=== PATIENT | female | born 1950 | race Caucasian/White ===

== ENCOUNTER → 2023-09-21 | Outpatient (CLI) | payer MEDICARE, OTHER, SELFPAY ==
--- NOTE | 2023-09-21 08:50 | ECHOCS_ITS ---
Reason For Study: A. fib Procedure This was a 2D Doppler, Color Flow transthoracic echocardiogram. The study was technically difficult. Exam performed in department. Left Ventricle Normal LV size. Left ventricular systolic function is normal. The estimated ejection fraction is 65 %. No regional wall motion abnormalities noted. Right Ventricle Normal RV size. Normal systolic function. Atria The left atrium is moderately enlarged. Normal right atrium. Mitral Valve Normal mitral valve. Mild (1+) mitral valve insufficiency. Tricuspid Valve Normal tricuspid valve. Mild (1+) tricuspid valve insufficiency. Pulmonary artery systolic pressure is 43 mmHg. Aortic Valve Trisinus/trileaflet aortic valve. Mild focal aortic valve calcification. Mild (1+) aortic valve insufficiency. Pulmonic Valve The pulmonic valve is not well visualized. Great Vessels Normal aortic root. The pulmonary artery is normal size. Inferior vena cava collapse with respiration. Pericardium/Pleural No pericardial effusion. Medication Diluted definity 2.0ml given slow IV push to enhance endocardial definition. MMode/2D Measurements & Calculations LVIDd: 3.5 cm IVSd: 0.89 cm LVOT diam: 1.9 cm LVIDs: 2.0 cm LVPWd: 1.0 cm RVDd: 3.5 cm FS: 41.8 % LVOT area: 2.8 cm2 Ao root diam: 3.4 cm LAV(MOD-sp2): 61.0 ml LVAd ap4: 29.4 cm2 LVLd ap4: 6.8 cm EDV(MOD-sp4): 99.5 ml EDV(sp4-el): 108.2 ml LA dimension(2D): 4.2 cm LA A4 area: 29.3 cm2 RA A4 area: 13.7 cm2 TAPSE: 2.0 cm Time Measurements MV dec time: 0.19 sec Doppler Measurements & Calculations MV E max sourav: 139.0 cm/sec Lat Peak E' Sourav: 12.2 cm/sec Med Peak E' Sourav: 7.3 cm/sec E/E' lat: 11.4 E/E' med: 19.1 Ao V2 max: 130.2 cm/sec AI max sourav: 401.5 cm/sec LV V1 max: 105.9 cm/sec Ao max P.8 mmHg AI max P.5 mmHg LV V1 max P.5 mmHg Ao V2 mean: 93.3 cm/sec AI dec slope: 354.2 cm/sec2 LV V1 mean P.6 mmHg Ao mean P.9 mmHg AI P1/2t: 332.0 msec LV V1 mean: 78.1 cm/sec Ao V2 VTI: 31.3 cm LV V1 VTI: 24.9 cm AV (velocity ratio): 0.80 DERIAN(I,D): 2.2 cm2 DERIAN(V,D): 2.3 cm2 SV(LVOT): 69.3 ml PA V2 max: 94.1 cm/sec TR max sourav: 314.6 cm/sec PA max PG (full): 1.9 mmHg TR max P.6 mmHg RVSP(TR): 42.6 mmHg ECHO/Echo Complete W/ Contrast Interpretation Summary Normal LV size. Left ventricular systolic function is normal. The estimated ejection fraction is 65 %. Mild focal aortic valve calcification. Mild (1+) aortic valve insufficiency. Ordering Physician: Rudy Graves Referring Physician: Korey Cook Performed By: Samantha Rogel, DERICK
== END | disposition home or self-care (01) ==
LOC: CVS 08:49
PROVIDERS: PCP Preventive Medicine Occupational Medicine; Referring Provider Internal Medicine Cardiovascular Disease; Visit Provider Internal Medicine Cardiovascular Disease
DX: I48.21 Permanent atrial fibrillation (principal)
CPT/HCPCS: 93306; Q9957; A4216; C8929

== ENCOUNTER 2023-09-27 10:28 | Day surgery (SDC) | payer MEDICARE, OTHER, SELFPAY ==
--- NOTE | 2023-09-22 14:26 | PCM.HP.BLA ---
History and Physical Date of Admission: 09/27/23 73-year-old lady with a history of atrial fibrillation which appears to be permanent, dyspnea on exertion, and hypertension. She says that she underwent a cardiac catheterization in December 2021 at [facility] and was Denisse which demonstrated mild nonobstructive coronary artery disease with a diagonal vessel with 45 to 50% stenosis. She also has a history of hyperlipidemia. She recently moved to the area because her . She denies any neck arm or jaw discomfort suggest angina no dizziness or diaphoresis no near syncope or syncope. She does have shortness of breath with exertion. Her physical exam here today demonstrates clear lung shi irregular rate and rhythm and no pedal edema. Her electrocardiogram demonstrates atrial fibrillation with a rate of 77 bpm. She is concerned that she has been left in atrial fibrillation for over 4 years. She has not had any previous attempts at jain of sinus rhythm. She underwent an echocardiogram September 24, 2023 which demonstrated an ejection fraction of 65%. Left atrium moderately enlarged. Normal right atrium. She is scheduled today to undergo a cardioversion. Medical History Atrial fibrillation, permanent Dyspnea Essential (primary) hypertension GERD (gastroesophageal reflux disease) Hyperlipidemia Hypothyroid Insomnia Vitamin D deficiency Surgical History History of carpal tunnel release S/P complete thyroidectomy S/P extracapsular cataract extraction Status post complete repair of rotator cuff Family History Father Hypertension Mother Hypertension Social History Smoking Status: Never smoker alcohol intake: never substance use type: does not use ROS Const Const: Positive for fatigue and difficulty sleeping (problems staying asleep); Negative for weakness, headache(s) or daytime sleepiness Eyes Eyes: Negative for change in vision ENT ENT: Negative for headache(s), dizziness or Nosebleed/epistaxis Cardio Chest Pain: No Palpitations: Yes (fluttering) Edema: None Resp Respiratory: Positive for SOB with activity (with minimal exertion); Negative for SOB at rest, SOB orthopnea\SOB lying down or Cough GI GI: Positive for heartburn; Negative nausea or vomiting Neuro Neuro: Negative for dizziness, lightheadedness, near syncope, headache(s) or weakness Endo Endo: Positive for fatigue Cardiology Exam Const Appearance: cooperative, healthy appearing, no acute distress, well developed and well groomed Nutritional Appearance: average body habitus and well nourished Orientation: alert, awake and oriented x3 Head Head: normal to inspection, normocephalic and atraumatic Ears: hearing grossly normal bilaterally and external ears normal Nose: external nose normal, nares normal, nasal mucous membranes and turbinates normal, septum normal and no nasal discharge Face and Sinus: face symmetric Mouth: oral mucosae normal, tongue normal, oropharynx normal and moist mucous membranes Teeth and gingiva: dentition normal Throat: posterior oropharynx normal, tonsils normal and uvula midline Eyes General: appearance normal, both eyes and all related structures Eyelids: eyelids normal Conjunctivae: conjunctivae normal Pupils: PERRL, normal by confrontation and accommodation normal EOM: EOM intact bilaterally Neck Neck: normal visual inspection, trachea midline and no JVD JVD: +5 Carotids: normal carotid upstroke and bounding pulses Chest Chest inspection: normal inspection of the chest, symmetric chest movement and normal respiratory effort Auscultation: Bilateral: Clear to Auscultation Cardio Palpation: normal PMI Rhythm: irregularly irregular Heart sounds: S1 normal, S2 normal and normal, physiologic split S2; Negative rub, gallop or murmur GI GI: normal to inspection, soft, no hepatosplenomegaly and bowel sounds present Neuro General: patient alert, patient awake, patient oriented x3, gait normal, moves all extremities and no focal sensory deficit Skin Skin: no rashes or lesions noted Extremities Pulses: Normal: Right Femoral Pulse, Left Femoral Pulse, Right Dorsalis Pedis Pulse, Left Dorsalis Pedis Pulse, Right Posterior Tibial Pulse, Left Posterior Tibial Pulse, Right Radial Pulse and Left Radial Pulse Lower Extremity Edema: None: Bilateral Musculoskel Musculoskeletal: No joint tenderness Psych Psychological: normal affect Assessment & Plan Assessment/Plan (1) Atrial fibrillation, permanent: (2) Essential (primary) hypertension: (3) Hyperlipidemia: PLAN: Plan Patient is scheduled to undergo a cardioversion today. Follow-up will be based upon findings.
[2023-09-26 08:55] VITALS: BMI 42.8
[2023-09-26 12:41] LABS: International Normalized Ratio 1.3; Prothrombin Time (Protime)PT. 15.8 SECONDS (11.7-14.9)
[2023-09-26 13:13] LABS: Anion Gap 9 (5-15); BUN 22 mg/dL (7-18); BUN/Creat Ratio 20.8 RATIO (10-20); Calcium,Total 9.5 mg/dL (8.5-10.1); Chloride 99 mmol/L (98-107); Creatinine, Serum 1.06 mg/dL (0.55-1.02); EST Glomerular Filtration Rate 54 mL/min (>60); Est Glom Filt Rate - Afr Amer 65 mL/min (>60); Estimated Creatinine Clearance 47.99 ml/min; Glucose 138 mg/dL (74-106); Potassium 4.5 mmol/L (3.5-5.1); Sodium Level 135 mmol/L (136-145)
--- NOTE | 2023-09-27 12:05 | PRO.PCM_ITS ---
Procedure Report Date of Procedure: 09/27/23 DC cardioversion. 73-year-old lady with a history of atrial fibrillation which is thought to be permanent. Patient has been on therapeutic anticoagulation for minimum of 4 weeks. The patient was brought to cardiac catheterization lab in the postabsorptive nonsedated state. Informed consent was obtained. Anterior- posterior pads were applied. The patient was administered 40 mg of intravenous propofol and 200 J of biphasic DC cardioversion energy were applied with prompt reversal to sinus rhythm. Patient tolerated the procedure well. Conclusion: Successful DC cardioversion from atrial fibrillation to sinus rhythm. Continue as per office protocol.
--- NOTE | 2023-09-27 13:56 | PRO.PCM_ITS ---
Procedure Report Date of Procedure: 09/27/23 CONSCIOUS SEDATION REPORT BRIEF HISTORY OF PRESENT ILLNESS: The patient is a 73-year-old female who presented to [facility] for an elective outpatient cardioversion due to underlying atrial fibrillation. The patient reports no PO intake since midnight, but is currently therapeutic on anticoagulation. The patient does not have a history of NATACHA, but does snore. The patient reports no history of smoking or COPD. The patient denies any recent constitutional symptoms such as fevers, chills, nausea or vomiting. The patient denies previous applicable anesthetic complications. Patient's last known ejection fraction was 65%. PHYSICAL EXAMINATION: VITAL SIGNS: Reviewed and were acceptable. GENERAL: The patient is a female, in no apparent distress, speaking in full sentences. HEENT: Normocephalic, atraumatic. Mucous membranes are moist and pink. Good mouth opening noted. Trachea is midline. Good neck mobility. MP III. Patient was edentulous CHEST: S1, S2 irregularly irregular. No murmurs, rubs or gallops were noted. LUNGS: Clear to auscultation bilaterally without appreciable wheezes, rales or rhonchi. ABDOMEN: Soft, nontender, nondistended. Positive bowel sounds. EXTREMITIES: There is no clubbing, cyanosis or edema. ASA Class: II DESCRIPTION OF PROCEDURE: After confirmation of informed consent, the patient's anesthesia plan was reviewed in detail. Propofol was chosen. Risks and benefits were reviewed and the patient agreed to proceed. At 12 PM, the patient was given 40 mg of propofol. The patient achieved an appropriate level of sedation and received 1 attempt synchronized cardioversion, at [address] Graves at the bedside. This was successful in achieving normal sinus rhythm. The patient was monitored until 12:14 PM, at which time the patient reached their baseline mental status and function. The patient tolerated the procedure well. COMPLICATIONS: None ESTIMATED BLOOD LOSS: None RECOMMENDATIONS: Okay to recover in usual fashion. Procedures Pulmonary 9xxxx: [id number] Con Sedation
== END 2023-09-27 13:08 | disposition home or self-care (01) ==
LOC: CLSP 10:31
PROVIDERS: PCP Preventive Medicine Occupational Medicine; Referring Provider Internal Medicine Cardiovascular Disease; Visit Provider Internal Medicine Cardiovascular Disease
DX: I48.21 Permanent atrial fibrillation (principal); E78.5 Hyperlipidemia, unspecified; I10 Essential (primary) hypertension; K21.9 Gastro-esophageal reflux disease without esophagitis; E03.9 Hypothyroidism, unspecified; Z82.49 Family history of ischemic heart disease and other diseases of the circulatory system
CPT/HCPCS: 36415; 80048; 85610; 92960; 93005; J7040

== ENCOUNTER 2023-10-07 21:18 | Emergency (ER) | payer MEDICARE, OTHER, SELFPAY ==
[2023-10-07] VITALS (8 sets, daily range): BP systolic 154–205; BP diastolic 64–89; PULSE 59–73; RESP 13–24; TEMP 36.2–36.6; O2SAT 95–98; BMI 43.9
--- NOTE | 2023-10-07 21:40 | RAD_ITS ---
INDICATION: dyspnea EXAMINATION/TECHNIQUE: X-RAY - XR Chest 1 View COMPARISON: No relevant prior comparison study available FINDINGS: LINES/DEVICES: None. LUNGS: No consolidation, edema or effusion. No pneumothorax. MEDIASTINUM AND CARDIOVASCULAR STRUCTURES: Cardiac silhouette is moderately enlarged enlarged. Central airways and mediastinal contour are unremarkable. BONES AND SOFT TISSUES: There is small hiatal hernia. RAD/Chest 1 View (Portable) IMPRESSION: Moderate cardiomegaly. Electronically Signed: Elizabeth Keys MD at 22:17 EDT ,
[2023-10-07 21:56] LABS: Absolute Lymphocyte Count 1.52 X10^3/uL (0.83-4.51); Absolute Neutrophil Count 5.2 X10^3/uL (2.0-7.7); Basophil# 0.07 X10^3/uL; Basophil% 0.8 % (0-1); Eosinophil# 0.36 X10^3/uL; Eosinophils% 4.3 % (0-5); Hematocrit 38.7 % (37-47); Hemoglobin 12.7 g/dL (12.0-15.0); Lymphocyte # 1.52 X10^3/ul (0.83-4.51); Lymphocyte % 18.3 % (19-41); Mean Corp Hgb Conc 32.8 g/dL (32-36); Mean Corpuscular Hgb 32.5 pg (27.0-32.0); Mean Platelet Vol. 10.1 fl (6.2-12.0); Monocyte# 1.16 X10^3/uL; NRBC Flagged by Analyzer 0 % (0-5); Neutrophil # 5.15 X10^3/uL (2.7-7.7); Neutrophil % 62.2 % (47-70); Platelet Count 248 K/mm3 (150-450); RBC Distribution Width CV 12.6 % (11.6-14.6); RBC Distribution Width SD 45.3 fl (35.1-43.9); Red Blood Count 3.91 M/mm3 (4.2-5.4); White Blood Count 8.3 K/mm3 (4.4-11.0)
[2023-10-07 22:10] LABS: BNP,B-Type NATRIURETIC PEPTIDE 278.9 pg/mL (0-100)
[2023-10-07 22:12] LABS: Anion Gap 6 (5-15); BUN 31 mg/dL (7-18); BUN/Creat Ratio 25.8 RATIO (10-20); Calcium,Total 9.3 mg/dL (8.5-10.1); Chloride 103 mmol/L (98-107); EST Glomerular Filtration Rate 47 mL/min (>60); Est Glom Filt Rate - Afr Amer 57 mL/min (>60); Estimated Creatinine Clearance 43.17 ml/min; Glucose 134 mg/dL (74-106); Potassium 3.9 mmol/L (3.5-5.1); Sodium Level 136 mmol/L (136-145); Troponin-I HS 14 pg/mL (3.0-54.0)
--- NOTE | 2023-10-07 22:12 | EDS_ITS ---
HPI History of Present Illness Chief Complaint: Shortness of Breath Informant: patient and family Onset/Context/Timing Onset: Days Context: gradual Timing: Intermittent Current Severity: Mild Maximum Severity: Mild Worsened by: Exertion Relieved by: Nothing Associated Symptoms Chest Pain: Positive for None Narrative Narrative: 73-year-old female history of A-fib had been cardioverted and has not been back in it. She is on Eliquis. Also was on blood pressure medication. Says for the last week and a half or so she has been short of breath. Denies chest pain. Denies fever. Denies vomiting or diarrhea. No black or bloody stools. PE Risk Factors: Negative for Cancer, OCP + Smoking + > 35, Prior DVT or PE, Recent immobilization, Recent surgery or Recent travel Prior similar symptoms: No Recent Illness/Hospitalization: No [facility] Medical History Atrial fibrillation, permanent Dyspnea Essential (primary) hypertension GERD (gastroesophageal reflux disease) Hyperlipidemia Hypothyroid Insomnia Vitamin D deficiency Home Medications apixaban 5 mg tablet (Eliquis) 5 mg PO BID 07/25/23 [History Last Taken 09/27/23] aspirin 81 mg tablet,delayed release (Adult Aspirin Regimen) 81 mg PO DAILY 07/25/23 [History Last Taken 09/27/23] atorvastatin 20 mg tablet 20 mg PO DAILY 07/25/23 [History Last Taken Unknown] cholecalciferol (vitamin D3) 100 mcg (4,000 unit) tablet 200 mcg PO DAILY 07/25/23 [History Last Taken Unknown] cyanocobalamin (vitamin B-12) 1,000 mcg capsule 1,000 mcg PO QMONTH 07/25/23 [History Last Taken Unknown] furosemide 20 mg tablet 40 mg PO DAILY 07/25/23 [History Last Taken 10/07/23] levothyroxine 100 mcg capsule 100 mcg PO DAILY 07/25/23 [History Last Taken 09/27/23] lisinopril 40 mg tablet 40 mg PO DAILY 07/25/23 [History Last Taken 09/27/23] nitroglycerin 0.3 mg sublingual tablet 0.3 mg sublingual Q5M PRN chest pain 07/25/23 [History Last Taken Unknown] pantoprazole 40 mg tablet,delayed release 40 mg PO DAILY 07/25/23 [History Last Taken 09/27/23] metoprolol succinate 50 mg tablet,extended release 24 hr 25 mg PO DAILY 10/06/23 [History Last Taken Unknown] albuterol sulfate 90 mcg/actuation aerosol inhaler (Proventil HFA) 2 inh inhalation Q4H PRN shortness of breath or wheezing #6.7 grams 10/08/23 [Rx Last Taken Unknown] Allergy/AdvReac Type Severity Reaction Status Date / Time alendronate sodium AdvReac Severe A FIB Verified 08/24/23 10:25 amlodipine [From Norvasc] AdvReac Severe edema Verified 08/24/23 10:25 celecoxib [From Celebrex] AdvReac Severe Dizziness Verified 08/24/23 10:25 hydrochlorothiazide AdvReac Severe chest pain Verified 08/24/23 10:25 Family History Father Hypertension Mother Hypertension Surgical History History of cardioversion (09/27/23) History of carpal tunnel release S/P complete thyroidectomy S/P extracapsular cataract extraction Status post complete repair of rotator cuff Social History Smoking Status: Never smoker alcohol intake: never substance use type: does not use ROS ROS ED ROS Narrative Shortness of breath. Review of Systems ROS Unobtainable: Denies due to encephalopathy Constitutional Constitutional ED: Denies chills or fever(s) Eyes Eyes: Denies blurry vision ENT ENT ED: Denies ear pain Cardiovascular Cardiovascular: Denies chest pain or palpitations Respiratory/Chest Respiratory/Chest: Reports dyspnea; Denies cough Gastrointestinal Gastrointestinal: Denies abdominal pain, diarrhea, melena, nausea or vomiting Genitourinary Genitourinary ED: Denies dysuria or hematuria Musculoskeletal Musculoskeletal: Denies arthralgias or back pain Integumentary Denies abscess or Abrasions Neurologic Neurologic: Denies headache(s) Psychiatric Psychiatric: Denies anxiety or depression Endocrine Endocrinology: Denies cold intolerance Hematologic/Lymphatic Hematologic/Lymphatic: Denies easy bleeding, easy bruising or lymphadenopathy Allergic/Immunologic Allergic/Immunologic ED: Denies mouth swelling, tongue swelling or urticaria EXAM Physical Exam Narrative Exam Narrative: Well-appearing 73-year-old female. Vital signs stable afebrile. Pulse ox 96% on room air no hypoxia. Initial blood pressure 205/64. H EENT exam unremarkable. Neck nontender no JVD. No lymphadenopathy. Lungs clear to auscultation bilaterally. Heart regular rhythm rate about 60 no murmur. Abdomen soft nontender. Moving all 4 extremities. Calves are nontender without edema or cords. 5 out of 5 utilization review specialist strength. Dorsi plantarflexion intact. Neurologically she is awake and alert no focal motor deficits. Const Vital Signs: 10/07/23 21:19 10/07/23 21:39 10/07/23 21:42 Temperature 97.5 F L 97.2 F L Temperature Source Temporal Oral Pulse Rate 73 61 Respiratory Rate 20 H 18 Respiratory Effort Normal Short of Breath Respiratory Depth Shallow Respiratory Pattern Normal Blood Pressure 205/64 H 197/68 H Blood Pressure Mean 111 111 Pulse Ox 96 97 Oxygen Delivery Method Room Air Room Air Room Air 10/07/23 22:16 10/07/23 22:21 10/07/23 22:29 Temperature 97.4 F L 97.9 F Temperature Source Oral Pulse Rate 59 L 65 60 Respiratory Rate 20 H 13 19 H Respiratory Effort Respiratory Depth Respiratory Pattern Blood Pressure 154/66 H 154/66 H 174/89 H Blood Pressure Mean 95 95 117 Pulse Ox 95 97 98 Oxygen Delivery Method Room Air Room Air 10/07/23 23:00 10/08/23 00:16 Temperature 97.7 F L 98.4 F Temperature Source Temporal Oral Pulse Rate 60 62 Respiratory Rate 24 H 16 Respiratory Effort Respiratory Depth Respiratory Pattern Blood Pressure 174/86 H 159/62 H Blood Pressure Mean 115 94 Pulse Ox 95 95 Oxygen Delivery Method Room Air Room Air Positive well nourished and well developed; Negative for cachectic, contractures or unkempt General Appearance ED: well developed and NAD; Negative for unkempt, cachectic, contractures or pallor Nutritional Appearance: Negative for cachectic HEENT Reports moist mucous membranes; Denies dry mucous membranes atraumatic; Negative for trauma or tenderness Mouth ED: No dry mucous membranes Mouth: No dry mucous membranes Eyes PERRL and EOMs intact bilaterally General Eye ED: Negative for pale conjunctiva or scleral icterus Neck no lymphadenopathy, supple, no meningeal signs and no JVD General: Negative for tenderness Lymph Lymphatic: Negative for other Chest Wall Chest: Negative for other Resp normal respiratory effort and clear to auscultation bilaterally Effort and Inspection: Negative for pain with movement Auscultation: Negative for rales, rhonchi or wheezes Cardio regular rate, regular rhythm, S1 normal heart sound, S2 normal heart sound and no murmurs Rate: Negative for bradycardia or tachycardic Rhythm: Negative for abnormal rhythm GI non-tender, non-distended and no masses Inspection: Negative for other Auscultation: normoactive bowel sounds Palpation: soft; Negative for tender, guarding or rebound tenderness present Back/Spine no CVA tenderness and normal to inspection General Back: Negative for CVA tenderness or tenderness Extremity normal to inspection General Extremety ED: Negative for edema or tenderness General Extremity: Negative for edema Neuro oriented x3 and CN's II-XII intact bilaterally Sensorium / Orientation: alert, oriented to person, oriented to place and oriented to time; Negative for orientation impaired, confused, lethargic or stuporous Speech: speech normal Motor Exam: strength 5/5 throughout Psych mental status grossly normal Appearance: Negative for unkempt Attitude: No agitated and No other Mood & Affect: Negative for depressed Thought Process: normal thought process Skin no wounds General Skin Exam: Negative for jaundice or pallor Lesions: no lesions Rashes: no rashes Trauma: Negative for abrasion or laceration MDM MDM MDM Narrative Medical decision making narrative: 73-year-old female with shortness of breath. Benign exam. No leg swelling. No rales. Cardiac workup with a chest x-ray. I added COVID test also. Repeat exam at 12:20 PM unchanged. Lungs are clear. I went over all test results with patient and family. We really do not have anything new admitted to the hospital for at this time. Will ambulate her and see how her breathing does and her pulse ox does on room air. Nurses ambulated the patient 2 different times. Subjectively she feels short of breath but her pulse ox stays in the mid 90s around 94%. She had a recent echocardiogram last month that showed an EF of 65%. She will be discharged home with outpatient follow-up. Repeat exam patient doing well at 12:45 a.m. [facility] is here to transfer the patient to [facility]. On a nicardipine drip her pressure is 120/78. Patient is awake and alert. History & Record Review Discussion w/independent historian: Patient Additional record(s) reviewed:: Prior inpatient record, Prior outpatient record, Prior ED visit and Prior labs Lab Data Attestation: I reviewed the patient's lab results. Lab results narrative: CBC shows a white count 8.3. H&H 12.7 and 38. Platelets 248. BNP is 278. Troponin normal at 14. Chemistries show gap 6. BUN 31 creatinine 1.2. Glucose 134. Labs: Laboratory Results - last 24 hr 10/07/23 21:39 WBC 8.3 RBC 3.91 L Hgb 12.7 Hct 38.7 MCV 99.0 MCH 32.5 H MCHC 32.8 RDW Std Deviation 45.3 H RDW Coeff of Patricio 12.6 Plt Count 248 MPV 10.1 Immature Gran % (Auto) 0.400 Neut % (Auto) 62.2 Lymph % (Auto) 18.3 L [place] % (Auto) 14.0 H Eos % (Auto) 4.3 Baso % (Auto) 0.8 Absolute Neuts (auto) 5.2 Absolute Lymphs (auto) 1.52 Nucleated RBC % 0 Sodium 136 Potassium 3.9 Chloride 103 Carbon Dioxide 27.0 Anion Gap 6 BUN 31 H Creatinine 1.20 H Estim Creat Clear Calc 43.17 Est GFR (MDRD) Af Amer 57 L Est GFR (MDRD) Non-Af 47 L BUN/Creatinine Ratio 25.8 H Glucose 134 H Calcium 9.3 Troponin I High Sens 14 B-Natriuretic Peptide 278.9 H Radiography Chest X-Ray - ED: 1 View, Read by ED Physician, Lungs, Mediastinum, Bony Structures, No Acute Disease, Chronic Changes and Cardiomegaly Diagnostic Testing: Clinical Impression(s) from Imaging Studies Chest X-Ray 10/07/23 21:40 IMPRESSION: Moderate cardiomegaly. Electronically Signed: Elizabeth Keys MD at 22:17 EDT Reading Location ID and State: [facility] / [place] Tel , Service support , Chest x-ray, portable, single view interpreted by myself shows no acute abnormality. Cardiomegaly. Normal lung shi. Rhythm Strip Rhythm Strip: Sinus Rhythm Rate: 59 Ectopy: None EKG Initial EKG: Attestation: I personally reviewed and interpreted this EKG as follows: Interpretation: Sinus Rhythm and No Acute Injury Pattern Comments: Sinus rhythm rate of 59. No acute signs of NC or ischemia. Discharge Plan Triage Chief Complaint: Shortness of Breath ED Provider: Paul Delong Dx/Rx/DC Orders Clinical Impression: Acute dyspnea, Chronic anticoagulation, History of atrial fibrillation Instructions: ED Dyspnea Prescriptions: New albuterol sulfate [Proventil HFA] 90 mcg/actuation HFA aerosol inhaler 2 inh inhalation Q4H PRN (Reason: shortness of breath or wheezing) Qty: 6.7 0RF No Action Eliquis 5 mg tablet 5 mg PO BID aspirin [Adult Aspirin Regimen] 81 mg tablet,delayed release (DR/EC) 81 mg PO DAILY atorvastatin 20 mg tablet 20 mg PO DAILY cholecalciferol (vitamin D3) 100 mcg (4,000 unit) tablet 200 mcg PO DAILY cyanocobalamin (vitamin B-12) 1,000 mcg capsule 1,000 mcg PO QMONTH furosemide 20 mg tablet 40 mg PO DAILY Patient Comments: Increase to 40mg for 5 days. Go back down to 20mg on 10/08/23 levothyroxine 100 mcg capsule 100 mcg PO DAILY lisinopril 40 mg tablet 40 mg PO DAILY nitroglycerin 0.3 mg tablet, sublingual 0.3 mg sublingual Q5M PRN (Reason: chest pain) Rx Instructions: do not exceed 3 doses per episode pantoprazole 40 mg tablet,delayed release (DR/EC) 40 mg PO DAILY metoprolol succinate 50 mg tablet extended release 24 hr 25 mg PO DAILY Primary Care Provider: Korey Cook Referrals: Korey Cook DO [Primary Care Provider] - Activity Restrictions/Additional Instructions: Follow-up with your primary care physician and your skirt maker. Your labs and chest x-ray tonight and EKG were basically unremarkable. You had an echocardiogram last month that showed a good ejection fraction. Disposition Disposition: Home, Self Care
[2023-10-08 00:16] VITALS: BP 159/62; PULSE 62; RESP 16; TEMP 36.9; O2SAT 95
[2023-10-08 00:29] VITALS: O2SAT 95
== END 2023-10-08 00:59 | disposition home or self-care (01) ==
PROVIDERS: Physician Assistant; Emergency Provider Emergency Medicine; PCP Preventive Medicine Occupational Medicine; Visit Provider Emergency Medicine
DX: R06.00 Dyspnea, unspecified (principal); I48.21 Permanent atrial fibrillation; Z79.01 Long term (current) use of anticoagulants; I10 Essential (primary) hypertension; Z79.899 Other long term (current) drug therapy; E78.5 Hyperlipidemia, unspecified; Z79.82 Long term (current) use of aspirin; E03.9 Hypothyroidism, unspecified; K21.9 Gastro-esophageal reflux disease without esophagitis
CPT/HCPCS: 71045; 80048; 83880; 84484; 85025; 87631; 93005; 99284; A4216

== ENCOUNTER → 2023-10-20 | Outpatient (CLI) | payer MEDICARE, OTHER, SELFPAY | END | disposition home or self-care (01) | LOC: PSN 10:23 | PROVIDERS: PCP Preventive Medicine Occupational Medicine; Referring Provider Nurse Practitioner Family; Visit Provider Nurse Practitioner Family | DX: R00.1 Bradycardia, unspecified (principal); I48.21 Permanent atrial fibrillation | CPT/HCPCS: 93225; 93226 ==

== ENCOUNTER → 2023-10-28 | Outpatient (CLI) | payer MEDICARE, OTHER, SELFPAY ==
[2023-10-28 16:22] LABS: Absolute Lymphocyte Count 1.77 X10^3/uL (0.83-4.51); Absolute Neutrophil Count 4.7 X10^3/uL (2.0-7.7); Basophil# 0.07 X10^3/uL; Basophil% 0.8 % (0-1); Eosinophil# 0.65 X10^3/uL; Eosinophils% 7.9 % (0-5); Hematocrit 36.9 % (37-47); Hemoglobin 12.2 g/dL (12.0-15.0); Lymphocyte # 1.77 X10^3/ul (0.83-4.51); Lymphocyte % 21.4 % (19-41); Mean Corp Hgb Conc 33.1 g/dL (32-36); Mean Corpuscular Hgb 32.5 pg (27.0-32.0); Mean Corpuscular Volume 98.4 fL (81-99); Mean Platelet Vol. 9.8 fl (6.2-12.0); Monocyte# 1.06 X10^3/uL; Monocyte% 12.8 % (0-10); NRBC Flagged by Analyzer 0 % (0-5); Neutrophil % 56.9 % (47-70); Platelet Count 262 K/mm3 (150-450); RBC Distribution Width CV 12.3 % (11.6-14.6); RBC Distribution Width SD 44.4 fl (35.1-43.9); Red Blood Count 3.75 M/mm3 (4.2-5.4); White Blood Count 8.3 K/mm3 (4.4-11.0)
[2023-10-28 16:41] LABS: Anion Gap 7 (5-15); BUN 19 mg/dL (7-18); BUN/Creat Ratio 18.4 RATIO (10-20); Chloride 103 mmol/L (98-107); Creatinine, Serum 1.03 mg/dL (0.55-1.02); EST Glomerular Filtration Rate 56 mL/min (>60); Est Glom Filt Rate - Afr Amer 67 mL/min (>60); Glucose 77 mg/dL (74-106); Potassium 3.3 mmol/L (3.5-5.1); Sodium Level 136 mmol/L (136-145)
[2023-10-28 16:43] LABS: BNP,B-Type NATRIURETIC PEPTIDE 262.8 pg/mL (0-100)
== END | disposition home or self-care (01) ==
LOC: LAB 15:43
PROVIDERS: PCP Preventive Medicine Occupational Medicine; Referring Provider Physician Assistant Medical; Visit Provider Physician Assistant Medical
DX: R06.00 Dyspnea, unspecified (principal); I48.21 Permanent atrial fibrillation; Z79.01 Long term (current) use of anticoagulants
CPT/HCPCS: 36415; 80048; 83880; 85025

== ENCOUNTER → 2023-11-02 | Outpatient (CLI) | payer MEDICARE, OTHER, SELFPAY ==
--- NOTE | 2023-11-02 18:52 | CT_ITS ---
STUDY: CTA CHEST REASON FOR EXAM: Female, 73 years old. Marked exertional dyspnea since DCCV RADIATION DOSAGE (If Supplied By Facility): CTDIvol = ( 11.41 ) mGy, DLP = ( 498.86 ) mGycm TECHNIQUE: The examination was performed with the intravenous administration of IV 100mL Isovue-370. Post-processing of the angiographic images was performed, with multiplanar reformation and 3D reconstruction. Individualized dose optimization techniques were used for this CT. COMPARISON: Comparison is made with prior chest radiograph dated October 07, 2023. FINDINGS: Normal enhancement of the main pulmonary artery and right and left pulmonary arteries. Normal enhancement of the bilateral peripheral pulmonary arteries. There is no demonstrated pulmonary embolism. Normal thoracic aorta and visualized great vessels. There is no demonstrated aortic dissection. There are calcifications of the coronary arteries. Normal mediastinum. Normal hilar regions. Normal visualized trachea and bronchi. The lungs are well expanded. Minimal groundglass appearance in the lower lobes. This may represent mild degree of scarring. Normal pleura. Normal chest wall structures. There are degenerative changes of thoracic spine. Moderate-sized hiatal hernia. CT/CTA Chest W/WO Contrast IMPRESSION: No evidence of pulmonary embolism. Mild degree of groundglass appearance in the lower lobes. This may represent scarring. Electronically Signed: Sanya Day MD at 15:12 EDT ,
== END | disposition home or self-care (01) ==
LOC: CT 18:43
PROVIDERS: PCP Preventive Medicine Occupational Medicine; Visit Provider Physician Assistant Medical
DX: I48.21 Permanent atrial fibrillation (principal); R06.02 Shortness of breath
CPT/HCPCS: 71275; Q9967

== ENCOUNTER → 2023-11-18 | Outpatient (CLI) | payer MEDICARE, OTHER, SELFPAY ==
[2023-11-18 12:09] LABS: Anion Gap 7 (5-15); BUN 77 mg/dL (7-18); BUN/Creat Ratio 33.9 RATIO (10-20); Calcium,Total 9.5 mg/dL (8.5-10.1); Chloride 104 mmol/L (98-107); Creatinine, Serum 2.27 mg/dL (0.55-1.02); EST Glomerular Filtration Rate 22 mL/min (>60); Est Glom Filt Rate - Afr Amer 27 mL/min (>60); Glucose 115 mg/dL (74-106); Potassium 5.1 mmol/L (3.5-5.1); Sodium Level 135 mmol/L (136-145)
== END | disposition home or self-care (01) ==
LOC: LAB 11:24
PROVIDERS: PCP Preventive Medicine Occupational Medicine; Referring Provider Physician Assistant Medical; Visit Provider Physician Assistant Medical
DX: R06.02 Shortness of breath (principal)
CPT/HCPCS: 36415; 80048

== ENCOUNTER → 2023-11-24 | Outpatient (CLI) | payer MEDICARE, OTHER, SELFPAY ==
[2023-11-24 11:53] LABS: Anion Gap 7 (5-15); BUN 32 mg/dL (7-18); BUN/Creat Ratio 25.8 RATIO (10-20); Calcium,Total 9.1 mg/dL (8.5-10.1); Chloride 110 mmol/L (98-107); Creatinine, Serum 1.24 mg/dL (0.55-1.02); EST Glomerular Filtration Rate 45 mL/min (>60); Est Glom Filt Rate - Afr Amer 54 mL/min (>60); Glucose 128 mg/dL (74-106); Potassium 4.3 mmol/L (3.5-5.1); Sodium Level 138 mmol/L (136-145)
== END | disposition home or self-care (01) ==
PROVIDERS: PCP Preventive Medicine Occupational Medicine; Referring Provider Physician Assistant Medical; Visit Provider Physician Assistant Medical
DX: R06.02 Shortness of breath (principal)
CPT/HCPCS: 36415; 80048; 94060; 94726; 94729

== ENCOUNTER → 2023-11-30 | Outpatient (CLI) | payer MEDICARE, OTHER, SELFPAY | END | disposition home or self-care (01) | LOC: SL 20:22 | PROVIDERS: PCP Preventive Medicine Occupational Medicine; Referring Provider Physician Assistant Medical; Visit Provider Physician Assistant Medical | DX: G47.33 Obstructive sleep apnea (adult) (pediatric) (principal) | CPT/HCPCS: 95810 ==

== ENCOUNTER → 2023-12-14 | Outpatient (CLI) | payer MEDICARE, OTHER, SELFPAY ==
[2023-12-14 12:08] LABS: Anion Gap 8 (5-15); BUN 20 mg/dL (7-18); BUN/Creat Ratio 18.2 RATIO (10-20); Calcium,Total 9.8 mg/dL (8.5-10.1); Chloride 98 mmol/L (98-107); EST Glomerular Filtration Rate 52 mL/min (>60); Est Glom Filt Rate - Afr Amer 63 mL/min (>60); Glucose 145 mg/dL (74-106); Potassium 4.4 mmol/L (3.5-5.1); Sodium Level 132 mmol/L (136-145)
== END | disposition home or self-care (01) ==
LOC: LAB 10:13
PROVIDERS: PCP Preventive Medicine Occupational Medicine; Visit Provider Physician Assistant Medical
DX: I48.0 Paroxysmal atrial fibrillation (principal); R06.02 Shortness of breath; Z51.81 Encounter for therapeutic drug level monitoring; Z79.899 Other long term (current) drug therapy
CPT/HCPCS: 36415; 80048

== ENCOUNTER → 2023-12-30 | Outpatient (CLI) | payer MEDICARE, OTHER, SELFPAY | END | disposition home or self-care (01) | LOC: SL 19:53 | PROVIDERS: PCP Preventive Medicine Occupational Medicine; Referring Provider Nurse Practitioner Acute Care; Visit Provider Nurse Practitioner Acute Care | DX: G47.30 Sleep apnea, unspecified (principal) | CPT/HCPCS: 95811 ==

== ENCOUNTER → 2024-01-02 | Outpatient (CLI) | payer MEDICARE, OTHER, SELFPAY ==
[2024-01-02 12:41] VITALS: PULSE 75; PULSE 79; PULSE 84; PULSE 88; PULSE 92; PULSE 93; PULSE 95; O2SAT 100; O2SAT 96; O2SAT 97; O2SAT 98; O2SAT 99
--- NOTE | 2024-01-02 12:42 | CPS ---
Patient took a very brief break of less than 10 seconds during the third minute of walking. Patient had audible wheezing that started about the third minute as well and lasted until she rested, after testing.
[2024-01-02 12:52] LABS: Anion Gap 8 (5-15); BUN 19 mg/dL (7-18); BUN/Creat Ratio 18.4 RATIO (10-20); Calcium,Total 9.2 mg/dL (8.5-10.1); Chloride 101 mmol/L (98-107); Creatinine, Serum 1.03 mg/dL (0.55-1.02); EST Glomerular Filtration Rate 56 mL/min (>60); Est Glom Filt Rate - Afr Amer 67 mL/min (>60); Estimated Creatinine Clearance 48.55 ml/min; Glucose 147 mg/dL (74-106); Potassium 4.1 mmol/L (3.5-5.1); Sodium Level 132 mmol/L (136-145)
--- NOTE | 2024-01-04 09:37 | WT_ITS ---
PSN 6 Minute Walk Test 6 Minute Walk Test 6 Minute Walk Test: 6 Minute Walk Test PSN:6-Minute Walk Test Start: 01/02/24 12:40 Freq: Status: Active Protocol: [id number] Document 01/02/24 12:41 LUCASOTONIEL (Rec: 01/02/24 12:45 KAMRAN [id number]) 6 Minute Walk Test Date Performed 01/02/24 Time Performed 12:30 Height 4 ft 10 in Weight: 198 lb Weight in Pounds 198.[address]: Cristina Brizuela [employer] Assistive device used: None Pre-test Oxygen Delivery Method Room Air Pulse Ox (%) 99 Pulse Rate (60-100 beats/min) 75 Dyspnea Nikki Scale (0-10) 0.5 Exertion Nikki Scale (6-20) 6 1st minute Oxygen Delivery Method Room Air Pulse Ox (%) 98 Pulse Rate (60-100 beats/min) 84 2nd minute Oxygen Delivery Method Room Air Pulse Ox (%) 99 Pulse Rate (60-100 beats/min) 88 3rd minute Oxygen Delivery Method Room Air Pulse Ox (%) 96 Pulse Rate (60-100 beats/min) 93 Number of Rests Taken 1 4th minute Oxygen Delivery Method Room Air Pulse Ox (%) 97 Pulse Rate (60-100 beats/min) 92 5th minute Oxygen Delivery Method Room Air Pulse Ox (%) 98 Pulse Rate (60-100 beats/min) 92 6th minute Oxygen Delivery Method Room Air Pulse Ox (%) 100 Pulse Rate (60-100 beats/min) 95 Dyspnea Nikki Scale (0-10) 4 Exertion Nikki Scale (6-20) 13 Post-test Oxygen Delivery Method Room Air Pulse Ox (%) 99 Pulse Rate (60-100 beats/min) 79 Full Laps Walked 13 Partial Lap, Number of Tiles Walked 12 Total Distance Walked (ft) 779 01/02/24 12:42 Cardiopulmonary Services by Lesley Sánchez Patient took a very brief break of less than 10 seconds during the third minute of walking. Patient had audible wheezing that started about the third minute as well and lasted until she rested, after testing. Initialized on 01/02/24 12:42 - END OF NOTE Interpretation Interpretation: The patient ambulated 779 feet over the course of 6 minutes beginning on room air without assistive devices. Pretesting oxygen saturation was noted to be 99% on room air. With ambulation, the dominga oxygen saturation was 96%. There was no significant exertional oxygen desaturation. Recommendations Recommendations: There is no indication for the use of supplemental oxygen at this time.
== END | disposition home or self-care (01) ==
PROVIDERS: Nurse Practitioner Gerontology; PCP Preventive Medicine Occupational Medicine; Referring Provider Nurse Practitioner Acute Care; Visit Provider Nurse Practitioner Acute Care
DX: E87.1 Hypo-osmolality and hyponatremia (principal); R06.02 Shortness of breath; Z51.81 Encounter for therapeutic drug level monitoring; Z79.899 Other long term (current) drug therapy
CPT/HCPCS: 36415; 80048; 94618

== ENCOUNTER 2024-04-02 10:23 | Day surgery (SDC) | payer MEDICARE, OTHER, SELFPAY ==
[2024-03-21 11:50] LABS: Anion Gap 9 (5-15); BUN 20 mg/dL (7-18); BUN/Creat Ratio 18.2 RATIO (10-20); Calcium,Total 9.3 mg/dL (8.5-10.1); Chloride 99 mmol/L (98-107); EST Glomerular Filtration Rate 52 mL/min (>60); Est Glom Filt Rate - Afr Amer 62 mL/min (>60); Glucose 121 mg/dL (74-106); Potassium 3.9 mmol/L (3.5-5.1); Sodium Level 134 mmol/L (136-145)
[2024-03-30 10:05] VITALS: BMI 42.6
--- NOTE | 2024-04-02 12:32 | PCM.OP.PRO ---
Procedure Report Date of Procedure: 04/02/24 DC cardioversion. 74-year-old lady with a history of atrial fibrillation chronic persistent. Patient had been on anticoagulation uninterrupted for at least 4 weeks patient was brought to cardiac catheterization lab in the postabsorptive nonsedated state. Informed consent was obtained. Patient was seen by Dr. Riley of the critical care division. Anterior-posterior pads were applied. 40 mg of intravenous propofol was administered and 200 J of synchronized biphasic DC cardioversion energy were applied with prompt reversal to sinus rhythm. Patient tolerated the procedure well. Conclusion: Successful DC cardioversion from atrial fibrillation to sinus rhythm. Follow-up as per office protocol.
--- NOTE | 2024-04-02 12:35 | PCM.OP.PRO ---
Procedure Report Date of Procedure: 04/02/24 CONSCIOUS SEDATION REPORT DATE OF SERVICE: April 02, 2024 BRIEF HISTORY OF PRESENT ILLNESS: The patient is a 74-year-old female who presented to [facility] for an elective outpatient cardioversion due to underlying atrial fibrillation. The patient did undergo a prior cardioversion in September 2023, during which time, she required 40 mg of propofol to achieve an appropriate level of sedation. The patient denied a history of smoking or COPD. She is systemically anticoagulated on Eliquis, without any recent missed doses. Her last surface echocardiogram demonstrated an ejection fraction of approximately 65%. The patient denied any prior anesthetic complications. PHYSICAL EXAMINATION: VITAL SIGNS: Reviewed and were acceptable. GENERAL: The patient is an obese female, in no apparent distress, speaking in full sentences. HEENT: Normocephalic, atraumatic. Mucous membranes are moist and pink. Good mouth opening noted. Trachea is midline. CHEST: S1, S2 irregularly irregular. No murmurs, rubs or gallops were noted. LUNGS: Clear to auscultation bilaterally without appreciable wheezes, rales or rhonchi. ABDOMEN: Soft, nontender, nondistended. Positive bowel sounds. EXTREMITIES: There is no clubbing, cyanosis or edema. ASA Class: II DESCRIPTION OF PROCEDURE: After confirmation of informed consent, the patient's anesthesia plan was reviewed in detail. Propofol was chosen. Risks and benefits were reviewed and the patient agreed to proceed. At 1216, the patient was given 40 mg of propofol. The patient achieved an appropriate level of sedation and was given a 200 joule synchronized cardioversion by Dr. Graves at the bedside. This was successful in achieving normal sinus rhythm. The patient was monitored until 1230, at which time she reached her baseline mental status and function. The patient tolerated the procedure well. COMPLICATIONS: None ESTIMATED BLOOD LOSS: None RECOMMENDATIONS: Okay to recover in usual fashion. Procedures Pulmonary Pulmonary Procedures /Diagnostic Testin Con Sedation
== END 2024-04-02 13:20 | disposition home or self-care (01) ==
PROVIDERS: Physician Assistant Medical; PCP Preventive Medicine Occupational Medicine; Referring Provider Internal Medicine Cardiovascular Disease; Visit Provider Internal Medicine Cardiovascular Disease
DX: I48.19 Other persistent atrial fibrillation (principal); I27.20 Pulmonary hypertension, unspecified; I48.0 Paroxysmal atrial fibrillation; Z68.41 Body mass index [BMI] 40.0-44.9, adult; Z79.01 Long term (current) use of anticoagulants; E66.9 Obesity, unspecified; Z82.49 Family history of ischemic heart disease and other diseases of the circulatory system; I10 Essential (primary) hypertension; E78.5 Hyperlipidemia, unspecified; Z99.89 Dependence on other enabling machines and devices
CPT/HCPCS: 36415; 80048; 92960; 93005; J7040

== ENCOUNTER → 2024-09-17 | Outpatient (CLI) | payer MEDICARE, OTHER, SELFPAY ==
[2024-09-17 11:40] LABS: Absolute Lymphocyte Count 1.42 X10^3/uL (0.83-4.51); Absolute Neutrophil Count 4.5 X10^3/uL (2.0-7.7); Basophil# 0.07 X10^3/uL; Eosinophil# 0.15 X10^3/uL; Eosinophils% 2.2 % (0-5); Hematocrit 38.2 % (37-47); Hemoglobin 12.4 g/dL (12.0-15.0); Lymphocyte # 1.42 X10^3/ul (0.83-4.51); Lymphocyte % 20.6 % (19-41); Mean Corp Hgb Conc 32.5 g/dL (32-36); Mean Corpuscular Volume 101.6 fL (81-99); Mean Platelet Vol. 10.5 fl (6.2-12.0); Monocyte# 0.76 X10^3/uL; NRBC Flagged by Analyzer 0 % (0-5); Neutrophil # 4.46 X10^3/uL (2.7-7.7); Neutrophil % 64.9 % (47-70); Platelet Count 194 K/mm3 (150-450); RBC Distribution Width CV 13.4 % (11.6-14.6); RBC Distribution Width SD 50.6 fl (35.1-43.9); Red Blood Count 3.76 M/mm3 (4.2-5.4); White Blood Count 6.9 K/mm3 (4.4-11.0)
[2024-09-17 13:40] LABS: Pro- Brain NATRIURETIC PEPTIDE 1907 pg/mL (<=900)
[2024-09-17 13:41] LABS: Anion Gap 13 (5-15); BUN 41 mg/dL (4-19); Calcium,Total 9.3 mg/dL (7.6-11.0); Carbon Dioxide 24.3 mmol/L (21.0-32.0); Chloride 102 mmol/L (98-108); Creatinine, Serum 1.78 mg/dL (0.70-1.20); EST Glomerular Filtration Rate 30 (>60); Glucose 115 mg/dL (70-99); Sodium Level 140 mmol/L (133-145)
== END | disposition home or self-care (01) ==
LOC: LAB 11:00
PROVIDERS: PCP Preventive Medicine Occupational Medicine; Referring Provider Nurse Practitioner Family; Visit Provider Nurse Practitioner Family
DX: R06.02 Shortness of breath (principal); I27.20 Pulmonary hypertension, unspecified; I48.19 Other persistent atrial fibrillation; E78.5 Hyperlipidemia, unspecified; I10 Essential (primary) hypertension
CPT/HCPCS: 36415; 80048; 83880; 85025

== ENCOUNTER → 2024-09-24 | Outpatient (CLI) | payer MEDICARE, OTHER, SELFPAY ==
[2024-09-24 15:32] LABS: Anion Gap 13 (5-15); BUN 45 mg/dL (4-19); Calcium,Total 9.6 mg/dL (7.6-11.0); Carbon Dioxide 23.3 mmol/L (21.0-32.0); Chloride 101 mmol/L (98-108); Creatinine, Serum 1.55 mg/dL (0.70-1.20); EST Glomerular Filtration Rate 35 (>60); Glucose 92 mg/dL (70-99); Potassium 4.4 mmol/L (3.3-5.1); Sodium Level 137 mmol/L (133-145)
== END | disposition home or self-care (01) ==
LOC: LAB 09:18
PROVIDERS: PCP Preventive Medicine Occupational Medicine; Referring Provider Nurse Practitioner Family; Visit Provider Nurse Practitioner Family
DX: R06.02 Shortness of breath (principal); E78.5 Hyperlipidemia, unspecified; I10 Essential (primary) hypertension
CPT/HCPCS: 36415; 80048

== ENCOUNTER → 2024-10-10 | Outpatient (CLI) | payer MEDICARE, OTHER, SELFPAY ==
--- NOTE | 2024-10-10 06:42 | ECHOCS_ITS ---
Reason For Study Reason For Study: DYSPNEA/SOB Procedure This was a 2D Doppler, Color Flow transthoracic echocardiogram. The study was technically difficult. Due to body habitus. Contrast injection was performed. Exam performed in department. Left Ventricle Normal LV size. The left ventricular ejection fraction is 60 %. No regional wall motion abnormalities noted. Right Ventricle Normal RV size. Normal systolic function. Atria Normal left atrium. Normal right atrium. Mitral Valve Normal mitral valve. Tricuspid Valve Normal tricuspid valve. Mild to moderate (1-2+) tricuspid valve insufficiency. Pulmonary artery systolic pressure is 54 mmHg. Aortic Valve Trisinus/trileaflet aortic valve. Mild focal aortic valve calcification. Pulmonic Valve Normal pulmonic valve. Trivial pulmonic valve insufficiency. Great Vessels Normal aortic root. The pulmonary artery is normal size. Inferior vena cava collapse with respiration. Pericardium/Pleural No pericardial effusion. Medication Diluted definity 2.5ml given slow IV push to enhance endocardial definition. MMode/2D Measurements & Calculations LVIDd: 5.6 cm IVSd: 1.2 cm Ao root diam: 3.6 cm LVIDs: 3.9 cm LVPWd: 1.1 cm RVDd: 3.2 cm FS: 31.0 % LAV(MOD-bp): 95.9 ml LVAd ap4: 25.8 cm2 SV(MOD-sp4): 42.1 ml LAV(MOD-bp) Indexed: 50.7 ml/m2 LVLd ap4: 7.7 cm SI(MOD-sp4): 22.2 ml/m2 LAV(MOD-sp2): 81.2 ml EDV(MOD-sp4): 71.5 ml LAV(MOD-sp4): 106.8 ml EDV(sp4-el): 73.8 ml LVAs ap4: 14.9 cm2 LVLs ap4: 6.1 cm ESV(MOD-sp4): 29.4 ml ESV(sp4-el): 30.6 ml EF(MOD-sp4): 58.9 % EF(sp4-el): 58.6 % SV(sp4-el): 43.3 ml LA A4 area: 29.0 cm2 RA A4 area: 13.5 cm2 TAPSE: 1.9 cm Time Measurements MV dec time: 0.18 sec Doppler Measurements & Calculations MV E max sourav: 125.7 cm/sec Lat Peak E' Sourav: 13.3 cm/sec Med Peak E' Sourav: 10.5 cm/sec MV A max sourav: 63.0 cm/sec E/E' lat: 9.4 E/E' med: 11.9 MV E/A: 2.0 MV V2 max: 199.3 cm/sec MV P1/2t max sourav: 218.3 cm/sec Ao V2 max: 168.2 cm/sec MV max P.9 mmHg MV P1/2t: 38.0 msec Ao max P.3 mmHg MV V2 mean: 74.8 cm/sec Ao V2 mean: 103.4 cm/sec MV mean P.9 mmHg MV dec slope: 1681 cm/sec2 Ao mean P.8 mmHg MV V2 VTI: 48.8 cm MVA(P1/2t): 5.8 cm2 Ao V2 VTI: 42.0 cm AV (velocity ratio): 0.88 AI max sourav: 404.6 cm/sec LV V1 max: 150.2 cm/sec PA V2 max: 130.8 cm/sec AI max P.6 mmHg LV V1 max P.0 mmHg PA V2 mean: 94.2 cm/sec LV V1 mean P.0 mmHg AI dec slope: 243.3 cm/sec2 LV V1 mean: 94.1 cm/sec AI P1/2t: 487.1 msec LV V1 VTI: 36.8 cm TR max sourav: 350.8 cm/sec TR max P.2 mmHg ECHO/Echo Complete W/ Contrast Interpretation Summary Normal LV size. The left ventricular ejection fraction is 60 %. Pulmonary artery systolic pressure is 54 mmHg. Contrast injection was performed. Ordering Physician: Maynor Edward Referring Physician: Korey Cook Performed By: Madyson Renteria RDCS, RVT
--- NOTE | 2024-10-10 16:56 | STRESSREP ---
Stress Test Report Pharmacologic myocardial perfusion stress test. 74-year-old lady with a history of shortness of breath. Resting EKG demonstrates sinus rhythm with a rate of 53 bpm. Resting blood pressure is 162/82 mmHg. 0.4 mg of regadenoson was infused per usual protocol followed by rapid intravenous saline flush injection. Continuous EKG monitoring was performed. The maximum heart rate was 64 bpm which was 43 per of max impacted heart rate the maximum workload was 1 metabolic equivalent. At rest there were no ST or T wave changes noted to suggest ischemia and at peak infusion nonspecific ST changes were noted which did not meet the criteria for ischemia. No clinical angina is noted. The final blood pressure was 150/80 mmHg. Myocardial perfusion protocol. 14.7 mCi of technetium 99m sestamibi was injected at rest. 0.4 mg of regadenoson was infused per usual protocol. At peak infusion 44.6 mCi of technetium 99m sestamibi was injected stress images were obtained stress and rest images were reconstructed and compared in the short axis vertical long and horizontal long axis. Gated images were also obtained. Perfusion SPECT analysis: Review of the stress images demonstrate normal uptake of tracer noted in all areas of the myocardium. The resting images similar demonstrated normal uptake of tracer noted in all areas of the myocardium. No areas of reversibility are noted to suggest ischemia and no previous infarct is noted. Gated SPECT analysis: The gated ejection fraction is 84%. Conclusion: Normal pharmacologic myocardial perfusion stress test. Preserved ejection fraction.
== END | disposition home or self-care (01) ==
LOC: CVS 06:42
PROVIDERS: PCP Preventive Medicine Occupational Medicine; Referring Provider Nurse Practitioner Family; Visit Provider Nurse Practitioner Family
DX: R06.02 Shortness of breath (principal); E78.5 Hyperlipidemia, unspecified; I10 Essential (primary) hypertension
CPT/HCPCS: 78452; 93017; 93306; A9500; Q9957; A4216; C8929; J2785

== ENCOUNTER → 2024-10-30 | Outpatient (CLI) | payer MEDICARE, OTHER, SELFPAY ==
[2024-10-30 14:01] LABS: Anion Gap 13 (5-15); BUN 85 mg/dL (4-19); BUN/Creat Ratio 27.9 RATIO (10-20); Calcium,Total 9.5 mg/dL (7.6-11.0); Carbon Dioxide 22.9 mmol/L (21.0-32.0); Chloride 100 mmol/L (98-108); Creatinine, Serum 3.04 mg/dL (0.70-1.20); EST Glomerular Filtration Rate 16 (>60); Glucose 108 mg/dL (70-99); Potassium 5.6 mmol/L (3.3-5.1); Sodium Level 135 mmol/L (133-145)
== END | disposition home or self-care (01) ==
LOC: LAB 12:54
PROVIDERS: PCP Preventive Medicine Occupational Medicine; Referring Provider Nurse Practitioner Family; Visit Provider Nurse Practitioner Family
DX: Z51.81 Encounter for therapeutic drug level monitoring (principal); I48.0 Paroxysmal atrial fibrillation; Z79.899 Other long term (current) drug therapy
CPT/HCPCS: 36415; 80048

== ENCOUNTER → 2024-11-02 | Outpatient (CLI) | payer MEDICARE, OTHER, SELFPAY ==
[2024-11-02 12:32] LABS: Anion Gap 13 (5-15); BUN 55 mg/dL (4-19); BUN/Creat Ratio 30.4 RATIO (10-20); Calcium,Total 9.7 mg/dL (7.6-11.0); Carbon Dioxide 25.9 mmol/L (21.0-32.0); Chloride 101 mmol/L (98-108); Creatinine, Serum 1.79 mg/dL (0.70-1.20); EST Glomerular Filtration Rate 29 (>60); Glucose 102 mg/dL (70-99); Potassium 4.1 mmol/L (3.3-5.1); Sodium Level 140 mmol/L (133-145)
== END | disposition home or self-care (01) ==
LOC: LAB 11:18
PROVIDERS: PCP Preventive Medicine Occupational Medicine; Referring Provider Student in an Organized Health Care Education/Training Program; Visit Provider Student in an Organized Health Care Education/Training Program
DX: E87.5 Hyperkalemia (principal)
CPT/HCPCS: 36415; 80048

== ENCOUNTER → 2024-11-09 | Outpatient (CLI) | payer MEDICARE, OTHER, SELFPAY ==
--- NOTE | 2024-11-09 08:16 | RDU_ITS ---
Reason For Study Reason For Study: HTN Right Renal Artery Left Renal Artery Right renal artery ostium 236/34 RSV/EDV. Left renal artery ostium 337/30 PSV/EDV. Right renal artery proximal 158/14 Left renal artery proximal PSV/EDV PSV/EDV. 97/18 . Right renal artery mid 117/16 PSV/EDV. Left renal artery mid 104/22 PSV/EDV . Right renal artery distal 117/24 PSV/EDV. Left renal artery distal 81/13 PSV/EDV. Right Renal Parenchyma Left Renal Parenchyma Upper Pole Medula 58/9 PSV/EDV. Left upper pole medulla 36/7 PSV/EDV . Right upper pole medulla EDR 0.16 . Left upper pole medulla EDR 0.19 . Right upper pole medulla R.I. 0.85 . Left upper pole medulla R.I. 0.80 . Upper Angus Cortx 20/6 PSV/EDV. UP Cortex 21/5 PSV/EDV. Right upper pole cortex EDR 0.30 . Left upper pole cortex EDR 0.24 . Right upper pole cortex R.I. 0.68 . Left upper pole cortex R.I. 0.76 . Right lower Pole medulla 36/8 PSV/EDV . Left lower Pole medulla 32/5 PSV/EDV . Right lower pole medulla EDR 0.22 . Left lower pole medulla EDR 0.16 . Right lower pole medulla R.I. 0.77 . Left lower pole medulla R.I. 0.86 . Lower Pole Cortex 20/7 PSV/EDV. Lower Pole Cortx 17/7 PSV/EDV. Right lower pole cortex EDR 0.35 . Left lower pole cortex EDR 0.41 . Right lower pole cortex R.I. 0.64 . Left lower pole cortex R.I. 0.60 . Right Renal Hilar Left Renal Hilar Right Hilar avg 115/14 PSV/EDV. LT Hilar avg 76/18 PSV/EDV . Right hilar acceleration time 40 m/sec. Left hilar acceleration time 30 m/sec. Right Renal Dimensions Left Renal Dimensions Right kidney size 9.58 cm . Left kidney size 9.36 cm . Right cortical dimension 1.47 cm . Left cortical dimension 1.50 cm . Aorta Proximal abdominal aorta 2.05cm x 2.15 cm . Proximal abdominal aorta peak systolic velocity is 106 cm/sec . Distal abdominal aorta 1.70cm x 2.09 cm . Distal abdominal aorta peak systolic velocity is 120 cm/sec . VL/Renal Artery Duplex Ultrasound Interpretation Summary Right renal artery patent with < 60% stenosis. Left renal artery patent with < 60% stenosis. Right renal vein patent. Left renal vein patent. Right kidney normal in size. Left kidney normal in size. Ordering Physician: Torres Guzman Referring Physician: Korey Cook Performed By: Lin Edward, DERICK, RVT
[2024-11-09 10:01] LABS: ALB/GLOB Ratio 1.2 RATIO (0.9-2.4); AST(SGOT) 29 U/L (<=31); Alanine Aminotransfer ALT/SGPT 22 U/L (<=34); Albumin, Serum 4.3 g/dL (3.4-4.8); Alkaline Phosphatase 113 U/L (35-104); Anion Gap 15 (5-15); BUN 40 mg/dL (4-19); BUN/Creat Ratio 22.8 RATIO (10-20); Calcium,Total 9.8 mg/dL (7.6-11.0); Carbon Dioxide 22.7 mmol/L (21.0-32.0); Chloride 99 mmol/L (98-108); Cholesterol 158 mg/dL (<=200); Creatinine, Serum 1.77 mg/dL (0.70-1.20); EST Glomerular Filtration Rate 30 (>60); Globulin 3.7 g/dL (2.2-4.2); Glucose 116 mg/dL (70-99); High Density Lipoprotein 84 mg/dL; Low Density Lipoprotein Calc. 60 mg/dL; Potassium 4.5 mmol/L (3.3-5.1); Sodium Level 136 mmol/L (133-145); Total Bilirubin 0.85 mg/dL (0.00-1.30); Triglycerides 68 mg/dL; Very Low Density Lipoprotein 14 mg/dL (5-40); cholesterol:hdl ratio screen 1.87
== END | disposition home or self-care (01) ==
LOC: CVS 08:07
PROVIDERS: PCP Preventive Medicine Occupational Medicine; Referring Provider Student in an Organized Health Care Education/Training Program; Visit Provider Student in an Organized Health Care Education/Training Program
DX: I10 Essential (primary) hypertension (principal)
CPT/HCPCS: 36415; 80053; 80061; 84443; 93975

== ENCOUNTER → 2024-12-12 | Outpatient (CLI) | payer MEDICARE, OTHER, SELFPAY | END | disposition home or self-care (01) | LOC: CVS 12:10 | PROVIDERS: PCP Preventive Medicine Occupational Medicine; Referring Provider Physician Assistant Medical; Visit Provider Physician Assistant Medical | DX: R03.0 Elevated blood-pressure reading, without diagnosis of hypertension (principal); I10 Essential (primary) hypertension | CPT/HCPCS: 93788 ==

== ENCOUNTER → 2024-12-26 | Outpatient (CLI) | payer MEDICARE, OTHER, SELFPAY ==
--- NOTE | 2024-12-26 11:23 | VDLE_ITS ---
Reason For Study Reason For Study: RLE PAIN RIGHT LEFT GSV is normal. CFV is compressible, spontaneous, phasic, competent, CFV is compressible, spontaneous, phasic, competent and demonstrates normal augmentation. and demonstrates normal augmentation. FV is compressible, spontaneous, phasic, competent and demonstrates normal augmentation. POP V is compressible, spontaneous, phasic, competent and demonstrates normal augmentation. T/P Trunk is compressible. PTV is compressible. RT PerV is compressible. NONVASCULAR anaechoeic structure noted in the RT pop fossa area measuring 2.75cm x 2.55cm. Procedure This is a venous duplex using B-mode, color flow and spectral Doppler. Exam performed in department. A preliminary report was called and/or faxed to [facility] nurse line @ 11:30 am. VL/Venous Duplex US, Unilateral Interpretation Summary Deep veins of the right lower extremity are patent and compressible segmentally . There is no evidence of right lower extremity deep vein thrombosis. The right great saphenous vein appears patent a nd compressible segmentally. Nonvascular anaechoeic structure noted in the right popliteal fossa area measur ing 2.75cm x 2.55cm. Ordering Physician: Torres Guzman Referring Physician: Emmanuelle Rosenberg Performed By: Madyson Renteria RDCS, RVT
--- OUTSIDE RECORDS SUMMARY | 2024-12-26 21:44 | XMS RPT_ITS | CCD ---
Author Organization [facility] Care Team Providers Care Emery Wheel Worker Name Role Phone EDWARD RAMIREZ DO Primary Care Physician [phone] Dr. Edward Ramirez Primary Care Provider Dr. Edward Ramirez Referring Provider [phone] Dr. Rudy Graves Attending Provider [phone] Mango BEARD, ADJUNCT INSTRUCTOR IN ECONOMICS-C Jenna Attending Provider Dr. Rudy Graves Other Provider BRIANDA Rodriguez Attending Provider Dr. Rudy Graves Referring Provider [phone] JOSE GIVENS MD Attending Unavailable EDWARD RAMIREZ DO Primary Care Unavailable ANSLEY GIBSON DO Attending Unavailable EDWARD RAMIREZ DO Primary Care Unavailable EDWARD RAMIREZ DO Primary Care Unavailable EDWARD RAMIREZ DO Attending Unavailable Dr. Myron Jc Attending Provider [phone] Wagner ADJUNCT INSTRUCTOR IN ECONOMICS, ADJUNCT INSTRUCTOR IN ECONOMICS-C Maynor Rivero Attending Provider Dr. Edward Ramirez DO Primary Care Provider [phone] Dr. Edward Ramirez DO Referring Provider Wagner EBARD-Maynor Sherwood Attending Provider Maynor Cerda Referring Provider Cristina Qiu Attending Provider Dr. Rudy Graves MD Attending Provider [phone] Torres Kennedy Attending Provider [phone] Torres Kennedy Referring Provider [phone] Dr. Viraj Cooper MD Attending Provider Thelma Rodriguez Attending Provider Thelma Rodriguez Referring Provider Ashley, Edward Primary Care Unavailable Ashley, Edward Referring Unavailable Thelma Rodriguez Attending Unavail able Ashley, Edward Primary Care Unavailable Ashley, Edward Referring Unavailable Thelma Rodriguez Attending Unavail able Whitneyiter, Torres Referring Unavailable Viraj Cooper Attending Unavailable Ashley, Edward Primary Care Unavailable Malick Riley Attending Unavailable Ashley, Edward Primary Care Unavailable Brizuela ADJUNCT INSTRUCTOR IN ECONOMICS, Cristina Consulting Unavailable Brizuela ADJUNCT INSTRUCTOR IN ECONOMICS, Cristina Referring Unavailable Ashley, Edward Primary Care Unavailable Thelma Rodriguez Referring Unavail able Thelma Rodriguez Attending Unavail able Ashley, Edward Primary Care Unavailable Ely, Oxford Referring Unavailable Ely, Rudy Attending Unavailable Roof ADJUNCT INSTRUCTOR IN ECONOMICS, Maynor H Referring Unavailable Roof ADJUNCT INSTRUCTOR IN ECONOMICS, Maynor H Attending Unavailable Ashley, Edward Primary Care Unavailable Roof ADJUNCT INSTRUCTOR IN ECONOMICS, Maynor H Referring Unavailable Roof ADJUNCT INSTRUCTOR IN ECONOMICS, Maynor H Attending Unavailable Ashley, Edward Primary Care Unavailable Ashley, Edward Primary Care Unavailable Ely, Rudy Attending Unavailable Malick Riley Attending Unavailable Ely, Rudy Consulting Unavailable Ely, Oxford Referring Unavailable Ashley, Edward Primary Care Unavailable Ely, Rudy Referring Unavailable Ely, Oxford Attending Unavailable Ely, Rudy Consulting Unavailable Ashley, Edward Primary Care Unavailable Ashley, Edward Primary Care Unavailable Ashley, Edward Referring Unavailable Thelma Rodriguez Attending Unavail able Ashley, Edward Primary Care Unavailable Ashley, Edward Referring Unavailable Brizuela ADJUNCT INSTRUCTOR IN ECONOM[employer], Cristina Attending Unavailable Ashley, Edward Primary Care Unavailable Ashley, Edward Referring Unavailable Brizuela ADJUNCT INSTRUCTOR IN ECONOMICS, Cristina Attending Unavailable Brizuela ADJUNCT INSTRUCTOR IN ECONOMICS, Cristina Attending Unavailable Ashley, Edward Primary Care Unavailable Ashley, Edward Referring Unavailable Roof ADJUNCT INSTRUCTOR IN ECONOMICS, Maynor H Attending Unavailable Roof ADJUNCT INSTRUCTOR IN ECONOMICS, Maynor H Referring Unavailable Ashley, Edward Primary Care Unavailable Brizuela ADJUNCT INSTRUCTOR IN ECONOMICS, Cristina Attending Unavailable Ashley, Edward Primary Care Unavailable Brizuela ADJUNCT INSTRUCTOR IN ECONOMICS, Cristina Referring Unavailable Brizuela ADJUNCT INSTRUCTOR IN ECONOMICS, Cristina Attending Unavailable Ashley, Edward Primary Care Unavailable Brizuela ADJUNCT INSTRUCTOR IN ECONOMICS, Cristina Referring Unavailable Demiter, Torres Referring Unavailable Demiter, Torres Attending Unavailable Ashley, Edward Primary Care Unavailable Megan Torres Referring Unavailable DemiterJustinTorres Attending Unavailable Ashley, Edward Primary Care Unavailable Roof ADJUNCT INSTRUCTOR IN ECONOMICS, Maynor Rivero Attending Unavailable Roof ADJUNCT INSTRUCTOR IN ECONOMICS, Maynor Rivero Referring Unavailable Ashley, Edward Primary Care Unavailable Torres Guzman Attending Unavailable Ashley, Edward Primary Care Unavailable Ashley, Edward Referring Unavailable Ashley, Edward Referring Unavailable Thelma Rodriguez Attending Unavail able Ashley, Edward Primary Care Unavailable Roof ADJUNCT INSTRUCTOR IN ECONOMICS, Maynor Rivero Attending Unavailable Ashley, Edward Referring Unavailable Ashley, Edward Primary Care Unavailable DemiterTorres Attending Unavailable Ashley, Edward Primary Care Unavailable Ashley, Edward Referring Unavailable ASHLEY DO, EDWARD Attending Unavailable ASHLEY DO, EDWARD Primary Care Unavailable RAE CANDELARIO, DR CRUMP Attending Unavailab le ASHLEY DO, EDWARD Primary Care Unavailable OLEKSANDR HONEYCUTT DO Attending Unavailable ASHLEY DO, EDWARD Primary Care Unavailable ASHLEY DO, EDWARD Primary Care Unavailable KALYAN CANDELARIO, DR LILIAN Daniels Attending Unav ailable ASHLEY DO, EDWARD Primary Care Unavailable MEGAN PAVicentaC, TORRES Attending Unavailable ASHLEY DO, EDWARD Primary Care Unavailable MEGAN PAJeff, TORRES Attending Unavailable Allergies Allergy Classification Reported Allergen(s) Allergy Type Date of Onset Reaction(s) Facility (8 sources) Alendronate; Translations: [alendronate] Drug Allergy Atrial fibrillation (disorder) [facility] (20 sources) amLODIPine; Translations: [amlodipine] Drug Allergy Edema (finding) [facility] (20 sources) celecoxib; Translations: [celecoxib] Drug Allergy Dizziness (finding) [facility] (20 sources) hydroCHLOROthiazide; Translations: [hydrochlorothiazide] Drug Allergy Chest pain (finding) [facility] (13 sources) Alendronate Drug Allergy 024 A FIB [facility] (4 sources) Adrenergic Beta-Antagonists Propensity to adverse reactions Marked Bradycardia [facility] (4 sources) nebivolol Drug Allergy Marked Bradycardia [facility] (4 sources) NIFEdipine Drug Allergy Severe swelling and fluid retention [facility] (2 sources) hydrALAZINE Drug Allergy chest pain, arm numbness [facility] (1 source) Adrenergic Beta-Antagonists Drug allergy (disorder) [facility] (1 source) Alendronate Drug Allergy [facility] (1 source) amLODIPine Drug Allergy [facility] (1 source) celecoxib Drug Allergy [facility] (1 source) hydrALAZINE Drug Allergy [facility] (1 source) hydroCHLOROthiazide Drug Allergy [facility] (1 source) nebivolol Drug Allergy [facility] (1 source) NIFEdipine Drug Allergy [facility] Medications Current Medications Medication Drug Class(es) Dates Sig (Normalized) Sig (Original) acetaminophen 325 mg / HYDROcodone bitartrate 5 mg oral tablet (1 source) Opioid Agonist Start: 08-27-2023 End: 08-30-2023 take 1 tablet by mouth every six hours as needed for pain [place] 325- 5 mg oral tablet Dose = 1 tab(s), Oral, q6h, PRN as needed for pain, X 3 day(s), # 12 tab(s), 0 Refill(s), Leg pain, 89.5 Start Date: 08/27/23 Stop Date: 08/30/23 Status: Ordered [id number] 200 actuat albuterol 0.09 mg/actuat metered dose inhaler (11 sources) beta2-Adrenergic Agonist Start: 10-08-2023 Albuterol Sulfate (Proventil Hfa) 90 mcg/actuation HFA aerosol inhaler Active 2 NMA INHALATION Q4H as needed for shortness of breath or wheezing 6.7 October 08, 2023 12:00am Start: 10-08-2023 Albuterol Sulf ate (Proventil Hfa) 90 mcg/actuation HFA aerosol inhaler Active 2 INH INHALATION Q4H 6.7 October 08, 2023 12:00am amiodarone hydrochloride 200 mg oral tablet (20 sources) Antiarrhythmic Start: 03-09-2024 take 1 tablet by mouth once daily Amiodarone 200 mg tablet Active 200 mg PO DAILY April 09, 2024 10:25am Start: 02-22-2024 End: 04-09-2024 Amiodarone 200 mg tablet Dis continued 200 mg PO .COMPLEX February 22, 2024 12:00am April 09, 2024 10:25am 200 mg orally; take twice a day for 7 days then once a day apixaban 5 mg oral tablet (20 sources) Factor Xa Inhibitor Start: 07-05-2023 End: 05-19-2025 take 1 tablet by mouth twice daily Apixaban (Eliquis) 5 mg tablet Active 5 mg PO TWICE A DAY July 25, 2023 1:00am aspirin 81 mg delayed release oral tablet (20 sources) Platelet Aggregation Inhibitor, Nonsteroidal Anti-inflammatory Drug Start: 07-05-2023 End: 08-08-2024 take 1 tablet by mouth once daily Aspirin (Adult Aspirin Regimen) 81 mg tablet,delayed release (DR/EC) Active 81 mg PO DAILY July 25, 2023 1:00am atorvastatin 20 mg oral tablet (20 sources) HMG-CoA Reductase Inhibitor Start: 07-05-2023 End: 05-19-2025 take 1 tablet by mouth once daily Atorvastatin 20 mg tablet Active 20 mg PO DAILY July 25, 2023 1:00am Blood pressure monitor XL cuff (2 sources) Start: 11-20-2024 Blood pressure monitor XL cuff Active 0 .Route .MEDSUPPLY November 20, 2024 12:00am As directed calcium carbonate 1250 mg oral tablet (1 source) Start: 12-26-2024 take 1 tablet by mouth once daily Calcium Carbonate 500 mg calcium (1,250 mg) tablet Active 1200 mg PO daily December 26, 2024 12:00am calcium citrate 1040 mg oral tablet (7 sources) Start: 09-08-2023 calcium (as calcium citrate) 250 mg oral tablet Dose : 250 mg = 1 tab(s), Oral, BID, # 60 tab(s), 0 Refill(s) Start Date: 09/08/23 Status: Ordered Quantity: 60.0 Unit: tab(s) Repeat number: 1 cetirizine hydrochloride 10 mg oral tablet (6 sources) Histamine-1 Receptor Antagonist Start: 05-17-2024 Zyrtec 10 mg oral tablet Dose : 10 mg = 1 tab(s), Oral, Daily, # 90 tab(s), 0 Refill(s) Start Date: 05/17/24 Status: Ordered Quantity: 90.0 Unit: tab(s) Repeat number: 1 cholecalciferol 0.1 mg oral tablet (13 sources) Vitamin D Start: 07-25-2023 take 1 tablet by mouth once daily Cholecalciferol (Vitamin D3) 100 mcg (4,000 unit) tablet Active 200 ug PO DAILY July 25, 2023 1:00am Citracal Calcium + D Slow Release 1200 oral tablet, extended release (1 source) Start: 09-08-2023 Citracal Calcium + D Slow Release 1200 oral tablet, extended release Dose = 1 tab(s), Oral, qAM, # 80 tab(s), 0 Refill(s) Start Date: 09/08/23 Status: Ordered DME [facility] (2 sources) Start: 08-23-2023 DME MISCellaneous See Instructions, StairLift needed, Inquiry number: [id number], # 1 EA, 0 Refill(s), 89.5 Start Date: 08/23/23 Status: Ordered doxazosin 4 mg oral tablet (9 sources) alpha-Adrenergic Maira Start: 12-26-2024 take 1 tablet by mouth once daily Doxazosin 4 mg tablet Active 4 mg PO daily December 26, 2024 10:56am Start: 11-23-2024 End: 12-26-2024 take 2 mg by mouth once daily Doxazosin 4 mg tablet Di scontinued 2 mg PO daily 0 November 23, 2024 5:07pm December 26, 2024 10:58am Start: 11-15-2024 End: 11-23-2024 take 1 tablet by mouth once daily Doxazosin 4 mg tablet Discontinued 4 mg PO daily November 15, 2024 12:00am November 23, 2024 5:07pm furosemide 40 mg oral tablet (20 sources) Loop Diuretic Start: 11-01-2024 End: 12-26-2024 take 1 tablet by mouth once daily Furosemide 40 mg tablet Active 40 mg PO .COMPLEX 126 90 December 26, 2024 10:49am 40 mg orally once daily. take second dose MWF; bid mwf Start: 09-17-2024 End: 09-17-2024 Furosemide 40 mg tablet Disc ontinued 20 mg PO DAILY September 17, 2024 9:36am September 17, 2024 10:22am Start: 05-24-2024 End: 11-01-2024 take 1 tablet by mouth twice daily Furosemide 40 mg tablet Discontinued 40 mg PO TWICE A DAY 60 October 17, 2024 1:28pm November 01, 2024 4:43pm Start: 02-22-2024 End: 09-17-2024 take 1 tablet by mouth once daily Furosemide 40 mg tablet Discontinued 40 mg PO DAILY September 17, 2024 10:22am September 17, 2024 4:07pm Start: 12-14-2023 End: 02-22-2024 Furosemide 40 mg tablet Disc ontinued 20 mg PO DAILY December 14, 2023 3:48pm February 22, 2024 10:25am Start: 12-01-2023 End: 12-14-2023 take 1 tablet by mouth once daily Furosemide 40 mg tablet Discontinued 40 mg PO DAILY December 01, 2023 5:39pm December 14, 2023 3:48pm Start: 07-25-2023 End: 11-18-2023 take 2 tablets by mouth once daily Furosemide 20 mg tablet Discontinued 40 mg PO DAILY July 25, 2023 1:00am November 18, 2023 2:23pm Start: 07-25-2023 take 40 mg by mouth once daily Furosemide Active 40 MG PO DAILY July 25, 2023 1:00am Start: 07-05-2023 End: 08-08-2024 furosemide 20 mg oral tablet Dose : 20 mg = 1 tab(s), Oral, qDay, # 100 tab(s), 3 Refill(s), Pharmacy: [facility], 149, cm, 07/05/23 10:20:00 EST, Height, kg, 07/05/23 10:20:00 EST, Dosing Weight Start Date: 07/05/23 Stop Date: 08/08/24 Status: Ordered hydrALAZINE hydrochloride 10 mg oral tablet (6 sources) Arteriolar Vasodilator Start: 11-02-2024 hydrALAZINE 10 mg oral tablet Dose : 10 mg = 1 tab(s), Oral, BIDM, # 180 tab(s), 0 Refill(s) Start Date: 11/02/24 Status: Ordered Quantity: 180.0 Unit: tab(s) Repeat number: 1 Start: 11-01-2024 End: 11-05-2024 take 1 tablet by mouth twice daily Hydralazine 100 mg tablet Discontinued 100 mg PO TWICE A DAY 60 November 01, 2024 12:00am November 05, 2024 4:32pm labetalol hydrochloride 100 mg oral tablet (1 source) beta-Adrenergic Maira Start: 12-26-2024 take 1 tablet by mouth twice daily Labetalol 100 mg tablet Active 100 mg PO TWICE A DAY 60 December 26, 2024 12:00am levothyroxine sodium 0.1 mg oral capsule (20 sources) l-Thyroxine Start: 07-25-2023 take 1 capsule by mouth once daily Levothyroxine 100 mcg capsule Active 100 ug PO DAILY July 25, 2023 1:00am Start: 07-05-2023 End: 05-19-2025 levothyroxine 100 mcg (0.1 m g) oral tablet Dose : 100 mcg = 1 tab(s), Oral, qDay, # 90 tab(s), 3 Refill(s), Pharmacy: [facility], 149, cm, 05/24/24 11:12:00 EST, Height, kg, 05/24/24 11:12:00 EST, Dosing Weight Start Date: 05/24/24 Stop Date: 05/19/25 Status: Ordered Quantity: 90.0 Unit: tab(s) Repeat number: 4 lidocaine 0.05 mg/mg medicated patch (1 source) Antiarrhythmic, Amide Local Anesthetic Start: 05-17-2024 End: 06-07-2024 lidocaine 5% topical patch Apply 1 patch(es), Topical, qDay, remove patches after 12 hours, # 30 patch(es), 0 Refill(s), Pharmacy: [facility]/pharmacy #[id number], Strain of triceps muscle, 148, cm, 05/17/24 10:55:00 EST, Height, 94.2, kg, 05/17/24 10:55:00 EST, Dosing Weight Start Date: 05/17/24 Stop Date: 06/07/24 Status: Ordered nitroglycerin 0.3 mg sublingual tablet (20 sources) Nitrate Vasodilator Start: 07-25-2023 Nitroglyce rin 0.3 mg tablet, sublingual Active 0.3 mg SL Q5M as needed for chest pain July 25, 2023 1:00am do not exceed 3 doses per episode Start: 07-25-2023 Nitroglycerin Active 0.3 MG SL Q5M July 25, 2023 1:00am do not exceed 3 doses per episode Start: 07-05-2023 End: 09-03-2023 nitroglycerin 0.3 mg subling ual tablet Dose : 0.3 mg = 1 tab(s), Sublingual, q5min, PRN for chest pain, not to exceed 3 doses/15 min--if pain persists, seek medical attention, # 25 tab(s), 1 Refill(s), Pharmacy: [facility], 149, cm, 07/05/23 10:20:00 EST, Height, kg, 07/05/23 10:20:00 EST, Dosing Weight Start Date: 07/05/23 Stop Date: 09/03/23 Status: Ordered Quantity: 25.0 Unit: tab(s) Repeat number: 2 pantoprazole 40 mg delayed release oral tablet (20 sources) Proton Pump Inhibitor Start: 07-05-2023 End: 05-19-2025 take 1 tablet by mouth once daily Pantoprazole 40 mg tablet,delayed release (DR/EC) Active 40 mg PO DAILY July 25, 2023 1:00am spironolactone 25 mg oral tablet (18 sources) Aldosterone Antagonist Start: 12-26-2024 End: 12-26-2024 take 1 tablet by mouth once daily Spironolactone 25 mg tablet Active 25 mg PO daily December 26, 2024 10:55am Start: 11-24-2023 End: 01-03-2024 take 1 tablet by mouth once daily Spironolactone 25 mg tablet Discontinued 25 mg PO DAILY November 24, 2023 3:08pm January 03, 2024 1:58pm Start: 11-01-2023 End: 11-18-2023 take 1 tablet by mouth once daily Spironolactone 25 mg tablet Discontinued 25 mg PO DAILY November 01, 2023 12:00am November 18, 2023 2:23pm traZODone hydrochloride 50 mg oral tablet (17 sources) Serotonin Reuptake Inhibitor Start: 10-20-2024 take 0.5-1 tablets by mouth once daily at bedtime traZODone 50 mg oral tablet 0.5 to 1 tab(s), Oral, qHS, # 90 tab(s), 1 Refill(s), Pharmacy: [facility]/pharmacy #[id number], Insomnia, 149, cm, 08/14/24 11:18:00 EST, Height, kg, 08/14/24 11:18:00 EST, Dosing Weight Start Date: 10/20/24 Status: Ordered Quantity: 90.0 Unit: tab(s) Repeat number: 2 Indications: Other insomnia; Start: 07-05-2023 End: 10-07-2023 take 1 tablet by mouth at bedtime Trazodone 50 mg tablet Discontinued 50 mg PO AT BEDTIME July 25, 2023 1:00am October 07, 2023 10:29pm vitamin b12 1 mg oral capsule (20 sources) Vitamin B12 Start: 07-25-2023 take 1 capsule by mouth every month Cyanocobalamin (Vitamin B-12) 1,000 mcg capsule Active 1000 ug PO EVERY MONTH July 25, 2023 1:00am Start: 07-05-2023 End: 05-19-2025 inject 1 mL by intramuscular injection every month cyanocobalamin 1000 mcg/mL injectable solution Dose : 1,000 mcg = 1 mL, Intramuscular, qmonth, # 12 mL, 3 Refill(s), Pharmacy: [facility], 149, cm, 05/24/24 11:12:00 EST, Height, kg, 05/24/24 11:12:00 EST, Dosing Weight Start Date: 05/24/24 Stop Date: 05/19/25 Status: Ordered Quantity: 12.0 Unit: mL Repeat number: 4 Completed/Discontinued Medications Medication Drug Class(es) Dates Sig (Normalized) Sig (Original) amLODIPine 2.5 mg oral tablet (4 sources) Dihydropyridine Calcium Channel Maira Start: 10-18-2024 End: 11-01-2024 take 1 tablet by mouth once daily Amlodipine 2.5 mg tablet Discontinued 2.5 mg PO daily October 18, 2024 12:00am November 01, 2024 4:41pm lisinopril 40 mg oral tablet (18 sources) Angiotensin Converting Enzyme Inhibitor Start: 07-15-2023 End: 05-19-2025 take 1 tablet by mouth once daily Lisinopril 40 mg tablet Discontinued 40 mg PO DAILY July 25, 2023 1:00am November 01, 2024 4:41pm 24 hr metoprolol succinate 25 mg extended release oral tablet (20 sources) beta-Adrenergic Maira Start: 11-18-2023 End: 01-03-2024 take 1 tablet by mouth once daily Metoprolol Succinate 25 mg tablet extended release 24 hr Discontinued 25 mg PO DAILY November 18, 2023 11:12am January 03, 2024 1:58pm Start: 10-06-2023 End: 11-18-2023 take 2 tablets by mouth once daily Metoprolol Succinate 50 mg tablet extended release 24 hr Discontinued 25 mg PO DAILY October 06, 2023 5:36pm November 18, 2023 11:13am Start: 10-06-2023 take 25 mg by mouth once daily Metoprolol Succinate Active 25 MG PO DAILY October 06, 2023 5:36pm Start: 07-05-2023 End: 08-08-2024 take 1 tablet by mouth once daily Metoprolol Succinate 50 mg tablet extended release 24 hr Discontinued 50 mg PO DAILY July 25, 2023 1:00am October 06, 2023 5:36pm nebivolol 5 mg oral tablet (4 sources) Start: 11-08-2024 End: 11-14-2024 take 1 tablet by mouth once daily Nebivolol (Bystolic) 5 mg tablet Discontinued 5 mg PO daily November 08, 2024 12:00am November 14, 2024 9:52am 24 hr NIFEdipine 60 mg extended release oral tablet (4 sources) Dihydropyridine Calcium Channel Maira Start: 11-05-2024 End: 11-08-2024 take 1 tablet by mouth once daily Nifedipine 60 mg tablet extended release Discontinued 60 mg PO daily November 05, 2024 12:00am November 08, 2024 3:26pm Vitamin D3 50 mcg (2000 intl units) oral tablet (8 sources) Start: 07-05-2023 End: 08-08-2024 Vitamin D3 50 mcg (2000 intl units) oral tablet Dose : 100 mcg = 2 tab(s), Oral, Daily, # 200 tab(s), 3 Refill(s), Pharmacy: [facility] 149, cm, 07/05/23 10:20:00 EST, Height, kg, 07/05/23 10:20:00 EST, Dosing Weight Start Date: 07/05/23 Stop Date: 08/08/24 Status: Ordered Quantity: 200.0 Unit: tab(s) Repeat number: 4 Start: 07-05-2023 End: 08-08-2024 Vitamin D3 50 mcg (2000 intl units) oral tablet Dose : 100 mcg = 2 tab(s), Oral, Daily, # 200 tab(s), 3 Refill(s), Pharmacy: [facility] 149, cm, 07/05/23 10:20:00 EST, Height, kg, 07/05/23 10:20:00 EST, Dosing Weight Start Date: 07/05/23 Stop Date: 08/08/24 Status: Ordered Problems Active Problems Problem Classification Problem Date Documented Date Episodic/Chronic Cardiac dysrhythmias (20 sources) Permanent atrial fibrillation; Translations: [Permanent atrial fibrillation] Onset: 03-21-2024 07-05-2023 Chronic Cardiac dysrhythmias (18 sources) Bradycardia; Translations: [Bradycardia, unspecified] Onset: 11-13-2024 10-06-2023 Episodic Chronic kidney disease (6 sources) Chronic kidney disease stage 3 10-04-2023 Chronic Chronic obstructive pulmonary disease and bronchiectasis (1 source) Chronic obstructive pulmonary disease, unspecified; Translations: [Chronic obstructive pulmonary disease, unspecified] Onset: 03-28-2024 Chronic Disorders of lipid metabolism (20 sources) Mixed hyperlipidemia; Translations: [Hyperlipidemia] Onset: 11-23-2024 07-05-2023 Chronic Esophageal disorders (20 sources) Gastroesophageal reflux disease; Translations: [Gastro-esophageal reflux disease without esophagitis] 07-05-2023 Chronic Essential hypertension (20 sources) Essential hypertension; Translations: [Essential (primary) hypertension] Onset: 11-23-2024 07-05-2023 Chronic Fluid and electrolyte disorders (18 sources) Hyponatremia; Translations: [Hypo-osmolality and hyponatremia] Onset: 01-12-2024 12-14-2023 Episodic Nonspecific chest pain (2 sources) Chest pain; Translations: [Chest pain, unspecified] Onset: 11-02-2024 Episodic Nutritional deficiencies (20 sources) Vitamin D deficiency; Translations: [Vitamin D deficiency, unspecified] 07-05-2023 Chronic Nutritional deficiencies (6 sources) Cobalamin deficiency 05-24-2024 Episodic Other aftercare (11 sources) Long-term current use of anticoagulant; Translations: [penitentiary (current) use of anticoagulants] 10-08-2023 Episodic Other aftercare (7 sources) Long-term current use of diuretic; Translations: [Encounter for therapeutic drug level monitoring] 12-09-2023 Episodic Other aftercare (2 sources) Encounter for therapeutic drug level monitoring; Translations: [Encounter for therapeutic drug level monitoring] Onset: 01-12-2024 Episodic Other circulatory disease (11 sources) H/O: atrial fibrillation; Translations: [Personal history of other diseases of the circulatory system] 10-08-2023 Episodic Other circulatory disease (1 source) Elevated blood-pressure reading, without diagnosis of hypertension; Translations: [Elevated blood-pressure reading, without diagnosis of hypertension] Onset: 12-14-2024 Episodic Other connective tissue disease (1 source) Pain in lower limb; Translations: [Pain in leg, unspecified] Onset: 08-27-2023 Episodic Other connective tissue disease (1 source) Swelling of right lower limb; Translations: [Other specified soft tissue disorders] 12-26-2024 Episodic Other connective tissue disease (1 source) Pain in right lower limb; Translations: [Pain in right leg] 12-26-2024 Episodic Other lower respiratory disease (20 sources) Dyspnea; Translations: [Dyspnea, unspecified] 07-25-2023 Episodic Other lower respiratory disease (6 sources) Dyspnea on exertion 10-04-2023 Episodic Other lower respiratory disease (2 sources) Shortness of breath; Translations: [Shortness of breath] Onset: 01-12-2024 Episodic Other nutritional; endocrine; and metabolic disorders (10 sources) Obesity; Translations: [Obesity, unspecified] 10-01-2024 Chronic Pulmonary heart disease (20 sources) Pulmonary hypertension; Translations: [Pulmonary hypertension, unspecified] Onset: 11-23-2024 12-22-2023 Chronic Comment on above: PASP 43 mmHg PASP 54 mmHg Residual codes; unclassified (6 sources) Obstructive sleep apnea syndrome 01-11-2024 Chronic Residual codes; unclassified (12 sources) Sleep apnea; Translations: [Sleep apnea, unspecified] 03-28-2024 Chronic Comment on above: AHI 11.5 Residual codes; unclassified (1 source) Obstructive sleep apnea (adult) (pediatric); Translations: [Obstructive sleep apnea (adult) (pediatric)] Onset: 03-28-2024 Chronic Residual codes; unclassified (1 source) Sleep apnea, unspecified; Translations: [Sleep apnea, unspecified] Onset: 01-14-2024 Chronic Residual codes; unclassified (20 sources) Insomnia; Translations: [Insomnia, unspecified] 07-05-2023 Episodic Residual codes; unclassified (3 sources) Edema of foot 11-22-2024 Episodic Residual codes; unclassified (1 source) Personal history of other medical treatment; Translations: [Personal history of other medical treatment] Onset: 11-23-2024 Episodic Thyroid disorders (20 sources) Hypothyroidism; Translations: [Hypothyroidism, unspecified] 07-05-2023 Chronic Unclassified (4 sources) I10 - Essential (primary) hypertension,R79.89 - Other specified abnormal findings of blood chemistry Unclassified (2 sources) Other persistent atrial fibrillation; Translations: [Other persistent atrial fibrillation] Onset: 04-12-2024 Unclassified (1 source) Permanent atrial fibrillation; Translations: [Permanent atrial fibrillation] Onset: 11-02-2024 Past or Other Problems Problem Classification Problem Date Documented Da te Episodic/Chronic Other aftercare (1 source) Other retirement (current) drug therapy; Translations: [Other retirement (current) drug therapy] Onset: 01-12-2024 Episodic Residual codes; unclassified (15 sources) History of cardioversion; Translations: [Personal history of other medical treatment] Onset: 04-02-2024 04-09-2024 Episodic Comment on above: 09/27/23, 04/02/24 Results Test Name Value Interpretation Reference Range Facility [id number] 12-26-2024 Complement C3A see comment Normal 90.0-170.0 [facility] Comment on above: Result Comment: Reag ent unavailable for testing. C3 testing being sent out to our reference lab. Results to follow. Performed By: #### T ROPHS, GFR, PBNP, ADIFF, ANEU, MG, MDW, BMP, CBC #### [address] [address] DNAon 12-25-2024 Anti-dsDNA Antibodies <1 Normal 0-9 [facility] Comment on above: Result Comment: Nega tive <5 Equivocal 5 - 9 Positive >9 Performed At: [address] [id number] Alexys Hilario PhD Ph:[phone] Performed By: #### T JOAQUIN, GFR, PBNP, ADIFF, ANEU, MG, MDW, BMP, CBC #### [place] [address] MPOon 12-25-2024 Anti-MPO Antibodies <0.2 Normal 0.0-0.9 [facility] Comment on above: Result Comment: Perf ormed At: [address] [id number] Александр Nuñez MD Ph:[phone] Performed By: #### T JOAQUIN, GFR, PBNP, ADIFF, ANEU, MG, MDW, BMP, CBC #### [place] [id number] PR3on 12-25-2024 Anti-PR3 Antibodies <0.2 Normal 0.0-0.9 [facility] Comment on above: Result Comment: Perf ormed At: [address] [id number] Александр Nuñez MD Ph:[phone] Performed By: #### T JOAQUIN, GFR, PBNP, ADIFF, ANEU, MG, MDW, BMP, CBC #### [place] [address] SPEon 12-25-2024 SPE Interpretation Normal serum protein electrophoresis pattern. No abnormality detected. Normal [facility] Comment on above: Result Comment: Elec tronically Signed by: RILEY SANTANA 12/25/2024 13:28 EDT Performed By: #### T JOAQUIN, GFR, PBNP, ADIFF, ANEU, MG, MDW, BMP, CBC #### [place] [address] Albumin 3.5 G/dL Normal 3.3-5.0 [facility] Comment on above: Performed By: #### T JOAQUIN, GFR, PBNP, ADIFF, ANEU, MG, MDW, BMP, CBC #### [place] [address] Alpha 1 0.3 G/dL Normal 0.1-0.4 [facility] Comment on above: Performed By: #### T JOAQUIN, GFR, PBNP, ADIFF, ANEU, MG, MDW, BMP, CBC #### [place] [address] Alpha 2 0.8 G/dL Normal 0.6-1.2 [facility] Comment on above: Performed By: #### T JOAQUIN, GFR, PBNP, ADIFF, ANEU, MG, MDW, BMP, CBC #### [place] [address] Beta 1.2 G/dL Normal 0.6-1.3 [facility] Comment on above: Performed By: #### T JOAQUIN, GFR, PBNP, ADIFF, ANEU, MG, MDW, BMP, CBC #### [place] [address] Gamma 1.0 G/dL Normal 0.7-1.6 [facility] Comment on above: Performed By: #### T JOAQUIN, GFR, PBNP, ADIFF, ANEU, MG, MDW, BMP, CBC #### [place] [address] .GFRon 12-24-2024 Estimated Glomerular Filtration Rate 53 ml/min/1.73sqm Normal [facility] Comment on above: Result Comment: Stages of Chronic Kidney Disease (CKD) Stage Description eGFR(ml/min/1.73 sq.m.) CKD 1 Normal kidney function or >=90 normal kindney function with possible kidney damage (ex. Proteinuria) CKD 2 Kidney damage with mild loss 60-89 of kidney function CKD 3a Mild to moderate loss of kidney 45-59 function CKD 3b Moderate to severe loss of 30-44 of kindey function CKD 4 Severe loss of kidney function 15-29 CKD 5 Kidney failure <15 Note: (go live 2024) the eGFR calculation was updated to the 2020 CKD-EPI creatinine equation without a race factor to calculate the eGFR results. Performed By: #### T JOAQUIN, GFR, PBNP, ADIFF, ANEU, MG, MDW, BMP, CBC #### [place] [address] [place], [place] [address] [id number] 12-24-2024 Complement C4A 34.0 mg/dL Normal 16.0-38.0 [facility] Comment on above: Performed By: #### T JOAQUIN, GFR, PBNP, ADIFF, ANEU, MG, MDW, BMP, CBC #### [place] [address] [place], [place] [address] LABORATORYOrdered By: Tawanna Brewer on 12-24-2024 Appearance (U) Clear (12/24/24 9:30 AM) Normal Clear AO Auto Urine SS Bilirubin Ql (U) Negative (12/24/24 9:30 AM) Normal Negative AO Auto Urine SS Color (U) Yellow (12/24/24 9:30 AM) Normal AO Auto Urine SS Glucose Test strip (U) [Mass/Vol] Negative Normal Negative AO Auto Urine SS Hemoglobin Auto test strip (U) [Mass/Vol] Negative (12/24/24 9:30 AM) Normal Negative AO Auto Urine SS Ketones Ql (U) Negative Normal Negative AO Auto Urine SS UA Leuk Est Negative (12/24/24 9:30 AM) Normal Negative AO Auto Urine SS UA Nitrite Negative (12/24/24 9:30 AM) Normal Negative AO Auto Urine SS UA pH 6.5 (12/24/24 9:30 AM) Normal 5.0 - 8.0 AO Auto Urine SS UA Protein Negative Normal Negative AO Auto Urine SS UA Spec Grav 1.010 *ABN* (12/24/24 9:30 AM) Invalid Interpretation Code 1.015-1.025 AO Auto Urine SS UA Specimen Type Clean Catch (12/24/24 9:30 AM) Normal AO Auto Urine SS UA Urobilinogen 1.0 E.U./dL Normal 0.2-1.0 AO Auto Urine SS LABORATORYOrdered By: Gokul Rashid on 12-24-2024 Creatinine (U) [Mass/Vol] 84.5 mg/dL Invalid Interpretation Code AO ADM SS Protein (U) [Mass/Vol] 14 mg/dL Invalid Interpretation Code AO ADM SS U Ratio Prot/Creat 0.2 ratio Invalid Interpretation Code AO Chemistry S LABORATORYOrdered By: SYSTEM SYSTEM on 12-24-2024 Albumin BCP dye [Mass/Vol] 3.5 G/dL Normal 3.4 - 4.8 G/dL AO ADM SS Calcium [Mass/Vol] 9.4 mg/dL Normal 8.4 - 10. 2 mg/dL AO ADM SS Chloride [Moles/Vol] 104 mmol/L Normal 98 - 10 7 mmol/L AO ADM SS CO2 [Moles/Vol] 32 mmol/L High 23 - 31 mmol/L AO ADM SS Complement C4 [Mass/Vol] 34.0 mg/dL Normal 16. 0 - 38.0 mg/dL AH ADM SS Creatinine [Mass/Vol] 1.09 mg/dL High 0.51 - 0.95 mg/dL AO ADM SS Electrolyte Balance 3.0 mEq/L Low 4.0 - 15 .0 mEq/L AO ADM SS Estimated Glomerular Filtration Rate 53 ml/min/1.73sqm Invalid Interpretation Code AO Chemistry S Comment on above: Interpretive Data: Stages of Chronic Kidney Disease (CKD) Stage Description eGFR(ml/min/1.73 sq.m.) CKD 1 Normal kidney function or >=90 normal kindney function with possible kidney damage (ex. Proteinuria) CKD 2 Kidney damage with mild loss 60-89 of kidney function CKD 3a Mild to moderate loss of kidney 45-59 function CKD 3b Moderate to severe loss of 30-44 of kindey function CKD 4 Severe loss of kidney function 15-29 CKD 5 Kidney failure <15 Note: (go live 2024) the eGFR calculation was updated to the 2020 CKD-EPI creatinine equation without a race factor to calculate the eGFR results. Glucose [Mass/Vol] 102 mg/dL Normal 83 - 110 mg/dL AO ADM SS Phosphate [Mass/Vol] 3.7 mg/dL Normal 2.3 - 4 .1 mg/dL AO ADM SS Potassium [Moles/Vol] 4.1 mmol/L Normal 3.5 - 5.1 mmol/L AO ADM SS Sodium [Moles/Vol] 139 mmol/L Normal 136 - 145 mmol/L AO ADM SS Urea nitrogen [Mass/Vol] 17 mg/dL Normal 7 - 18 mg/d L AO ADM SS Urea nitrogen/Creatinine [Mass ratio] 16 ratio Normal 7 - 27 ratio AO ADM SS LABORATORYOrdered By: Wilmer Smith on 12-24-2024 Protein [Mass/Vol] 6.8 G/dL Normal 5.7 - 8.2 G/dL AH ADM SS RFPon 12-24-2024 Albumin Level 3.5 G/dL Normal 3.4-4.8 [facility] Comment on above: Performed By: #### T JOAQUIN, GFR, PBNP, ADIFF, ANEU, MG, MDW, BMP, CBC #### [address] [address] BUN/Creatinine Ratio 16 ratio Normal 7-27 [facility] Comment on above: Performed By: #### T JOAQUIN, GFR, PBNP, ADIFF, ANEU, MG, MDW, BMP, CBC #### [address] [address] Calcium [Mass/Vol] 9.4 mg/dL Normal 8.4-10.2 [facility] Comment on above: Performed By: #### T JOAQUIN, GFR, PBNP, ADIFF, ANEU, MG, MDW, BMP, CBC #### [address] [address] Chloride [Moles/Vol] 104 mmol/L Normal 98-107 [facility] Comment on above: Performed By: #### T JOAQUIN, GFR, PBNP, ADIFF, ANEU, MG, MDW, BMP, CBC #### [address] [address] CO2 [Moles/Vol] 32 mmol/L High 23-31 [facility] Comment on above: Performed By: #### T JOAQUIN, GFR, PBNP, ADIFF, ANEU, MG, MDW, BMP, CBC #### [address] [address] Creatinine [Mass/Vol] 1.09 mg/dL High 0.51-0.95 [facility] Comment on above: Performed By: #### T JOAQUIN, GFR, PBNP, ADIFF, ANEU, MG, MDW, BMP, CBC #### [address] [address] Electrolyte Balance 3.0 mEq/L Low 4.0-15.0 [facility] Comment on above: Performed By: #### T JOAQUIN, GFR, PBNP, ADIFF, ANEU, MG, MDW, BMP, CBC #### [address] [address] Glucose [Mass/Vol] 102 mg/dL Normal 83-110 [facility] Comment on above: Performed By: #### T JOAQUIN, GFR, PBNP, ADIFF, ANEU, MG, MDW, BMP, CBC #### [address] [address] Phosphate [Mass/Vol] 3.7 mg/dL Normal 2.3-4.1 [facility] Comment on above: Performed By: #### T JOAQUIN, GFR, PBNP, ADIFF, ANEU, MG, MDW, BMP, CBC #### [address] [address] Potassium [Moles/Vol] 4.1 mmol/L Normal 3.5-5.1 [facility] Comment on above: Performed By: #### T JOAQUIN, GFR, PBNP, ADIFF, ANEU, MG, MDW, BMP, CBC #### [address] [address] Sodium [Moles/Vol] 139 mmol/L Normal 136-145 [facility] Comment on above: Performed By: #### T JOAQUIN, GFR, PBNP, ADIFF, ANEU, MG, MDW, BMP, CBC #### [address] [address] Urea nitrogen [Mass/Vol] 17 mg/dL Normal 7-18 [facility] Comment on above: Performed By: #### T JOAQUIN, GFR, PBNP, ADIFF, ANEU, MG, MDW, BMP, CBC #### [address] [address] RPCURon 12-24-2024 U Creatinine 84.5 mg/dL Normal [facility] Comment on above: Performed By: #### G FR, BMP #### [address] [address] U Protein 14 mg/dL Normal [facility] Comment on above: Performed By: #### G FR, BMP #### [address] [address] U Ratio Prot/Creat 0.2 ratio Normal [facility] Comment on above: Performed By: #### G FR, BMP #### [address] [address] SPEon 12-24-2024 Total Protein 6.8 G/dL Normal 5.7-8.2 [facility] Comment on above: Performed By: #### T JOAQUIN, GFR, PBNP, ADIFF, ANEU, MG, MDW, BMP, CBC #### [address] [address] UAon 12-24-2024 Color (U) Yellow Normal [facility] Comment on above: Performed By: #### G FR, BMP #### [address] [address] Glucose (U) [Mass/Vol] Negative Normal Negative [facility] Comment on above: Performed By: #### G FR, BMP #### [address] [address] Ketones Ql (U) Negative Normal Negative [facility] Comment on above: Performed By: #### G FR, BMP #### [address] [address] UA Appear Clear Normal Clear [facility] Comment on above: Performed By: #### G FR, BMP #### [address] [address] UA Blood Negative Normal Negative [facility] Comment on above: Performed By: #### G FR, BMP #### [place] [address] UA Leuk Est Negative Normal Negative [facility] Comment on above: Performed By: #### G FR, BMP #### [place] [address] UA Nitrite Negative Normal Negative [facility] Comment on above: Performed By: #### G FR, BMP #### [place] [address] UA pH 6.5 Normal 5.0 - 8.0 [facility] Comment on above: Performed By: #### G FR, BMP #### [place] [address] UA Protein Negative Normal Negative [facility] Comment on above: Performed By: #### G FR, BMP #### [place] [address] UA Spec Grav 1.010 Abnormal 1.015-1.025 [facility] Comment on above: Performed By: #### G FR, BMP #### [place] [address] UA Specimen Type Clean Catch Normal [facility] Comment on above: Performed By: #### G FR, BMP #### [place] [address] UA Urobilinogen 1.0 E.U./dL Normal 0.2-1.0 [facility] Comment on above: Performed By: #### G FR, BMP #### [place] [address] Urobilinogen (U) [Mass/Vol] Negative Normal Negative [facility] Comment on above: Performed By: #### G FR, BMP #### [place] [address] .GFRon 12-10-2024 Estimated Glomerular Filtration Rate 46 ml/min/1.73sqm Normal [facility] Comment on above: Result Comment: Stages of Chronic Kidney Disease (CKD) Stage Description eGFR(ml/min/1.73 sq.m.) CKD 1 Normal kidney function or >=90 normal kindney function with possible kidney damage (ex. Proteinuria) CKD 2 Kidney damage with mild loss 60-89 of kidney function CKD 3a Mild to moderate loss of kidney 45-59 function CKD 3b Moderate to severe loss of 30-44 of kindey function CKD 4 Severe loss of kidney function 15-29 CKD 5 Kidney failure <15 Note: (go live 2024) the eGFR calculation was updated to the 2020 CKD-EPI creatinine equation without a race factor to calculate the eGFR results. Performed By: #### Samantha HARDWICK, BMP #### [address] [address] BMPon 12-10-2024 BUN/Creatinine Ratio 16 ratio Normal 7-27 [facility] Comment on above: Performed By: #### Samantha HARDWICK, BMP #### [address] [address] Calcium [Mass/Vol] 9.0 mg/dL Normal 8.4-10.2 [facility] Comment on above: Performed By: #### Samantha HARDWICK, BMP #### [address] [address] Chloride [Moles/Vol] 104 mmol/L Normal 98-107 [facility] Comment on above: Performed By: #### Samantha HARDWICK, BMP #### [address] [address] CO2 [Moles/Vol] 30 mmol/L Normal 23-31 [facility] Comment on above: Performed By: #### Samantha HARDWICK, BMP #### [address] [address] Creatinine [Mass/Vol] 1.23 mg/dL High 0.51-0.95 [facility] Comment on above: Performed By: #### G , BMP #### [address] [address] Electrolyte Balance 8.0 mEq/L Normal 4.0-15.0 [facility] Comment on above: Performed By: #### G FR, BMP #### [place] [address] [place], [place] [address] Glucose [Mass/Vol] 144 mg/dL High 83-110 [facility] Comment on above: Performed By: #### G FR, BMP #### [place] [address] [place], [place] [address] Potassium [Moles/Vol] 4.1 mmol/L Normal 3.5-5.1 [facility] Comment on above: Performed By: #### G , BMP #### [place] [address] [place], [place] [address] Sodium [Moles/Vol] 142 mmol/L Normal 136-145 [facility] Comment on above: Performed By: #### G , BMP #### [place] [address] [place], [place] [address] Urea nitrogen [Mass/Vol] 20 mg/dL High 7-18 [facility] Comment on above: Performed By: #### G , BMP #### [address] [address] LABORATORYOrdered By: SYSTEM SYSTEM on 12-10-2024 Calcium [Mass/Vol] 9.0 mg/dL Normal 8.4 - 10. 2 mg/dL AO ADM SS Chloride [Moles/Vol] 104 mmol/L Normal 98 - 10 7 mmol/L AO ADM SS CO2 [Moles/Vol] 30 mmol/L Normal 23 - 31 mmol/L AO ADM SS Creatinine [Mass/Vol] 1.23 mg/dL High 0.51 - 0.95 mg/dL AO ADM SS Electrolyte Balance 8.0 mEq/L Normal 4.0 - 15 .0 mEq/L AO ADM SS Estimated Glomerular Filtration Rate 46 ml/min/1.73sqm Invalid Interpretation Code AO Chemistry S Comment on above: Interpretive Data: Stages of Chronic Kidney Disease (CKD) Stage Description eGFR(ml/min/1.73 sq.m.) CKD 1 Normal kidney function or >=90 normal kindney function with possible kidney damage (ex. Proteinuria) CKD 2 Kidney damage with mild loss 60-89 of kidney function CKD 3a Mild to moderate loss of kidney 45-59 function CKD 3b Moderate to severe loss of 30-44 of kindey function CKD 4 Severe loss of kidney function 15-29 CKD 5 Kidney failure <15 Note: ( live 08/07/2024) the eGFR calculation was updated to the 2020 CKD-EPI creatinine equation without a race factor to calculate the eGFR results. Glucose [Mass/Vol] 144 mg/dL High 83 - 110 mg/dL AO ADM SS Potassium [Moles/Vol] 4.1 mmol/L Normal 3.5 - 5.1 mmol/L AO ADM SS Sodium [Moles/Vol] 142 mmol/L Normal 136 - 145 mmol/L AO ADM SS Urea nitrogen [Mass/Vol] 20 mg/dL High 7 - 18 mg/d L AO ADM SS Urea nitrogen/Creatinine [Mass ratio] 16 ratio Normal 7 - 27 ratio AO ADM SS .GFRon 11-27-2024 Estimated Glomerular Filtration Rate 41 ml/min/1.73sqm Normal [facility] Comment on above: Result Comment: Stages of Chronic Kidney Disease (CKD) Stage Description eGFR(ml/min/1.73 sq.m.) CKD 1 Normal kidney function or >=90 normal kindney function with possible kidney damage (ex. Proteinuria) CKD 2 Kidney damage with mild loss 60-89 of kidney function CKD 3a Mild to moderate loss of kidney 45-59 function CKD 3b Moderate to severe loss of 30-44 of kindey function CKD 4 Severe loss of kidney function 15-29 CKD 5 Kidney failure <15 Note: ( live 08/07/2024) the eGFR calculation was updated to the 2020 CKD-EPI creatinine equation without a race factor to calculate the eGFR results. Performed By: #### T JOAQUIN, GFR, PBNP, ADIFF, ANEU, MG, MDW, BMP, CBC #### [place] [address] [place], [place] [address] BMPon 11-27-2024 BUN/Creatinine Ratio 18 ratio Normal 01-27 [facility] Comment on above: Performed By: #### T JOAQUIN, GFR, PBNP, ADIFF, ANEU, MG, MDW, BMP, CBC #### [place] [address] [place], [place] [address] Calcium [Mass/Vol] 9.1 mg/dL Normal 8.4-10.2 [facility] Comment on above: Performed By: #### T JOAQUIN, GFR, PBNP, ADIFF, ANEU, MG, MDW, BMP, CBC #### [address] [address] Chloride [Moles/Vol] 103 mmol/L Normal 98-107 [facility] Comment on above: Performed By: #### T ROPHS, GFR, PBNP, ADIFF, ANEU, MG, MDW, BMP, CBC #### [address] [address] CO2 [Moles/Vol] 28 mmol/L Normal 23-31 [facility] Comment on above: Performed By: #### T JOAQUIN, GFR, PBNP, ADIFF, ANEU, MG, MDW, BMP, CBC #### [place] [address] Creatinine [Mass/Vol] 1.37 mg/dL High 0.51-0.95 [facility] Comment on above: Performed By: #### T JAOQUIN, GFR, PBNP, ADIFF, ANEU, MG, MDW, BMP, CBC #### [address] [address] Electrolyte Balance 9.0 mEq/L Normal 4.0-15.0 [facility] Comment on above: Performed By: #### T JOAQUIN, GFR, PBNP, ADIFF, ANEU, MG, MDW, BMP, CBC #### [place] [address] Glucose [Mass/Vol] 103 mg/dL Normal 83-110 [facility] Comment on above: Performed By: #### T JOAQUIN, GFR, PBNP, ADIFF, ANEU, MG, MDW, BMP, CBC #### [address] [address] Potassium [Moles/Vol] 3.8 mmol/L Normal 3.5-5.1 [facility] Comment on above: Performed By: #### T ROPHS, GFR, PBNP, ADIFF, ANEU, MG, MDW, BMP, CBC #### [facility] [address] [place], [place] [address] Sodium [Moles/Vol] 140 mmol/L Normal 136-145 [facility] Comment on above: Performed By: #### T ROPHS, GFR, PBNP, ADIFF, ANEU, MG, MDW, BMP, CBC #### [facility] [address] [place], [place] [address] Urea nitrogen [Mass/Vol] 24 mg/dL High 7-18 [facility] Comment on above: Performed By: #### T KALANIHS, GFR, PBNP, ADIFF, ANEU, MG, MDW, BMP, CBC #### [place] [address] [place], [place] [address] LABORATORYOrdered By: SYSTEM SYSTEM on 11-27-2024 Calcium [Mass/Vol] 9.1 mg/dL Normal 8.4 - 10. 2 mg/dL AO ADM SS Chloride [Moles/Vol] 103 mmol/L Normal 98 - 10 7 mmol/L AO ADM SS CO2 [Moles/Vol] 28 mmol/L Normal 23 - 31 mmol/L AO ADM SS Creatinine [Mass/Vol] 1.37 mg/dL High 0.51 - 0.95 mg/dL AO ADM SS Electrolyte Balance 9.0 mEq/L Normal 4.0 - 15 .0 mEq/L AO ADM SS Estimated Glomerular Filtration Rate 41 ml/min/1.73sqm Invalid Interpretation Code AO Chemistry S Comment on above: Interpretive Data: Stages of Chronic Kidney Disease (CKD) Stage Description eGFR(ml/min/1.73 sq.m.) CKD 1 Normal kidney function or >=90 normal kindney function with possible kidney damage (ex. Proteinuria) CKD 2 Kidney damage with mild loss 60-89 of kidney function CKD 3a Mild to moderate loss of kidney 45-59 function CKD 3b Moderate to severe loss of 30-44 of kindey function CKD 4 Severe loss of kidney function 15-29 CKD 5 Kidney failure <15 Note: (go live 2024) the eGFR calculation was updated to the 2020 CKD-EPI creatinine equation without a race factor to calculate the eGFR results. Glucose [Mass/Vol] 103 mg/dL Normal 83 - 110 mg/dL AO ADM SS Potassium [Moles/Vol] 3.8 mmol/L Normal 3.5 - 5.1 mmol/L AO ADM SS Sodium [Moles/Vol] 140 mmol/L Normal 136 - 145 mmol/L AO ADM SS Urea nitrogen [Mass/Vol] 24 mg/dL High 7 - 18 mg/d L AO ADM SS Urea nitrogen/Creatinine [Mass ratio] 18 ratio Normal 7 - 27 ratio AO ADM SS 12 Lead EKG performed by [facility] on 11-20-2024 12 Lead EKG performed by [facility] [address] [place] [address] 12 Lead EKG performed by [facility] 11/20/24 0707 MR#: [id number] Acct: [id number] Name: DANIELE CLARK DECEMBER Rep #: [id number] : 1950 74 From: Torres LAMAR Attending Dr: BRIANDA Narvaez Status: DEP AM B Ordering Dr: Torres Guzman Date: 11/20/24 Location: [facility] Sex: F C Admitted: [facility]/12 Lead EKG performed by [facility] ECG Report Interpretation ------Sinus Bradycardia -First degree A-V block Franck = 226Low voltage in precordial leads. -Old anterior infarct. ABNORMAL Electronically signed on 11/21/2024 at 09:42 by Rudy [employer] Version [id number] 11/21/24 0947 Date Torres LAMAR CC: Dr. Edward Ramirez DO Date Dictated: 11/20/24706 Date Transcribed: 11/20/24706 Toll Bridge Operator: ANDRA Signed [facility] Cardiology Visit Reporton Cardiology Visit Report [facility] [address] [place] [address] OFFICE VISIT Date of Service: 11/20/24 MR#: [id number] Acct: [id number] Name: DANIELE CLARK DECEMBER Rep #: [id number] : 1950 Provider: BRIANDA Narvaez Age/Sex: 74/F Location: [facility] Status: Signed HPI HPI History of Present Illness Details: Daniele Clark is a 74-year-old female with a history of atrial fibrillation which appears to be permanent, dyspnea on exertion, and hypertension. She says that she underwent a cardiac catheterization in December 2021 at [facility] and was Denisse which demonstrated mild nonobstructive coronary artery disease with a diagonal vessel with 45 to 50% stenosis. She also has a history of hyperlipidemia. She recently moved to the area because her . She had not had any previous attempts at voodoo of sinus rhythm. She underwent an echocardiogram September 24, 2023 which demonstrated an ejection fraction of 65%. Left atrium moderately enlarged. Normal right atrium. She did undergo a cardioversion. Since then Dtr has felt that she is more SOB. She CTA was negative for a PE. She does feel that the spirolactone and lasix has helped. Her HR have been lower. She was asked to decrease her metoprolol but did not do so. HM did demonstrate 18% Afib. She does have a moderate size hiatal hernia. She proceeded with cardioversion in March 2024. Patient was seen a few times over the last couple of months for acute concerns including shortness of breath, edema, and hypertension. Recent stress test and echocardiogram 10/10/24 was negative for ischemia and demonstrated ejection fraction of 60%; however, pulmonary artery systolic pressure had increased from prior and is now at 54 mmHg. Patient was treated with diuresis; however, kidney function had worsened and therefore, diuresis was adjusted. Patient was experiencing hypertension, treatment limited due to kidney function. We tried amlodipine which caused worsening in shortness of breath and lower extremity edema. We tried hydralazine which caused chest pain. We attempted nifedipine at 60 mg which also cause shortness of breath and lower extremity edema. Patient was initiated on Bystolic. Upon presentation to office, patient and daughter report patient was in the emergency department in [place] approximately 1 week ago with a heart rate in the 20s???30s. Bystolic was discontinued. Our office was contacted and patient was initiated on doxazosin. Home BP readings have improved with this medication with documented readings averaging in the 140s systolic. Heart rate has also improved and average in the 50s. However, patient is up 7 pounds with worsening lower extremity edema and shortness of breath over the past 5 days. Daughter reports serum creatinine 1.7 when in the ED approximately 1 week ago. Patient has ongoing fatigue. Dizziness when taking Bystolic. Further ROS below. Intake Vital Signs 11/02/24 09:13 11/20/24 07:08 11/20/24 11:19 Height 4 ft 10 in 4 ft 10 in Weight: 215 lb 222 lb BMI 44.9 46.3 BP 178/61 H 162/71 H 150/72 H Blood Pressure Location Lt brachial Lt brachial Lt brachial Position Sitting Sitting Sitting Respiration 18 22 H Pulse 58 L 52 L Pulse Source NIBP Monitor Intake Visit Reasons: 2 W FU [employer] Specialist Required: No Is patient in pain?: No Allergies alendronate sodium Adverse Reaction (Severe, Verified 11/20/24 10:16) A FIB amlodipine (From Norvasc) Adverse Reaction (Severe, Verified 11/20/24 10:16) Marked swelling with larger doses Beta-Blockers (Beta-Adrenergic Bloc Adverse Reaction (Severe, Verified 11/20/24 10:16) Marked Bradycardia celecoxib (From Celebrex) Adverse Reaction (Severe, Verified 11/20/24 10:16) Dizziness hydrochlorothiazide Adverse Reaction (Severe, Verified 11/20/24 10:16) pancreatitis nebivolol (From Bystolic) Adverse Reaction (Severe, Verified 11/20/24 10:16) Marked Bradycardia nifedipine Adverse Reaction (Severe, Verified 11/20/24 10:16) Severe swelling and fluid retention Medications ???Medication ???Instructions ???Recorded ???Confirmed ???Type apixaban 5 mg tablet (Eliquis) 5 mg PO BID 07/25/23 11/20/24 Hist ory aspirin 81 mg tablet,delayed 81 mg PO DAILY 07/25/23 11/20/24 H istory release (Adult Aspirin Regimen) atorvastatin 20 mg tablet 20 mg PO DAILY 07/25/23 11/20/24 H istory cholecalciferol (vitamin D3) 100 200 mcg PO DAILY 07/25/23 11/20/24 History mcg (4,000 unit) tablet cyanocobalamin (vitamin B-12) 1,000 mcg PO QMONTH 07/25/2311/20 History 1,000 mcg capsule levothyroxine 100 mcg capsule 100 mcg PO DAILY 07/25/23 11/20/24 History nitroglycerin 0.3 mg sublingual 0.3 mg sublingual Q5M PRN chest 11/20/24 History tablet pain pantoprazole 40 mg tab (more content not included)... Normal [facility] .GFRon 11-14-2024 Estimated Glomerular Filtration Rate 26 ml/min/1.73sqm Normal [facility] Comment on above: Result Comment: Stages of Chronic Kidney Disease (CKD) Stage Description eGFR(ml/min/1.73 sq.m.) CKD 1 Normal kidney function or >=90 normal kindney function with possible kidney damage (ex. Proteinuria) CKD 2 Kidney damage with mild loss 60-89 of kidney function CKD 3a Mild to moderate loss of kidney 45-59 function CKD 3b Moderate to severe loss of 30-44 of kindey function CKD 4 Severe loss of kidney function 15-29 CKD 5 Kidney failure <15 Note: (go live 2024) the eGFR calculation was updated to the 2020 CKD-EPI creatinine equation without a race factor to calculate the eGFR results. Performed By: #### T JOAQUIN, GFR, PBKISHA, JULES, ANEU, MG, MDW, BMP, CBC #### [address] [address] [facility] 11-14-2024 BUN/Creatinine Ratio 28 ratio High 7-27 [facility] Comment on above: Performed By: #### G , BMP #### [address] [address] Calcium [Mass/Vol] 8.9 mg/dL Normal 8.4-10.2 [facility] Comment on above: Performed By: #### G , BMP #### [address] [address] Chloride [Moles/Vol] 103 mmol/L Normal 98-107 [facility] Comment on above: Performed By: #### G , BMP #### [address] [address] CO2 [Moles/Vol] 24 mmol/L Normal 23-31 [facility] Comment on above: Performed By: #### G , BMP #### [address] [address] Creatinine [Mass/Vol] 1.99 mg/dL High 0.51-0.95 [facility] Comment on above: Performed By: #### G , BMP #### [address] [address] Electrolyte Balance 9.0 mEq/L Normal 4.0-15.0 [facility] Comment on above: Performed By: #### G , BMP #### [place] [address] Glucose [Mass/Vol] 110 mg/dL Normal 83-110 [facility] Comment on above: Performed By: #### G , BMP #### [address] [address] Potassium [Moles/Vol] 4.1 mmol/L Normal 3.5-5.1 [facility] Comment on above: Performed By: #### G , BMP #### [place] [address] Sodium [Moles/Vol] 136 mmol/L Normal 136-145 [facility] Comment on above: Performed By: #### G , BMP #### [address] [address] Urea nitrogen [Mass/Vol] 56 mg/dL High 7-18 [facility] Comment on above: Performed By: #### G , BMP #### [address] [address] PBNPon 11-14-2024 Natriuretic peptide B (Bld) [Mass/Vol] 2412 pg/mL High 0-125 [facility] Comment on above: Result Comment: NT-p roBNP results of less than 300 pg/mL effectively rules out acute congestive heart failure with 99% negative predictive value. Performed By: #### T ROPHS, GFR, PBNP, ADIFF, ANEU, MG, MDW, BMP, CBC #### [place] [address] [place], [place] [address] XR CHEST 2 VIEWSon XR CHEST 2 VIEWS ORIGINAL EXAMINATION: TWO XRAY VIEWS OF THE CHEST11/13/2024 11:52 pm COMPARISON: 11/02/2024 HISTORY: ORDERING SYSTEM PROVIDED HISTORY: Reason for Exam: family states they started patient on a new beta maira and heart rate has been in the 30's all day. Chest Pain FINDINGS: Moderate cardiomegaly, stable. There is no consolidation, vascular congestion, pleural effusion, or pneumothorax. There are no acute abnormalities to osseous structures. Degenerative changes in the spine. IMPRESSION: No acute cardiopulmonary findings. Moderate cardiomegaly. I have personally reviewed the images of this examination and agree with the resident's findings and interpretation. Interpreted by: Megan Rodriguez MD Preliminary Report By: Amarjit Chaudhary Electronically signed By Megan Rodriguez MD Dictated Date: 11/13/2024 11:58:54 PM Prelim Date: 11/14/2024 12:00:04 AM Sign Date: 11/14/2024 12:08:27 AM Ordering Provider: ALISIA MCBRIDE Normal [facility] .Auto Diffon 11-13-2024 Basophil, Absolute 0.1 10 3/mcL Normal 0.0-0.3 [facility] Comment on above: Performed By: #### G FR, BMP #### [address] [address] Basophils/100 WBC (Bld) 0.9 % Normal 0.0-2.5 [facility] Comment on above: Performed By: #### G FR, BMP #### [place] [address] [place], [place] [address] Eosinophil, Absolute 0.1 10 3/mcL Normal 0.0-0.7 [facility] Comment on above: Performed By: #### G FR, BMP #### [place] [address] [place], [place] [address] Eosinophils/100 WBC (Bld) 1.6 % Normal 0.0-6.0 [facility] Comment on above: Performed By: #### G FR, BMP #### [address] [address] Lymphocyte, Absolute 1.2 10 3/mcL Normal 0.9-4.3 [facility] Comment on above: Performed By: #### G FR, BMP #### [address] [address] Lymphocytes/100 WBC (Bld) 18.2 % Low 20.0-40.0 [facility] Comment on above: Performed By: #### G FR, BMP #### [address] [address] Monocyte, Absolute 0.7 10 3/mcL Normal 0.1-1.4 [facility] Comment on above: Performed By: #### G FR, BMP #### [address] [address] Monocytes/100 WBC (Bld) 10.9 % Normal 2.0-13.0 [facility] Comment on above: Performed By: #### G FR, BMP #### [address] [address] Neutrophils/100 WBC (Bld) 68.4 % Normal 50.0-75.0 [facility] Comment on above: Performed By: #### G FR, BMP #### [address] [address] .MDWon 11-13-2024 Monocyte Distribution Width 20.16 High 0.00-20.00 [facility] Comment on above: Result Comment: For adults in ED, MDW>20.0 may be associated with a higher risk of sepsis during the first 12hrs of hospital admission Performed By: #### G FR, BMP #### [address] [address] .NEUABSon 11-13-2024 Neutrophil, Absolute 4.6 10 3/mcL Normal 2.3-8.1 [facility] Comment on above: Performed By: #### G FR, BMP #### [address] [address] CBCon 11-13-2024 Erythrocyte distribution width (RBC) [Ratio] 14.0 % Normal 11.5-15.5 [facility] Comment on above: Performed By: #### Samantha HARDWICK, BMP #### [address] [address] Hematocrit (Bld) [Volume fraction] 35.8 % Normal 34.0-46.0 [facility] Comment on above: Performed By: #### Samantha HARDWICK, BMP #### [address] [address] Hgb 12.2 G/dL Normal 12.0-16.0 [facility] Comment on above: Performed By: #### Samantha HARDWICK, BMP #### [address] [address] MCH (RBC) [Entitic mass] 33.7 pg High 27.0-33.0 [facility] Comment on above: Performed By: #### Samantha HARDWICK, BMP #### [address] [address] MCHC 34.2 G/dL Normal 32.0-36.0 [facility] Comment on above: Performed By: #### Samantha HARDWICK, BMP #### [address] [address] MCV (RBC) [Entitic vol] 98.5 fL Normal 80.0-99.0 [facility] Comment on above: Performed By: #### Samantha HARDWICK, BMP #### [address] [address] Platelet 190 10 3/mcL Normal 150-450 [facility] Comment on above: Performed By: #### Samantha HARDWICK, BMP #### [address] [address] Platelet mean volume (Bld) [Entitic vol] 8.6 fL Normal 6.6-10.5 [facility] Comment on above: Performed By: #### Samantha HARDWICK, BMP #### [address] [address] RBC 3.63 10 6/mcL Low 4.10-5.30 [facility] Comment on above: Performed By: #### G , DEMARIO #### [facility] [address] [place], [place] [address] WBC 6.8 10 3/mcL Normal 4.5-10.8 [facility] Comment on above: Performed By: #### G , DEMARIO #### [facility] [address] [place], [place] [address] LABORATORYOrdered By: SYSTEM SYSTEM on 11-13-2024 Basophils (Bld) [#/Vol] 0.1 103/mcL Normal 0.0 - 0.3 10^3/mcL AO Workflow SS Basophils/100 WBC (Bld) 0.9 % Normal 0.0 - 2.5 % AO Workflow SS Calcium [Mass/Vol] 8.9 mg/dL Normal 8.4 - 10. 2 mg/dL AO ADM SS Chloride [Moles/Vol] 103 mmol/L Normal 98 - 10 7 mmol/L AO ADM SS CO2 [Moles/Vol] 24 mmol/L Normal 23 - 31 mmol/L AO ADM SS Creatinine [Mass/Vol] 1.99 mg/dL High 0.51 - 0.95 mg/dL AO ADM SS Electrolyte Balance 9.0 mEq/L Normal 4.0 - 15 .0 mEq/L AO ADM SS Eosinophil, Absolute 0.1 103/mcL Normal 0.0 - 0 .7 10^3/mcL AO Workflow SS Eosinophils/100 WBC (Bld) 1.6 % Normal 0.0 - 6.0 % AO Workflow SS Erythrocyte distribution width (RBC) [Ratio] 14.0 % Normal 11.5 - 15.5 % AO Workflow SS Estimated Glomerular Filtration Rate 26 ml/min/1.73sqm Invalid Interpretation Code AO Chemistry S Comment on above: Interpretive Data: Stages of Chronic Kidney Disease (CKD) Stage Description eGFR(ml/min/1.73 sq.m.) CKD 1 Normal kidney function or >=90 normal kindney function with possible kidney damage (ex. Proteinuria) CKD 2 Kidney damage with mild loss 60-89 of kidney function CKD 3a Mild to moderate loss of kidney 45-59 function CKD 3b Moderate to severe loss of 30-44 of kindey function CKD 4 Severe loss of kidney function 15-29 CKD 5 Kidney failure <15 Note: (go live 2024) the eGFR calculation was updated to the 2020 CKD-EPI creatinine equation without a race factor to calculate the eGFR results. Glucose [Mass/Vol] 110 mg/dL Normal 83 - 110 mg/dL AO ADM SS Hematocrit (Bld) [Volume fraction] 35.8 % Normal 34.0 - 46.0 % AO Workflow SS Hemoglobin (Bld) [Mass/Vol] 12.2 G/dL Normal 12.0 - 16.0 G/dL AO Workflow SS Lymphocytes (Bld) [#/Vol] 1.2 103/mcL Normal 0.9 - 4.3 10^3/mcL AO Workflow SS Lymphocytes/100 WBC (Bld) 18.2 % Low 20.0 - 40.0 % AO Workflow SS MCH (RBC) [Entitic mass] 33.7 pg High 27. 0 - 33.0 pg AO Workflow SS MCHC 34.2 G/dL Normal 32.0 - 36.0 G/dL AO Workflow SS MCV (RBC) [Entitic vol] 98.5 fL Normal 80.0 - 99.0 fL AO Workflow SS Monocyte distribution width Auto (Bld) [Entitic vol] 20.16 1 High 0.00 - 20.00 AO Workflow SS Comment on above: Result Comment: For adults in ED, MDW>20.0 may be associated with a higher risk of sepsis during the first 12hrs of hospital admission Monocytes (Bld) [#/Vol] 0.7 103/mcL Normal 0.1 - 1.4 10^3/mcL AO Workflow SS Monocytes/100 WBC (Bld) 10.9 % Normal 2.0 - 13.0 % AO Workflow SS Natriuretic peptide.B prohormone N-Terminal [Mass/Vol] 2412 pg/mL High 0 - 125 pg/mL AO ADM SS Comment on above: Interpretive Data: N T-proBNP results of less than 300 pg/mL effectively rules out acute congestive heart failure with 99% negative predictive value. Neutrophils (Bld) [#/Vol] 4.6 103/mcL Normal 2.3 - 8.1 10^3/mcL AO Workflow SS Neutrophils/100 WBC (Bld) 68.4 % Normal 50.0 - 75.0 % AO Workflow SS Platelet mean volume (Bld) [Entitic vol] 8.6 fL Normal 6.6 - 10.5 fL AO Workflow SS Platelets (Bld) [#/Vol] 190 103/mcL Normal 150 - 450 10^3/mcL AO Workflow SS Potassium [Moles/Vol] 4.1 mmol/L Normal 3.5 - 5.1 mmol/L AO ADM SS RBC (Bld) [#/Vol] 3.63 106/mcL Low 4.10 - 5.3 0 10^6/mcL AO Workflow SS Sodium [Moles/Vol] 136 mmol/L Normal 136 - 145 mmol/L AO ADM SS Troponin I.cardiac DL <= 0.01 ng/mL [Mass/Vol] 24 ng/L Normal 0 - 51 ng/L AO ADM SS Comment on above: Interpretive Data: H igh Sensitive Troponin I Reference Ranges: Female: 0-51 ng/L Male: 0-76 ng/L Testing performed on Dimension EXL using a homogeneous sandwich chemiluminescent immunoassay based on [employer] technology. Urea nitrogen [Mass/Vol] 56 mg/dL High 7 - 18 mg/d L AO ADM SS Urea nitrogen/Creatinine [Mass ratio] 28 ratio High 7 - 27 ratio AO ADM SS WBC (Bld) [#/Vol] 6.8 103/mcL Normal 4.5 - 10.8 10^3/mcL AO Workflow SS TROPHSon 11-13-2024 High Sensitivity Troponin I 24 ng/L Normal 0-51 [facility] Comment on above: Result Comment: High Sensitive Troponin I Reference Ranges: Female: 0-51 ng/L Male: 0-76 ng/L Testing performed on Dimension EXL using a homogeneous sandwich chemiluminescent immunoassay based on [employer] technology. Performed By: #### G , BMP #### [facility] [address] [place], [place] [address] Duplex ultrasound of renal a rtery reportOrdered By: Viraj Cooper on 11-12-2024 Study report [facility] [address] [place] [address] Renal Artery Duplex Ultrasound 11/09/24 0831 MR#: [id number] Acct: [id number] Name: DANIELE CLARK DECEMBER Rep #:[id number] : 1950 74 From: Viraj Mariano Attending Dr: BRIANDA Narvaez atus: REG CLI Ordering Dr: Torres Guzman Date: 11/09/24 Location: CVS Sex: F C Admitted: Reason For Study Reason For Study: HTN Right Renal Artery Left Renal Artery Right renal artery ostium 236/34 RSV/EDV. Left renal artery ostium 337/30 PSV/EDV. Right renal artery proximal 158/14 Left renal artery proximal PSV/EDV PSV/EDV. 97/18 . Right renal artery mid 117/16 PSV/EDV. Left renal artery mid 104/22 PSV/EDV . Right renal artery distal 117/24 PSV/EDV. Left renal artery distal 81/13 PSV/EDV. Right Renal Parenchyma Left Renal Parenchyma Upper Pole Medula 58/9 PSV/EDV. Left upper pole medulla 36/7 PSV/EDV . Right upper pole medulla EDR 0.16 . Left upper pole medulla EDR 0.19 . Right upper pole medulla R.I. 0.85 . Left upper pole medulla R.I. 0.80 . Upper Angus Cortx 20/6 PSV/EDV. UPCortex 21/5 PSV/EDV. Right upper pole cortex EDR 0.30 . Left upper pole cortex EDR 0.24 . Right upper pole cortex R.I. 0.68 . Left upper pole cortex R.I. 0.76 . Right lower Pole medulla 36/8 PSV/EDV . Left lower Pole medulla 32/5 PSV/EDV . Right lower pole medulla EDR 0.22 . Left lower pole medulla EDR 0.16 . Right lower pole medulla R.I. 0.77 . Left lower pole medulla R.I. 0.86 . Lower Pole Cortex 20/7 PSV/EDV. Lower Pole Cortx 17/7 PSV/EDV. Right lower pole cortex EDR 0.35 . Left lower pole cortex EDR 0.41 . Right lower pole cortex R.I. 0.64 . Left lower pole cortex R.I. 0.60 . Right Renal Hilar Left Renal Hilar Right Hilar avg 115/14 PSV/EDV. LTHilar avg 76/18 PSV/EDV . Right hilar acceleration time 40 m/sec. Left hilar acceleration time 30 m/sec. Right Renal Dimensions Left Renal Dimensions Right kidney size 9.58 cm . Left kidney size 9.36 cm . Right cortical dimension 1.47 cm . Left cortical dimension 1.50 cm . Aorta Proximal abdominal aorta 2.05cm x 2.15 cm . Proximal abdominal aorta peak systolic velocity is 106 cm/sec . Distal abdominal aorta 1.70cm x 2.09 cm . Distal abdominal aorta peak systolic velocityis 120 cm/sec . VL/Renal Artery Duplex Ultrasound Interpretation Summary Right renal artery patent with < 60% stenosis. Left renal artery patent with < 60% stenosis. Right renal vein patent. Left renal vein patent. Right kidney normal in size. Left kidney normal in size. Ordering Physician: Torres Guzman Referring Physician: Edward Ramirez Performed By: Lin Edward, DERICK, RVT 11/12/24723 Date _ Viraj Cooper MD CC: Dr. Edward Ramirez DO; BRIANDA Narvaez ~ Date Dictated: 11/09/248[address] Date Transcribed: 11/12/24723 [employer] Operator: Signed [facility] Work Phone: Anion gap in Serum or Plasma Ordered By: Torres Guzman on 11-09-2024 Anion gap [Moles/Vol] 15 mmol/L 5-15 [facility] [place] BUN/creatinine ratioOrdered By: Torres Guzman on 11-09-2024 Urea nitrogen/Creatinine [Mass ratio] 22.8 mg/mg High 10-20 [facility] Bilirubin, totalOrdered By: Torres Guzman on 11-09-2024 Bilirubin [Mass/Vol] 0.85 mg/dL 0.00-1.30 [facility] Calculated very low density lipoprotein (VLDL) cholesterol measurementOrdered By: Torres Guzman on 11-09-2024 Calculated very low density lipoprotein (VLDL) cholesterol measurement 14 mg/dL 5-40 [facility] Carbon dioxide, total [Moles /volume] in Central venous bloodOrdered By: Torres Guzman on 11-09-2024 CO2 [Moles/Vol] 22.7 mmol/L 21.0-32.0 [facility] Chloride assayOrdered By: Justin Guzman on 11-09-2024 Chloride [Moles/Vol] 99 mmol/L 98-108 [facility] Comprehensive Metabolic Prof ilon 11-09-2024 Albumin [Mass/Vol] 4.3 g/dL Normal 3.4-4.8 [facility] Comment on above: Performed By: #### L [id number], L500.4050, L500.4100 #### [facility] [address] [place], [address] Albumin/Globulin [Mass ratio] 1.2 {ratio} Normal 0.9-2.4 [facility] Comment on above: Performed By: #### L [id number], L500.4050, L500.4100 #### [facility] [address] [place], [address] ALK PHOS 113 U/L High 35-104 [facility] Comment on above: Performed By: #### L [id number], L500.4050, L500.4100 #### [facility] [address] [place], [address] ALT [Catalytic activity/Vol] 22 U/L Normal <=34 [facility] Comment on above: Performed By: #### L [id number], L500.4050, L500.4100 #### [facility] [address] [place], [address] AST [Catalytic activity/Vol] 29 U/L Normal <=31 [facility] Comment on above: Performed By: #### L [id number], [id number], L500.4100 #### [facility] [address] [place], [address] Bilirubin [Mass/Vol] 0.85 mg/dL Normal 0.00-1.30 [facility] Comment on above: Performed By: #### L [id number], L500.4050, L500.4100 #### [facility] [address] [place], [address] BUN/CRE 22.8 RATIO High 10-20 [facility] Comment on above: Performed By: #### L [id number], [id number], L500.4100 #### [facility] [address] [place], [address] Calcium [Mass/Vol] 9.8 mg/dL Normal 7.6-11.0 [facility] Comment on above: Performed By: #### L [id number], L500.4050, L500.4100 #### [facility] [address] [place], [address] Chloride [Moles/Vol] 99 mmol/L Normal 98-108 [facility] Comment on above: Performed By: #### L [id number], [id number], L500.4100 #### [facility] [address] [place], [address] CO2 [Moles/Vol] 22.7 mmol/L Normal 21.0-32.0 [facility] Comment on above: Performed By: #### L [id number], L500.4050, L500.4100 #### [facility] [address] [place], [address] Creatinine [Mass/Vol] 1.77 mg/dL High 0.70-1.20 [facility] Comment on above: Performed By: #### L 501.9520, L500.4050, L500.4100 #### [facility] [address] [place], [address] GAP 15 Normal 5-15 [facility] Comment on above: Performed By: #### L 501.9520, L500.4050, L500.4100 #### [facility] [address] [place], [address] GFR/1.73 sq M.predicted among non-blacks MDRD (S/P/Bld) [Vol rate/Area] 30 mL/min/{1.73_m2} Low >60 [facility] Comment on above: Result Comment: mL/m in/1.73m2 CKD-EPI Creatinine Equation (2020) Performed By: #### L 501.9520, L500.4050, L500.4100 #### [facility] [address] [place], [address] Globulin (S) [Mass/Vol] 3.7 g/dL Normal 2.2-4.[address] [facility] Comment on above: Performed By: #### L 501.9520, L500.4050, L500.4100 #### [facility] [address] [place], [address] Glucose [Mass/Vol] 116 mg/dL High 70-99 [facility] Comment on above: Performed By: #### L [id number], [id number], L500.4100 #### [facility] [address] [place], [address] Potassium [Moles/Vol] 4.5 mmol/L Normal 3.3-5.1 [facility] Comment on above: Performed By: #### L 501.9520, L500.4050, L500.4100 #### [facility] [address] [place], [address] Sodium [Moles/Vol] 136 mmol/L Normal 133-145 [facility] Comment on above: Performed By: #### L 501.9520, L500.4050, L500.4100 #### [facility] [address] [place], [address] T PROT 8.0 g/dL Normal 5.9-8.4 [facility] Comment on above: Performed By: #### L 501.9520, L500.4050, L500.4100 #### [facility] [address] [place], [address] Urea nitrogen [Mass/Vol] 40 mg/dL High 4-19 [facility] Comment on above: Performed By: #### L 501.9520, L500.4050, L500.4100 #### [facility] [address] [place], [address] Glomerular filtration rate ( GFR) estimation/1.73 sq m using serum, plasma, or whole bOrdered By: Torres Guzman on 11-09-2024 GFR/1.73 sq M.predicted among non-blacks MDRD (S/P/Bld) [Vol rate/Area] 30 mL/min/{1.73_m2} Low >60 [facility] Comment on above: mL/min/1.73m2 CKD-EP I Creatinine Equation (2020) LDL calc ser/plasOrdered By: Torres Guzman on 11-09-2024 Cholesterol in LDL [Mass/Vol] 60 mg/dL [facility] Comment on above: Kcpivfrkhf=387-959 m g/dL & Higher Sykc=103 mg/dL or greater Laboratory - Chemistry and C hemistry - challengeOrdered By: Torres Guzman on 11-09-2024 AST [Catalytic activity/Vol] 29 U/L <32 [facility] Lipid Profileon 11-09-2024 CHOL:HDL 1.87 Normal [facility] Comment on above: Performed By: #### L 501.9520, L500.4050, L500.4100 #### [facility] [address] [place], [address] Cholesterol [Mass/Vol] 158 mg/dL Normal <=200 [facility] Comment on above: Result Comment: Chol esterol level, Desirable <200 mg/dL Borderline high cholesterol 200-239 mg/dL High cholesterol >=240 mg/dL Recommendations of the NCEP Adult Treatment Panel for the following risk-cutoff thresholds for the [place] population. Performed By: #### L 501.9520, L500.4050, L500.4100 #### [facility] [address] [place], [address] Cholesterol in HDL [Mass/Vol] 84 mg/dL Normal [facility] Comment on above: Result Comment: Breonna onal Cholesterol Education Program (NCEP) guidelines: <40 mg/dL: Low HDL-cholesterol (major risk factor for CHD) >= 60 mg/dL: High HDL-cholesterol (negative risk factor for CHD) HDL-cholesterol is affected by a number of factors, e.g. smoking, exercise, hormones, sex and age. Performed By: #### L [id number], L500.4050, L500.4100 #### [facility] [address] [place], [address] Cholesterol in LDL [Mass/Vol] 60 mg/dL Normal [facility] Comment on above: Result Comment: Bord mlevrx=800-739 mg/dL Higher Zfiy=368 mg/dL or greater Performed By: #### L [id number], L500.4050, L500.4100 #### [facility] [address] [place], [address] Cholesterol in VLDL [Mass/Vol] 14 mg/dL Normal 5-40 [facility] Comment on above: Performed By: #### L 501.9520, L500.4050, L500.4100 #### [facility] [address] [place], [address] Triglyceride [Mass/Vol] 68 mg/dL Normal [facility] Comment on above: Result Comment: The drugs N-Acetylcysteine and Metamizole may falsely depress this assay. Normal range: <150 mg/dL Borderline High: 150-199 mg/dL High: 200-499 mg/dL Very High: >500 mg/dL Performed By: #### L 501.4675, L500.4050, L500.4100 #### [facility] [address] [place], [address] Potassium measurement (mass/ volume)Ordered By: Torres Guzman on 11-09-2024 Potassium (Unsp spec) [Mass/Vol] 4.5 mmol/L 3.3-5.1 [facility] Renal Artery Duplex Ultrasou ndon 11-09-2024 Renal Artery Duplex Ultrasound [facility] [address] [place] [address] Renal Artery Duplex Ultrasound 11/09/24 0831 MR#: [id number] Acct: [id number] Name: DANIELE CLARK DECEMBER Rep #: [id number] : 1950 74 From: Viraj Cooper MD Attending Dr: BRIANDA Narvaez Status: REG CL I Ordering Dr: Torres Guzman Date: 11/09/24 Location: [facility] Sex: F C Admitted: Reason For Study Reason For Study: HTN Right Renal Artery Left Renal Artery Right renal artery ostium 236/34 RSV/EDV. Left renal artery ostium 337/30 PSV/EDV. Right renal artery proximal 158/14 Left renal artery proximal PSV/EDV PSV/EDV. 97/18 . Right renal artery mid 117/16 PSV/EDV. Left renal artery mid 104/22 PSV/EDV . Right renal artery distal 117/24 PSV/EDV. Left renal artery distal 81/13 PSV/EDV. Right Renal Parenchyma Left Renal Parenchyma Upper Pole Medula 58/9 PSV/EDV. Left upper pole medulla 36/7 PSV/EDV . Right upper pole medulla EDR 0.16 . Left upper pole medulla EDR 0.19 . Right upper pole medulla R.I. 0.85 . Left upper pole medulla R.I. 0.80 . Upper Angus Cortx 20/6 PSV/EDV. UP Cortex 21/5 PSV/EDV. Right upper pole cortex EDR 0.30 . Left upper pole cortex EDR 0.24 . Right upper pole cortex R.I. 0.68 . Left upper pole cortex R.I. 0.76 . Right lower Pole medulla 36/8 PSV/EDV . Left lower Pole medulla 32/5 PSV/EDV . Right lower pole medulla EDR 0.22 . Left lower pole medulla EDR 0.16 . Right lower pole medulla R.I. 0.77 . Left lower pole medulla R.I. 0.86 . Lower Pole Cortex 20/7 PSV/EDV. Lower Pole Cortx 17/7 PSV/EDV. Right lower pole cortex EDR 0.35 . Left lower pole cortex EDR 0.41 . Right lower pole cortex R.I. 0.64 . Left lower pole cortex R.I. 0.60 . Right Renal Hilar Left Renal Hilar Right Hilar avg 115/14 PSV/EDV. LT Hilar avg 76/18 PSV/EDV . Right hilar acceleration time 40 m/sec. Left hilar acceleration time 30 m/sec. Right Renal Dimensions Left Renal Dimensions Right kidney size 9.58 cm . Left kidney size 9.36 cm . Right cortical dimension 1.47 cm . Left cortical dimension 1.50 cm . Aorta Proximal abdominal aorta 2.05cm x 2.15 cm . Proximal abdominal aorta peak systolic velocity is 106 cm/sec . Distal abdominal aorta 1.70cm x 2.09 cm . Distal abdominal aorta peak systolic velocity is 120 cm/sec . VL/Renal Artery Duplex Ultrasound Interpretation Summary Right renal artery patent with < 60% stenosis. Left renal artery patent with < 60% stenosis. Right renal vein patent. Left renal vein patent. Right kidney normal in size. Left kidney normal in size. Ordering Physician: Torres Guzman Referring Physician: Edward Ramirez Performed By: Lin Edward, RDCS, RVT 11/12/24723 Date Viraj Cooper MD CC: Dr. Edward Ramirez DO; BRIANDA Narvaez Date Dictated: 11/09/24830 Date Transcribed: 11/12/24723 Toll Bridge Operator: Signed Normal [facility] Screening total cholesterol/ high density lipoprotein (HDL) cholesterol ratioOrdered By: Torres Guzman on 11-09-2024 Cholesterol.total/Choles terol in HDL [Mass ratio] 1.87 {ratio} [facility] Serum creatinine measurement (mass/volume)Ordered By: Torres Guzman on 11-09-2024 Creatinine [Mass/Vol] 1.77 mg/dL High 0.70-1.20 [facility] Serum globulin measurementOr dered By: Torres Guzman on 11-09-2024 Globulin (S) [Mass/Vol] 3.7 g/dL 2.2-4.2 [facility] Serum glucose measurement (m ass/volume)Ordered By: Torres Guzman on 11-09-2024 Glucose [Mass/Vol] 116 mg/dL High 70-99 [facility] Serum or plasma alanine lang otransferase (ALT) measurementOrdered By: Torres Guzman on 11-09-2024 ALT [Catalytic activity/Vol] 22 U/L <35 [facility] Serum or plasma albumin talia urement (mass/volume)Ordered By: Torres Guzman on 11-09-2024 Albumin [Mass/Vol] 4.3 g/dL 3.4-4.8 [facility] Serum or plasma albumin/glob ulin mass ratioOrdered By: Torres Guzman on 11-09-2024 Albumin/Globulin [Mass ratio] 1.2 {ratio} 0.9-2.4 [facility] Serum or plasma alkaline ryan sphatase measurementOrdered By: Torres Guzman on 11-09-2024 ALP [Catalytic activity/Vol] 113 U/L High 35-104 [facility] Serum or plasma calcium talia urement (mass/volume)Ordered By: Torres Guzman on 11-09-2024 Calcium [Mass/Vol] 9.8 mg/dL 7.6-11.0 [facility] Serum or plasma cholesterol in HDL measurement (mass/volume)Ordered By: Torres Guzman on 11-09-2024 Cholesterol in HDL [Mass/Vol] 84 mg/dL >40 [facility] Comment on above: National Cholesterol Education Program (NCEP) guidelines:<40 mg/dL: Low HDL-cholesterol (major risk factor for CHD)>= 60 mg/dL: High HDL-cholesterol (negative risk factor for CHD)HDL-cholesterol is affected by a number of factors, e.g. smoking, exercise, hormones, sex and age. Serum or plasma cholesterol measurement (mass/volume)Ordered By: Torres Guzman on 11-09-2024 Cholesterol [Mass/Vol] 158 mg/dL <201 [facility] Comment on above: Cholesterol level, D esirable <200 mg/dLBorderline high cholesterol 200-239 mg/dLHigh cholesterol >=240 mg/dLRecommendations of the NCEP Adult Treatment Panel for the following risk-cutoff thresholds for the [place] population. Serum or plasma urea nitroge n measurement (mass/volume)Ordered By: Torres Guzman on 11-09-2024 Urea nitrogen [Mass/Vol] 40 mg/dL High 4-19 [facility] Sodium levelOrdered By: Nelly Guzman on 11-09-2024 Sodium [Moles/Vol] 136 mmol/L 133-145 [facility] TSH DL <= 0.005 mIU/L QnOrde red By: Torres Guzman on 11-09-2024 TSH Qn 3.720 uIU/mL 0.300-4.200 [facility] Thyroid Stim Hormone (TSH)on 11-09-2024 TSH 3.720 uIU/mL Normal 0.300-4.200 [facility] Comment on above: Performed By: #### L 501.1524, L500.4050, L500.4100 ####[facility] [address] [place], [address] Total proteinOrdered By: Herb Guzman on 11-09-2024 Protein [Mass/Vol] 8.0 g/dL 5.9-8.4 [facility] Triglycerides measurementOrd ered By: Torres Guzman on 11-09-2024 Triglyceride [Mass/Vol] 68 mg/dL <199 [facility] Comment on above: The drugs N-Acetylcy steine and Metamizole may falsely depress this assay. Normal range: <150 mg/dLBorderline High: 150-199 mg/dLHigh: 200-499 mg/dLVery High: >500 mg/dL .Auto Diffon 11-02-2024 Basophil, Absolute 0.1 10 3/mcL Normal 0.0-0.3 [facility] Comment on above: Performed By: #### T JOAQUIN, GFR, PBNP, ADIFF, ANEU, MG, MDW, BMP, CBC #### [address] [address] Lymphocyte, Absolute 1.6 10 3/mcL Normal 0.9-4.3 [facility] Comment on above: Performed By: #### T JOAQUIN, GFR, PBNP, ADIFF, ANEU, MG, MDW, BMP, CBC #### [address] [address] Monocyte, Absolute 0.8 10 3/mcL Normal 0.1-1.4 [facility] Comment on above: Performed By: #### T ROPHS, GFR, PBNP, ADIFF, ANEU, MG, MDW, BMP, CBC #### [address] [address] .Auto DiffOrdered By: SYSTEM SYSTEM on 11-02-2024 Basophils/100 WBC (Bld) 0.9 % Normal 0.0-2.5 A O Workflow Comment on above: Performed By: #### T ROPHS, GFR, PBNP, ADIFF, ANEU, MG, MDW, BMP, CBC #### [address] [address] Eosinophil, Absolute 0.1 103/mcL Normal 0.0-0.7 AO Workflow SS Comment on above: Performed By: #### T ROPHS, GFR, PBNP, ADIFF, ANEU, MG, MDW, BMP, CBC #### [address] [address] Eosinophils/100 WBC (Bld) 1.7 % Normal 0.0-6.0 AO Workflow SS Comment on above: Performed By: #### T ROPHS, GFR, PBNP, ADIFF, ANEU, MG, MDW, BMP, CBC #### [address] [address] Lymphocytes/100 WBC (Bld) 20.4 % Normal 20.0-40.0 AO Workflow SS Comment on above: Performed By: #### T ROPHS, GFR, PBNP, ADIFF, ANEU, MG, MDW, BMP, CBC #### [address] [address] Monocytes/100 WBC (Bld) 10.5 % Normal 2.0-13.0 A O Workflow SS Comment on above: Performed By: #### T ROPHS, GFR, PBNP, ADIFF, ANEU, MG, MDW, BMP, CBC #### [address] [address] Neutrophils/100 WBC (Bld) 66.5 % Normal 50.0-75.0 AO Workflow SS Comment on above: Performed By: #### T ROPHS, GFR, PBNP, ADIFF, ANEU, MG, MDW, BMP, CBC #### [address] [address] .GFROrdered By: SYSTEM VLN PartnersE [employer]-Blink on 11-02-2024 Estimated Glomerular Filtration Rate 29 ml/min/1.73sqm Normal AO Chemistry S Comment on above: Interpretive Data: Stages of Chronic Kidney Disease (CKD) Stage Description eGFR(ml/min/1.73 sq.m.) CKD 1 Normal kidney function or >=90 normal kindney function with possible kidney damage (ex. Proteinuria) CKD 2 Kidney damage with mild loss 60-89 of kidney function CKD 3a Mild to moderate loss of kidney 45-59 function CKD 3b Moderate to severe loss of 30-44 of kindey function CKD 4 Severe loss of kidney function 15-29 CKD 5 Kidney failure <15 Note: ( live 08/07/2024) the eGFR calculation was updated to the 2020 CKD-EPI creatinine equation without a race factor to calculate the eGFR results. Result Comment: Stages of Chronic Kidney Disease (CKD) Stage Description eGFR(ml/min/1.73 sq.m.) CKD 1 Normal kidney function or >=90 normal kindney function with possible kidney damage (ex. Proteinuria) CKD 2 Kidney damage with mild loss 60-89 of kidney function CKD 3a Mild to moderate loss of kidney 45-59 function CKD 3b Moderate to severe loss of 30-44 of kindey function CKD 4 Severe loss of kidney function 15-29 CKD 5 Kidney failure <15 Note: ( live 08/07/2024) the eGFR calculation was updated to the 2020 CKD-EPI creatinine equation without a race factor to calculate the eGFR results. Performed By: #### T JOAQUIN, GFR, PBNP, ADIFF, ANEU, MG, MDW, BMP, CBC #### [address] [address] .MDWon 11-02-2024 Monocyte Distribution Width 16.94 Normal 0.00-20.00 [facility] Comment on above: Result Comment: For ED adult patients suspected of sepsis, MDW<=20.0 does not rule out sepsis or risk of sepsis Performed By: #### T JOAQUIN, GFR, PBNP, ADIFF, ANEU, MG, MDW, BMP, CBC #### [address] [address] .NEUABSon 11-02-2024 Neutrophil, Absolute 5.1 10 3/mcL Normal 2.3-8.1 [facility] Comment on above: Performed By: #### T JOAQUIN, GFR, PBNP, ADIFF, ANEU, MG, MDW, BMP, CBC #### [address] [address] 12 Lead EKG performed by [facility] on 11-02-2024 12 Lead EKG performed by [facility] [address] [place] [address] 12 Lead EKG performed by [facility] 11/02/248 MR#: [id number] Acct: [id number] Name: DANIELE CLARK DECEMBER Rep #: [id number] : 1950 74 From: Torres LAMAR Attending Dr: BRIANDA Narvaez Status: DEP AM B Ordering Dr: Torres Guzman Date: 11/02/24 Location: [facility] Sex: F C Admitted: [facility]/12 Lead EKG performed by [facility] ECG Report Interpretation ------Sinus Bradycardia -First degree A-V block Franck = 244Low voltage in precordial leads. ABNORMAL Electronically signed on 11/05/2024 at 17:35 by Rudy Graves Software Version [id number] 11/05/24 1741 Date Torres LAMAR CC: Dr. Edward Ramirez, Date Dictated: 11/02/241057 Date Transcribed: 11/02/241057 Toll Bridge Operator: ANDRA Signed Normal [facility] Anion gap in Serum or Plasma Ordered By: Torres Guzman on 11-02-2024 Anion gap [Moles/Vol] 13 mmol/L 5-15 [facility] BMPon 11-02-2024 BUN/Creatinine Ratio 32 ratio High 7-27 [facility] Comment on above: Performed By: #### T JOAQUIN, GFR, PBNP, ADIFF, ANEU, MG, MDW, BMP, CBC #### [address] [address] BMPOrdered By: SYSTEM SYSTEM on 11-02-2024 Calcium [Mass/Vol] 9.6 mg/dL Normal 8.4-10.2 AO ADM SS Comment on above: Performed By: #### T JOAQUIN, GFR, PBNP, ADIFF, ANEU, MG, MDW, BMP, CBC #### [address] [address] Chloride [Moles/Vol] 103 mmol/L Normal 98-107 AO A DM SS Comment on above: Performed By: #### T JOAQUIN, GFR, PBNP, ADIFF, ANEU, MG, MDW, BMP, CBC #### [address] [address] CO2 [Moles/Vol] 25 mmol/L Normal 23-31 AO ADM SS Comment on above: Performed By: #### T ROPHS, GFR, PBNP, ADIFF, ANEU, MG, MDW, BMP, CBC #### [address] [address] Electrolyte Balance 11.0 mEq/L Normal 4.0-15.0 AO AD M SS Comment on above: Performed By: #### T JOAQUIN, GFR, PBNP, ADIFF, ANEU, MG, MDW, BMP, CBC #### [address] [address] Glucose [Mass/Vol] 130 mg/dL High 83-110 AO ADM SS Comment on above: Performed By: #### T JOAQUIN, GFR, PBNP, ADIFF, ANEU, MG, MDW, BMP, CBC #### [address] [address] Potassium [Moles/Vol] 3.9 mmol/L Normal 3.5-5.1 AO ADM SS Comment on above: Performed By: #### T JOAQUIN, GFR, PBNP, ADIFF, ANEU, MG, MDW, BMP, CBC #### [address] [address] Sodium [Moles/Vol] 139 mmol/L Normal 136-145 AO ADM SS Comment on above: Performed By: #### T JOAQUIN, GFR, PBNP, ADIFF, ANEU, MG, MDW, BMP, CBC #### [address] [address] Urea nitrogen [Mass/Vol] 58 mg/dL High 7-18 AO ADM SS Comment on above: Performed By: #### T KALANIHS, GFR, PBNP, ADIFF, ANEU, MG, MDW, BMP, CBC #### [place] [address] [place], [place] [address] BUN/creatinine ratioOrdered By: Torres Guzman on 11-02-2024 Urea nitrogen/Creatinine [Mass ratio] 30.4 mg/mg High 10-20 [facility] Basic Metabolic Profile (BMP )on 11-02-2024 BUN/CRE 30.4 RATIO High 10-20 [facility] Comment on above: Performed By: #### L 500.2500 #### [facility] [address] [place], [address] Calcium [Mass/Vol] 9.7 mg/dL Normal 7.6-11.0 [facility] Comment on above: Performed By: #### L 500.2500 #### [facility] [address] [place], [address] Chloride [Moles/Vol] 101 mmol/L Normal 98-108 [facility] Comment on above: Performed By: #### L 500.2500 #### [facility] [address] [place], [address] CO2 [Moles/Vol] 25.9 mmol/L Normal 21.0-32.0 [facility] Comment on above: Performed By: #### L 500.2500 #### [facility] [address] [place], [address] GAP 13 Normal 5-15 [facility] Comment on above: Performed By: #### L 500.2500 #### [facility] [address] [place], [address] GFR/1.73 sq M.predicted among non-blacks MDRD (S/P/Bld) [Vol rate/Area] 29 mL/min/{1.73_m2} Low >60 [facility] Comment on above: Result Comment: mL/m in/1.73m2 CKD-EPI Creatinine Equation (2020) Performed By: #### L 500.2500 #### [facility] [address] [place], [address] Glucose [Mass/Vol] 102 mg/dL High 70-99 [facility] Comment on above: Performed By: #### L 500.2500 #### [facility] [address] [place], [address] Potassium [Moles/Vol] 4.1 mmol/L Normal 3.3-5.1 [facility] Comment on above: Result Comment: Hemo lysis present, Results??could be affected. ?? Performed By: #### L 500.2500 #### [facility] [address] [place], [address] Sodium [Moles/Vol] 140 mmol/L Normal 133-145 [facility] Comment on above: Performed By: #### L 500.2500 #### [facility] [address] [place], [address] Urea nitrogen [Mass/Vol] 55 mg/dL High 4-19 [facility] Comment on above: Performed By: #### L 500.2500 #### [facility] [address] [place], [address] CBCOrdered By: SYSTEM SYSTEM on 11-02-2024 Erythrocyte distribution width (RBC) [Ratio] 13.8 % Normal 11.5-15.5 AO Workflow SS Comment on above: Performed By: #### T JOAQUIN, GFR, PBNP, ADIFF, ANEU, MG, MDW, BMP, CBC #### [place] [address] [address] Hematocrit (Bld) [Volume fraction] 38.0 % Normal 34.0-46.0 AO Workflow SS Comment on above: Performed By: #### T JOAQUIN, GFR, PBNP, ADIFF, ANEU, MG, MDW, BMP, CBC #### [facility] [address] [address] MCH (RBC) [Entitic mass] 33.1 pg High 27.0-33.0 AO Workflow SS Comment on above: Performed By: #### T JOAQUIN, GFR, PBNP, ADIFF, ANEU, MG, MDW, BMP, CBC #### [place] [address] MCHC 33.8 G/dL Normal 32.0-36.0 AO Workflow SS Comment on above: Performed By: #### T ROPHS, GFR, PBNP, ADIFF, ANEU, MG, MDW, BMP, CBC #### [place] [address] MCV (RBC) [Entitic vol] 98.1 fL Normal 80.0-99.0 A O Workflow SS Comment on above: Performed By: #### T ROPHS, GFR, PBNP, ADIFF, ANEU, MG, MDW, BMP, CBC #### [place] [address] Platelet mean volume (Bld) [Entitic vol] 8.1 fL Normal 6.6-10.5 AO Workflow SS Comment on above: Performed By: #### T ROPHS, GFR, PBNP, ADIFF, ANEU, MG, MDW, BMP, CBC #### [place] [address] CBCon 11-02-2024 Hgb 12.8 G/dL Normal 12.0-16.0 [facility] Comment on above: Performed By: #### T ROPHS, GFR, PBNP, ADIFF, ANEU, MG, MDW, BMP, CBC #### [place] [address] Platelet 209 10 3/mcL Normal 150-450 [facility] Comment on above: Performed By: #### T ROPHS, GFR, PBNP, ADIFF, ANEU, MG, MDW, BMP, CBC #### [place] [address] RBC 3.87 10 6/mcL Low 4.10-5.30 [facility] Comment on above: Performed By: #### T ROPHS, GFR, PBNP, ADIFF, ANEU, MG, MDW, BMP, CBC #### [place] [address] WBC 7.7 10 3/mcL Normal 4.5-10.8 [facility] Comment on above: Performed By: #### T JOAQUIN, GFR, PBKISHA, JULES, ANEU, MG, MDW, BMP, CBC #### [facility] [address] [place], [place] [address] Carbon dioxide, total [Moles /volume] in Central venous bloodOrdered By: Torres Guzman on 11-02-2024 CO2 [Moles/Vol] 25.9 mmol/L 21.0-32.0 [facility] Cardiology Visit Reporton Cardiology Visit Report [facility] [place], [place] [address] OFFICE VISIT Date of Service: 11/02/24 MR#: [id number] Acct: [id number] Name: DANIELE CLARK DECEMBER Rep #: [id number] : 1950 Provider: BRIANDA Narvaez Age/Sex: 74/F Location: [facility] Status: Signed HPI HPI History of Present Illness Details: Daniele Clark is a 74-year-old female with a history of atrial fibrillation which appears to be permanent, dyspnea on exertion, and hypertension. She says that she underwent a cardiac catheterization in December 2021 at [facility] and was Denisse which demonstrated mild nonobstructive coronary artery disease with a diagonal vessel with 45 to 50% stenosis. She also has a history of hyperlipidemia. She recently moved to the area because her . She had not had any previous attempts at voodoo of sinus rhythm. She underwent an echocardiogram September 24, 2023 which demonstrated an ejection fraction of 65%. Left atrium moderately enlarged. Normal right atrium. She did undergo a cardioversion. Since then Dtr has felt that she is more SOB. She CTA was negative for a PE. She does feel that the spirolactone and lasix has helped. Her HR have been lower. She was asked to decrease her metoprolol but did not do so. HM did demonstrate 18% Afib. She does have a moderate size hiatal hernia. She proceeded with cardioversion in March 2024. Patient was seen 09/17/2024 for shortness of breath. Stress test and echocardiogram were ordered at that time. Patient was instructed to increase her Lasix to 40 mg twice daily for 5 days. Repeat BMP 09/28/2024 demonstrated improved creatinine from prior at 1.55 and potassium 4.4. Stress test was negative for ischemia and echocardiogram demonstrated ejection fraction of 60%; however, pulmonary artery systolic pressure had increased from prior and is now at 54 mmHg. Patient was instructed to increase Lasix again to 40 mg twice daily as patient did return to her baseline dose of just daily. Patient was also having hypertension and was restarted on amlodipine 2.5 mg. Ultimately, patient began feeling worse including shortness of breath and worsening lower extremity edema. Patient held her amlodipine and was ultimately switched to hydralazine. Lab work from 10/30/2024 demonstrated elevated serum creatinine at 3.04 and a potassium of 5.6. Daughter reported improvement in lower extremity edema and shortness of breath with discontinuation of amlodipine. Upon presentation to office, patient and daughter reports ongoing SOB, worsened with activity. Denies orthopnea. B/L LE edema has improved with discontinuation of amlodipine. Patient has not yet obtained hydralazine prescription from the pharmacy and notes elevated BP and vitals in office today support this.BP at home: 160s/60s-70s. She has been compliant with Lasix once per day. Fatigue and weakness have been ongoing as well. Further ROS below. Intake Vital Signs 10/01/24 09:24 11/02/24 09:13 Height 4 ft 10 in 4 ft 10 in Weight: 215 lb BMI 44.9 BP 178/61 H Blood Pressure Location Lt brachial Position Sitting Respiration 18 Pulse 58 L Pulse Source NIBP Intake Visit Reasons: See clinical note. [employer] Specialist Required: No Accompanied by: Daughter Is patient in pain?: Yes (generalized; chronic; unchanged) Pain scale (1-10): 4 Allergies alendronate sodium Adverse Reaction (Severe, Verified 11/02/24 10:08) A FIB amlodipine (From Norvasc) Adverse Reaction (Severe, Verified 11/02/24 10:08) Marked swelling with larger doses celecoxib (From Celebrex) Adverse Reaction (Severe, Verified 11/02/24 10:08) Dizziness hydrochlorothiazide Adverse Reaction (Severe, Verified 11/02/24 10:08) pancreatitis Medications ???Medication ???Instructions ???Recorded ???Confirmed ???Type apixaban 5 mg tablet (Eliquis) 5 mg PO BID 07/25/23 11/02/24 Hist ory aspirin 81 mg tablet,delayed 81 mg PO DAILY 07/25/23 11/02/24 H istory release (Adult Aspirin Regimen) atorvastatin 20 mg tablet 20 mg PO DAILY 07/25/23 11/02/24 H istory cholecalciferol (vitamin D3) 100 200 mcg PO DAILY 07/25/23 11/02/24 History mcg (4,000 unit) tablet cyanocobalamin (vitamin B-12) 1,000 mcg PO QMONTH 07/25/2311/02 History 1,000 mcg capsule levothyroxine 100 mcg capsule 100 mcg PO DAILY 07/25/23 11/02/24 History nitroglycerin 0.3 mg sublingual 0.3 mg sublingual Q5M PRN chest 11/02/24 History tablet pain pantoprazole 40 mg tablet,delayed 40 mg PO DAILY 07/25/23 11/02/24 History release albuterol sulfate 90 mcg/actuation 2 inh inhalation Q4H PRN shortne ss 10/08/23 11/02/24 Rx aerosol inhaler (Proventil HFA) of breath or wheezing #6.7 grams amiodarone 200 mg tablet 200 mg PO DAILY #90 tabs 04/09/24 11/02/24 Rx (more content not included)... Normal [facility] Chloride assayOrdered By: Justin Guzman on 11-02-2024 Chloride [Moles/Vol] 101 mmol/L 98-108 [facility] Glomerular filtration rate ( GFR) estimation/1.73 sq m using serum, plasma, or whole bOrdered By: Torres Guzman on 11-02-2024 GFR/1.73 sq M.predicted among non-blacks MDRD (S/P/Bld) [Vol rate/Area] 29 mL/min/{1.73_m2} Low >60 [facility] Comment on above: mL/min/1.73m2 CKD-EP I Creatinine Equation (2020) LABORATORYOrdered By: SYSTEM SYSTEM on 11-02-2024 Troponin I.cardiac DL <= 0.01 ng/mL [Mass/Vol] 30 ng/L Normal 0 - 51 ng/L AO ADM SS Comment on above: Interpretive Data: H igh Sensitive Troponin I Reference Ranges: Female: 0-51 ng/L Male: 0-76 ng/L Testing performed on Dimension EXL using a homogeneous sandwich chemiluminescent immunoassay based on [employer] technology. Basophils (Bld) [#/Vol] 0.1 103/mcL Normal 0.0 - 0.3 10^3/mcL AO Workflow SS Hemoglobin (Bld) [Mass/Vol] 12.8 G/dL Normal 12.0 - 16.0 G/dL AO Workflow SS Lymphocytes (Bld) [#/Vol] 1.6 103/mcL Normal 0.9 - 4.3 10^3/mcL AO Workflow SS Monocyte distribution width Auto (Bld) [Entitic vol] 16.94 1 Normal 0.00 - 20.00 AO Workflow SS Comment on above: Result Comment: For ED adult patients suspected of sepsis, MDW<=20.0 does not rule out sepsis or risk of sepsis Monocytes (Bld) [#/Vol] 0.8 103/mcL Normal 0.1 - 1.4 10^3/mcL AO Workflow SS Natriuretic peptide.B prohormone N-Terminal [Mass/Vol] 858 pg/mL High 0 - 125 pg/mL AO ADM SS Comment on above: Interpretive Data: N T-proBNP results of less than 300 pg/mL effectively rules out acute congestive heart failure with 99% negative predictive value. Neutrophils (Bld) [#/Vol] 5.1 103/mcL Normal 2.3 - 8.1 10^3/mcL AO Workflow SS Platelets (Bld) [#/Vol] 209 103/mcL Normal 150 - 450 10^3/mcL AO Workflow SS RBC (Bld) [#/Vol] 3.87 106/mcL Low 4.10 - 5.3 0 10^6/mcL AO Workflow SS Troponin I.cardiac DL <= 0.01 ng/mL [Mass/Vol] 26 ng/L Normal 0 - 51 ng/L AO ADM SS Comment on above: Interpretive Data: H igh Sensitive Troponin I Reference Ranges: Female: 0-51 ng/L Male: 0-76 ng/L Testing performed on Dimension EXL using a homogeneous sandwich chemiluminescent immunoassay based on [employer] technology. Urea nitrogen/Creatinine [Mass ratio] 32 ratio High 7 - 27 ratio AO ADM SS WBC (Bld) [#/Vol] 7.7 103/mcL Normal 4.5 - 10.8 10^3/mcL AO Workflow SS MGOrdered By: Valuation App SYSTEM on 11-02-2024 Magnesium [Mass/Vol] 2.5 mg/dL High 1.8-2.4 AO A DM SS Comment on above: Performed By: #### T JOAQUIN, GFR, PBNP, ADIFF, ANEU, MG, MDW, BMP, CBC #### [address] [address] PBNPon 11-02-2024 Natriuretic peptide B (Bld) [Mass/Vol] 858 pg/mL High 0-125 [facility] Comment on above: Result Comment: NT-p roBNP results of less than 300 pg/mL effectively rules out acute congestive heart failure with 99% negative predictive value. Performed By: #### G , DEMARIO #### [address] [address] Potassium measurement (mass/ volume)Ordered By: [email or web address] on 11-02-2024 Potassium (Unsp spec) [Mass/Vol] 4.1 mmol/L 3.3-5.1 [facility] Comment on above: Hemolysis present, R esults could be affected. Serum creatinine measurement (mass/volume)Ordered By: Valuation App SYSTEM on 11-02-2024 Creatinine [Mass/Vol] 1.79 mg/dL High 0.51-0.95 AO ADM SS Comment on above: Performed By: #### L 500.2500 #### [facility] [address] [facility] [place], [place], [id number] Performed By: #### T JOAQUIN, GFR, PBNP, ADIFF, ANEU, MG, MDW, BMP, CBC #### [address] [address] Serum glucose measurement (m ass/volume)Ordered By: [email or web address] on 11-02-2024 Glucose [Mass/Vol] 102 mg/dL High 70-99 [facility] Serum or plasma calcium talia urement (mass/volume)Ordered By: [email or web address] on 11-02-2024 Calcium [Mass/Vol] 9.7 mg/dL 7.6-11.0 [facility] Serum or plasma urea nitroge n measurement (mass/volume)Ordered By: Torres Guzman on 11-02-2024 Urea nitrogen [Mass/Vol] 55 mg/dL High 4-19 [facility] Sodium levelOrdered By: Nelly Guzman on 11-02-2024 Sodium [Moles/Vol] 140 mmol/L 133-145 [facility] TROPHSon 11-02-2024 High Sensitivity Troponin I 30 ng/L Normal 0-51 [facility] Comment on above: Result Comment: High Sensitive Troponin I Reference Ranges: Female: 0-51 ng/L Male: 0-76 ng/L Testing performed on Micromidas using a homogeneous sandwich chemiluminescent immunoassay based on [employer] technology. Performed By: #### T JOAQUIN, GFR, PBNP, ADIFF, ANEU, MG, MDW, BMP, CBC #### [place] [address] High Sensitivity Troponin I 26 ng/L Normal 0-51 [facility] Comment on above: Result Comment: High Sensitive Troponin I Reference Ranges: Female: 0-51 ng/L Male: 0-76 ng/L Testing performed on Micromidas using a homogeneous sandwich chemiluminescent immunoassay based on [employer] technology. Performed By: #### T KALANIHS, GFR, PBNP, ADIFF, ANEU, MG, MDW, BMP, CBC #### [address] [address] XR CHEST 1 VIEWon 11-02-2024 XR CHEST 1 VIEW ORIGINAL EXAMINATION: ONE XRAY VIEW OF THE CHEST 11/02/2024 2:07 pm COMPARISON: 09/28/2023 HISTORY: ORDERING SYSTEM PROVIDED HISTORY: Reason for Exam: chest pain FINDINGS: Low lung volumes with hypoventilatory changes. Enlarged cardiac silhouette. Bronchovascular crowding. No pleural effusion or pneumothorax. No acute osseous abnormality. IMPRESSION: 1. Low lung volumes with hypoventilatory changes. 2. Enlarged cardiac silhouette which may be related to technique. Interpreted by: González Vera Preliminary Report By: González Vera Electronically signed By González Vera Dictated Date: 11/02/2024 2:18:38 PM Prelim Date: 11/02/2024 2:19:13 PM Sign Date: 11/02/2024 2:19:13 PM Ordering Provider: TIM Zamora [facility] Anion gap in Serum or Plasma Ordered By: Maynor Edward on 10-30-2024 Anion gap [Moles/Vol] 13 mmol/L - [facility] BUN/creatinine ratioOrdered By: Maynor Edward on 10-30-2024 Urea nitrogen/Creatinine [Mass ratio] 27.9 mg/mg High 10-20 [facility] Basic Metabolic Profile (BMP )on 10-30-2024 BUN/CRE 27.9 RATIO High 04-22 [facility] Comment on above: Performed By: #### L 500.2500 ####[facility] [address] [place], [address] GAP 13 Normal 11-15 [facility] Comment on above: Performed By: #### L 500.2500 ####[facility] [address] [place], [address] Potassium [Moles/Vol] 5.6 mmol/L High 3.3-5.1 [facility] Comment on above: Performed By: #### L 500.2500 ####[facility] [address] [place], [address] Carbon dioxide, total [Moles /volume] in Central venous bloodOrdered By: Maynor Edward on 10-30-2024 CO2 [Moles/Vol] 22.9 mmol/L 21.0-32.0 [facility] Comment on above: Performed By: #### L 500.2500 ####[facility] [address] [place], [address] Chloride assayOrdered By: Dena Edward on 10-30-2024 Chloride [Moles/Vol] 100 mmol/L 98-108 [facility] Comment on above: Performed By: #### L 500.2500 ####[facility] [address] [place], [place], [id number] Glomerular filtration rate ( GFR) estimation/1.73 sq m using serum, plasma, or whole bOrdered By: Maynor Edward on 10-30-2024 GFR/1.73 sq M.predicted among non-blacks MDRD (S/P/Bld) [Vol rate/Area] 16 mL/min/{1.73_m2} Low >60 [facility] Comment on above: mL/min/1.73m2 CKD-EP I Creatinine Equation (2020) Result Comment: mL/m in/1.73m2 CKD-EPI Creatinine Equation (2020) Performed By: #### L 500.2500 ####[facility] [address] [place], [address] Potassium measurement (mass/ volume)Ordered By: Maynor Edward on 10-30-2024 Potassium (Unsp spec) [Mass/Vol] 5.6 mmol/L High 3.3-5.1 [facility] Serum creatinine measurement (mass/volume)Ordered By: Maynor Edward on 10-30-2024 Creatinine [Mass/Vol] 3.04 mg/dL High 0.70-1.20 [facility] Comment on above: Performed By: #### L 500.2500 ####[facility] [address] [place], [place], [id number] Serum glucose measurement (m ass/volume)Ordered By: Maynor Edward on 10-30-2024 Glucose [Mass/Vol] 108 mg/dL High 70-99 [facility] Comment on above: Performed By: #### L 500.2500 ####[facility] [address] [place], [place], [phone] Serum or plasma calcium talia urement (mass/volume)Ordered By: Maynor Edward on 10-30-2024 Calcium [Mass/Vol] 9.5 mg/dL 7.6-11.0 [facility] Comment on above: Performed By: #### L 500.2500 ####[facility] [address] [place], [address] Serum or plasma urea nitroge n measurement (mass/volume)Ordered By: Maynor Edward on 10-30-2024 Urea nitrogen [Mass/Vol] 85 mg/dL High 4-19 [facility] Comment on above: Performed By: #### L 500.2500 ####[facility] [address] [place], [address] Sodium levelOrdered By: Maynor Edward on 10-30-2024 Sodium [Moles/Vol] 135 mmol/L 133-145 [facility] Comment on above: Performed By: #### L 500.2500 ####[facility] [address] [place], [place], [address] Cardiovascular stress test r eportOrdered By: Rudy Graves on 10-10-2024 Study report [facility] [address] [place] [address] MR#: [id number] Acct: [id number] Name: DANIELE CLARK DECEMBER Rep #: [id number] : 1950 74 From: Rudy Graves MD Primary Care: Dr. Edward Ramirez, DO Stat us: REG CLI Referring Dr: Maynor Edward [employer]JUNCT INSTRUCTOR IN [employer]OM[employer] ADJUNCT IN[employer]CTOR [employer]OM[employer]-C Sex: F C Stress Test Report Pharmacologic myocardial perfusion stress test. 74-year-old lady with a history of shortness of breath. Resting EKG demonstrates sinus rhythm with a rate of 53 bpm. Resting blood pressure is 162/82 mmHg. 0.4 mg of regadenoson was infused per usual protocol followed by rapid intravenous saline flush injection. Continuous EKG monitoringwas performed. The maximum heart rate was 64 bpm which was 43 per of max impacted heart rate the maximum workload was 1 metabolic equivalent. At rest there were no ST or T wave changes noted to suggest ischemia and at peak infusion nonspecific ST changes were noted which did not meet the criteria for ischemia. No clinical angina is noted. The final blood pressure was 150/80 mmHg. Myocardial perfusion protocol. 14.7 mCi of technetium 99m sestamibi was injected at rest. 0.4 mg of regadenoson was infused per usual protocol. At peak infusion 44.6 mCi of technetium 99m sestamibi was injected stress images were obtained stress and rest images were reconstructed and compared in the short axis vertical long and horizontal long axis. Gated images were also obtained. Perfusion SPECT analysis: Review of the stress images demonstrate normal uptake of tracer noted in all areas of the myocardium. The resting images similar demonstrated normal uptake of tracer noted in all areas of the myocardium. No areas of reversibility are noted to suggest ischemia and no previous infarct is noted. Gated SPECT analysis: The gated ejection fraction is 84%. Conclusion: Normal pharmacologic myocardial perfusion stress test. Preserved ejection fraction. 10/10/241657 Date _ Rudy Graves MD CC: ADJUNCT INSTRUCTOR IN [employer]OMICS-C Maynor Edward; DO Daniella Enriquez Date Dictated: 10/10/241655 Date Transcribed: 10/10/241655 Toll Bridge Operator: [place] Signed [facility] Work Phone: Echo Complete W/ Contraston 10-10-2024 Echo Complete W/ Contrast [facility] [address] [place] [address] Echo Complete W/ Contrast 10/10/24 0756 MR#: [id number] Acct: [id number] Name: DANIELE CLARK DECEMBER Rep #: [id number] : 1950 74 From: Rudy Graves MD Attending Dr: VIKTOR Amaya Status: REG CLI Ordering Dr: Maynor Edward NP [employer] IN[employer]CTOR [employer]-C Date: 10/10/24 Location: [facility] Sex: F C Admitted: Reason For Study Reason For Study: DYSPNEA/SOB Procedure This was a 2D Doppler, Color Flow transthoracic echocardiogram. The study was technically difficult. Due to body habitus. Contrast injection was performed. Exam performed in department. Left Ventricle Normal LV size. The left ventricular ejection fraction is 60 %. No regional wall motion abnormalities noted. Right Ventricle Normal RV size. Normal systolic function. Atria Normal left atrium. Normal right atrium. Mitral Valve Normal mitral valve. Tricuspid Valve Normal tricuspid valve. Mild to moderate (1-2+) tricuspid valve insufficiency. Pulmonary artery systolic pressure is 54 mmHg. Aortic Valve Trisinus/trileaflet aortic valve. Mild focal aortic valve calcification. Pulmonic Valve Normal pulmonic valve. Trivial pulmonic valve insufficiency. Great Vessels Normal aortic root. The pulmonary artery is normal size. Inferior vena cava collapse with respiration. Pericardium/Pleural No pericardial effusion. Medication Diluted definity 2.5ml given slow IV push to enhance endocardial definition. MMode/2D Measurements Calculations LVIDd: 5.6 cm IVSd: 1.2 cm Ao root diam: 3.6 cm LVIDs: 3.9 cm LVPWd: 1.1 cm RVDd: 3.2 cm FS: 31.0 % LAV(MOD-bp): 95.9 ml LVAd ap4: 25.8 cm2 SV(MOD-sp4): 42.1 ml LAV(MOD-bp) Indexed: 50.7 ml/m2 LVLd ap4: 7.7 cm SI(MOD-sp4): 22.2 ml/m2 LAV(MOD-sp2): 81.2 ml EDV(MOD-sp4): 71.5 ml LAV(MOD-sp4): 106.8 ml EDV(sp4-el): 73.8 ml LVAs ap4: 14.9 cm2 LVLs ap4: 6.1 cm ESV(MOD-sp4): 29.4 ml ESV(sp4-el): 30.6 ml EF(MOD-sp4): 58.9 % EF(sp4-el): 58.6 % SV(sp4-el): 43.3 ml LA A4 area: 29.0 cm2 RA A4 area: 13.5 cm2 TAPSE: 1.9 cm Time Measurements MV dec time: 0.18 sec Doppler Measurements Calculations MV E max lenin: 125.7 cm/sec Lat Peak E' Lenin: 13.3 cm/sec Med Peak E' Lenin: 10.5 cm/sec MV A max lenin: 63.0 cm/sec E/E' lat: 9.4 E/E' med: 11.9 MV E/A: 2.0 MV V2 max: 199.3 cm/sec MV P1/2t max lenin: 218.3 cm/sec Ao V2 max: 168.2 cm/sec MV max P.9 mmHg MV P1/2t: 38.0 msec Ao max P.3 mmHg MV V2 mean: 74.8 cm/sec Ao V2 mean: 103.4 cm/sec MV mean P.9 mmHg MV dec slope: 1681 cm/sec2 Ao mean P.8 mmHg MV V2 VTI: 48.8 cm MVA(P1/2t): 5.8 cm2 Ao V2 VTI: 42.0 cm AV (velocity ratio): 0.88 AI max lenin: 404.6 cm/sec LV V1 max: 150.2 cm/sec PA V2 max: 130.8 cm/sec AI max P.6 mmHg LV V1 max P.0 mmHg PA V2 mean: 94.2 cm/sec LV V1 mean P.0 mmHg AI dec slope: 243.3 cm/sec2 LV V1 mean: 94.1 cm/sec AI P1/2t: 487.1 msec LV V1 VTI: 36.8 cm TR max lenin: 350.8 cm/sec TR max P.2 mmHg ECHO/Echo Complete W/ Contrast Interpretation Summary Normal LV size. The left ventricular ejection fraction is 60 %. Pulmonary artery systolic pressure is 54 mmHg. Contrast injection was performed. Ordering Physician: Maynor Edward Referring Physician: Edward Ramirez Performed By: Madyson Renteria RDCS, RVT 10/10/24 1305 Date Rudy Graves MD CC: ADJUNCT INSTRUCTOR IN E[employer]OMICS-C Maynor Edward; Dr. Edward Ramirez, Date Dictated: 10/10/24 075 Date Transcribed: 10/10/24 1305 Toll Bridge Operator: Signed [facility] Echocardiogram study reportO rdered By: Rudy Graves on 10-10-2024 Study report [facility] [address] [place] [address] Echo Complete W/ Contrast 10/10/24 0756 MR#: [id number] Acct: [id number] Name: DANIELE CLARK DECEMBER Rep #:[id number] : 1950 74 From: Rudy Mariano Attending Dr: VIKTOR Amaya [facility] tus: REG CLI Ordering Dr: Maynor Edward NP Date: 10/10/24 Location: [facility] Sex: F C Admitted: Reason For Study Reason For Study: DYSPNEA/SOB Procedure This was a 2D Doppler, Color Flow transthoracic echocardiogram. The study was technically difficult. Due to body habitus. Contrast injection was performed. Exam performed in department. Left Ventricle Normal LV size. The left ventricular ejection fraction is 60 %. No regional wallmotion abnormalities noted. Right Ventricle Normal RV size. Normal systolic function. Atria Normal left atrium. Normal right atrium. Mitral Valve Normal mitral valve. Tricuspid Valve Normal tricuspid valve. Mild to moderate (1-2+) tricuspid valve insufficiency. Pulmonary artery systolic pressure is 54 mmHg. Aortic Valve Trisinus/trileaflet aortic valve. Mild focal aortic valve calcification. Pulmonic Valve Normal pulmonic valve. Trivial pulmonic valve insufficiency. Great Vessels Normal aortic root. The pulmonary artery is normal size. Inferior vena cava collapse with respiration. Pericardium/Pleural No pericardial effusion. Medication Diluted definity 2.5ml given slow IV push to enhance endocardial definition. MMode/2D Measurements & Calculations LVIDd: 5.6 cm IVSd: 1.2 cm Ao root diam: 3.6 cm LVIDs: 3.9 cm LVPWd: 1.1 cm RVDd: 3.2 cm FS: 31.0 % LAV(MOD-bp): 95.9 ml LVAd ap4: 25.8 cm2 SV(MOD-sp4): 42.1 ml LAV(MOD-bp) Indexed: 50.7 ml/m2 LVLd ap4: 7.7 cm SI(MOD-sp4): 22.2 ml/m2 LAV(MOD-sp2): 81.2 ml EDV(MOD-sp4): 71.5 ml LAV(MOD-sp4): 106.8 ml EDV(sp4-el): 73.8 ml LVAs ap4: 14.9 cm2 LVLs ap4: 6.1 cm ESV(MOD-sp4): 29.4 ml ESV(sp4-el): 30.6 ml EF(MOD-sp4): 58.9 % EF(sp4-el): 58.6 % SV(sp4-el): 43.3 ml LA A4 area: 29.0 cm2 RA A4 area: 13.5 cm2 TAPSE: 1.9 cm Time Measurements MV dec time: 0.18 sec Doppler Measurements & Calculations MV E max lenin: 125.7 cm/sec Lat Peak E' Lenin: 13.3 cm/sec Med Peak E' Lenin: 10.5 cm/sec MV A max lenin: 63.0 cm/sec E/E' lat: 9.4 E/E' med: 11.9 MV E/A: 2.0 __ MV V2 max: 199.3 cm/sec MV P1/2t max lenin: 218.3 cm/sec Ao V2 max: 168.2 cm/sec MV max P.9 mmHg MV P1/2t: 38.0 msec Ao max P.3 mmHg MV V2 mean: 74.8 cm/sec Ao V2 mean: 103.4 cm/sec MV mean P.9 mmHg MV dec slope: 1681 cm/sec2 Ao mean P.8 mmHg MV V2 VTI: 48.8 cm MVA(P1/2t): 5.8 cm2 Ao V2 VTI: 42.0 cm AV (velocity ratio): 0.88 AI max lenin: 404.6 cm/sec LV V1 max: 150.2 cm/sec PA V2 max: 130.8 cm/sec AI max P.6 mmHg LV V1 max P.0 mmHg PA V2 mean: 94.2 cm/sec LV V1 mean P.0 mmHg AI dec slope: 243.3 cm/sec2 LV V1 mean: 94.1 cm/sec AI P1/2t: 487.1 msec LV V1 VTI: 36.8 cm TR max lenin: 350.8 cm/sec TR max P.2 mmHg ECHO/Echo Complete W/ Contrast Interpretation Summary Normal LV size. The left ventricular ejection fraction is 60 %. Pulmonary artery systolic pressure is 54 mmHg. Contrast injection was performed. Ordering Physician: Maynor Edward Referring Physician: Edward Ramirez Performed By: Madyson Renteria, DERICK, RVT 10/10/24 1305 Date _ Rudy Graves MD CC: VIKTOR Edward; Dr. Edward Ramirez DO ~ Date Dictated: 10/10/24 0756 Date Transcribed: 10/10/24 1305 Toll Bridge Operator: Signed [facility] Work Phone: Stress Reporton 10-10-2024 Stress Report [facility] [address] [place] [address] MR#: [id number] Acct: [id number] Name: DANIELE CLARK DECEMBER Rep #: [id number] : 1950 74 From: Rudy Graves MD Primary Care: Dr. Edward Ramirez, DO Status: REG CLI Referring Dr: Maynor Edward NP ADJUNCT INSTRUCTOR IN ECONOMICS-C Sex: F C Stress Test Report Pharmacologic myocardial perfusion stress test. 74-year-old lady with a history of shortness of breath. Resting EKG demonstrates sinus rhythm with a rate of 53 bpm. Resting blood pressure is 162/82 mmHg. 0.4 mg of regadenoson was infused per usual protocol followed by rapid intravenous saline flush injection. Continuous EKG monitoring was performed. The maximum heart rate was 64 bpm which was 43 per of max impacted heart rate the maximum workload was 1 metabolic equivalent. At rest there were no ST or T wave changes noted to suggest ischemia and at peak infusion nonspecific ST changes were noted which did not meet the criteria for ischemia. No clinical angina is noted. The final blood pressure was 150/80 mmHg. Myocardial perfusion protocol. 14.7 mCi of technetium 99m sestamibi was injected at rest. 0.4 mg of regadenoson was infused per usual protocol. At peak infusion 44.6 mCi of technetium 99m sestamibi was injected stress images were obtained stress and rest images were reconstructed and compared in the short axis vertical long and horizontal long axis. Gated images were also obtained. Perfusion SPECT analysis: Review of the stress images demonstrate normal uptake of tracer noted in all areas of the myocardium. The resting images similar demonstrated normal uptake of tracer noted in all areas of the myocardium. No areas of reversibility are noted to suggest ischemia and no previous infarct is noted. Gated SPECT analysis: The gated ejection fraction is 84%. Conclusion: Normal pharmacologic myocardial perfusion stress test. Preserved ejection fraction. 10/10/241657 Date Rudy Graves MD CC: VIKTOR Edward; Dr. Edward Ramirez, DO Date Dictated: 10/10/241655 Date Transcribed: 10/10/241655 Toll Bridge Operator: [place] Signed [facility] Pulmonary Visit Reporton Pulmonary Visit Report [facility] [place] [address] [place] [address] OFFICE VISIT Date of Service: 10/01/24 MR#: [id number] Acct: [id number] Name: DANIELE CLARK DECEMBER Rep #: [id number] : 1950 Provider: VIKTOR Brizuela Age/Sex: 74/F Location: [facility] Status: Signed Assessment and Plan Assessment and Plan (1) Sleep apnea: Status: Chronic Qualifiers: Sleep apnea type: obstructive Qualified Code(s): G47.33 - Obstructive sleep apnea (adult) (pediatric) Comment: AHI 11.5 Plan: Stable, she is using and benefiting from Pap therapy. No indication for titration study at this time. Contact the office for any new or worsening symptoms in the meantime. Follow-up in 1 year. (2) Pulmonary hypertension: Status: Acute Comment: PASP 43 mmHg Plan: Symptomatically stable. No additional testing at this time. Last pulmonary stress test from November 2023 had very good results, the patient was not near qualifying for supplemental oxygen. If her cardiac workup that is pending is unrevealing, the daughter has been encouraged to contact our office to reevaluate a 6-minute walk test. (3) Obesity: Status: Chronic Qualifiers: Body mass index: BMI 45.0-49.9 Obesity classification: adult class 3 (BMI >= 40) Obesity type: due to excess calories Serious obesity comorbidity presence: with serious comorbidity Qualified Code(s): E66.813 - Obesity, class 3; E66.01 - Morbid (severe) obesity due to excess calories; Z68.42 - Body mass index [BMI] 45.0-49.9, adult Plan: Deteriorated. The patient has put on 15 pounds since her last office visit. This likely has some impact on her shortness of breath on exertion. I explained this to the patient and her daughter. They convey understanding. Encourage healthy weight loss. (4) Bradycardia: Status: Acute Plan: Complicates exam, plan, care and prognosis. This is also likely contributing to the patient's shortness of breath on exertion and overall feelings of fatigue. Defer management to cardiology. (5) Essential (primary) hypertension: Status: Acute Plan: Complicates exam, plan, care and prognosis. Uncontrolled hypertension can also be the cause of shortness of breath. Defer management of antihypertensive medications to cardiology. HPI 6 M FU Chief Complaint: Shortness of breath HPI Comments Details: This patient presents to the office today for follow-up of her obstructive sleep apnea. She is ambulatory, currently on room air and accompanied today by her daughter. She has not recently been seen in the ED or urgent care for any respiratory problems. She has not required any antibiotics or prednisone for any breathing problems. She continues to experience shortness of breath on exertion, her daughter reports that she believes that shortness of breath is getting worse. She has an occasional cough productive of clear-colored sputum, but she denies any hemoptysis. She reports occasional wheezing, but denies any chest tightness, chest pain or palpitations. She denies any fever, chills or body aches. She has been experiencing fatigue. She is not having excessive nocturia. She denies difficulty with dry mouth. She is not having difficulty with morning headaches. Compliance report for the past 30 days shows 100% compliance with average use of 8 hours and 5 minutes per night. Current setting is air curve 10 via auto with pressures typically being utilized at 13-16.9 cmH2O. Residual AHI of 1.7 events per hour. Leaks do not appear to be problematic. Intake Vital Signs 03/28/24 07:42 04/02/24 10:44 10/01/24 09:24 Height 4 ft 10 in 4 ft 10 in 4 ft 10 in Weight: 217 lb BMI 45.3 BP 189/70 H Blood Pressure Location Rt radial Position Sitting Respiration 20 H Pulse 54 L Pulse Source Monitor Temp 97.3 F L Temperature Source Temporal Artery Pulse Oximetry (%) 99 Oxygen Delivery Method room air Intake Visit Reasons: 6 M FU Chief Complaint: Follow up CPAP use; results [employer] Specialist Required: No DME Vendor: Lakisha Accompanied by: Daughter Allergies alendronate sodium Adverse Reaction (Severe, Verified 10/01/24 09:57) A FIB amlodipine (From Norvasc) Adverse Reaction (Severe, Verified 10/01/24 09:57) edema celecoxib (From Celebrex) Adverse Reaction (Severe, Verified 10/01/24 09:57) Dizziness hydrochlorothiazide Adverse Reaction (Severe, Verified 10/01/24 09:57) chest pain Medications ???Medication ???Instructions ???Recorded ???Confirmed ???Type apixaban 5 mg tablet (Eliquis) 5 mg PO BID 07/25/23 10/01/24 Hist ory aspirin 81 mg tablet,delayed 81 mg PO DAILY 07/25/23 10/01/24 H istory release (Adult Aspirin Regimen) atorvastatin 20 mg tablet 20 mg PO DAILY 07/25/23 10/01/24 H istory cholecalciferol (vitamin D3) 100 200 mcg PO DAILY 07/25/23 (more content not included)... [facility] Anion gap in Serum or Plasma Ordered By: Maynor Edward on 09-24-2024 Anion gap [Moles/Vol] 13 mmol/L 5- [facility] BUN/creatinine ratioOrdered By: Maynor Edward on 09-24-2024 Urea nitrogen/Creatinine [Mass ratio] 29.0 mg/mg High - [facility] Basic Metabolic Profile (BMP )on 09-24-2024 BUN/CRE 29.0 RATIO High 04-22 [facility] Comment on above: Performed By: #### L 500.2500 ####[facility] [address] [place], [address] Calcium [Mass/Vol] 9.6 mg/dL Normal 7.6-11.0 [facility] Comment on above: Performed By: #### L 500.2500 ####[facility] [address] [place], [address] Chloride [Moles/Vol] 101 mmol/L Normal 98-108 [facility] Comment on above: Performed By: #### L 500.2500 ####[facility] [address] [place], [address] CO2 [Moles/Vol] 23.3 mmol/L Normal 21.0-32.0 [facility] Comment on above: Performed By: #### L 500.2500 ####[facility] [address] [place], [address] Creatinine [Mass/Vol] 1.55 mg/dL High 0.70-1.20 [facility] Comment on above: Performed By: #### L 500.2500 ####[facility] [address] [place], [address] GAP 13 Normal 5-15 [facility] Comment on above: Performed By: #### L 500.2500 ####[facility] [address] [place], [address] GFR/1.73 sq M.predicted among non-blacks MDRD (S/P/Bld) [Vol rate/Area] 35 mL/min/{1.73_m2} Low >60 [facility] Comment on above: Result Comment: mL/m in/1.73m2 CKD-EPI Creatinine Equation (2020) Performed By: #### L 500.2500 ####[facility] [address] [place], [address] Glucose [Mass/Vol] 92 mg/dL Normal 70-99 [facility] Comment on above: Performed By: #### L 500.2500 ####[facility] [address] [place], [address] Potassium [Moles/Vol] 4.4 mmol/L Normal 3.3-5.1 [facility] Comment on above: Result Comment: Hemo lysis present, Results??could be affected. ?? Performed By: #### L 500.2500 ####[facility] [address] [place], [address] Sodium [Moles/Vol] 137 mmol/L Normal 133-145 [facility] Comment on above: Performed By: #### L 500.2500 ####[facility] [address] [place], [address] Urea nitrogen [Mass/Vol] 45 mg/dL High 4-19 [facility] Comment on above: Performed By: #### L 500.2500 ####[facility] [address] [place], [address] Carbon dioxide, total [Moles /volume] in Central venous bloodOrdered By: Maynor Edward on 09-24-2024 CO2 [Moles/Vol] 23.3 mmol/L 21.0-32.0 [facility] Chloride assayOrdered By: Dena Edward on 09-24-2024 Chloride [Moles/Vol] 101 mmol/L 98-108 [facility] GFR/1.73 sq M.predicted eugenio g non-blacks MDRD (S/P/Bld) [Vol rate/Area]Ordered By: Maynor Edward on 09-24-2024 Estimated GFR (MDRD) Non-Af Amer 35 Low >60 [facility] Comment on above: mL/min/1.73m2 CKD-EP I Creatinine Equation (2020) Glomerular filtration rate ( GFR) estimation/1.73 sq m using serum, plasma, or whole bOrdered By: Maynor Edward on 09-24-2024 GFR/1.73 sq M.predicted among non-blacks MDRD (S/P/Bld) [Vol rate/Area] 35 mL/min/{1.73_m2} Low >60 [facility] Comment on above: mL/min/1.73m2 CKD-EP I Creatinine Equation (2020) Potassium (Unsp spec) [Mass/ Vol]Ordered By: Maynor Edward on 09-24-2024 Potassium [Moles/Vol] 4.4 mmol/L 3.3-5.1 [facility] Comment on above: Hemolysis present, R esults could be affected. Potassium measurement (mass/ volume)Ordered By: Maynor Edward on 09-24-2024 Potassium (Unsp spec) [Mass/Vol] 4.4 mmol/L 3.3-5.1 [facility] Comment on above: Hemolysis present, R esults could be affected. Serum creatinine measurement (mass/volume)Ordered By: Maynor Edward on 09-24-2024 Creatinine [Mass/Vol] 1.55 mg/dL High 0.70-1.20 [facility] Serum glucose measurement (m ass/volume)Ordered By: Maynor Edward on 09-24-2024 Glucose [Mass/Vol] 92 mg/dL 70-99 [facility] Serum or plasma calcium talia urement (mass/volume)Ordered By: Maynor Edward on 09-24-2024 Calcium [Mass/Vol] 9.6 mg/dL 7.6-11.0 [facility] Serum or plasma urea nitroge n measurement (mass/volume)Ordered By: Maynor Edward on 09-24-2024 Urea nitrogen [Mass/Vol] 45 mg/dL High 4-19 [facility] Sodium levelOrdered By: Maynor Edward on 09-24-2024 Sodium [Moles/Vol] 137 mmol/L 133-145 [facility] 12 Lead EKG performed by [facility] on 09-17-2024 12 Lead EKG performed by [facility] [address] [place] [address] 12 Lead EKG performed by [facility] 09/17/24 0733 MR#: [id number] Acct: [id number] Name: DANIELE CLARK DECEMBER Rep #: [id number] : 1950 74 From: Maynor Edward [employer]-C Attending Dr: Maynor Edward, [employer] Status: DEP AMB Ordering Dr: Maynor Edward [employer] Date: 09/17/24 [place] [facility] [place] F C Admitted: [facility]/12 Lead EKG performed by [facility] ECG Report Interpretation ------Sinus Bradycardia -First degree A-V block Franck = 234Low voltage -possible pulmonary disease. ABNORMAL Electronically signed on 09/20/2024 at 07:37 by Rudy Graves Software Version [id number] 09/20/2441 Date Maynor Edward [employer] CC: Dr. Edward Ramirez DO Date Dictated: 09/17/24732 Date Transcribed: 09/17/24732 [employer] Operator: MIGUEL Signed Normal [facility] Absolute lymphocyte countOrd ered By: Maynor Edward on 09-17-2024 Lymphocytes Auto (Unsp spec) [#/Vol] 1.42 10*3/uL 0.83-4.51 [facility] Absolute neutrophil countOrd ered By: Maynor Edward on 09-17-2024 Neutrophils (Bld) [#/Vol] 4.5 10*3/uL 2.0-7.7 [facility] Anion gap in Serum or Plasma Ordered By: Maynor Edward on 09-17-2024 Anion gap [Moles/Vol] 13 mmol/L 5-15 [facility] Automated lymphocyte count a s percentage of total leukocytesOrdered By: Maynor Edward on 09-17-2024 Lymphocytes/100 WBC Auto (Unsp spec) 20.6 % [facility] BUN/creatinine ratioOrdered By: Maynor Edward on 09-17-2024 Urea nitrogen/Creatinine [Mass ratio] 23.0 mg/mg High 04-22 [facility] Basic Metabolic Profile (BMP )on 09-17-2024 BUN/CRE 23.0 RATIO High 04-22 [facility] Comment on above: Performed By: #### L 503.7505, L500.2500, L100.0100 ####[facility] [address] [place], [address] Calcium [Mass/Vol] 9.3 mg/dL Normal 7.6-11.0 [facility] Comment on above: Performed By: #### L 503.7505, L500.2500, L100.0100 ####[facility] [address] [place], [address] Chloride [Moles/Vol] 102 mmol/L Normal 98-108 [facility] Comment on above: Performed By: #### L 503.7505, L500.2500, L100.0100 ####[facility] [address] [place], [address] CO2 [Moles/Vol] 24.3 mmol/L Normal 21.0-32.0 [facility] Comment on above: Performed By: #### L 503.7505, L500.2500, L100.0100 ####[facility] [address] [place], [address] Creatinine [Mass/Vol] 1.78 mg/dL High 0.70-1.20 [facility] Comment on above: Performed By: #### L 503.7505, L500.2500, L100.0100 ####[facility] [address] [place], [address] GAP 13 Normal 5-15 [facility] Comment on above: Performed By: #### L 503.7505, L500.2500, L100.0100 ####[facility] [address] [place], [address] GFR/1.73 sq M.predicted among non-blacks MDRD (S/P/Bld) [Vol rate/Area] 30 mL/min/{1.73_m2} Low >60 [facility] Comment on above: Result Comment: mL/m in/1.73m2 CKD-EPI Creatinine Equation (2020) Performed By: #### L 503.7505, L500.2500, L100.0100 ####[facility] [address] [place], [address] Glucose [Mass/Vol] 115 mg/dL High 70-99 [facility] Comment on above: Performed By: #### L 503.7505, L500.2500, L100.0100 ####[facility] [address] [place], [address] Potassium [Moles/Vol] 4.0 mmol/L Normal 3.3-5.1 [facility] Comment on above: Result Comment: Hemo lysis present, Results??could be affected. ?? Performed By: #### L 503.7505, L500.2500, L100.0100 ####[facility] [address] [place], [address] Sodium [Moles/Vol] 140 mmol/L Normal 133-145 [facility] Comment on above: Performed By: #### L 503.7505, L500.2500, L100.0100 ####[facility] [address] [place], [address] Urea nitrogen [Mass/Vol] 41 mg/dL High 4-19 [facility] Comment on above: Performed By: #### L 503.7505, L500.2500, L100.0100 ####[facility] [address] [place], [address] Basophil percentageOrdered B y: Maynor Edward on 09-17-2024 Basophils/100 WBC (Bld) 1.0 % 0-1 [facility] CBC W/Diff, Automatedon 09-01 Absolute Lymph 1.42 X10 3/uL Normal 0.83-4.51 [facility] Comment on above: Performed By: #### L 503.7505, L500.2500, L100.0100 ####[facility] [address] [place], [address] Absolute Neut 4.5 X10 3/uL Normal 2.0-7.7 [facility] Comment on above: Performed By: #### L 503.7505, L500.2500, L100.0100 ####[facility] [address] [place], [address] Basophils/100 WBC (Bld) 1.0 % Normal 0-1 [facility] Comment on above: Performed By: #### L 503.7505, L500.2500, L100.0100 ####[facility] [address] [place], [address] Eosinophils/100 WBC (Bld) 2.2 % Normal 0-5 [facility] Comment on above: Performed By: #### L 503.7505, L500.2500, L100.0100 ####[facility] [address] [place], [address] Erythrocyte distribution width (RBC) [Ratio] 13.4 % Normal 11.6-14.6 [facility] Comment on above: Performed By: #### L 503.7505, L500.2500, L100.0100 ####[facility] [address] [place], [address] Hematocrit (Bld) [Volume fraction] 38.2 % Normal 37-47 [facility] Comment on above: Performed By: #### L 503.7505, L500.2500, L100.0100 ####[facility] [address] [place], [address] Hemoglobin (Bld) [Mass/Vol] 12.4 g/dL Normal 12.0-15.0 [facility] Comment on above: Performed By: #### L 503.7505, L500.2500, L100.0100 ####[facility] [address] [place], [address] IG% 0.300 Normal 0.0-0.9 [facility] Comment on above: Result Comment: IG% - Immature Granulocytes (promyelocytes, myelocytes and metamyelocytes) > 1% indicates that a LEFT SHIFT is Present. Performed By: #### L 503.7505, L500.2500, L100.0100 ####[facility] [address] [place], [address] Lymphocytes/100 WBC (Bld) 20.6 % Normal 19-41 [facility] Comment on above: Performed By: #### L 503.7505, L500.2500, L100.0100 ####[facility] [address] [place], [address] MCH (RBC) [Entitic mass] 33.0 pg High 27.0-32.0 [facility] Comment on above: Performed By: #### L 503.7505, L500.2500, L100.0100 ####[facility] [address] [place], [address] MCHC (RBC) [Mass/Vol] 32.5 g/dL Normal 32-36 [facility] Comment on above: Performed By: #### L 503.7505, L500.2500, L100.0100 ####[facility] [address] [place], [address] MCV (RBC) [Entitic vol] 101.6 fL High 81-99 [facility] Comment on above: Performed By: #### L 503.7505, L500.2500, L100.0100 ####[facility] [address] [place], [address] Monocytes/100 WBC (Bld) 11.0 % High 0-10 [facility] Comment on above: Performed By: #### L 503.7505, L500.2500, L100.0100 ####[facility] [address] [place], [address] Neutrophils/100 WBC (Bld) 64.9 % Normal 47-70 [facility] Comment on above: Performed By: #### L 503.7505, L500.2500, L100.0100 ####[facility] [address] [place], [address] Nucleated RBC (Bld) [#/Vol] 0 10*3/uL Normal 0-5 [facility] Comment on above: Performed By: #### L 503.7505, L500.2500, L100.0100 ####[facility] [address] [place], [address] Platelet mean volume (Bld) [Entitic vol] 10.5 fL Normal 6.2-12.0 [facility] Comment on above: Performed By: #### L 503.7505, L500.2500, L100.0100 ####[facility] [address] [place], [address] Platelets (Bld) [#/Vol] 194 10*3/uL Normal 150-450 [facility] Comment on above: Performed By: #### L 503.7505, L500.2500, L100.0100 ####[facility] [address] [place], [address] RBC (Bld) [#/Vol] 3.76 10*6/uL Low 4.2-5.4 [facility] Comment on above: Performed By: #### L 503.7505, L500.2500, L100.0100 ####[facility] [address] [place], [address] RDW SD 50.6 fl High 35.1-43.9 [facility] Comment on above: Performed By: #### L 503.7505, L500.2500, L100.0100 ####[facility] [address] [place], [address] WBC (Bld) [#/Vol] 6.9 10*3/uL Normal 4.4-11.0 [facility] Comment on above: Performed By: #### L 503.7505, L500.2500, L100.0100 ####[facility] [address] [place], [address] Carbon dioxide, total [Moles /volume] in Central venous bloodOrdered By: Maynor Edward on 09-17-2024 CO2 [Moles/Vol] 24.3 mmol/L 21.0-32.0 [facility] Cardiology Visit Reporton Cardiology Visit Report [facility] [address] [place] [address] OFFICE VISIT Date of Service: 09/17/24 MR#: [id number] Acct: [id number] Name: DANIELE CLARK DECEMBER Rep #: [id number] : 1950 Provider: VIKTOR roger Age/Sex: 74/F Location: [facility] Status: Signed HPI HPI History of Present Illness Details: 74-year-old lady with a history of atrial fibrillation which appears to be permanent, dyspnea on exertion, and hypertension. She says that she underwent a cardiac catheterization in December 2021 at [facility] and was Denisse which demonstrated mild nonobstructive coronary artery disease with a diagonal vessel with 45 to 50% stenosis. She also has a history of hyperlipidemia. She recently moved to the area because her . Her electrocardiogram demonstrates atrial fibrillation with a rate of 77 bpm. She is concerned that she has been left in atrial fibrillation for over 4 years. She has not had any previous attempts at voodoo of sinus rhythm. She underwent an echocardiogram September 24, 2023 which demonstrated an ejection fraction of 65%. Left atrium moderately enlarged. Normal right atrium. She did undergo a cardioversion. Since then Dtr has felt that she is more SOB. She CTA was negative for a PE. She does feel that the spirolactone and lasix has helped. Her HR have been lower. She was asked to decrease her metoprolol but did not do so. HM did demonstrate 18% Afib. She does have a moderate size hiatal hernia. She proceeded with cardioversion in March 2024. She denies chest, arm, jaw, or neck discomfort. She denies palpitations. She states bilateral lower extremity edema. She denies claudication. She acknowledges shortness of breath with activity and shortness of breath at rest. She feels this to be worsening. She notes this with simple activity such as walking from one room to another. She denies orthopnea, or PND. She denies chronic cough. She denies significant, sudden weight gain. She denies lightheadedness, dizziness, near-syncope, or syncope. She denies blood in urine, blood in stool, or epistaxis. He denies fever with chills. She denies myalgia. She states weakness and fatigue. Her exercise level has remained stable. Intake Vital Signs 04/02/24 10:44 09/17/24 07:34 Height 4 ft 10 in 4 ft 10 in Weight: 204 lb 219 lb BMI 45.8 BP 193/76 H Blood Pressure Location Lt brachial Position Sitting Respiration 18 Pulse 54 L Pulse Source Monitor Pulse Oximetry (%) 99 Intake Visit Reasons: O/D for 4 M FU [employer] Specialist Required: No Is patient in pain?: No Allergies alendronate sodium Adverse Reaction (Severe, Verified 09/17/24 09:35) A FIB amlodipine (From Norvasc) Adverse Reaction (Severe, Verified 09/17/24 09:35) edema celecoxib (From Celebrex) Adverse Reaction (Severe, Verified 09/17/24 09:35) Dizziness hydrochlorothiazide Adverse Reaction (Severe, Verified 09/17/24 09:35) chest pain Medications ???Medication ???Instructions ???Recorded ???Confirmed ???Type apixaban 5 mg tablet (Eliquis) 5 mg PO BID 07/25/23 09/17/24 Hist ory aspirin 81 mg tablet,delayed 81 mg PO DAILY 07/25/23 09/17/24 H istory release (Adult Aspirin Regimen) atorvastatin 20 mg tablet 20 mg PO DAILY 07/25/23 09/17/24 H istory cholecalciferol (vitamin D3) 100 200 mcg PO DAILY 07/25/23 09/17/24 History mcg (4,000 unit) tablet cyanocobalamin (vitamin B-12) 1,000 mcg PO QMONTH 07/25/2309/17 History 1,000 mcg capsule levothyroxine 100 mcg capsule 100 mcg PO DAILY 07/25/23 09/17/24 History lisinopril 40 mg tablet 40 mg PO DAILY 07/25/23 09/17/24 H istory nitroglycerin 0.3 mg sublingual 0.3 mg sublingual Q5M PRN chest 09/17/24 History tablet pain pantoprazole 40 mg tablet,delayed 40 mg PO DAILY 07/25/23 09/17/24 History release albuterol sulfate 90 mcg/actuation 2 inh inhalation Q4H PRN shortne ss 10/08/23 09/17/24 Rx aerosol inhaler (Proventil HFA) of breath or wheezing #6.7 grams amiodarone 200 mg tablet 200 mg PO DAILY #90 tabs 04/09/24 09/17/24 Rx furosemide 40 mg tablet 40 mg PO DAILY 09/17/24 09/17/24 H istory Ejection fraction %: 65 Have you fallen in the past year?: No PFSH Medical History PAF (paroxysmal atrial fibrillation) Dyspnea Vitamin D deficiency Insomnia Hypothyroid Atrial fibrillation, permanent GERD (gastroesophageal reflux disease) Hyperlipidemia Essential (primary) hypertension Surgical History (Updated 04/09/24 @ 10:17 by Lola Jack) History of cardioversion (04/02/24) S/P complete thyroidectomy Status post complete repair of rotator cuff S/P extracapsular cataract extraction History of carpal tunnel release Family History (Review (more content not included)... Normal [facility] Chloride assayOrdered By: Dena Edward on 09-17-2024 Chloride [Moles/Vol] 102 mmol/L 98-108 [facility] Eosinophil percentageOrdered By: Maynor Edward on 09-17-2024 Eosinophils/100 WBC (Bld) 2.2 % 0-5 [facility] Erythrocyte distribution wid th ratioOrdered By: Maynor Edward on 09-17-2024 Erythrocyte distribution width (RBC) [Ratio] 13.4 % 11.6-14.6 [facility] Erythrocyte distribution wid th standard deviationOrdered By: Maynor Edward on 09-17-2024 Erythrocyte distribution width (RBC) [Entitic vol] 50.6 fL High 35.1-43.9 [facility] Erythrocyte distribution width (RBC) [Ratio] 50.6 fl High 35.1-43.9 [facility] GFR/1.73 sq M.predicted eugenio g non-blacks MDRD (S/P/Bld) [Vol rate/Area]Ordered By: Maynor Edward on 09-17-2024 Estimated GFR (MDRD) Non-Af Amer 30 Low >60 [facility] Comment on above: mL/min/1.73m2 CKD-EP I Creatinine Equation (2020) Glomerular filtration rate ( GFR) estimation/1.73 sq m using serum, plasma, or whole bOrdered By: Maynor Ewdard on 09-17-2024 GFR/1.73 sq M.predicted among non-blacks MDRD (S/P/Bld) [Vol rate/Area] 30 mL/min/{1.73_m2} Low >60 [facility] Comment on above: mL/min/1.73m2 CKD-EP I Creatinine Equation (2020) Hematocrit Auto (Bld) [Volum e fraction]Ordered By: Maynor Edward on 09-17-2024 Hematocrit (Bld) [Volume fraction] 38.2 % 37-47 [facility] Hemoglobin measurementOrdere d By: Maynor Edward on 09-17-2024 Hemoglobin (Bld) [Mass/Vol] 12.4 g/dL 12.0-15.0 [facility] Immature granulocytes/100 WB C Auto (Bld)Ordered By: Maynor Edward on 09-17-2024 Immature granulocytes/100 WBC (Bld) 0.300 % 0.0-0.9 [facility] Comment on above: IG% - Immature Granu locytes (promyelocytes, myelocytes and metamyelocytes) > 1% indicates that a LEFT SHIFT is Present. L503.7505on 09-17-2024 Natriuretic peptide B (Bld) [Mass/Vol] 1907 pg/mL High <=900 [facility] Comment on above: Result Comment: Hear t Failure Unlikely: < 300 pg/mL Heart Failure Likely < 50 Years: > 450 pg/mL 50-75 Years: > 900 pg/mL >75 Years: > 1800 pg/mL Performed By: #### L 503.7505, L500.2500, L100.0100 ####[facility] [address] [place], [address] Laboratory - Chemistry and C hemistry - challengeOrdered By: Maynor Edward on 09-17-2024 Natriuretic peptide B (Bld) [Mass/Vol] 1907 pg/mL High <900 [facility] Comment on above: Heart Failure Unlike ly: < 300 pg/mLHeart Failure Likely< 50 Years: > 450 pg/mL50-75 Years: > 900 pg/mL>75 Years: > 1800 pg/mL Lymphocytes Auto (Unsp spec) [#/Vol]Ordered By: Maynor Edward on 09-17-2024 Lymphocytes (Bld) [#/Vol] 1.42 10*3/uL 0.83-4.51 [facility] Lymphocytes/100 WBC Auto (Un sp spec)Ordered By: Maynor Edward on 09-17-2024 Lymphocytes/100 WBC (Bld) 20.6 % 19-41 [facility] MCV (mean corpuscular volume ) determinationOrdered By: Maynor Edward on 09-17-2024 MCV (RBC) [Entitic vol] 101.6 fL High 81-99 [facility] Mean corpuscular hemoglobin (MCH) determinationOrdered By: Maynor Edward on 09-17-2024 MCH (RBC) [Entitic mass] 33.0 pg High 27.0-32.0 [facility] Mean corpuscular hemoglobin concentration (MCHC) determinationOrdered By: Maynor Edward on 09-17-2024 MCHC (RBC) [Mass/Vol] 32.5 g/dL 32-36 [facility] Mean platelet volume determi nationOrdered By: Maynor Edward on 09-17-2024 Platelet mean volume (Bld) [Entitic vol] 10.5 fL 6.2-12.0 [facility] Monocyte percentageOrdered B y: Maynor Edward on 09-17-2024 Monocytes/100 WBC (Bld) 11.0 % High 0-10 [facility] Neutrophil percentageOrdered By: Maynor Edward on 09-17-2024 Neutrophils/100 WBC (Bld) 64.9 % 47-70 [facility] Nucleated red blood cell per centageOrdered By: Maynor Edward on 09-17-2024 Nucleated RBC/100 WBC (Bld) [Ratio] 0 % 0-5 [facility] Platelet countOrdered By: Dena Edward on 09-17-2024 Platelets (Bld) [#/Vol] 194 10*3/uL 150-450 [facility] Potassium (Unsp spec) [Mass/ Vol]Ordered By: Maynor Edward on 09-17-2024 Potassium [Moles/Vol] 4.0 mmol/L 3.3-5.1 [facility] Comment on above: Hemolysis present, R esults could be affected. Potassium measurement (mass/ volume)Ordered By: Maynor Edward on 09-17-2024 Potassium (Unsp spec) [Mass/Vol] 4.0 mmol/L 3.3-5.1 [facility] Comment on above: Hemolysis present, R esults could be affected. RBC Auto (Bld) [#/Vol]Ordere d By: Maynor Edward on 09-17-2024 RBC (Bld) [#/Vol] 3.76 10*6/uL Low 4.2-5.4 [facility] Serum creatinine measurement (mass/volume)Ordered By: Maynor Edward on 09-17-2024 Creatinine [Mass/Vol] 1.78 mg/dL High 0.70-1.20 [facility] Serum glucose measurement (m ass/volume)Ordered By: Maynor Edward on 09-17-2024 Glucose [Mass/Vol] 115 mg/dL High 70-99 [facility] Serum or plasma calcium talia urement (mass/volume)Ordered By: Maynor Edward on 09-17-2024 Calcium [Mass/Vol] 9.3 mg/dL 7.6-11.0 [facility] Serum or plasma urea nitroge n measurement (mass/volume)Ordered By: Maynor Edward on 09-17-2024 Urea nitrogen [Mass/Vol] 41 mg/dL High 4-19 [facility] Sodium levelOrdered By: Maynor Edward on 09-17-2024 Sodium [Moles/Vol] 140 mmol/L 133-145 [facility] White blood cell (WBC) count Ordered By: Maynor Edward on 09-17-2024 WBC (Bld) [#/Vol] 6.9 10*3/uL 4.4-11.0 [facility] B12on 06-01-2024 Cobalamin (Vitamin B12) [Mass/Vol] 502 pg/mL Normal 211-911 [facility] Comment on above: Performed By: #### G , [facility] HAYWARD #### [facility] [address], [place] [address] LABORATORYOrdered By: SYSTEM SYSTEM on 06-01-2024 Cobalamin (Vitamin B12) [Mass/Vol] 502 pg/mL Normal 211 - 911 pg/mL ADM SS 12 Lead EKG performed by [facility] on 04-09-2024 12 Lead EKG performed by [facility] [address] [place] [address] 12 Lead EKG performed by [facility] 04/09/24 1001 MR#: [id number] Acct: [id number] Name: DANIELE CLARK DECEMBER Rep #: [id number] : 1950 74 From: Thelma Nowak Attending Dr: BRIANDA Gee Status: DEP AMB Ordering Dr: Thelma Natarajan Date: 01/24 Location: [facility] Sex: F C Admitted: [facility]/12 Lead EKG performed by [facility] ECG Report Interpretation ------Sinus Rhythm -First degree A-V block Franck = 222Low voltage -possible pulmonary disease. ABNORMAL Electronically signed on 04/10/2024 at 09:47 by Rudy Graveswood Software Version [id number] 04/10/24 0949 Date Thelma LAMAR CC: Dr. Edward Ramirez, DO Date Dictated: 04/09/24 1001 Date Transcribed: 04/09/241000 Toll Bridge Operator: EDWIN Signed [facility] Procedure Reporton Procedure Report [facility] Medical Records Department [address] [place] [address] Procedure Report 04/02/24 1235 MR#: [id number] Acct: [id number] Name: DANIELE CLARK DECEMBER Rep #: [id number] : 1950 74 From: Malick Riley DO PCP: Dr. Edward Ramirez, Status:[facility] Location: [facility] Procedure Report Date of Procedure: 04/02/24 CONSCIOUS SEDATION REPORT DATE OF SERVICE: April 02, 2024 BRIEF HISTORY OF PRESENT ILLNESS: The patient is a 74-year-old female who [facility] outpatient cardioversion due to underlying atrial fibrillation. The patient did undergo a prior c ardioversion in September 2023, during which time, she required 40 mg of propofol to achieve an appropriate level of sedation. The patient denied a history of smoking or COPD. She is systemically anticoagulated on Eliquis, without any recent missed doses. Her last surface echocardiogram demonstrated an ejection fraction of approximately 65%. The patient denied any prior anesthetic complications. PHYSICAL EXAMINATION: VITAL SIGNS: Reviewed and were acceptable. GENERAL: The patient is an obese female, in no apparent distress, speaking in full sentences. HEENT: Normocephalic, atraumatic. Mucous membranes are moist and pink. Good mouth opening noted. Trachea is midline. CHEST: S1, S2 irregularly irregular. No murmurs, rubs or gallops were noted. LUNGS: Clear to auscultation bilaterally without appreciable wheezes, rales or rhonchi. ABDOMEN: Soft, nontender, nondistended. Positive bowel sounds. EXTREMITIES: There is no clubbing, cyanosis or edema. ASA Class: II DESCRIPTION OF PROCEDURE: After confirmation of informed consent, the patient's anesthesia plan was reviewed in detail. Propofol was chosen. Risks and benefits were reviewed and the patient agreed to proceed. At 1216, the patient was given 40 mg of propofol. The patient achieved an appropriate level of sedation and was given a 200 joule synchronized cardioversion by Dr. Graves at the bedside. This was successful in achieving normal sinus rhythm. The patient was monitored until 1230, at which time she reached her baseline mental status and function. The patient tolerated the procedure well. COMPLICATIONS: None ESTIMATED BLOOD LOSS: None RECOMMENDATIONS: Okay to recover in usual fashion. Procedures Pulmonary Pulmonary Procedures /Diagnostic Testin Con Sedation 04/02/24 1237 Cosigner Signature (if applicable): CC: Dr. Rudy Graves MD; Dr. Malick Riley DO; Dr. Edward Ramirez DO Signed [facility] Procedure Report [facility] Medical Records Department [address] [place] [address] Procedure Report 04/02/24 1232 MR#: [id number] Acct: [id number] Name: DANIELE CLARK DECEMBER Rep #: [id number] : 1950 74 From: Rudy Graves MD PCP: Dr. Edward Ramirez DO Status:[facility] Location: [facility] Procedure Report Date of Procedure: 04/02/24 DC cardioversion. 74-year-old lady with a history of atrial fibrillation chronic persistent. Patient had been on anticoagulation uninterrupted for at least 4 weeks patient was brought to cardiac catheterization lab in the postabsorptive nonsedated state. Informed consent was obtained. Patient was seen by Dr. Riley of the critical care division. Anterior-posterior pads were applied. 40 mg of intravenous propofol was administered and 200 J of synchronized biphasic DC cardioversion energy were applied with prompt reversal to sinus rhythm. Patient tolerated the procedure well. Conclusion: Successful DC cardioversion from atrial fibrillation to sinus rhythm. Follow-up as per office protocol. 04/02/24 1233 Cosigner Signature (if applicable): CC: Dr. Rudy Graves MD; Dr. Edward Ramirez DO Signed [facility] Pulmonary Visit Reporton Pulmonary Visit Report [facility] [address] [place] [address] OFFICE VISIT Date of Service: 03/28/24 MR#: [id number] Acct: [id number] Name: DANIELE CLARK DECEMBER Rep #: [id number] : 1950 Provider: VIKTOR Brizuela Age/Sex: 74/F Location: [facility] Status: Signed Assessment and Plan Assessment and Plan (1) Sleep apnea: Status: Chronic Qualifiers: Sleep apnea type: obstructive Qualified Code(s): G47.33 - Obstructive sleep apnea (adult) (pediatric) Comment: AHI 11.5 Plan: Stable, she is using and benefiting from Pap therapy. No indication for titration study at this time. Contact the office for any new or worsening symptoms in the meantime. Follow-up in 6 months. Annual influenza vaccination provided today. (2) Pulmonary hypertension: Status: Acute Comment: PASP 43 mmHg Plan: Symptomatically stable. No additional testing at this time. Orders: Orders Influenza Immunization Today G47.33 - Obstructive sleep apnea (adult) (pediatric), J44.9 - Chronic obstructive pulmonary disease, unspecified Plan Details Follow Up: 6 Months ([facility]) HPI 3 M FU Chief Complaint: Sleep apnea HPI Comments Details: This patient presents to the office today for follow-up of her obstructive sleep apnea. She is ambulatory, currently on room air and accompanied today by her daughter. She has not recently been seen in the ED or urgent care for any respiratory problems. She has not required any antibiotics or prednisone for any breathing problems. She continues to experience shortness of breath on exertion, however she believes that is related to her atrial fibrillation. She has an occasional cough productive of clear-colored sputum, but she denies any hemoptysis. She denies any wheezing, chest tightness, chest pain or palpitations. She denies any fever, chills or body aches. She has acclimated fairly well to PAP therapy. She wakes up feeling more rested. She is not having excessive nocturia. She denies difficulty with dry mouth. She is not having difficulty with morning headaches. Compliance report for the past 30 days shows 100% compliance with average use of 7 hours and 39 minutes per night. Current setting is air curve 10 via auto with pressures typically being utilized at 16.9-13 cmH2O. Residual AHI of 1.7 events per hour. Leaks do not appear to be problematic. Intake Vital Signs 12/22/23 07:50 02/22/24 10:18 03/21/24 09:31 03/28/24 07:42 Height 4 ft 10 in 4 ft 10 in 4 ft 10 in 4 ft 10 in Weight: 202 lb BMI 42.2 BP 147/77 H Blood Pressure Location Lt radial Position Sitting Respiration 18 Pulse 76 Pulse Source Monitor Temp 97.1 F L Temperature Source Temporal Artery Pulse Oximetry (%) 96 Oxygen Delivery Method room air Intake Visit Reasons: 3 M FU Chief Complaint: Follow up CPAP use; results DME Vendor: Lakisha Accompanied by: Daughter Allergies alendronate sodium Adverse Reaction (Severe, Verified 03/28/24 11:37) A FIB amlodipine (From Norvasc) Adverse Reaction (Severe, Verified 03/28/24 11:37) edema celecoxib (From Celebrex) Adverse Reaction (Severe, Verified 03/28/24 11:37) Dizziness hydrochlorothiazide Adverse Reaction (Severe, Verified 03/28/24 11:37) chest pain Medications ???Medication ???Instructions ???Recorded ???Confirmed ???Type apixaban 5 mg tablet (Eliquis) 5 mg PO BID 07/25/23 03/28/24 History aspirin 81 mg tablet,delayed 81 mg PO DAILY 07/25/23 03/28/24 History release (Adult Aspirin Regimen) atorvastatin 20 mg tablet 20 mg PO DAILY 07/25/23 03/28/24 History cholecalciferol (vitamin D3) 100 200 mcg PO DAILY 07/25/23 03/28/24 History mcg (4,000 unit) tablet cyanocobalamin (vitamin B-12) 1,000 mcg PO QMONTH 07/25/23 03/28/24 History 1,000 mcg capsule levothyroxine 100 mcg capsule 100 mcg PO DAILY 07/25/23 03/28/24 History lisinopril 40 mg tablet 40 mg PO DAILY 07/25/23 03/28/24 History nitroglycerin 0.3 mg sublingual 0.3 mg sublingual Q5M PRN chest 07/25/23 03/28/24 History tablet pain pantoprazole 40 mg tablet,delayed 40 mg PO DAILY 07/25/23 03/28/24 History release albuterol sulfate 90 mcg/actuation 2 inh inhalation Q4H PRN shortness 10/08/23 03/28/24 Rx aerosol inhaler (Proventil HFA) of breath or wheezing #6.7 grams amiodarone 200 mg tablet 200 mg PO .COMPLEX #90 tabs 02/22/24 03/28/24 Rx furosemide 40 mg tablet 40 mg PO DAILY 02/22/24 03/28/24 History Have you fallen in the past year?: No PFSH Medical History (Reviewed 03/28/24 @ 12:03 by Cristina Brizuela [employer], [employer]-C) PAF (paroxysmal atrial fibrillation) Dyspnea Vitamin D deficiency Insomnia Hypothyroid Atrial fibrillation, permanent GERD (gastroesophageal reflux disease) Hyperlipidemia Essential (primary) hypertension (more content not included)... [facility] 12 Lead EKG performed by [facility] on 03-21-2024 12 [place] [address] 12 Lead EKG performed by [facility] 03/21/24 0728 MR#: [id number] Acct: [id number] Name: DANIELE CLARK DECEMBER Rep #: [id number] : 1950 74 From: Thelma Nowak Attending Dr: BRIANDA Gee Status: DEP AMB Ordering Dr: Thelma Natarajan Date: 03/04 02/24 Location: [facility] Sex: F C Admitted: [facility]/12 Lead EKG performed by [facility] ECG Report Interpretation ------Atrial fibrillation -Old anterior infarct. Low voltage -possible pulmonary disease. ABNORMAL Electronically signed on 03/27/2024 at 13:29 by Rudy Graves Software Version [id number] 03/27/24 3423 Date Thelma LAMAR CC: Dr. Edward Ramirez, DO Date Dictated: 03/21/24727 Date Transcribed: 03/21/24727 Toll Bridge Operator: MMM Signed [facility] Basic Metabolic Profile (BMP )on 03-21-2024 BUN/CRE 18.2 RATIO Normal 10-20 [facility] Comment on above: Performed By: #### L 500.2500 ####[facility] [address] [place], [address] CA,Total 9.3 mg/dL Normal 8.5-10.1 [facility] Comment on above: Performed By: #### L 500.2500 ####[facility] [address] [place], [address] Chloride [Moles/Vol] 99 mmol/L Normal 98-107 [facility] Comment on above: Performed By: #### L 500.2500 ####[facility] [address] [place], [address] CO2 [Moles/Vol] 26.0 mmol/L Normal 21.0-32.0 [facility] Comment on above: Performed By: #### L 500.2500 ####[facility] [address] [place], [address] Creatinine [Mass/Vol] 1.10 mg/dL High 0.55-1.02 [facility] Comment on above: Result Comment: The validity of the calculated GFR GFRAA in patients over 70 years has not been determined. Clinical correlation is essential. Performed By: #### L 500.2500 ####[facility] [address] [place], [address] EST GFR - AA 62 mL/min Normal >60 [facility] Comment on above: Result Comment: Afri can [place] GFR Calc Performed By: #### L 500.2500 ####[facility] [address] [place], [address] GAP 9 Normal 5-15 [facility] Comment on above: Performed By: #### L 500.2500 ####[facility] [address] [place], [address] GFR/1.73 sq M.predicted among non-blacks MDRD (S/P/Bld) [Vol rate/Area] 52 mL/min/{1.73_m2} Low >60 [facility] Comment on above: Result Comment: Non- GFR Calc Performed By: #### L 500.2500 ####[facility] [address] [place], [address] Glucose [Mass/Vol] 121 mg/dL High 74-106 [facility] Comment on above: Result Comment: Fast ing Glucose result from 100 to 125 mg/dL suggests IMPAIRED HOMEOSTASIS per A.D.A. criteria. Performed By: #### L 500.2500 ####[facility] [address] [place], [address] Potassium [Moles/Vol] 3.9 mmol/L Normal 3.5-5.1 [facility] Comment on above: Performed By: #### L 500.2500 ####[facility] [address] [place], [address] Sodium [Moles/Vol] 134 mmol/L Low 136-145 [facility] Comment on above: Performed By: #### L 500.2500 ####[facility] [address] [place], [address] Urea nitrogen [Mass/Vol] 20 mg/dL High 7-18 [facility] Comment on above: Performed By: #### L 500.2500 ####[facility] [address] [place], [address] Cardiology Visit Reporton Cardiology Visit Report [facility] [address] [place] [address] OFFICE VISIT Date of Service: 03/21/24 MR#: [id number] Acct: [id number] Name: DANIELE CLARK DECEMBER Rep #: [id number] : 1950 Provider: BRIANDA Astudillo Age/Sex: 74/F Location: [facility] Status: Signed HPI [facility] History of Present Illness Details: 73-year-old lady with a history of atrial fibrillation which appears to be permanent, dyspnea on exertion, and hypertension. She says that she underwent a cardiac catheterization in December 2021 at [facility] and was Denisse which demonstrated mild nonobstructive coronary artery disease with a diagonal vessel with 45 to 50% stenosis. She also has a history of hyperlipidemia. She recently moved to the area because her . Her electrocardiogram demonstrates atrial fibrillation with a rate of 77 bpm. She is concerned that she has been left in atrial fibrillation for over 4 years. She has not had any previous attempts at voodoo of sinus rhythm. She underwent an echocardiogram September 24, 2023 which demonstrated an ejection fraction of 65%. Left atrium moderately enlarged. Normal right atrium. She did undergo a cardioversion. Since then Dtr has felt that she is more SOB. She CTA was negative for a PE. She does feel that the spirolactone and lasix has helped. Her HR have been lower. She was asked to decrease her metoprolol but did not do so. HM did demonstrate 18% Afib. She does have a moderate size hiatal hernia. Patient feels that she is less short of breath now that her heart rate is better controlled however she is still in atrial fibrillation and she still does have shortness of breath. She is scheduled to undergo a cardioversion next week. She does not have any chest pain, lightheadedness, dizziness or lower extremity edema. EKG today demonstrates atrial fibrillation with a HR of 91 Intake Vital Signs 02/22/24 10:18 03/21/24 09:26 03/21/24 09:31 Height 4 ft 10 in 4 ft 10 in 4 ft 10 in Weight: 204 lb 202 lb BMI 42.6 42.2 BP 128/81 H 124/67 H Blood Pressure Location Lt brachial Lt brachial Position Sitting Sitting Respiration 20 H 18 Pulse 94 79 Pulse Source Monitor Monitor Pulse Oximetry (%) 98 96 Intake Visit Reasons: 4 WK FU PER MMM [employer] Promotions Specialist Required: No Is patient in pain?: No Allergies alendronate sodium Adverse Reaction (Severe, Verified 02/22/24 10:18) A FIB amlodipine (From Norvasc) Adverse Reaction (Severe, Verified 02/22/24 10:18) edema celecoxib (From Celebrex) Adverse Reaction (Severe, Verified 02/22/24 10:18) Dizziness hydrochlorothiazide Adverse Reaction (Severe, Verified 02/22/24 10:18) chest pain Medications ???Medication ???Instructions ???Recorded ???Confirmed ???Type apixaban 5 mg tablet (Eliquis) 5 mg PO BID 07/25/23 03/21/24 History aspirin 81 mg tablet,delayed 81 mg PO DAILY 07/25/23 03/21/24 History release (Adult Aspirin Regimen) atorvastatin 20 mg tablet 20 mg PO DAILY 07/25/23 03/21/24 History cholecalciferol (vitamin D3) 100 200 mcg PO DAILY 07/25/23 03/21/24 History mcg (4,000 unit) tablet cyanocobalamin (vitamin B-12) 1,000 mcg PO QMONTH 07/25/23 03/21/24 History 1,000 mcg capsule levothyroxine 100 mcg capsule 100 mcg PO DAILY 07/25/23 03/21/24 History lisinopril 40 mg tablet 40 mg PO DAILY 07/25/23 03/21/24 History nitroglycerin 0.3 mg sublingual 0.3 mg sublingual Q5M PRN chest 07/25/23 03/21/24 History tablet pain pantoprazole 40 mg tablet,delayed 40 mg PO DAILY 07/25/23 03/21/24 History release albuterol sulfate 90 mcg/actuation 2 inh inhalation Q4H PRN shortness 10/08/23 03/21/24 Rx aerosol inhaler (Proventil HFA) of breath or wheezing #6.7 grams amiodarone 200 mg tablet 200 mg PO .COMPLEX #90 tabs 02/22/24 03/21/24 Rx furosemide 40 mg tablet 40 mg PO DAILY 02/22/24 03/21/24 History Have you fallen in the past year?: No PFSH Medical History PAF (paroxysmal atrial fibrillation) Dyspnea Vitamin D deficiency Insomnia Hypothyroid Atrial fibrillation, permanent GERD (gastroesophageal reflux disease) Hyperlipidemia Essential (primary) hypertension Surgical History History of cardioversion (09/27/23) S/P complete thyroidectomy Status post complete repair of rotator cuff S/P extracapsular cataract extraction History of carpal tunnel release Family History Father Hypertension Mother Hypertension Social History Smoking Status: Never smoker alcohol intake: never substance use type: does not use ROS Con (more content not included)... [facility] 12 Lead EKG performed by [facility] on 02-29-2024 12 Lead EKG performed by [address] [address] 12 Lead EKG performed by [facility] 02/29/24 0743 MR#: [id number] Acct: [id number] Name: DANIELE CLARK DECEMBER Rep #: [id number] : 1950 74 From: Thelma Nowak Attending Dr: BRIANDA Gee Status: DEP AMB Ordering Dr: Thelma Natarajan Date: 02/02 02/24 [place] [facility] Sex: F C Admitted: [facility]/12 Lead EKG performed by [facility] Atrial fibrillation -Old anterior infarct. Low voltage -possible pulmonary isease. ABNORMAL 03/09/24 1150 A> Date Thelma LAMAR CC: Dr. Edward Ramirez DO Date Dictated: 02/29/24742 Date Transcribed: 02/29/24742 Toll Bridge Operator: EDWIN Signed [facility] 12 Lead EKG performed by [facility] on 02-22-2024 12 Lead EKG performed by [facility] [address] [place] [address] 12 Lead EKG performed by [facility] 02/22/24 1105 MR#: [id number] Acct: [id number] Name: DANIELE CLARK DECEMBER Rep #: [id number] : 1950 73 From: Thelma Nowak Attending Dr: BRIANDA Gee Status: DEP AMB Ordering Dr: Thelma Natarajan Date: 02/02 07/27 Location: [facility] Sex: F C Admitted: [facility]/12 Lead EKG performed by [facility] ECG Report Interpretation ------Atrial fibrillation Low voltage -possible pulmonary disease. ABNORMAL Electronically signed on 03/06/2024 at 15:57 by Rudy Graves Software Version [id number] 03/06/24 1601 Date Thelma LAMAR CC: Dr. Edward Ramirez DO Date Dictated: 02/22/241104 Date Transcribed: 02/22/241104 Toll Bridge Operator: EDWIN Signed [facility] Cardiology Visit Reporton Cardiology Visit Report [facility] [address] [place] [address] OFFICE VISIT Date of Service: 02/22/24 MR#: [id number] Acct: [id number] Name: DANIELE CLARK DECEMBER Rep #: [id number] : 1950 Provider: BRIANDA Astudillo Age/Sex: 73/F Location: [facility] Status: Signed HPI HPI History of Present Illness Details: 73-year-old lady with a history of atrial fibrillation which appears to be permanent, dyspnea on exertion, and hypertension. She says that she underwent a cardiac catheterization in December 2021 at [facility] and was Denisse which demonstrated mild nonobstructive coronary artery disease with a diagonal vessel with 45 to 50% stenosis. She also has a history of hyperlipidemia. She recently moved to the area because her . Her electrocardiogram demonstrates atrial fibrillation with a rate of 77 bpm. She is concerned that she has been left in atrial fibrillation for over 4 years. She has not had any previous attempts at voodoo of sinus rhythm. She underwent an echocardiogram September 24, 2023 which demonstrated an ejection fraction of 65%. Left atrium moderately enlarged. Normal right atrium. She did undergo a cardioversion. Since then Dtr has felt that she is more SOB. She CTA was negative for a PE. She does feel that the spirolactone and lasix has helped. Her HR have been lower. She was asked to decrease her metoprolol but did not do so. HM did demonstrate 18% Afib. She does have a moderate size hiatal hernia. She was started on NATACHA. Dtr does note that mom is still SOB. She did need to stop 2-3 times coming up here. This was similar to the last time. She is trying to walk more. She feels her HR is higher but her BP is better. EKG today demonstrates atrial fibrillation. Intake Vital Signs 08/24/23 10:29 01/02/24 12:41 02/22/24 10:18 Height 4 ft 10 in 4 ft 10 in 4 ft 10 in Weight: 204 lb BMI 42.6 BP 128/81 H Blood Pressure Location Lt brachial Position Sitting Respiration 20 H Pulse 94 Pulse Source Monitor Pulse Oximetry (%) 98 Intake Visit Reasons: 6 M FU [employer] Prom[employer] Specialist Required: No Is patient in pain?: No Allergies alendronate sodium Adverse Reaction (Severe, Verified 02/22/24 10:18) A FIB amlodipine (From Norvasc) Adverse Reaction (Severe, Verified 02/22/24 10:18) edema celecoxib (From Celebrex) Adverse Reaction (Severe, Verified 02/22/24 10:18) Dizziness hydrochlorothiazide Adverse Reaction (Severe, Verified 02/22/24 10:18) chest pain Medications ???Medication ???Instructions ???Recorded ???Confirmed ???Type apixaban 5 mg tablet (Eliquis) 5 mg PO BID 07/25/23 02/22/24 History aspirin 81 mg tablet,delayed 81 mg PO DAILY 07/25/23 02/22/24 History release (Adult Aspirin Regimen) atorvastatin 20 mg tablet 20 mg PO DAILY 07/25/23 02/22/24 History cholecalciferol (vitamin D3) 100 200 mcg PO DAILY 07/25/23 02/22/24 History mcg (4,000 unit) tablet cyanocobalamin (vitamin B-12) 1,000 mcg PO QMONTH 07/25/23 02/22/24 History 1,000 mcg capsule levothyroxine 100 mcg capsule 100 mcg PO DAILY 07/25/23 02/22/24 History lisinopril 40 mg tablet 40 mg PO DAILY 07/25/23 02/22/24 History nitroglycerin 0.3 mg sublingual 0.3 mg sublingual Q5M PRN chest 07/25/23 02/22/24 History tablet pain pantoprazole 40 mg tablet,delayed 40 mg PO DAILY 07/25/23 02/22/24 History release albuterol sulfate 90 mcg/actuation 2 inh inhalation Q4H PRN shortness 10/08/23 02/22/24 Rx aerosol inhaler (Proventil HFA) of breath or wheezing #6.7 grams amiodarone 200 mg tablet 200 mg PO .COMPLEX #90 tabs 02/22/24 02/22/24 Rx furosemide 40 mg tablet 40 mg PO DAILY 02/22/24 02/22/24 History Have you fallen in the past year?: No PFSH Medical History PAF (paroxysmal atrial fibrillation) Dyspnea Vitamin D deficiency Insomnia Hypothyroid Atrial fibrillation, permanent GERD (gastroesophageal reflux disease) Hyperlipidemia Essential (primary) hypertension Surgical History History of cardioversion (09/27/23) S/P complete thyroidectomy Status post complete repair of rotator cuff S/P extracapsular cataract extraction History of carpal tunnel release Family History Father Hypertension Mother Hypertension Social History Smoking Status: Never smoker alcohol intake: never substance use type: does not use ROS Const Const: Positive for daytime sleepiness and difficulty sleeping; Negative for fatigue, weakness, headache(s), frequent falls or excessive sweating Eyes Eyes: Negative for loss of per (more content not included)... 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[employer] ADJ[employer] INSTRUCTOR IN [employer]-C Status: REG CLI Location: PSN Date: Sex: F C PSN 6 Minute Walk Test 6 Minute Walk Test 6 Minute Walk Test: 6 Minute Walk Test PSN:6-Minute Walk Test Start: 01/02/24 12:40 Freq: Status: Active Protocol: [id number] Document 01/02/24 12:41 JOANNAENTON (Rec: 01/02/24 12:45 SFENTON [id number]) 6 Minute Walk Test Date Performed 01/02/24 Time Performed 12:30 Height 4 ft 10 in Weight: 198 lb Weight in Pounds 198.[address]: Cristina Brizuela NP Assistive device used: None Pre-test Oxygen Delivery Method Room Air Pulse Ox (%) 99 Pulse Rate (60-100 beats/min) 75 Dyspnea Nikki Scale (0-10) 0.5 Exertion Nikki Scale (6-20) 6 1st minute Oxygen Delivery Method Room Air Pulse Ox (%) 98 Pulse Rate (60-100 beats/min) 84 2nd minute Oxygen Delivery Method Room Air Pulse Ox (%) 99 Pulse Rate (60-100 beats/min) 88 3rd minute Oxygen Delivery Method Room Air Pulse Ox (%) 96 Pulse Rate (60-100 beats/min) 93 Number of Rests Taken 1 4th minute Oxygen Delivery Method Room Air Pulse Ox (%) 97 Pulse Rate (60-100 beats/min) 92 5th minute Oxygen Delivery Method Room Air Pulse Ox (%) 98 Pulse Rate (60-100 beats/min) 92 6th minute Oxygen Delivery Method Room Air Pulse Ox (%) 100 Pulse Rate (60-100 beats/min) 95 Dyspnea Nikki Scale (0-10) 4 Exertion Nikki Scale (6-20) 13 Post-test Oxygen Delivery Method Room Air Pulse Ox (%) 99 Pulse Rate (60-100 beats/min) 79 Full Laps Walked 13 Partial Lap, Number of Tiles Walked 12 Total Distance Walked (ft) 779 01/02/24 12:42 Cardiopulmonary Services by Lesley Sánchez Patient took a very brief break of less than 10 seconds during the third minute of walking. Patient had audible wheezing that started about the third minute as well and lasted until she rested, after testing. Initialized on 01/02/24 12:42 - END OF NOTE Interpretation Interpretation: The patient ambulated 779 feet over the course of 6 minutes beginning on room air without assistive devices. Pretesting oxygen saturation was noted to be 99% on room air. With ambulation, the dominga oxygen saturation was 96%. There was no significant exertional oxygen desaturation. Recommendations Recommendations: There is no indication for the use of supplemental oxygen at this time. 01/04/24936 Date Malick Riley DO CC: Date Dictated: 01/04/24936 Date Transcribed: 01/04/24936 Toll Bridge Operator: Dr. Malick Riley DO Signed [facility] Basic Metabolic Profile (BMP )on 01-02-2024 BUN/CRE 18.4 RATIO Normal 10-20 [facility] Comment on above: Performed By: #### L 500.2500 #### [facility] [address] [place], [place], [id number] CA,Total 9.2 mg/dL Normal 8.5-10.1 [facility] Comment on above: Performed By: #### L 500.2500 #### [facility] [address] [place], [place], [id number] Chloride [Moles/Vol] 101 mmol/L Normal 98-107 [facility] Comment on above: Performed By: #### L 500.2500 #### [facility] [address] [place], [address] CO2 [Moles/Vol] 23.0 mmol/L Normal 21.0-32.0 [facility] Comment on above: Performed By: #### L 500.2500 #### [facility] [address] [place], [address] Creatinine [Mass/Vol] 1.03 mg/dL High 0.55-1.02 [facility] Comment on above: Result Comment: The validity of the calculated GFR GFRAA in patients over 70 years has not been determined. Clinical correlation is essential. Performed By: #### L 500.2500 #### [facility] [address] [place], [address] ECRCL 48.55 ml/min Normal [facility] Comment on above: Performed By: #### L 500.2500 #### [facility] [address] [place], [address] EST GFR - AA 67 mL/min Normal >60 [facility] Comment on above: Result Comment: Afri can [place] GFR Calc Performed By: #### L 500.2500 #### [facility] [address] [place], [address] GAP 8 Normal 5-15 [facility] Comment on above: Performed By: #### L 500.2500 #### [facility] [address] [place], [address] GFR/1.73 sq M.predicted among non-blacks MDRD (S/P/Bld) [Vol rate/Area] 56 mL/min/{1.73_m2} Low >60 [facility] Comment on above: Result Comment: Non- GFR Calc Performed By: #### L 500.2500 #### [facility] [address] [place], [address] Glucose [Mass/Vol] 147 mg/dL High 74-106 [facility] Comment on above: Result Comment: Fast ing Glucose result greater than or equal to 126 mg/dL suggests DIABETES MELLITUS per A.D.A. criteria. Performed By: #### L 500.2500 #### [facility] [address] [place], [address] Potassium [Moles/Vol] 4.1 mmol/L Normal 3.5-5.1 [facility] Comment on above: Performed By: #### L 500.2500 #### [facility] [address] [place], [address] Sodium [Moles/Vol] 132 mmol/L Low 136-145 [facility] Comment on above: Performed By: #### L 500.2500 #### [facility] [address] [place], [address] Urea nitrogen [Mass/Vol] 19 mg/dL High 7-18 [facility] Comment on above: Performed By: #### L 500.2500 #### [facility] [address] [place], [place], [address] Pulmonary Visit Reporton Pulmonary Visit Report [facility] [place] [address] [place], [place] [address] OFFICE VISIT Date of Service: 12/22/23 MR#: [id number] Acct: [id number] Name: DANIELE CLARK DECEMBER Rep #: [id number] : 1950 Provider: VIKTOR Brizuela Age/Sex: 73/F Location: [facility].PMW Status: Signed Assessment and Plan Assessment and Plan (1) Sleep apnea: Status: Acute Qualifiers: Sleep apnea type: obstructive Qualified Code(s): G47.33 - Obstructive sleep apnea (adult) (pediatric) Comment: AHI 11.5 Plan: New. Lengthy discussion about the pathophysiology of obstructive sleep apnea. We discussed the risks of untreated sleep apnea as well as the benefits. I am sending the patient for a titration study. Once appropriate settings are evaluated and recommended I will order the proper equipment, with initial goal will be to wear PAP at least 4 hours nightly. Ultimately, it should be worn any time spent sleeping. I have encouraged the patient to call the office with any difficulties acclimating to PAP therapy. Follow up in the office in 3 months, at which time I anticipate the patient will be on PAP therapy for 6-8 weeks. (2) Shortness of breath: Status: Acute Plan: Of unclear etiology. The patient is agreeable to having a pulmonary stress test completed to evaluate for exertional hypoxia. It was explained to the patient that if supplemental oxygen is applied during the testing that she should wear supplemental oxygen anytime she is ambulating. She is agreeable with this. We will discuss the results in detail at her follow-up visit. She has been encouraged to contact the office with any new or worsening symptoms in the meantime. (3) Pulmonary hypertension: Status: Acute Comment: PASP 43 mmHg Plan: Recently identified. This could be related to the fact that she has had obstructive sleep apnea without treatment. It is possible that symptoms and clinical findings could improve after she is compliant with PAP therapy for 3 to 6 months. I also suggested that the patient monitor her sodium intake. She seems agreeable. Orders: Orders Polysomnography with NCPAP Today G47.30 - Sleep apnea, unspecified Simple Pulmonary Exercise Test Today R06.02 - Shortness of breath Plan Details Follow Up: 3 Months ([facility]) HPI Sleep concern Chief Complaint: Test results HPI Comments Details: This patient presents to the office today for initial consultation regarding concern for obstructive sleep apnea. She is ambulatory, currently on room air and accompanied today by her daughter. The patient reports that she does snore. She has never awakened herself by coughing or gasping. She does not feel rested in the morning. She does find herself nodding off to sleep when sitting still in a chair. She also falls asleep if she is riding in a car. She has about 2 episodes of nocturia each night. She denies any difficulty with dry mouth or morning headaches. The patient is currently disabled and has been so for the past 20 years. She states that she suffered a back injury. 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 She has never seen a hammer adjuster. She is a lifelong never smoker. The patient reports that recently she was provided with an albuterol rescue inhaler at an ER visit. She admits that she honestly did not feel as though it was very helpful. Past medical family history significant for: Mother was a smoker and had heart problems. Father when the patient was 13 years old of a suspected massive heart attack. Patient has a sister who has had open heart surgery, another sister has an aneurysm, another sister has diabetes. The patient reports that there were 10 children, 7 survived. The patient herself has 2 daughters. One has asthma, diabetes, obesity and fatty liver. The other daughter has heart problems, super morbidly obese and congestive heart failure. The patient does have shortness of breath all of the time. She also has progression of the shortness of breath with any exertion and feels as though she is exerted easily. She has an occasional dry cough. She denies any sputum production. She also reports occasional wheezing. She feels palpitations occasionally, was recently diagnosed with atrial fibrillation and had a cardioversion. She has not had any specific chest pain. She denies any fever, chills or body aches. Test results personally reviewed with the patient: Echocardiogram completed on September 21, 2023. Noted is an EF of 65%. PASP 43 mmHg. Pulmonary function test completed on November 24, 2023. Impression is consistent with grossly normal function studies. Polysomnogram completed on November 30, 2023. Overall AHI is 11.5 events per hour noted to be 26.4 events per hour in the supine position and 41.2 events per hour in the REM stage of sleep. Impression is mild obstructive sleep apnea with (more content not included)... [facility] Absolute lymphocyte countOrd ered By: Thelma Natarajan on 10-28-2023 Lymphocytes Auto (Unsp spec) [#/Vol] 1.77 10*3/uL 0.83-4.51 [facility] Automated lymphocyte count a s percentage of total leukocytesOrdered By: Thelma Natarajan on 10-28-2023 Lymphocytes/100 WBC Auto (Unsp spec) 21.4 % 19-41 [facility] Basophil percentageOrdered B y: Thelma Natarajan on 10-28-2023 Basophils/100 WBC (Bld) 0.8 % 0-1 [facility] Chloride [Moles/Vol] 103 mmol/L 98-107 [facility] Eosinophils/100 WBC (Bld) 7.9 % 0-5 [facility] Glucose [Mass/Vol] 77 mg/dL 74-106 [facility] Hemoglobin (Bld) [Mass/Vol] 12.2 g/dL 12.0-15.0 [facility] Monocytes/100 WBC (Bld) 12.8 % 0-[address] [facility] Neutrophils (Bld) [#/Vol] 4.7 10*3/uL 2.0-7.7 [facility] Neutrophils/100 WBC (Bld) 56.9 % 47-70 [facility] Potassium [Moles/Vol] 3.3 mmol/L 3.5-5.1 [facility] Sodium [Moles/Vol] 136 mmol/L 136-145 [facility] WBC (Bld) [#/Vol] 8.3 10*3/uL 4.4-11.0 [facility] Determination of erythrocyte mean corpuscular volume (MCV)Ordered By: Thelma Natarajan on 10-28-2023 MCV (RBC) [Entitic vol] 98.4 fL 81-99 [facility] Erythrocyte distribution wid th ratioOrdered By: Thelma Natarajan on 10-28-2023 Erythrocyte distribution width (RBC) [Ratio] 12.3 % 11.6-14.6 [facility] Erythrocyte distribution wid th standard deviationOrdered By: Thelma Natarajan on 10-28-2023 Erythrocyte distribution width (RBC) [Entitic vol] 44.4 fL 35.1-43.9 [facility] Hematocrit Auto (Bld) [Volum e fraction]Ordered By: Thelma Natarajan on 10-28-2023 Hematocrit (Bld) [Volume fraction] 36.9 % 37-47 [facility] Immature granulocytes/100 WB C Auto (Bld)Ordered By: Thelma Natarajan on 10-28-2023 Immature granulocytes/100 WBC (Bld) 0.200 % 0.0-0.9 [facility] Comment on above: IG% - Immature Granu locytes (promyelocytes, myelocytes and metamyelocytes) > 1% indicates that a LEFT SHIFT is Present. Laboratory - Chemistry and C hemistry - challengeOrdered By: Thelma Natarajan on 10-28-2023 CO2 [Moles/Vol] 26.0 mmol/L 21.0-32.0 [facility] Natriuretic peptide B (Bld) [Mass/Vol] 262.8 pg/mL 0-100 [facility] Urea nitrogen/Creatinine [Mass ratio] 18.4 mg/mg 10-20 [facility] - Hematology and Cell countsOrdered By: Thelma Natarajan on 10-28-2023 MCH (RBC) [Entitic mass] 32.5 pg 27.0-32.0 [facility] MCHC (RBC) [Mass/Vol] 33.1 g/dL 32-36 [facility] Nucleated RBC/100 WBC (Bld) [Ratio] 0 % 0-5 [facility] Platelet mean volume (Bld) [Entitic vol] 9.8 fL 6.2-12.0 [facility] Platelets (Bld) [#/Vol] 262 10*3/uL 150-450 [facility] No Panel InformationOrdered By: Thelma Natarajan on 10-28-2023 Estimated GFR (MDRD) Amer 67 mL/min >60 [facility] Comment on above: GFR Calc Estimated GFR (MDRD) Non-Af Amer 56 mL/min >60 [facility] Comment on above: Non- GFR Calc RBC Auto (Bld) [#/Vol]Ordere d By: Thelma Natarajan on 10-28-2023 RBC (Bld) [#/Vol] 3.75 10*6/uL 4.2-5.4 [facility] Serum or plasma calcium talia urement (mass/volume)Ordered By: Thelma Nataarjan on 10-28-2023 Calcium [Mass/Vol] 9.0 mg/dL 8.5-10.1 [facility] Serum or plasma creatinine m easurement (mass/volume)Ordered By: Thelma Natarajan on 10-28-2023 Creatinine [Mass/Vol] 1.03 mg/dL 0.55-1.02 [facility] Comment on above: The validity of the calculated GFR & GFRAA in patients over 70 years has not been determined. Clinical correlation is essential. Serum or plasma urea nitroge n measurement (mass/volume)Ordered By: Thelma Natarajan on 10-28-2023 Urea nitrogen [Mass/Vol] 19 mg/dL 7-18 [facility] Thin prep Papanicolaou smear with manual screeningOrdered By: Thelma Natarajan on 10-28-2023 Thin prep Papanicolaou smear with manual screening 7 5-15 [facility] Absolute lymphocyte countOrd ered By: Emmanuelle Durham on 10-07-2023 Lymphocytes Auto (Unsp spec) [#/Vol] 1.52 10*3/uL 0.83-4.51 [facility] Automated lymphocyte count a s percentage of total leukocytesOrdered By: Emmanuelle Durham on 10-07-2023 Lymphocytes/100 WBC Auto (Unsp spec) 18.3 % 19-41 [facility] Basophil percentageOrdered B y: Emmanuelle Durham on 10-07-2023 Basophils/100 WBC (Bld) 0.8 % 0-1 [facility] Chloride [Moles/Vol] 103 mmol/L 98-107 [facility] Eosinophils/100 WBC (Bld) 4.3 % 0-5 [facility] Glucose [Mass/Vol] 134 mg/dL 74-106 [facility] Comment on above: Fasting Glucose resu lt greater than or equal to 126 mg/dL suggests DIABETES MELLITUS per A.D.A. criteria. Hemoglobin (Bld) [Mass/Vol] 12.7 g/dL 12.0-15.0 [facility] Monocytes/100 WBC (Bld) 14.0 % 0-[address] [facility] Neutrophils (Bld) [#/Vol] 5.2 10*3/uL 2.0-7.7 [facility] Neutrophils/100 WBC (Bld) 62.2 % 47-70 [facility] Potassium [Moles/Vol] 3.9 mmol/L 3.5-5.1 [facility] Sodium [Moles/Vol] 136 mmol/L 136-145 [facility] WBC (Bld) [#/Vol] 8.3 10*3/uL 4.4-11.0 [facility] Determination of erythrocyte mean corpuscular volume (MCV)Ordered By: Emmanuelle Durham on 10-07-2023 MCV (RBC) [Entitic vol] 99.0 fL 81-99 [facility] Erythrocyte distribution wid th ratioOrdered By: Emmanuelle Durham on 10-07-2023 Erythrocyte distribution width (RBC) [Ratio] 12.6 % 11.6-14.6 [facility] Erythrocyte distribution wid th standard deviationOrdered By: Emmanuelle Durham on 10-07-2023 Erythrocyte distribution width (RBC) [Entitic vol] 45.3 fL 35.1-43.9 [facility] Hematocrit Auto (Bld) [Volum e fraction]Ordered By: Emmanuelle Durham on 10-07-2023 Hematocrit (Bld) [Volume fraction] 38.7 % 37-47 [facility] Immature granulocytes/100 WB C Auto (Bld)Ordered By: Emmanuelle Durham on 10-07-2023 Immature granulocytes/100 WBC (Bld) 0.400 % 0.0-0.9 [facility] Comment on above: IG% - Immature Granu locytes (promyelocytes, myelocytes and metamyelocytes) > 1% indicates that a LEFT SHIFT is Present. Laboratory - Chemistry and C hemistry - challengeOrdered By: Emmanuelle Durham on 10-07-2023 CO2 [Moles/Vol] 27.0 mmol/L 21.0-32.0 [facility] Natriuretic peptide B (Bld) [Mass/Vol] 278.9 pg/mL 0-100 [facility] Urea nitrogen/Creatinine [Mass ratio] 25.8 mg/mg 10-20 [facility] - Hematology and Cell countsOrdered By: Emmanuelle Durham on 10-07-2023 MCH (RBC) [Entitic mass] 32.5 pg 27.0-32.0 [facility] MCHC (RBC) [Mass/Vol] 32.8 g/dL 32-36 [facility] Nucleated RBC/100 WBC (Bld) [Ratio] 0 % 0-5 [facility] Platelet mean volume (Bld) [Entitic vol] 10.1 fL 6.2-12.0 [facility] Platelets (Bld) [#/Vol] 248 10*3/uL 150-450 [facility] - Microbiology an d Antimicrobial susceptibilityOrdered By: Paul Delong on 10-07-2023 SARS-CoV-2 (COVID-19) RNA ANTOINE+probe Ql (Unsp spec) [facility] No Panel InformationOrdered By: Emmanuelle Durham on 10-07-2023 Estimated Creatinine Clearance Calc 43.17 ml/min [facility] Estimated GFR (MDRD) Amer 57 mL/min >60 [facility] Comment on above: GFR Calc Estimated GFR (MDRD) Non-Af Amer 47 mL/min >60 [facility] Comment on above: Non- GFR Calc Troponin I High Sensitivity 14 pg/mL 3.0-54.0 [facility] Comment on above: Please Note: New Shirley t Units and Gender Specific Reference Ranges. For more information see Policy Stat Procedure [place] High Sensitivity Troponin (TNIH) and attachments. RBC Auto (Bld) [#/Vol]Ordere d By: Emmanuelle Durham on 10-07-2023 RBC (Bld) [#/Vol] 3.91 10*6/uL 4.2-5.4 [facility] Serum or plasma calcium talia urement (mass/volume)Ordered By: Emmanuelle Durham on 10-07-2023 Calcium [Mass/Vol] 9.3 mg/dL 8.5-10.1 [facility] Serum or plasma creatinine m easurement (mass/volume)Ordered By: Emmanuelle Durham on 10-07-2023 Creatinine [Mass/Vol] 1.20 mg/dL 0.55-1.02 [facility] Comment on above: The validity of the calculated GFR & GFRAA in patients over 70 years has not been determined. Clinical correlation is essential. Serum or plasma urea nitroge n measurement (mass/volume)Ordered By: Emmanuelle Durham on 10-07-2023 Urea nitrogen [Mass/Vol] 31 mg/dL 7-18 [facility] Thin prep Papanicolaou smear with manual screeningOrdered By: Emmanuelle Durham on 10-07-2023 Thin prep Papanicolaou smear with manual screening 6 -15 [facility] .Auto Diffon 09-28-2023 Basophil, Absolute 0.1 10 3/mcL Normal 0.0-0.2 [facility] Comment on above: Performed By: #### P BNP, TROPHS, BMP, MDW, DIMER, ANEU, ADIFF, GFR, CBC #### [address] [address] Basophils/100 WBC (Bld) 0.9 % Normal 0.0-2.5 [facility] ([place]) Comment on above: Performed By: #### P BNP, TROPHS, BMP, MDW, DIMER, ANEU, ADIFF, GFR, CBC #### [address] [address] Eosinophil, Absolute 0.3 10 3/mcL Normal 0.0-0.4 [facility] ([place]) Comment on above: Performed By: #### P BNP, TROPHS, BMP, MDW, DIMER, ANEU, ADIFF, GFR, CBC #### [address] [address] Eosinophils/100 WBC (Bld) 2.9 % Normal 0.0-7.0 [facility] ([place] Comment on above: Performed By: #### P BNP, TROPHS, BMP, MDW, DIMER, ANEU, ADIFF, GFR, CBC #### [address] [address] Lymphocyte, Absolute 2.0 10 3/mcL Normal 0.8-3.9 [facility] ([place]) Comment on above: Performed By: #### P BNP, TROPHS, BMP, MDW, DIMER, ANEU, ADIFF, GFR, CBC #### [address] [address] Lymphocytes/100 WBC (Bld) 21.8 % Normal 10.0-50.0 [facility] ([place] Comment on above: Performed By: #### P BNP, TROPHS, BMP, MDW, DIMER, ANEU, ADIFF, GFR, CBC #### [address] [address] Monocyte, Absolute 1.1 10 3/mcL High 0.2-1.0 [facility] Comment on above: Performed By: #### P BNP, TROPHS, BMP, MDW, DIMER, ANEU, ADIFF, GFR, CBC #### [address] [address] Monocytes/100 WBC (Bld) 12.1 % Normal 1.7-13.0 [facility] ([place]) Comment on above: Performed By: #### P BNP, TROPHS, BMP, MDW, DIMER, ANEU, ADIFF, GFR, CBC #### [address] [id number] [place], [place] [address] Neutrophils/100 WBC (Bld) 62.3 % Normal 37.0-80.0 [facility] ([place] Comment on above: Performed By: #### P BNP, TROPHS, BMP, MDW, DIMER, ANEU, ADIFF, GFR, CBC #### [place] [address] [place], [place] [address] .GFRon 09-28-2023 GFR Non- 30 ml/min/1.73sqm Normal [facility] ([place] Comment on above: Result Comment: GFR Population mean for , Non- Americans Ages 20-29 = 116 mL/min/1.73 sq.m. Ages 30-39 = 107 mL/min/1.73 sq.m. Ages 40-49 = 99 mL/min/1.73 sq.m. Ages 50-59 = 93 mL/min/1.73 sq.m. Ages 60-69 = 85 mL/min/1.73 sq.m. Ages 70+ = 75 mL/min/1.73 sq.m. Chronic Kidney Disease: Less than 60 mL/min/1.73 square meters End Stage Renal Disease: Less than 15 mL/min/1.73 square meters Performed By: #### P BNP, TROPHS, BMP, MDW, DIMER, ANEU, ADIFF, GFR, CBC ####[address] [address] GFR 37 ml/min/1.73sqm Normal [facility] Comment on above: Result Comment: GFR Population mean for , Non- Americans Ages 20-29 = 116 mL/min/1.73 sq.m. Ages 30-39 = 107 mL/min/1.73 sq.m. Ages 40-49 = 99 mL/min/1.73 sq.m. Ages 50-59 = 93 mL/min/1.73 sq.m. Ages 60-69 = 85 mL/min/1.73 sq.m. Ages 70+ = 75 mL/min/1.73 sq.m. Chronic Kidney Disease: Less than 60 mL/min/1.73 square meters End Stage Renal Disease: Less than 15 mL/min/1.73 square meters Performed By: #### P BNP, TROPHS, BMP, MDW, DIMER, ANEU, ADIFF, GFR, CBC ####[address] [address] .MDWon 09-28-2023 Monocyte Distribution Width 19.06 Normal 0.00-20.00 [facility] ([place] Comment on above: Result Comment: For ED adult patients suspected of sepsis, MDW<=20.0 does not rule out sepsis or risk of sepsis Performed By: #### P BNP, TROPHS, BMP, MDW, DIMER, ANEU, ADIFF, GFR, CBC #### [address] [address] .NEUABSon 09-28-2023 Neutrophil, Absolute 5.6 10 3/mcL Normal 2.9-6.2 [facility] ([place]) Comment on above: Performed By: #### P BNP, TROPHS, BMP, MDW, DIMER, ANEU, ADIFF, GFR, CBC #### [address] [address] BMPon 09-28-2023 BUN/Creatinine Ratio 21 ratio Normal 7-27 [facility] Comment on above: Performed By: #### P BNP, TROPHS, BMP, MDW, DIMER, ANEU, ADIFF, GFR, CBC #### [address] [address] Calcium [Mass/Vol] 9.2 mg/dL Normal 8.4-10.2 [facility] ([place]) Comment on above: Performed By: #### P BNP, TROPHS, BMP, MDW, DIMER, ANEU, ADIFF, GFR, CBC #### [address] [address] Chloride [Moles/Vol] 96 mmol/L Low 98-107 [facility] Comment on above: Performed By: #### P BNP, TROPHS, BMP, MDW, DIMER, ANEU, ADIFF, GFR, CBC #### [address] [address] CO2 [Moles/Vol] 28 mmol/L Normal 23-31 [facility] ([place] Comment on above: Performed By: #### P BNP, TROPHS, BMP, MDW, DIMER, ANEU, ADIFF, GFR, CBC #### [address] [address] Creatinine [Mass/Vol] 1.65 mg/dL High 0.55-1.02 [facility] ([place]) Comment on above: Performed By: #### P BNP, TROPHS, BMP, MDW, DIMER, ANEU, ADIFF, GFR, CBC #### [address] [address] Electrolyte Balance 13.0 mEq/L Normal 4.0-15.0 [facility] ([place]) Comment on above: Performed By: #### P BNP, TROPHS, BMP, MDW, DIMER, ANEU, ADIFF, GFR, CBC #### [address] [address] Glucose [Mass/Vol] 116 mg/dL High 83-110 [facility] ([place]) Comment on above: Performed By: #### P BNP, TROPHS, BMP, MDW, DIMER, ANEU, ADIFF, GFR, CBC #### [address] [address] Potassium [Moles/Vol] 4.6 mmol/L Normal 3.5-5.1 [facility] ([place]) Comment on above: Performed By: #### P BNP, TROPHS, BMP, MDW, DIMER, ANEU, ADIFF, GFR, CBC #### [address] [address] Sodium [Moles/Vol] 137 mmol/L Normal 136-145 [facility] ([place]) Comment on above: Performed By: #### P BNP, TROPHS, BMP, MDW, DIMER, ANEU, ADIFF, GFR, CBC #### [place] [address] Urea nitrogen [Mass/Vol] 34 mg/dL High 7-18 [facility] ([place]) Comment on above: Performed By: #### P BNP, TROPHS, BMP, MDW, DIMER, ANEU, ADIFF, GFR, CBC #### [place] [id number] CBCon 09-28-2023 Erythrocyte distribution width (RBC) [Ratio] 14.1 % Normal 11.5-14.5 [facility] ([place] Comment on above: Performed By: #### P BNP, TROPHS, BMP, MDW, DIMER, ANEU, ADIFF, GFR, CBC #### [place] [address] Hematocrit (Bld) [Volume fraction] 36.5 % Low 37.0-47.0 [facility] ([place] Comment on above: Performed By: #### P BNP, TROPHS, BMP, MDW, DIMER, ANEU, ADIFF, GFR, CBC #### [place] [address] Hgb 12.8 G/dL Normal 12.0-16.0 [facility] ([place] Comment on above: Performed By: #### P BNP, TROPHS, BMP, MDW, DIMER, ANEU, ADIFF, GFR, CBC #### [place] [address] MCH (RBC) [Entitic mass] 34.2 pg High 27.0-31.2 [facility] ([place] Comment on above: Performed By: #### P BNP, TROPHS, BMP, MDW, DIMER, ANEU, ADIFF, GFR, CBC #### [place] [address] MCHC 35.2 G/dL Normal 33.0-37.0 [facility] ([place] Comment on above: Performed By: #### P BNP, TROPHS, BMP, MDW, DIMER, ANEU, ADIFF, GFR, CBC #### [address] [address] MCV (RBC) [Entitic vol] 97.4 fL High 80.0-94.0 [facility] ([place]) Comment on above: Performed By: #### P BNP, TROPHS, BMP, MDW, DIMER, ANEU, ADIFF, GFR, CBC #### [address] [address] Platelet 252 10 3/mcL Normal 130-400 [facility] ([place] Comment on above: Performed By: #### P BNP, TROPHS, BMP, MDW, DIMER, ANEU, ADIFF, GFR, CBC #### [address] [address] Platelet mean volume (Bld) [Entitic vol] 7.7 fL Normal 7.4-10.4 [facility] ([place] Comment on above: Performed By: #### P BNP, TROPHS, BMP, MDW, DIMER, ANEU, ADIFF, GFR, CBC #### [address] [address] RBC 3.74 10 6/mcL Low 4.20-5.40 [facility] ([place] Comment on above: Performed By: #### P BNP, TROPHS, BMP, MDW, DIMER, ANEU, ADIFF, GFR, CBC #### [address] [address] WBC 9.0 10 3/mcL Normal 4.6-10.8 [facility] ([place] Comment on above: Performed By: #### P BNP, TROPHS, BMP, MDW, DIMER, ANEU, ADIFF, GFR, CBC #### [address] [address] DIMERon 09-28-2023 D-Dimer <200 Normal 0-230 [facility] ([place] Comment on above: Result Comment: DDN: Results reported in D-DU ng/mL. Negative for D-dimer. DVT/PE is highly unlikely. Note: False negative results may be seen in patients on anticoagulant therapy. The result of the D-Dimer test should be evaluated in the context of all the clinical and laboratory data available. In those instances where the laboratory result does not agree with the clinical evaluation, additional tests should be performed accordingly. If the D-Dimer result is used to exclude DVT or PE, the recommended cutoff value is less than 230 ng/mL. The D-Dimer result should not be used alone to rule in DVT/PE, but should be used in conjunction with a clinical pretest probability (PTP)assessment model to exclude venous thromboembolism (VTE) in outpatients suspected of deep venous thrombosis (DVT) and pulmonary embolism (PE). Performed By: #### P BNP, TROPHS, BMP, MDW, DIMER, ANEU, ADIFF, GFR, CBC #### [address] [place] [address] LABORATORYOrdered By: SYSTEM SYSTEM on 09-28-2023 Basophil, Absolute 0.1 103/mcL Normal 0.0 - 0.2 10^3/mcL AO Workflow SS Basophils/100 WBC (Bld) 0.9 % Normal 0.0 - 2.5 % AO Workflow SS Calcium [Mass/Vol] 9.2 mg/dL Normal 8.4 - 10. 2 mg/dL AO ADM SS Chloride [Moles/Vol] 96 mmol/L Low 98 - 10 7 mmol/L AO ADM SS CO2 [Moles/Vol] 28 mmol/L Normal 23 - 31 mmol/L AO ADM SS Creatinine [Mass/Vol] 1.65 mg/dL High 0.55 - 1.02 mg/dL AO ADM SS Electrolyte Balance 13.0 mEq/L Normal 4.0 - 15 .0 mEq/L AO ADM SS Eosinophil, Absolute 0.3 103/mcL Normal 0.0 - 0 .4 10^3/mcL AO Workflow SS Eosinophils/100 WBC (Bld) 2.9 % Normal 0.0 - 7.0 % AO Workflow SS Erythrocyte distribution width (RBC) [Ratio] 14.1 % Normal 11.5 - 14.5 % AO Workflow SS GFR/1.73 sq M.predicted among blacks MDRD (S/P/Bld) [Vol rate/Area] 37 ml/min/1.73sqm Invalid Interpretation Code AO Chemistry S Comment on above: Interpretive Data: GFR Population mean for , Non- Americans Ages 20-29 = 116 mL/min/1.73 sq.m. Ages 30-39 = 107 mL/min/1.73 sq.m. Ages 40-49 = 99 mL/min/1.73 sq.m. Ages 50-59 = 93 mL/min/1.73 sq.m. Ages 60-69 = 85 mL/min/1.73 sq.m. Ages 70+ = 75 mL/min/1.73 sq.m. Chronic Kidney Disease: Less than 60 mL/min/1.73 square meters End Stage Renal Disease: Less than 15 mL/min/1.73 square meters GFR/1.73 sq M.predicted among non-blacks MDRD (S/P/Bld) [Vol rate/Area] 30 ml/min/1.73sqm Invalid Interpretation Code AO Chemistry S Comment on above: Interpretive Data: GFR Population mean for , Non- Americans Ages 20-29 = 116 mL/min/1.73 sq.m. Ages 30-39 = 107 mL/min/1.73 sq.m. Ages 40-49 = 99 mL/min/1.73 sq.m. Ages 50-59 = 93 mL/min/1.73 sq.m. Ages 60-69 = 85 mL/min/1.73 sq.m. Ages 70+ = 75 mL/min/1.73 sq.m. Chronic Kidney Disease: Less than 60 mL/min/1.73 square meters End Stage Renal Disease: Less than 15 mL/min/1.73 square meters Glucose [Mass/Vol] 116 mg/dL High 83 - 110 mg/dL AO ADM SS Hematocrit (Bld) [Volume fraction] 36.5 % Low 37.0 - 47.0 % AO Workflow SS Hemoglobin (Bld) [Mass/Vol] 12.8 G/dL Normal 12.0 - 16.0 G/dL AO Workflow SS Lymphocyte, Absolute 2.0 103/mcL Normal 0.8 - 3 .9 10^3/mcL AO Workflow SS Lymphocytes/100 WBC (Bld) 21.8 % Normal 10.0 - 50.0 % AO Workflow SS MCH (RBC) [Entitic mass] 34.2 pg High 27. 0 - 31.2 pg AO Workflow SS MCHC 35.2 G/dL Normal 33.0 - 37.0 G/dL AO Workflow SS MCV (RBC) [Entitic vol] 97.4 fL High 80.0 - 94.0 fL AO Workflow SS Monocyte distribution width Auto (Bld) [Entitic vol] 19.06 1 Normal 0.00 - 20.00 AO Workflow SS Comment on above: Result Comment: For ED adult patients suspected of sepsis, MDW<=20.0 does not rule out sepsis or risk of sepsis Monocyte, Absolute 1.1 103/mcL High 0.2 - 1.0 10^3/mcL AO Workflow SS Monocytes/100 WBC (Bld) 12.1 % Normal 1.7 - 13.0 % AO Workflow SS Natriuretic peptide.B prohormone N-Terminal [Mass/Vol] 585 pg/mL High 0 - 125 pg/mL AO ADM SS Comment on above: Interpretive Data: N T-proBNP results of less than 300 pg/mL effectively rules out acute congestive heart failure with 99% negative predictive value. Neutrophil, Absolute 5.6 103/mcL Normal 2.9 - 6 .2 10^3/mcL AO Workflow SS Neutrophils/100 WBC (Bld) 62.3 % Normal 37.0 - 80.0 % AO Workflow SS Platelet mean volume (Bld) [Entitic vol] 7.7 fL Normal 7.4 - 10.4 fL AO Workflow SS Platelets (Bld) [#/Vol] 252 103/mcL Normal 130 - 400 10^3/mcL AO Workflow SS Potassium [Moles/Vol] 4.6 mmol/L Normal 3.5 - 5.1 mmol/L AO ADM SS RBC (Bld) [#/Vol] 3.74 106/mcL Low 4.20 - 5.4 0 10^6/mcL AO Workflow SS Sodium [Moles/Vol] 137 mmol/L Normal 136 - 145 mmol/L AO ADM SS Troponin I.cardiac DL <= 0.01 ng/mL [Mass/Vol] 14 ng/L Normal 0 - 51 ng/L AO ADM SS Comment on above: Interpretive Data: H igh Sensitive Troponin I Reference Ranges: Female: 0-51 ng/L Male: 0-76 ng/L Testing performed on [employer]rom[employer] using a homogeneous sandwich chemiluminescent immunoassay based on [employer] technology. Urea nitrogen [Mass/Vol] 34 mg/dL High 7 - 18 mg/d L AO ADM SS Urea nitrogen/Creatinine [Mass ratio] 21 ratio Normal 7 - 27 ratio AO ADM SS WBC (Bld) [#/Vol] 9.0 103/mcL Normal 4.6 - 10.8 10^3/mcL AO Workflow SS LABORATORYOrdered By: Caden Morillo on 09-28-2023 Fibrin D-dimer DDU (PPP) [Mass/Vol] ng/mL D-DU Normal 0 - 230 ng/mL D-DU AO [facility] SS Comment on above: Result Comment: DDN: Results reported in D-DU ng/mL. Negative for D-dimer. DVT/PE is highly unlikely. Note: False negative results may be seen in patients on anticoagulant therapy. Interpretive Data: T he result of the D-Dimer test should be evaluated in the context of all the clinical and laboratory data available. In those instances where the laboratory result does not agree with the clinical evaluation, additional tests should be performed accordingly. If the D-Dimer result is used to exclude DVT or PE, the recommended cutoff value is less than 230 ng/mL. The D-Dimer result should not be used alone to rule in DVT/PE, but should be used in conjunction with a clinical pretest probability (PTP)assessment model to exclude venous thromboembolism (VTE) in outpatients suspected of deep venous thrombosis (DVT) and pulmonary embolism (PE). PBNPon 09-28-2023 Natriuretic peptide B (Bld) [Mass/Vol] 585 pg/mL High 0-125 [facility] ([place]) Comment on above: Result Comment: NT-p roBNP results of less than 300 pg/mL effectively rules out acute congestive heart failure with 99% negative predictive value. Performed By: #### P BNP, TROPHS, BMP, MDW, DIMER, ANEU, ADIFF, GFR, CBC #### [address] [address] formerly [facility] 09-28-2023 High Sensitivity Troponin I 14 ng/L Normal 0-51 [facility] ([place] Comment on above: Result Comment: High Sensitive Troponin I Reference Ranges: Female: 0-51 ng/L Male: 0-76 ng/L Testing performed on [employer] using a homogeneous sandwich chemiluminescent immunoassay based on [employer] technology. Performed By: #### P BNP, TROPHS, BMP, MDW, DIMER, ANEU, ADIFF, GFR, CBC #### [place] [address] [place], [place] [address] XR CHEST 1 VIEWon 09-28-2023 XR CHEST 1 VIEW ORIGINAL EXAMINATION: ONE XRAY VIEW OF THE CHEST09/28/2023 3:02 am COMPARISON: None. HISTORY: ORDERING SYSTEM PROVIDED HISTORY: Reason for Exam: short of breath FINDINGS: Cardiomediastinal contours are borderline enlarged and may be secondary to portable technique. Atherosclerotic aorta. Eventration of the right hemidiaphragm. No focal consolidation or pulmonary edema. No pneumothorax or large pleural effusion. No acute osseous abnormalities. IMPRESSION: No acute radiographic process. I have personally reviewed the images of this examination and agree with the resident's findings and interpretation. Interpreted by: Frederick Kunz MD Preliminary Report By: Radha Roa Electronically signed By Frederick Kunz MD Dictated Date: 09/28/2023 3:11:11 AM Prelim Date: 09/28/2023 3:13:40 AM Sign Date: 09/28/2023 3:20:17 AM Ordering Provider: JOSE GIVENS [facility] ([place]) Basophil percentageOrdered B y: Rudy Graves on 09-26-2023 Chloride [Moles/Vol] 99 mmol/L 98-107 [facility] Glucose [Mass/Vol] 138 mg/dL 74-106 [facility] Comment on above: Fasting Glucose resu lt greater than or equal to 126 mg/dL suggests DIABETES MELLITUS per A.D.A. criteria. Potassium [Moles/Vol] 4.5 mmol/L 3.5-5.1 [facility] [place] Comment on above: Moderate Hemolysis, Result may be falsely increased. Sodium [Moles/Vol] 135 mmol/L 136-145 [facility] Laboratory - Chemistry and C hemistry - challengeOrdered By: Rudy Graves on 09-26-2023 CO2 [Moles/Vol] 27.0 mmol/L 21.0-32.0 [facility] Urea nitrogen/Creatinine [Mass ratio] 20.8 mg/mg 10-20 [facility] Laboratory - CoagulationOrde red By: Rudy Graves on 09-26-2023 INR Coag (Bld) [Relative time] 1.3 {INR} [facility] PT Coag (PPP) [Time] 15.8 s 11.7-14.9 [facility] No Panel InformationOrdered By: Rudy Graves on 09-26-2023 Estimated Creatinine Clearance Calc 47.99 ml/min [facility] Estimated GFR (MDRD) Amer 65 mL/min >60 [facility] Comment on above: GFR Calc Estimated GFR (MDRD) Non-Af Amer 54 mL/min >60 [facility] Comment on above: Non- GFR Calc Serum or plasma calcium talia urement (mass/volume)Ordered By: Rudy Graves on 09-26-2023 Calcium [Mass/Vol] 9.5 mg/dL 8.5-10.1 [facility] Serum or plasma creatinine m easurement (mass/volume)Ordered By: Rudy Graves on 09-26-2023 Creatinine [Mass/Vol] 1.06 mg/dL 0.55-1.02 [facility] [place] Comment on above: The validity of the calculated GFR & GFRAA in patients over 70 years has not been determined. Clinical correlation is essential. Serum or plasma urea nitroge n measurement (mass/volume)Ordered By: Rudy Graves on 09-26-2023 Urea nitrogen [Mass/Vol] 22 mg/dL 7-18 [facility] Thin prep Papanicolaou smear with manual screeningOrdered By: Rudy Graves on 09-26-2023 Thin prep Papanicolaou smear with manual screening 9 5-15 [facility] XR KNEE 1 OR 2 VIEWS LEFTon 08-27-2023 XR KNEE 1 OR 2 VIEWS LEFT ORIGINAL EXAMINATION: TWO XRAY VIEWS OF THE LEFT KNEE08/27/2023 2:56 pm COMPARISON: None available HISTORY: ORDERING SYSTEM PROVIDED HISTORY: Reason for Exam: KNEE PAIN, left posterior knee pain FINDINGS: No acute fracture or dislocation. Bony alignment is maintained. Tricompartmental degenerative changes. Small patellar and quadriceps enthesophytes. Small suprapatellar joint effusion. The soft tissues are unremarkable. IMPRESSION: No acute fracture or dislocation. Small suprapatellar joint effusion. Mild tricompartmental degenerative changes. I have personally reviewed the images of this examination and agree with the resident's findings and interpretation. Interpreted by: Demario Nicole MD Preliminary Report By: Heidi Garcia Electronically signed By Demario Nicole MD Dictated Date: 08/27/2023 3:10:51 PM Prelim Date: 08/27/2023 3:12:46 PM Sign Date: 08/27/2023 3:19:33 PM Ordering Provider: LINA Zamora [facility] ([place]) .Auto Diffon 07-11-2023 Basophil, Absolute 0.0 10 3/mcL Normal 0.0-0.2 [facility] [place] Comment on above: Performed By: #### L IPID, CMP, GFR, CBC, ANEU, ADIFF, TSH ####[place] [address] [place], [place] [address] Basophils/100 WBC (Bld) 0.4 % Normal 0.0-2.5 [facility] ([place]) Comment on above: Performed By: #### L IPID, CMP, GFR, CBC, ANEU, ADIFF, TSH ####[address] [place], [place] [address] Eosinophil, Absolute 0.2 10 3/mcL Normal 0.0-0.4 [facility] ([place]) Comment on above: Performed By: #### L IPID, CMP, GFR, CBC, ANEU, ADIFF, TSH ####[address] [place], [place] [address] Eosinophils/100 WBC (Bld) 1.9 % Normal 0.0-7.0 [facility] ([place] Comment on above: Performed By: #### L IPID, CMP, GFR, CBC, ANEU, ADIFF, TSH ####[address] [place], [place] [address] Lymphocyte, Absolute 3.1 10 3/mcL Normal 0.8-3.9 [facility] ([place]) Comment on above: Performed By: #### L IPID, CMP, GFR, CBC, ANEU, ADIFF, TSH ####[address] [place], [place] [address] Lymphocytes/100 WBC (Bld) 32.2 % Normal 10.0-50.0 [facility] ([place] Comment on above: Performed By: #### L IPID, CMP, GFR, CBC, ANEU, ADIFF, TSH ####[address] [place], [place] [address] Monocyte, Absolute 1.3 10 3/mcL High 0.2-1.0 [facility] [place] Comment on above: Performed By: #### L IPID, CMP, GFR, CBC, ANEU, ADIFF, TSH ####[address] [place], [place] [address] Monocytes/100 WBC (Bld) 13.3 % High 1.7-13.0 [facility] ([place] Comment on above: Performed By: #### L IPID, CMP, GFR, CBC, ANEU, ADIFF, TSH ####[address] [place], [place] [address] Neutrophils/100 WBC (Bld) 52.2 % Normal 37.0-80.0 [facility] ([place] Comment on above: Performed By: #### L IPID, CMP, GFR, CBC, ANEU, ADIFF, TSH ####[address] [place], [place] [address] .GFRon 07-11-2023 GFR Non- 45 ml/min/1.73sqm Normal [facility] ([place] Comment on above: Result Comment: GFR Population mean for , Non- Americans Ages 20-29 = 116 mL/min/1.73 sq.m. Ages 30-39 = 107 mL/min/1.73 sq.m. Ages 40-49 = 99 mL/min/1.73 sq.m. Ages 50-59 = 93 mL/min/1.73 sq.m. Ages 60-69 = 85 mL/min/1.73 sq.m. Ages 70+ = 75 mL/min/1.73 sq.m. Chronic Kidney Disease: Less than 60 mL/min/1.73 square meters End Stage Renal Disease: Less than 15 mL/min/1.73 square meters Performed By: #### L IPID, CMP, GFR, CBC, ANEU, ADIFF, TSH ####[address] [place], [place] [address] GFR 55 ml/min/1.73sqm Normal [facility] ([place] Comment on above: Result Comment: GFR Population mean for , Non- Americans Ages 20-29 = 116 mL/min/1.73 sq.m. Ages 30-39 = 107 mL/min/1.73 sq.m. Ages 40-49 = 99 mL/min/1.73 sq.m. Ages 50-59 = 93 mL/min/1.73 sq.m. Ages 60-69 = 85 mL/min/1.73 sq.m. Ages 70+ = 75 mL/min/1.73 sq.m. Chronic Kidney Disease: Less than 60 mL/min/1.73 square meters End Stage Renal Disease: Less than 15 mL/min/1.73 square meters Performed By: #### L IPID, CMP, GFR, CBC, ANEU, ADIFF, TSH ####[address] [place], [place] [address] .NEUABSon 07-11-2023 Neutrophil, Absolute 5.1 10 3/mcL Normal 2.9-6.2 [facility] ([place]) Comment on above: Performed By: #### L IPID, CMP, GFR, CBC, ANEU, ADIFF, TSH ####[address] [place], [place] [address] CBCon 07-11-2023 Erythrocyte distribution width (RBC) [Ratio] 13.9 % Normal 11.5-14.5 [facility] ([place] Comment on above: Performed By: #### L IPID, CMP, GFR, CBC, ANEU, ADIFF, TSH ####[address] [place], [place] [address] Hematocrit (Bld) [Volume fraction] 42.5 % Normal 37.0-47.0 [facility] ([place] Comment on above: Performed By: #### L IPID, CMP, GFR, CBC, ANEU, ADIFF, TSH ####[address] [place], [place] [address] Hgb 14.6 G/dL Normal 12.0-16.0 [facility] ([place] Comment on above: Performed By: #### L IPID, CMP, GFR, CBC, ANEU, ADIFF, TSH ####[address] [place], [place] [address] MCH (RBC) [Entitic mass] 32.4 pg High 27.0-31.2 [facility] ([place] Comment on above: Performed By: #### L IPID, CMP, GFR, CBC, ANEU, ADIFF, TSH ####[address] [place], [place] [address] MCHC 34.4 G/dL Normal 33.0-37.0 [facility] ([place] Comment on above: Performed By: #### L IPID, CMP, GFR, CBC, ANEU, ADIFF, TSH ####[address] [place], [place] [address] MCV (RBC) [Entitic vol] 94.2 fL High 80.0-94.0 [facility] ([place]) Comment on above: Performed By: #### L IPID, CMP, GFR, CBC, ANEU, ADIFF, TSH ####[address] [place], [place] [address] Platelet 263 10 3/mcL Normal 130-400 [facility] ([place] Comment on above: Performed By: #### L IPID, CMP, GFR, CBC, ANEU, ADIFF, TSH ####[address] [place], [place] [address] Platelet mean volume (Bld) [Entitic vol] 7.5 fL Normal 7.4-10.4 [facility] ([place] Comment on above: Performed By: #### L IPID, CMP, GFR, CBC, ANEU, ADIFF, TSH ####[address] [place], [place] [address] RBC 4.51 10 6/mcL Normal 4.20-5.40 [facility] ([place] Comment on above: Performed By: #### L IPID, CMP, GFR, CBC, ANEU, ADIFF, TSH ####[address] [place], [place] [address] WBC 9.7 10 3/mcL Normal 4.6-10.8 [facility] ([place] Comment on above: Performed By: #### L IPID, CMP, GFR, CBC, ANEU, ADIFF, TSH ####[address] [place], [place] [address] CMPon 07-11-2023 Albumin Level 3.3 G/dL Low 3.4-4.8 [facility] ([place] Comment on above: Performed By: #### L IPID, CMP, GFR, CBC, ANEU, ADIFF, TSH ####[address] [place], [place] [address] Albumin/Globulin [Mass ratio] 0.9 {ratio} Low 1.1-2.5 [facility] ([place] Comment on above: Performed By: #### L IPID, CMP, GFR, CBC, ANEU, ADIFF, TSH ####[address] [place], [place] [address] ALP [Catalytic activity/Vol] 100 U/L Normal 40-135 [facility] ([place] Comment on above: Performed By: #### L IPID, CMP, GFR, CBC, ANEU, ADIFF, TSH ####[address] [place], [place] [address] ALT [Catalytic activity/Vol] 29 U/L Normal 14-59 [facility] ([place] Comment on above: Performed By: #### L IPID, CMP, GFR, CBC, ANEU, ADIFF, TSH ####[address] [place], [place] [address] AST [Catalytic activity/Vol] 19 U/L Normal 10-40 [facility] ([place] Comment on above: Performed By: #### L IPID, CMP, GFR, CBC, ANEU, ADIFF, TSH ####[address] [place], [place] [address] Bili Total 0.6 mg/dL Normal 0.2-1.0 [facility] ([place] Comment on above: Result Comment: Use of this assay is not recommended for patients undergoing treatment with eltrombopag due to the potential for falsely elevated results. Performed By: #### L IPID, CMP, GFR, CBC, ANEU, ADIFF, TSH ####[address] [place], [place] [address] BUN/Creatinine Ratio 26 ratio Normal 7-27 [facility] Comment on above: Performed By: #### L IPID, CMP, GFR, CBC, ANEU, ADIFF, TSH ####[address] [place], [place] [address] Calcium [Mass/Vol] 9.3 mg/dL Normal 8.4-10.2 [facility] ([place]) Comment on above: Performed By: #### L IPID, CMP, GFR, CBC, ANEU, ADIFF, TSH ####[address] [place], [place] [address] Chloride [Moles/Vol] 104 mmol/L Normal 98-107 [facility] [place] Comment on above: Performed By: #### L IPID, CMP, GFR, CBC, ANEU, ADIFF, TSH ####[address] [place], [place] [address] CO2 [Moles/Vol] 29 mmol/L Normal 23-31 [facility] ([place] Comment on above: Performed By: #### L IPID, CMP, GFR, CBC, ANEU, ADIFF, TSH ####[address] [place], [place] [address] Creatinine [Mass/Vol] 1.17 mg/dL High 0.55-1.02 [facility] ([place]) Comment on above: Performed By: #### L IPID, CMP, GFR, CBC, ANEU, ADIFF, TSH ####[address] [place], [place] [address] Electrolyte Balance 9.0 mEq/L Normal 4.0-15.0 [facility] ([place]) Comment on above: Performed By: #### L IPID, CMP, GFR, CBC, ANEU, ADIFF, TSH ####[address] [place], [place] [address] Globulin 3.8 G/dL Normal [facility] ([place] Comment on above: Performed By: #### L IPID, CMP, GFR, CBC, ANEU, ADIFF, TSH ####[address] [place], [place] [address] Glucose [Mass/Vol] 95 mg/dL Normal 83-110 [facility] ([place] Comment on above: Performed By: #### L IPID, CMP, GFR, CBC, ANEU, ADIFF, TSH ####[address] [place], [place] [address] Potassium [Moles/Vol] 4.2 mmol/L Normal 3.5-5.1 [facility] ([place] Comment on above: Performed By: #### L IPID, CMP, GFR, CBC, ANEU, ADIFF, TSH ####[address] [place], [place] [address] Sodium [Moles/Vol] 142 mmol/L Normal 136-145 [facility] ([place] Comment on above: Performed By: #### L IPID, CMP, GFR, CBC, ANEU, ADIFF, TSH ####[address] [place], [place] [address] Total Protein 7.1 G/dL Normal 6.4-8.2 [facility] ([place] Comment on above: Performed By: #### L IPID, CMP, GFR, CBC, ANEU, ADIFF, TSH ####[address] [place], [place] [address] Urea nitrogen [Mass/Vol] 31 mg/dL High 7-18 [facility] ([place] Comment on above: Performed By: #### L IPID, CMP, GFR, CBC, ANEU, ADIFF, TSH ####[address] [place], [place] [address] LIPIDon 07-11-2023 Cholesterol [Mass/Vol] 175 mg/dL Normal 0-200 [facility] ([place] Comment on above: Result Comment: Chol esterol Reference Interval: Less than 200 Desirable 200-239 Borderline high risk 240 and above High risk Performed By: #### L IPID, CMP, GFR, CBC, ANEU, ADIFF, TSH ####[address] [place], [place] [address] Cholesterol in HDL [Mass/Vol] 73 mg/dL High 40-60 [facility] ([place] Comment on above: Performed By: #### L IPID, CMP, GFR, CBC, ANEU, ADIFF, TSH ####[address] [place], [place] [address] Cholesterol in LDL [Mass/Vol] 65 mg/dL Normal 0-130 [facility] ([place] Comment on above: Performed By: #### L IPID, CMP, GFR, CBC, ANEU, ADIFF, TSH ####[address] [place], [place] [address] Triglyceride [Mass/Vol] 183 mg/dL High 0-150 A [facility] ([place]) Comment on above: Result Comment: Trig lyceride Reference Interval: Less than 150 Normal 150-199 Borderline high risk 200-499 High risk 500 or higher Very high risk Performed By: #### L IPID, CMP, GFR, CBC, ANEU, ADIFF, TSH ####[id number] [place], [place] [address] TSHon 07-11-2023 TSH Qn 2.26 m[IU]/L Normal 0.36-3.74 [facility] ([place]) Comment on above: Performed By: #### L IPID, CMP, GFR, CBC, ANEU, ADIFF, TSH ####[id number] [place], [place] [address] Vital Signs Date Time Vital Sign Value Performing Clinician Facility 12-26-2024 07:02-0400 Body height 147.[address] Edward Ramirez DO Work Phone: [facility] 12-26-2024 07:02-0400 Body mass index (BMI) [Ratio] 45.3 kg/m2 Dr. Edward Ramirez DO Work Phone: [facility] 12-26-2024 07:02-0400 Body weight 98.[address] Edward Ramirez DO Work Phone: [facility] 12-26-2024 07:02-0400 Diastolic blood pressure 54 mm[Hg] Dr. Edward Ramirez DO Work Phone: [facility] 12-26-2024 07:02-0400 Heart rate 54 /min Dr. Edward Ramirez DO Work Phone: [facility] 12-26-2024 07:02-0400 Respiratory rate 18 /min Dr. Edward Ramirez DO Work Phone: [facility] 12-26-2024 07:02-0400 SaO2% (BldA) [Mass fraction] 96 % Dr. Edward Ramirez DO Work Phone: [facility] 12-26-2024 07:02-0400 Systolic blood pressure 162 mm[Hg] Dr. Edward Ramirez DO Work Phone: [facility] 11-20-2024 11:19-0400 Diastolic blood pressure 72 mm[Hg] Dr. Edward Ramirez DO Work Phone: [facility] 11-20-2024 11:19-0400 Systolic blood pressure 150 mm[Hg] Dr. Edward Ramirez DO Work Phone: [facility] 11-20-2024 07:08-0400 Body mass index (BMI) [Ratio] 46.3 kg/m2 Dr. Edward Ramirez DO Work Phone: [facility] 11-20-2024 07:08-0400 Body weight 100.[address] Edward Ramirez DO Work Phone: [facility] 11-20-2024 07:08-0400 Diastolic blood pressure 71 mm[Hg] Dr. Edward Ramirez DO Work Phone: [facility] 11-20-2024 07:08-0400 Heart rate 52 /min Dr. Edward Ramirez DO Work Phone: [facility] 11-20-2024 07:08-0400 Respiratory rate 22 /min Dr. Edward Ramirez DO Work Phone: [facility] 11-20-2024 07:08-0400 Systolic blood pressure 162 mm[Hg] Dr. Edward Ramirez DO Work Phone: [facility] 11-14-2024 00:57-0400 Diastolic Blood Pressure Non-Invasive 65 mm[Hg] DR ALISIA MCBRIDE MD [facility] 11-14-2024 00:57-0400 Heart rate 40 /min DR ALISIA MCBRIDE MD [facility] 11-14-2024 00:57-0400 Respiratory rate 18 /min DR ALISIA MCBRIDE MD [facility] 11-14-2024 00:57-0400 Systolic Blood Pressure Non-Invasive 156 mm[Hg] DR ALISIA MCBRIDE MD [facility] 11-13-2024 23:14-0400 Body temperature 98.06 [degF] DR ALISIA MCBRIDE MD [facility] 11-13-2024 23:14-0400 Body weight 95.[address] ALISIA MCBRIDE MD [facility] 11-13-2024 23:14-0400 Diastolic Blood Pressure Non-Invasive 60 mm[Hg] DR ALISIA MCBRIDE MD [facility] 11-13-2024 23:14-0400 Heart rate 35 /min DR ALISIA MCBRIDE MD [facility] 11-13-2024 23:14-0400 Respiratory rate 18 /min DR ALISIA MCBRIDE MD [facility] 11-13-2024 23:14-0400 Systolic Blood Pressure Non-Invasive 160 mm[Hg] DR ALISIA MCBRIDE MD [facility] 11-02-2024 15:52-0400 Diastolic Blood Pressure Non-Invasive 61 mm[Hg] OLEKSANDR HONEYCUTT DO [facility] 11-02-2024 15:52-0400 Heart rate 55 /min OLEKSANDR HONEYCUTT DO [facility] 11-02-2024 15:52-0400 Respiratory rate 18 /min OLEKSANDRRAJI HONEYCUTT DO [facility] 11-02-2024 15:52-0400 Systolic Blood Pressure Non-Invasive 156 mm[Hg] OLEKSANDRRAJI HONEYCUTT DO [facility] 11-02-2024 14:36-0400 Diastolic Blood Pressure Non-Invasive 52 mm[Hg] OLEKSANDRRAJI HONEYCUTT DO [facility] 11-02-2024 14:36-0400 Heart rate 57 /min OLEKSANDRRAJI HONEYCUTT DO [facility] 11-02-2024 14:36-0400 Respiratory rate 12 /min OLEKSANDR HONEYCUTT DO [facility] 11-02-2024 14:36-0400 Systolic Blood Pressure Non-Invasive 107 mm[Hg] OLEKSANDR HONEYCUTT DO [facility] 11-02-2024 13:35-0400 Body height 147.3 cm OLEKSANDR HONEYCUTT DO [facility] 11-02-2024 13:35-0400 Body temperature 97.7 [degF] OLEKSANDR HONEYCUTT DO [facility] 11-02-2024 13:35-0400 Body weight 97.7 kg OLEKSANDR HONEYCUTT DO [facility] 11-02-2024 13:35-0400 Diastolic Blood Pressure Non-Invasive 63 mm[Hg] OLEKSANDR YINKA DO [facility] 11-02-2024 13:35-0400 Heart rate 68 /min OLEKSANDRRAJI HONEYCUTT DO [facility] 11-02-2024 13:35-0400 Respiratory rate 20 /min OLEKSANDR HONEYCUTT DO [facility] 11-02-2024 13:35-0400 Systolic Blood Pressure Non-Invasive 134 mm[Hg] OLEKSANDR HONEYCUTT DO [facility] 11-02-2024 09:13-0400 Body height 147.[address] Edward Ramirez DO Work Phone: [facility] 11-02-2024 09:13-0400 Body mass index (BMI) [Ratio] 44.9 kg/m2 Dr. Edward Ramirez DO Work Phone: [facility] 11-02-2024 09:13-0400 Body weight 97.[address] Edward Ramirez DO Work Phone: [facility] 11-02-2024 09:13-0400 Diastolic blood pressure 61 mm[Hg] Dr. Edward Ramirez DO Work Phone: [facility] 11-02-2024 09:13-0400 Heart rate 58 /min Dr. Edward Ramirez DO Work Phone: [facility] 11-02-2024 09:13-0400 Respiratory rate 18 /min Dr. Edward Ramirez DO Work Phone: [facility] 11-02-2024 09:13-0400 Systolic blood pressure 178 mm[Hg] Dr. Edward Ramirez DO Work Phone: [facility] 10-01-2024 09:24-0400 Body mass index (BMI) [Ratio] 45.3 kg/m2 Dr. Edward Ramirez DO Work Phone: [facility] 10-01-2024 09:24-0400 Body temperature 97.3 [degF] Dr. Edward Ramirez DO Work Phone: [facility] 10-01-2024 09:24-0400 Body weight 98.[address] Edward Ramirez DO Work Phone: [facility] 10-01-2024 09:24-0400 Diastolic blood pressure 70 mm[Hg] Dr. Edward Ramirez DO Work Phone: [facility] 10-01-2024 09:24-0400 Heart rate 54 /min Dr. Edward Ramirez DO Work Phone: [facility] 10-01-2024 09:24-0400 Respiratory rate 20 /min Dr. Edward Ramirez DO Work Phone: [facility] 10-01-2024 09:24-0400 SaO2% (BldA) [Mass fraction] 99 % Dr. Edward Ramirez DO Work Phone: [facility] 10-01-2024 09:24-0400 Systolic blood pressure 189 mm[Hg] Dr. Edward Ramirez DO Work Phone: [facility] 09-17-2024 07:34-0400 Body height 147.[address] Edward Ramirez DO Work Phone: [facility] 09-17-2024 07:34-0400 Body mass index (BMI) [Ratio] 45.8 kg/m2 Dr. Edward Ramirez DO Work Phone: [facility] 09-17-2024 07:34-0400 Body weight 99.[address] Edward Ramirez DO Work Phone: [facility] 09-17-2024 07:34-0400 Diastolic blood pressure 76 mm[Hg] Dr. Edward Ramirez DO Work Phone: [facility] 09-17-2024 07:34-0400 Heart rate 54 /min Dr. Edward Ramirez DO Work Phone: [facility] 09-17-2024 07:34-0400 Respiratory rate 18 /min Dr. Edward Ramirez DO Work Phone: [facility] 09-17-2024 07:34-0400 SaO2% (BldA) [Mass fraction] 99 % Dr. Edward Ramirez DO Work Phone: [facility] 09-17-2024 07:34-0400 Systolic blood pressure 193 mm[Hg] Dr. Edward Ramirez DO Work Phone: [facility] 10-08-2023 00:16-0400 Body temperature 98.4 [degF] Dr. Edward Ramirez Work Phone: [facility] 10-08-2023 00:16-0400 Diastolic blood pressure 62 mm[Hg] Dr. Edward Ramirez Work Phone: [facility] 10-08-2023 00:16-0400 Heart rate 62 /min Dr. Edward Ramirez Work Phone: [facility] 10-08-2023 00:16-0400 Respiratory rate 16 /min Dr. Edward Ramirez Work Phone: [facility] 10-08-2023 00:16-0400 SaO2% (BldA) [Mass fraction] 95 % Dr. Edward Ramirez Work Phone: [facility] 10-08-2023 00:16-0400 Systolic blood pressure 159 mm[Hg] Dr. Edwadr Ramirez Work Phone: [facility] 10-07-2023 21:39-0400 Body mass index (BMI) [Ratio] 43.9 kg/m2 Dr. Edward Ramirez Work Phone: [facility] 10-07-2023 21:39-0400 Body weight 95.[address] Edward Ramirez Work Phone: [facility] 10-07-2023 21:19-0400 Body height 147.[address] Edward Ramirez Work Phone: [facility] 09-28-2023 03:25-0400 Blood Pressure Cuff Size JOSE GIVENS MD [facility] 09-28-2023 03:25-0400 Blood Pressure Location JOSE GIVENS MD [facility] 09-28-2023 03:25-0400 Blood Pressure Method JOSE GIVENS MD [facility] 09-28-2023 03:25-0400 Diastolic Blood Pressure Non-Invasive 54 mm[Hg] JOSE GIVENS MD [facility] 09-28-2023 03:25-0400 Heart rate 50 /min JOSE GIVENS MD [facility] 09-28-2023 03:25-0400 Respiratory rate 20 /min JOSE GIVENS MD [facility] 09-28-2023 03:25-0400 Systolic Blood Pressure Non-Invasive 124 mm[Hg] JOSE GIVENS MD [facility] 09-28-2023 02:42-0400 Body height 147 cm JOSE GIVENS MD [facility] 09-28-2023 02:42-0400 Body temperature 96.98 [degF] JOSE GIVENS MD [facility] 09-28-2023 02:42-0400 Body weight 91.7 kg JOSE GIVENS MD [facility] 09-28-2023 02:42-0400 Diastolic Blood Pressure Non-Invasive 60 mm[Hg] JOSE GIVENS MD [facility] 09-28-2023 02:42-0400 Heart rate 59 /min JOSE GIVENS MD [facility] 09-28-2023 02:42-0400 Respiratory rate 22 /min JOSE GIVENS MD [facility] 09-28-2023 02:42-0400 Systolic Blood Pressure Non-Invasive 140 mm[Hg] JOSE GIVENS MD [facility] 09-27-2023 10:46-0400 Body height 146.[address] Edward Ramirez Work Phone: [facility] 09-27-2023 10:46-0400 Body weight 92.[address] Edwadr Ramirez Work Phone: [facility] 09-26-2023 08:55-0400 Body mass index (BMI) [Ratio] 42.8 kg/m2 Dr. Edward Ramirez Work Phone: [facility] 08-27-2023 15:39-0500 Diastolic Blood Pressure Non-Invasive 91 mm[Hg] ANSLEY BERTRANDT DO [facility] 08-27-2023 15:39-0500 Heart rate 78 /min ANSLEY FROMAYLAT DO [facility] 08-27-2023 15:39-0500 Systolic Blood Pressure Non-Invasive 152 mm[Hg] ANSLEY FROMMELT DO [facility] 08-27-2023 14:04-0500 Body temperature 96.98 [degF] ANSLEY FROMMELT DO [facility] 08-27-2023 14:04-0500 Diastolic Blood Pressure Non-Invasive 94 mm[Hg] ANSLEY FROMMELT DO [facility] 08-27-2023 14:04-0500 Heart rate 84 /min ANSLEY FROMMELT DO [facility] 08-27-2023 14:04-0500 Respiratory rate 18 /min ANSLEY FROMMELT DO [facility] 08-27-2023 14:04-0500 Systolic Blood Pressure Non-Invasive 165 mm[Hg] ANSLEY FROMMELT DO [facility] 08-24-2023 10:29-0500 Body mass index (BMI) [Ratio] 42.6 kg/m2 Dr. Edward Ramirez Work Phone: [facility] 08-24-2023 10:29-0500 Body weight 92.[address] Edward Ramirez Work Phone: [facility] 08-24-2023 10:29-0500 Diastolic blood pressure 58 mm[Hg] Dr. Edward Ramirez Work Phone: [facility] 08-24-2023 10:29-0500 Heart rate 78 /min Dr. Edward Ramirez Work Phone: [facility] 08-24-2023 10:29-0500 Respiratory rate 16 /min Dr. Edward Ramirez Work Phone: [facility] 08-24-2023 10:29-0500 Systolic blood pressure 131 mm[Hg] Dr. Edward Ramirez Work Phone: [facility] Encounters Encounter Date Encounter Type Care Provider Facility Start: 12-26-2024 End: 12-26-[address] Edward Ramirez DO Work Phone: [facility] Work Phone: Start: 12-26-2024 End: 12-26-2024 Patient encounter procedure Torres LAMAR -[facility] Work Phone: Start: 12-24-2024 End: 12-24-2024 ambulatory EDWARD RAMIREZ DO Facility:[facility] Start: 12-24-2024 End: 12-24-[address] LILIAN BIGGS MD [facility] Start: 12-12-2024 End: 12-12-[address] Edward Ramirez DO Work Phone: [facility] Work Phone: Start: 12-12-2024 End: 12-12-2024 Patient encounter procedure Thelma LAMAR -Cardiovascular Services Work Phone: Start: 12-12-2024 End: 12-12-2024 ambulatory Edward Ramirez Facility[facility] Start: 12-10-2024 End: 12-10-2024 ambulatory EDWARD RAMIREZ DO [facility] Start: 12-10-2024 End: 12-10-2024 Patient encounter procedure TORRESJeremiah GUZMAN PA-C [facility] Start: 11-27-2024 End: 11-27-2024 ambulatory EDWARD RAMIREZ DO Facility:[facility] Start: 11-27-2024 End: 11-27-2024 Patient encounter procedure TORRES WHITNEYITER PA-C [facility] Start: 11-20-2024 End: 11-20-2024 Patient encounter procedure Torres Guzman PA -[facility] Work Phone: Start: 11-20-2024 End: 11-20-[address] Edward Ramirez DO Work Phone: [facility] Work Phone: Start: 11-13-2024 End: 11-14-2024 Emergency department patient visit DR ALISIA MCBRIDE MD [facility] Start: 11-09-2024 Non-patient / Non-visit Dr. Viraj Cooper MD -[facility] Start: 11-09-2024 End: 11-09-[address] Edward Ramirez DO Work Phone: [facility] Work Phone: Start: 11-09-2024 End: 11-09-2024 Patient encounter procedure Torres LAMAR -Cardiovascular Services Work Phone: Start: 11-09-2024 End: 11-09-2024 ambulatory Torres Guzman Facility[facility] Start: 11-02-2024 End: 11-02-2024 Emergency department patient visit OLEKSANDR OHNEYCUTT DO [facility] Start: 11-02-2024 End: 11-02-2024 Patient encounter procedure Torres Guzman PA -Laboratory Work Phone: Start: 11-02-2024 End: 11-02-2024 Patient encounter procedure Torres Guzman PA -[facility] Work Phone: Start: 11-02-2024 End: 11-02-2024 ambulatory Torresjeremiah Guzman Facility:[facility] Start: 11-02-2024 End: 11-02-2024 ambulatory Torres Guzman Facility:[facility] Start: 10-30-2024 End: 10-30-2024 Patient encounter procedure Maynor Edward NP-C -Laboratory Work Phone: Start: 10-30-2024 End: 10-30-2024 ambulatory Maynor Edward NP Facility:[facility] Start: 10-10-2024 ambulatory Edward Ramirez Facility :[facility] Start: 10-10-2024 Non-patient / Non-visit Dr. Rudy Graves MD -[facility] Start: 10-10-2024 End: 10-10-[address] Edward Ramirez DO Work Phone: [facility] Work Phone: Start: 10-10-2024 End: 10-10-2024 Patient encounter procedure Maynor Edward [employer]-C -Cardiovascular Services Work Phone: Start: 10-10-2024 End: 10-10-2024 ambulatory Maynor Edward NP Facility[facility] Start: 10-01-2024 End: 10-01-2024 Patient encounter procedure Cristina Brizuela [employer]-C -[facility] Work Phone: Start: 10-01-2024 End: 10-01-2024 ambulatory Edward Ramirez Facility:[facility] Start: 09-24-2024 End: 09-24-[address] Edward Ramirez DO Work Phone: [facility] Work Phone: Start: 09-24-2024 End: 09-24-2024 Patient encounter procedure Maynor Edward [employer]-C -Laboratory Work Phone: Start: 09-24-2024 End: 09-24-2024 ambulatory Maynor Edward [employer] Facility:[facility] Start: 09-17-2024 End: 09-17-[address] Edward Ramirez DO Work Phone: [facility] Work Phone: Start: 09-17-2024 End: 09-17-2024 Patient encounter procedure Maynor Mat Wagner [employer]-C -Laboratory Work Phone: Start: 09-17-2024 End: 09-17-2024 Patient encounter procedure Maynor Edward [employer] IN[employer]-C -[facility] Work Phone: Start: 09-17-2024 End: 09-17-2024 ambulatory Maynor Edward [employer] Facility:[facility] Start: 09-17-2024 End: 09-17-2024 ambulatory Maynor Edward [employer] Facility[facility] Start: 06-01-2024 End: 06-01-2024 ambulatory EDWARD RAMIREZ DO Facility[facility] Start: 06-01-2024 End: 06-01-2024 Patient encounter procedure EDWARD RAMIREZ DO [facility] Start: 04-09-2024 End: 04-09-2024 ambulatory Edward Ramirez Facility:[facility] Start: 04-02-2024 ambulatory Malick Riley Facility:[facility] Start: 04-02-2024 End: 04-02-2024 ambulatory Edward Ramirez [facility] Start: 03-28-2024 End: 03-28-2024 ambulatory Edward Ramirez Facility:[facility] Start: 03-21-2024 End: 03-21-2024 ambulatory Edward Ramirez Facility:[facility] Start: 02-29-2024 End: 02-29-2024 ambulatory Edward Ramirez Facility:[facility] Start: 02-22-2024 End: 02-22-2024 ambulatory Edward Ramirez Facility:[facility] Start: 01-04-2024 ambulatory Malick Riley [facility] Start: 01-02-2024 End: 01-02-2024 ambulatory Cristina Brizuela [employer] Facility:[facility] Start: 12-30-2023 End: 12-30-2023 ambulatory Cristina Brizuela [employer] Facility:[facility] Start: 12-22-2023 End: 12-22-2023 ambulatory Cristina Brizuela [employer] Facility:[facility] Start: 11-02-2023 End: 11-02-[address] Edward Ramirez Work Phone: [facility] Work Phone: Start: 11-02-2023 End: 11-02-[address] Edward Ramirez Work Phone: [facility]-Cat Scan, [facility] Work Phone: Start: 11-02-2023 Non-patient / Non-visit Dr. Edward Ramirez Work Phone: [facility] Work Phone: Start: 10-31-2023 Non-patient / Non-visit Dr. Edward Ramirez Work Phone: [facility] Work Phone: Start: 10-28-2023 End: 10-28-[address] Edward Ramirez Work Phone: [facility] Work Phone: Start: 10-28-2023 End: 10-28-[address] Edward Ramirez Work Phone: [facility]-Laboratory Work Phone: Start: 10-20-2023 End: 10-20-[address] Edward Ramirez Work Phone: [facility] Work Phone: Start: 10-20-2023 End: 10-20-[address] Edward Ramirez Work Phone: [facility]-Pulmonary Services/Neurology Work Phone: Start: 10-07-2023 End: 10-08-2023 Emergency department patient visit Dr. Edward Ramirez Work Phone: [facility]Emergency Department Work Phone: Start: 10-04-2023 End: 10-04-[address] Edward Ramirez Work Phone: [facility] Work Phone: Start: 09-28-2023 End: 09-28-2023 Emergency department patient visit JOSE GIVENS MD Facility:[facility] Start: 09-28-2023 End: 09-28-2023 Emergency department patient visit JOSE GIVENS MD [facility] Start: 09-27-2023 Non-patient / Non-visit Dr. dEward Ramirez Work Phone: [facility] Start: 09-27-2023 Non-patient / Non-visit Dr. Edward Ramirez Work Phone: [facility] Start: 09-27-2023 End: 09-27-2023 Admission to same day surgery center Dr. Edward Ramirez Work Phone: [facility]-Performance Instructor/Special Procedures Work Phone: Start: 09-27-2023 End: 09-27-[address] Edward Ramirez Work Phone: [facility] Work Phone: Start: 09-22-2023 Non-patient / Non-visit Dr. Edward Ramirez Work Phone: [facility] Start: 09-21-2023 Non-patient / Non-visit Dr. Edward Ramirez Work Phone: [facility] Work Phone: Start: 09-21-2023 Non-patient / Non-visit Dr. Edward Ramirez Work Phone: [facility] Start: 09-21-2023 End: 09-21-[address] Edward Ramirez Work Phone: [facility] Work Phone: Start: 09-21-2023 End: 09-21-[address] Edward Ramirez Work Phone: [facility]Cardiovascula r Services Work Phone: Start: 08-27-2023 End: 08-27-2023 Emergency department patient visit ANSLEY LUIS ANTONIOJARETH MORALES Facility:[facility] Start: 08-27-2023 End: 08-27-2023 Emergency department [facility] Start: 08-24-2023 End: 08-24-[address] Edward Ramirez Work Phone: [facility] Work Phone: Start: 07-11-2023 End: 07-12-2023 ambulatory EDWARD RAMIREZ DO Facility:[facility] Procedures Date Procedure Procedure Detail Performing Clinician Start: 11-20-2024 Evaluation of diagno stic study results Dr. Edward Ramirez DO Work Phone: Start: 11-02-2024 Evaluation of diagno stic study results Dr. Edward Ramirez DO Work Phone: Start: 10-10-2024 Cardiovascular stres s test using pharmacologic stress agent Dr. Edward Ramirez DO Work Phone: Start: 09-17-2024 Evaluation of diagno stic study results Dr. Edward Ramirez DO Work Phone: Start: 11-02-2023 CT angiography of ch est with contrast Dr. Edward Ramirez Work Phone: Start: 10-07-2023 Plain chest X-ray Dr. Jeremiah Ramirez Work Phone: Start: 10-07-2023 SARS-CoV-2, Influenz a & RSV (PCR) Dr. Edward Ramirez Work Phone: Start: 07-04-2020 Decompression of med adolfo nerve [facility] Comment on above: bilateral Start: 07-04-2007 Xcapsl ctrc rmvl ins j io lens prosth w/ecp [facility] Comment on above: bilateral-2007 and 2 012 Start: 07-04-2001 Complete repair of r otator cuff ANSLEY [facility] Comment on above: left Start: 07-04-1977 Total thyroidectomy RISHI RLES [facility] section [facility] [employer] Comment on above: x2 Plan of Treatment Date Care Activity Detail Author Start: 12-26-2024 Evaluation of diagno stic study results [facility] Start: 11-20-2024 Evaluation of diagno stic study results 12 Lead EKG performed by [facility] Start: 11-05-2024 Patient referral [facility] Work Phone: Start: 10-08-2023 [facility] Start: 09-27-2023 Patient discharge [facility] Basic metabolic 2008 panel with ionized calcium - Serum or Plasma [facility] Cardioversion [facility] [place] Heart Views W str ess and W radionuclide IV [facility] Patient Education ED Dyspnea [facility] Work Phone: Patient referral [facility] Work Phone: [facility] Immunizations Immunization Date Immunization Notes Care Provider Dolores ding 03-28-2024 Seasonal trivalent influenza vaccine, adjuvanted, preservative free Dr. Edward Ramirez DO Work Phone: [facility] 12-16-2022 diphtheria and tetan us toxoids, adsorbed for pediatric use [facility] MORAL[facility] Payers Date Payer Category Payer Private Health Insurance [id number] 2024 Unknown [id number] 2023 Self-pay [id number] 2023 Medicare [id number] 2023 Unknown [id number] 2023 Medicare [id number] 1950 Unknown [id number] 2.16.8 [id number] 1950 Unknown [id number] 2.16.8 [id number] 1950 Unknown [id number] 2.16.8 40.1.009115.3.579.2.627 1950 Unknown [id number] 2.16. [id number] 1950 Unknown [id number] 2.16. 840.1.601000.3.579.2.627 1950 Unknown [id number] 2.16.8 40.1.292642.3.579.2.627 1950 Unknown [id number] 2.16.8 40.1.937291.3.579.2.627 1950 Unknown [id number] 2.16.8 40.1.835916.3.579.2.627 1950 Unknown [id number] 2.16.8 40.1.370378.3.579.2.627 Unknown [id number] 2.16.8 40.1.069131.3.579.2.462 Unknown [id number] 2.16.8 40.1.582565.3.579.2.462 Unknown [id number] 2.16.8 40.1.961973.3.579.2.462 Unknown [id number] 2.16.8 40.1.785703.3.579.2.462 Unknown [id number] 2.16.8 40.1.588262.3.579.2.462 Unknown [id number] 2.16.8 40.1.226292.3.579.2.462 Unknown [id number] 2.16.8 40.1.955240.3.579.2.462 Unknown [id number] 2.16.8 40.1.232830.3.579.2.462 Unknown [id number] 2.16.8 [id number] Unknown [id number] 2.16.8 [id number] Unknown [id number] 2.16.8 40.1.037916.3.579.2.462 Unknown [id number] 2.16.8 40.1.102937.3.579.2.462 Unknown [id number] 2.16.8 40.1.949228.3.579.2.462 Unknown [id number] 2.16.8 40.1.542927.3.579.2.462 Unknown [id number] 2.16.8 40.1.920155.3.579.2.462 Unknown [id number] 2.16.8 40.1.005718.3.579.2.462 Unknown [id number] 2.16.8 40.1.479852.3.579.2.462 Unknown [id number] 2.16.8 40.1.973656.3.579.2.462 Unknown [id number] 2.16.8 40.1.993178.3.579.2.462 Unknown [id number] 2.16.8 40.1.096033.3.579.2.462 Unknown [id number] 2.16.8 40.1.734968.3.579.2.462 Unknown [id number] 2.16.8 40.1.799409.3.579.2.462 Unknown [id number] 2.16.8 40.1.157210.3.579.2.462 Unknown [id number] 2.16.8 40.1.806193.3.579.2.462 Unknown [id number] 2.16.8 40.1.326362.3.579.2.462 Social History Date Type Detail Facility Start: 08-27-2023 End: 04-02-2024 Tobacco smoking status Never smoked tobacco (finding) [facility] Start: 1950 Sex Assigned At Female A [facility] Start: 09-26-2023 End: 10-07-2023 Tobacco smoking status [facility] Unknown if ever smoked [facility] Start: 09-26-2024 End: 10-12-2024 Sex Female (finding) [facility] Sexual Orientation [facility] Medical Equipment Procedure Code Equipment Code Equipment Origin al Text Equipment Identifier Dates See Instructions , Dispense 3 mL 25-gauge by 1-1/2 inch syringes, #25, use 1 syringe as directed every month to inject vitamin B12, # 1 EA, 0 Refill(s), Pharmacy: [facility] ([place] [facility], Vitamin B12 deficiency, 149, cm, 05/24/24 11:12:00 EST, Height, 94.3, kg, 05/24/24 11:12:00 EST, Dosing Weight Start: 05-24-2024 See Instructions , Dispense 3 mL 25-gauge by 1-1/2 inch syringes, #12, use 1 syringe as directed every month to inject vitamin B12, # 12 EA, 0 Refill(s), Pharmacy: [facility]/pharmacy #[id number], Vitamin B12 deficiency, 149, cm, 08/14/24 11:18:00 EST, Height, 94.3, kg, 08/14/24 11:18:00 EST, Dosing Weight Start: 08-15-2024 See Instructions , Dispense 3 mL 25-gauge by 1-1/2 inch syringes, #12, use 1 syringe as directed every month to inject vitamin B12, # 12 EA, 0 Refill(s), [id number], Vitamin B12 deficiency, 149, cm, 08/14/24 11:18:00 EST, Height, 94.3, kg, 08/14/24 11:18:00 EST, Dosing Weight Start: 08-15-2024 See Instructions , Dispense 3 mL 25-gauge by 1-1/2 inch syringes, #12, use 1 syringe as directed every month to inject vitamin B12, # 12 EA, 0 Refill(s), Pharmacy: [facility]/pharmacy #[id number], Vitamin B12 deficiency, 149, cm, 08/14/24 11:18:00 EST, Height, 94.3, kg, 08/14/24 11:18:00 EST, Dosing Weight Start: 08-15-2024 See Instructions , Dispense 3 mL 25-gauge by 1-1/2 inch syringes, #12, use 1 syringe as directed every month to inject vitamin B12, # 12 EA, 0 Refill(s), Pharmacy: [facility]/pharmacy #[id number], Vitamin B12 deficiency, 149, cm, 08/14/24 11:18:00 EST, Height, 94.3, kg, 08/14/24 11:18:00 EST, Dosing Weight Start: 08-15-2024 See Instructions , Dispense 3 mL 25-gauge by 1-1/2 inch syringes, #12, use 1 syringe as directed every month to inject vitamin B12, # 12 EA, 0 Refill(s), Pharmacy: [facility]/pharmacy #[id number], Vitamin B12 deficiency, 149, cm, 08/14/24 11:18:00 EST, Height, 94.3, kg, 08/14/24 11:18:00 EST, Dosing Weight Start: 08-15-2024 Functional Status Date Assessment Result Facility 11-14-2024 Functional Status Assistive Device None [facility] 11-02-2024 Functional Status Independent [facility] 11-02-2024 Functional Status Supervision [facility] 09-28-2023 Functional Status Awake, Resting [facility] 08-27-2023 Functional Status Independent [facility] 08-27-2023 Functional Status Ambulation in [place], Up with assistance [facility] Mental Status Date Assessment Result Facility 11-02-2024 Mental Status Orientation Oriented x 4 [facility] 11-02-2024 Mental Status [facility] 09-28-2023 Mental Status Oriented x 4 [facility] 08-27-2023 Mental Status Orientation Oriented x 4 [facility] Clinical Notes 08-27-2023 to 11-14-2024 Note Date & Type Note Facility 11-14-2024 Hospital Discharg e instructions Patient Education 11/14/2024 00:38:49 Bradycardia Bradycardia When your heart rate is slow, less than 60 beats per minute, it is called bradycardia. Bradycardia can be normal, caused by medicines, or a sign of a disease. The slow heart rate may not be constant; it can come and go. It is a concern when it is very low, or you have symptoms. Signs and symptoms The following are signs and symptoms of bradycardia: Heart rate less than 60 per minute Dizziness or feeling lightheaded Weakness Trouble breathing Fainting Sleepiness More trouble exercising than usual because of fatigue Confusion or trouble concentrating Causes There are many causes of bradycardia. Some can be related to your heart, but some may be related to other factors. Geq-eyvjj-nbnpfhx causes: Advanced age Side effect of certain medicines (such as beta-blockers, calcium channel blockers, digitalis, antiarrhythmic medicines like amiodarone, clonidine, lithium) Medical conditions such as hypoglycemia (low blood sugar), hypothyroidism (low thyroid), electrolyte disorder, hypothermia, sleep apnea Athletes, especially long-distance runners, may have a slow heart rate. This can be normal. Sleep apnea Brain injury such as stroke or bleeding inside the brain Heart-related causes: Coronary artery disease (angina or prior heart attack, also known as acute myocardial infarction, or AMI) Heart valve disease Heart muscle disease (cardiomyopathy) Congestive heart failure Sick sinus syndrome, which is when your heart's natural pacemaker is no longer working properly Diseases that infiltrate the heart such as sarcoid Heart infections Sometimes the cause for the arrhythmia cannot be found. Bradycardia that causes symptoms is sometimes reversible, and can be treated with medicines. When more severe bradycardia persists, a pacemaker is generally recommended. When the bradycardia does not cause symptoms, your doctor may decide to evaluate it in his or her office. Home care The following will help you care for yourself at home: Resume your usual activities when you are feeling back to normal. If you develop any of the symptoms below during exertion, then you should not exert yourself until evaluated further by your doctor. Work with your doctor on any needed lifestyle changes, such as changing your diet, stopping smoking if you are a smoker, and a planned exercise program. Follow-up care Follow up with your doctor, or as advised. Call 911 Call 911 if any of the following occur: Chest pain Trouble breathing Slow heart rate with dizziness or lightheadedness Fainting or loss of consciousness Chest, shoulder, arm, neck, or back pain Slow heart rate (under 50 beats per minute) if associated with symptoms When to seek medical advice Call your healthcare provider right away if any of the following occur: Occasional weakness, dizziness, or lightheadedness [id number] [employer] [place] [address]. All rights reserved. This information is not intended as a substitute for professional medical care. Always follow your healthcare professional's instructions. Follow Up Care 11/13/2024 22:55:48 With:Your ancillary services manager at [facility] Address: When:1-2 days [facility] 11-14-2024 Note Discharge Instructions Thank you for allowing [facility] to assist you with your healthcare needs. The following is important discharge information regarding your hospital visit. Diagnosis from Today's Visit Bradycardia What to Do Next Instructions from Your Care Team You are to stop taking your new rktt-cyflsdz-Luucrqgm immediately. Return if any other symptoms worsen. We also be given the phone number for [employer] order and stock clerk in [place] No qualifying data available. Post Acute Orders No qualifying data available. You Need to Schedule the Following Appointments Follow Up with Your ancillary services manager at [facility] When:Within 1-2 days Allergies alendronate (Moderate) Atrial fibrillation CeleBREX Dizziness Norvasc Edema hydroCHLOROthiazide Chest pain Medications Please ask your primary doctor or pharmacist before taking any other medication not listed, including over the counter drugs, herbal medications, vitamins and or supplements as they may interact with your home medications. What How Much When Why Instructions Last Dose Unchanged amiodarone (amiodarone 200 mg oral tablet) 1 tab(s) by mouth Once a day Unchanged apixaban (Eliquis 5 mg oral tablet) 1 tab(s) by mouth Two (2) times a day Duration: 90 Days Unchanged aspirin (aspirin 81 mg oral delayed release tablet) 1 tab(s) by mouth Once a day Duration: 100 Days Unchanged atorvastatin (atorvastatin 20 mg oral tablet) 1 tab(s) by mouth Once a day Duration: 90 Days Unchanged calcium citrate (calcium (as calcium citrate) 250 mg oral tablet) 1 tab(s) by mouth Two (2) times a day Unchanged cetirizine (Zyrtec 10 mg oral tablet) 1 tab(s) by mouth Every day Unchanged cholecalciferol (Vitamin D3 50 mcg (2000 intl units) oral tablet) 2 tab(s) by mouth Every day Duration: 100 Days Unchanged cyanocobalamin (cyanocobalamin 1000 mcg/ mL injectable solution) 1 Milliliter Intramuscular Once a month Duration: 90 Days Unchanged DME (Syringes) See instructions Vitamin B12 deficiency Dispense 3 mL 25-gauge by 1-1/ 2 inch syringes, #12, use 1 syringe as directed every month to inject vitamin B12 Unchanged furosemide (furosemide 40 mg oral tablet) 1 tab(s) by mouth Once a day Unchanged hydrALAZINE (hydrALAZINE 10 mg oral tablet) 1 tab(s) by mouth Twice daily with meals Unchanged levothyroxine (levothyroxine 100 mcg (0.1 mg) oral tablet) 1 tab(s) by mouth Once a day Duration: 90 Days Unchanged lisinopril (lisinopril 40 mg oral tablet) 1 tab(s) by mouth Once a day Duration: 90 Days Unchanged nitroGLYcerin (nitroglycerin 0.3 mg sublingual tablet) 1 tab(s) under the tongue Every 5 minutes as needed for for chest pain Duration: 30 Days not to exceed 3 doses/ 15 min--if pain persists, seek medical attention Unchanged pantoprazole (pantoprazole 40 mg oral enteric coated tablet) 1 tab(s) by mouth Once a day Duration: 90 Days Unchanged traZODone (traZODone 50 mg oral tablet) 0.5 to 1 tab(s) by mouth Daily at bedtime Insomnia Please take this list to your next doctor s visit. Bring all medications you take, including over the counter medications, herbals and other supplements with you to your doctor s visit. Patients and families are reminded to discard old lists and to update any records with all medication providers or retail pharmacies. Education Materials Bradycardia When your heart rate is slow, less than 60 beats per minute, it is called bradycardia. Bradycardia can be normal, caused by medicines, or a sign of a disease. The slow heart rate may not be constant; it can come and go. It is a concern when it is very low, or you have symptoms. Signs and symptoms The following are signs and symptoms of bradycardia: Heart rate less than 60 per minute Dizziness or feeling lightheaded Weakness Trouble breathing Fainting Sleepiness More trouble exercising than usual because of fatigue Confusion or trouble concentrating Causes There are many causes of bradycardia. Some can be related to your heart, but some may be related to other factors. Ezb-qqoxs-equfexb causes: Advanced age Side effect of certain medicines (such as beta-blockers, calcium channel blockers, digitalis, antiarrhythmic medicines like amiodarone, clonidine, lithium) Medical conditions such as hypoglycemia (low blood sugar), hypothyroidism (low thyroid), electrolyte disorder, hypothermia, sleep apnea Athletes, especially long-distance runners, may have a slow heart rate. This can be normal. Sleep apnea Brain injury such as stroke or bleeding inside the brain Heart-related causes: Coronary artery disease (angina or prior heart attack, also known as acute myocardial infarction, or AMI) Heart valve disease Heart muscle disease (cardiomyopathy) Congestive heart failure Sick sinus syndrome, which is when your heart's natural pacemaker is no longer working properly Diseases that infiltrate the heart such as sarcoid Heart infections Sometimes the cause for the arrhythmia cannot be found. Bradycardia that causes symptoms is sometimes reversible, and can be treated with medicines. When more severe bradycardia persists, a pacemaker is generally recommended. When the bradycardia does not cause symptoms, your doctor may decide to evaluate it in his or her office. Home care The following will help you care for yourself at home: Resume your usual activities when you are feeling back to normal. If you develop any of the symptoms below during exertion, then you should not exert yourself until evaluated further by your doctor. Work with your doctor on any needed lifestyle changes, such as changing your diet, stopping smoking if you are a smoker, and a planned exercise program. Follow-up care Follow up with your doctor, or as advised. Call 911 Call 911 if any of the following occur: Chest pain Trouble breathing Slow heart rate with dizziness or lightheadedness Fainting or loss of consciousness Chest, shoulder, arm, neck, or back pain Slow heart rate (under 50 beats per minute) if associated with symptoms When to seek medical advice Call your healthcare provider right away if any of the following occur: Occasional weakness, dizziness, or lightheadedness [phone] [employer] [place] [address]. All rights reserved. This information is not intended as a substitute for professional medical care. Always follow your healthcare professional's instructions. Additional Information VACCINATE! IT SAVES LIVES! Members of the community who have not yet received the COVID-19 vaccine and would like to receive it can visit one of [facility] vaccine clinics. There are many vaccine clinic locations within the [facility]. For locations and available times, please visit [email or web address] It is important to note that some COVID mobile vaccine clinics are held outdoors and may be canceled in rainy or stormy conditions. To learn more about pediatric vaccinations (ages 5-11), we invite you to visit the [facility] webpage. [email or web address].[email or web address].org/p ages/6683-Bfoqg-Jyvqykqrjlw-Freq fxieub-Aigsa-Ivcffrsdf.html To learn more about the COVID-19 vaccine, we invite you to visit the CDC website for a list of frequently asked questions. https://www.cdc.gov/coronavirus/ 2019-ncov/vaccines/faq.html [facility] Patient Portal Access Instructions: Stay connected with your healthcare team and access your personal medical information anytime with the [facility] Patient Portal. If you would like a full copy of your medical records please contact the [facility] Medical Records Department Tuesday through Tuesday between 8a.m. and 4:30p.m. Please follow the directions below to access the portal: 1.Access the email account you provided upon registration to the [facility].2.Look for an invitation email from [facility].3.Open the email and access the invitation link: Accept Invitation to [facility].Fill in the required shi to create your account. Sign into [email or web address] with your username and password that you created in the above steps to stay up to date. You can then view a summary of results, a summary of your visits, and the ability to download your summaries to your computer or send the information securely to a physician. Remember that your healthcare information is confidential, so carefully consider who you will allow to register on the [facility] Patient Portal for access to your information. You can also access the [facility] Patient Portal on the [employer]. Simply click on Health Records under Health Data and then click on the [facility] logo. HOW TO SAFELY DISPOSE OF PRESCRIPTION MEDICATIONS Please use one of the following methods to safely dispose of your unused medications. 1.Use a drug disposal kit: the drug disposal pouch allows you to safely discard your old and unused drugs. Ask your nurse to give you one when you are discharged.2.Visit a local take-back location: Many local pharmacies and police departments have programs that collect old and unwanted prescription drugs. Call your local pharmacy or go to http://Wordy.eXenSa/3T8Pe9d to find one close to you.3.Make use of household items: Use cat litter or old coffee grounds to dispose medications if other options are not available. Mix your drugs with these household products, seal them in an airtight container and throw it into the garbage. Call [facility]: [phone] to be sure your drugs can be disposed of in this way. Some medicines may require a different approach.4.Never flush your medications down the toilet. IF YOU HAVE BEEN PRESCRIBED AN OPIOIDS FOR PAIN If you have been prescribed an opioid (such as hydrocodone, oxycodone or morphine), it is critical to understand the possible side effects and risks of opioid pain medications. Even when taken as directed, opioids can have several side effects including: Tolerance, meaning you might need to take more of a medication for the same pain relief. Nausea, vomiting and/or constipation. Sleepiness, dizziness, dry mouth, confusion, depression or itching. Physical dependence, meaning you have withdrawal symptoms when a medication is stopped ? this can develop within a few days. KNOW YOUR RESPONSIBILITIES It is important to know exactly how much and how often to take the opioid pain medications you are prescribed. Never take opioids in higher amounts or more often than prescribed. Do not combine opioids with alcohol or other drugs that cause drowsiness, such as benzodiazepines, also known as benzos, including diazepam and alprazolam, muscle relaxants or sleep aids. Never sell or share prescription opioids. This is illegal. Store opioids in a secure place and out of reach of others (including children, family, friends and visitors). The last page(s) of this document has been signed and retained as a CHART COPY Signatures Patient Education Materials Bradycardia Medication Leaflets My discharge plan and instructions have been reviewed and explained to me and IETHEL DREAMA J understand my current condition and have read and understand these discharge instructions. I have received a written copy of the plan/instructions. If I have questions, I am aware that I should contact my doctor. 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 Chest Pain FINDINGS: Moderate cardiomegaly, stable. There is no consolidation, vascular congestion, pleural effusion, or pneumothorax. There are no acute abnormalities to osseous structures. Degenerative changes in the spine. IMPRESSION: No acute cardiopulmonary findings. Moderate cardiomegaly. I have personally reviewed the images of this examination and agree with the resident's findings and interpretation. Interpreted by: Megan Rodriguez MD Preliminary Report By: Amarjit Chaudhary Electronically signed By Megan Rodriguez MD Dictated Date: 11/13/2024 11:58:54 PM Prelim Date: 11/14/2024 12:00:04 AM Sign Date: 11/14/2024 12:08:27 AM Ordering Provider: ALISIA MCBRIDE [facility]05-13-2025 Note* Exam Date Time Procedure Performing Provider Status 11/13/24 11:11 PM EKG [ED AOH] - CV MD RAE, LEVI Sebastian MD; Auth (Verified) ECG Final Report Sinus bradycardia Prolonged MA interval Inferior infarct, old Electronic Signature: MD RAE, ALISIA CANDELARIO 11/14/2024 00:19:26 [facility]05-02-2025 Hospital Discharge instructions Patient Education 11/02/2024 15:41:27 Hydralazine tablets Hydralazine tablets What is this medicine? HYDRALAZINE (sade givens) is a type of vasodilator. It relaxes blood vessels, increasing the blood and oxygen supply to your heart. This medicine is used to treat high blood pressure. How should I use this medicine? Take this medicine by mouth with a glass of water. Follow the directions on the prescription label.Take your doses at regular intervals. Do not take your medicine more often than directed. Do not stop taking except on the advice of your doctor or health director of primary care. Talk to your direct chill casting operator regarding the use of this medicine in children. Special care may be needed. While this drug may be prescribed for children for selected conditions, precautions do apply. What side effects may I notice from receiving this medicine? Side effects that you should report to your doctor or health director of primary care as soon as possible: chest pain, or fast or irregular heartbeat fever, chills, or sore throat numbness or tingling in the hands or feet shortness of breath skin rash, redness, blisters or itching stiff or swollen joints sudden weight gain swelling of the feet or legs swollen lymph glands unusual weakness Side effects that usually do not require medical attention (report to your doctor or health director of primary care if they continue or are bothersome): diarrhea, or constipation headache loss of appetite nausea, vomiting What may interact with this medicine? medicines for high blood pressure medicines for mental depression What if I miss a dose? If you miss a dose, take it as soon as you can. If it is almost time for your next dose, take only that dose. Do not take double or extra doses. Where should I keep my medicine? Keep out of the reach of children. Store at room temperature between 15 and 30 degrees C (59 and 86 degrees F). Throw away any unused medicine after the expiration date. What should I tell my health care provider before I take this medicine? They need to know if you have any of these conditions: blood vessel disease heart disease including angina or history of heart attack kidney or liver disease systemic lupus erythematosus (SLE) an unusual or allergic reaction to hydralazine, tartrazine dye, other medicines, foods, dyes, or preservatives or trying to get breast-feeding What should I watch for while using this medicine? Visit your doctor or health director of primary care for regular checks on your progress. Check your bloodpressure and pulse rate regularly. Ask your doctor or health director of primary care what your blood pressure and pulse rate should be and when you should contact him or her. You may get drowsy or dizzy. Do not drive, use machinery, or do anything that needs mental alertness until you know how this medicine affects you. Do not stand or sit up quickly, especially if you are an older patient. This reduces the risk of dizzy or fainting spells. Alcohol may interfere with the effect of this medicine. Avoid alcoholic drinks. Do not treat yourself for coughs, colds, or pain while you are taking this medicine without asking your doctor or health director of primary care for advice. Some ingredients may increase your blood pressure. NOTE:This sheet is a summary. It may not cover all possible information. If you have questions about this medicine, talk to your doctor, pharmacist, or health care provider. Copyright 2019 [employer] 11/02/2024 15:41:20 Nitroglycerin sublingual tablets Nitroglycerin sublingual tablets What is this medicine? NITROGLYCERIN (kayleigh troe GLI ser in) is a type of vasodilator. It relaxes blood vessels, increasing the blood and oxygen supply to your heart. This medicine is used to relieve chest pain caused by angina. It is also used to prevent chest pain before activities like climbing stairs, going outdoors incold weather, or sexual activity. How should I use this medicine? Take this medicine by mouth as needed. At the first sign of an angina attack (chest pain or tightness) place one tablet under your tongue. You can also take this medicine 5 to 10 minutes before an event likely to produce chest pain. Follow the directions on the prescription label. Let the tablet dissolve under the tongue. Do not swallow whole. Replace the dose if you accidentally swallow it. It will help if your mouth is not dry. Saliva around the tablet will help it to dissolve more quickly. Do not eat or drink, smoke or chew tobacco while a tablet is dissolving. If you are not better within5 minutes after taking ONE dose of nitroglycerin, call 9-1-1 immediately to seek emergency medical care. Do not take more than 3 nitroglycerin tablets over 15 minutes. If you take this medicine often to relieve symptoms of angina, your doctor or health director of primary care may provide you with different instructions to manage your symptoms. If symptoms do not go away after following these instructions, it is important to call 9-1-1 immediately. Do not take more than3 nitroglycerin tablets over 15 minutes. Talk to your direct chill casting operator regarding the use of this medicine in children. Special care may be needed. What side effects may I notice from receiving this medicine? Side effects that you should report to your doctor or health director of primary care as soon as possible: blurred vision dry mouth skin rash sweating the feeling of extreme pressure in the head unusually weak or tired Side effects that usually do not require medical attention (report to your doctor or health director of primary care if they continue or are bothersome): flushing of the face or neck headache irregular heartbeat, palpitations nausea, vomiting What may interact with this medicine? Do not take this medicine with any of the following medications: certain migraine medicines like ergotamine and dihydroergotamine (DHE) medicines used to treat erectile dysfunction like sildenafil, tadalafil, and vardenafil riociguat This medicine may also interact with the following medications: alteplase aspirin heparin medicines for high blood pressure medicines for mental depression other medicines used to treat angina phenothiazines like chlorpromazine, mesoridazine, prochlorperazine, thioridazine What if I miss a dose? This does not apply. This medicine is only used as needed. Where should I keep my medicine? Keep out of the reach of children. Store at room temperature between 20 and 25 degrees C (68 and 77 degrees F). Store in original container. Protect from light and moisture. Keep tightly closed. Throw away any unused medicine after the expiration date. What should I tell my health care provider before I take this medicine? They need to know if you have any of these conditions: anemia head injury, recent stroke, or bleeding in the brain liver disease previous heart attack an unusual or allergic reaction to nitroglycerin, other medicines, foods, dyes, or preservatives or trying to get breast-feeding What should I watch for while using this medicine? Tell your doctor or health director of primary care if you feel your medicine is no longer working. Keep this medicine with you at all times. Sit or lie down when you take your medicine to prevent falling if you feel dizzy or faint after using it. Try to remain calm. This will help you to feel better faster. If you feel dizzy, take several deep breaths and lie down with your feet propped up, or bend forward with your head resting between your knees. You may get drowsy or dizzy. Do not drive, use machinery, or do anything that needs mental alertness until you know how this drug affects you. Do not stand or sit up quickly, especially if you are anolder patient. This reduces the risk of dizzy or fainting spells. Alcohol can make you more drowsy and dizzy. Avoid alcoholic drinks. Do not treat yourself for coughs, colds, or pain while you are taking this medicine without asking your doctor or health director of primary care for advice. Some ingredients may increase your blood pressure. NOTE:This sheet is a summary. It may not cover all possible information. If you have questions about this medicine, talk to your doctor, pharmacist, or health care provider. Copyright 2019 Else[employer] 11/02/2024 15:41:04 Chest Pain, Uncertain Cause Uncertain Causes of Chest Pain Chest pain can happen for a number of reasons. Sometimes the cause can't be determined. If your condition does not seem serious, and your pain does not appear to be coming from your heart, your healthcare provider may recommend watching it closely. Sometimes the signs of a serious problem take moretime to appear. Many problems not related to your heart can cause chest pain. These include: Musculoskeletal. Costochondritis is an inflammation of the tissues around the ribs that can occur from trauma or overuse injuries, or a strain of the muscles of the chest wall Respiratory. Pneumonia, collapsed lung (pneumothorax), or inflammation of the lining of the chest and lungs (pleurisy) Gastrointestinal. Esophageal reflux, heartburn, ulcers, or gallbladder disease Anxiety and panic disorders Nerve compression and inflammation Rare miscellaneous problems such as aortic aneurysm (a swelling of the large artery coming out of the heart) or pulmonary embolism (a blood clot in the lungs) Home care After your visit, follow these recommendations: Rest today and avoid strenuous activity. Take any prescribed medicine as directed. Be aware of any recurrent chest pain and notice any changes Follow-up care Follow up with your healthcare provider if you do not start to feel better within 24 hours, or as advised. Call 911 Call 911 if any of these occur: A change in the type of pain: if it feels different, becomes more severe, lasts longer, or begins to spread into your shoulder, arm, neck, jaw or back Shortness of breath or increased pain with breathing Weakness, dizziness, or fainting Rapid heart beat Crushing sensation in your chest When to seek medical advice Call your healthcare provider right away if any of the following occur: Cough with dark colored sputum (phlegm) or blood Fever of 100.4 F (38 C) or higher, or as directed by your healthcare provider Swelling, pain or redness in one leg [id number] [employer]. [address] [place] [id number]. All rights reserved. This information is not intended as a substitute for professional medical care. Always follow yourhealthcare professional's instructions. Follow Up Care 11/02/2024 13:24:37 With:Your ancillary services manager Address: When:2-4 days [facility] 05-02-2025 Note Discharge Instructions Thank you for allowing [facility] to assist you with your healthcare needs. The following is importantdischarge information regarding your hospital visit. Diagnosis from Today's Visit Chest pain What to Do Next Instructions from Your Care Team No qualifying data available. Post Acute Orders No qualifying data available. You Need to Schedule the Following Appointments Follow Up with Your ancillary services manager When:Within 2-4 days Allergies alendronate (Moderate) Atrial fibrillation CeleBREX Dizziness Norvasc Edema hydroCHLOROthiazide Chest pain Medications Please ask your primary doctor or pharmacist before taking any other medication not listed, including over the counter drugs, herbal medications, vitamins and or supplements as they may interact withyour home medications. What How Much When Why Instructions Last Dose Unchanged amiodarone (amiodarone 200 mg oral tablet) 1 tab(s) by mouth Once a day Unchanged apixaban (Eliquis 5 mg oral tablet) 1 tab(s) by mouth Two (2) times a day Duration: 90 Days Unchanged aspirin (aspirin 81 mg oral delayed release tablet) 1 tab(s) by mouth Once a day Duration: 100 Days Unchanged atorvastatin (atorvastatin 20 mg oral tablet) 1 tab(s) by mouth Once a day Duration: 90 Days Unchanged calcium citrate (calcium (as calcium citrate) 250 mg oral tablet) 1 tab(s) by mouth Two (2) times a day Unchanged cetirizine (Zyrtec 10 mg oral tablet) 1 tab(s) by mouth Every day Unchanged cholecalciferol (Vitamin D3 50 mcg (2000 intl units) oral tablet) 2 tab(s) by mouth Every day Duration: 100 Days Unchanged cyanocobalamin (cyanocobalamin 1000 mcg/ mL injectable solution) 1 Milliliter Intramuscular Once a month Duration: 90 Days Unchanged DME (Syringes) See instructions Vitamin B12 deficiency Dispense 3 mL 25-gauge by 1-1/ 2 inch syringes, #12, use 1 syringe as directed every month to inject vitamin B12 Unchanged furosemide (furosemide 40 mg oral tablet) 1 tab(s) by mouth Once a day Unchanged hydrALAZINE (hydrALAZINE 10 mg oral tablet) 1 tab(s) by mouth Twice daily with meals Unchanged levothyroxine (levothyroxine 100 mcg (0.1 mg) oral tablet) 1 tab(s) by mouth Once a day Duration: 90 Days Unchanged lisinopril (lisinopril 40 mg oral tablet) 1 tab(s) by mouth Once a day Duration: 90 Days Unchanged nitroGLYcerin (nitroglycerin 0.3 mg sublingual tablet) 1 tab(s) under the tongue Every 5 minutes as needed for for chest pain Duration: 30 Days not to exceed 3 doses/ 15 min--if pain persists, seek medical attention Unchanged pantoprazole (pantoprazole 40 mg oral enteric coated tablet) 1 tab(s) by mouth Once a day Duration: 90 Days Unchanged traZODone (traZODone 50 mg oral tablet) 0.5 to 1 tab(s) by mouth Daily at bedtime Insomnia Please take this list to your next doctor s visit. Bring all medications you take, including over the counter medications, herbals and other supplements with you to your doctor s visit. Patients and families are reminded to discard old lists and to update any records with all medication providers or retail pharmacies. [employer] Hydralazine tablets What is this medicine? HYDRALAZINE (sade DEE DEE a zeen) is a type of vasodilator. It relaxes blood vessels, increasing the blood and oxygen supply to your heart. This medicine is used to treat high blood pressure. How should I use this medicine? Take this medicine by mouth with a glass of water. Follow the directions on the prescription label.Take your doses at regular intervals. Do not take your medicine more often than directed. Do not stop taking except on the advice of your doctor or health director of primary care. Talk to your direct chill casting operator regarding the use of this medicine in children. Special care may be needed. While this drug may be prescribed for children for selected conditions, precautions do apply. What side effects may I notice from receiving this medicine? Side effects that you should report to your doctor or health director of primary care as soon as possible: chest pain, or fast or irregular heartbeat fever, chills, or sore throat numbness or tingling in the hands or feet shortness of breath skin rash, redness, blisters or itching stiff or swollen joints sudden weight gain swelling of the feet or legs swollen lymph glands unusual weakness Side effects that usually do not require medical attention (report to your doctor or health director of primary care if they continue or are bothersome): diarrhea, or constipation headache loss of appetite nausea, vomiting What may interact with this medicine? medicines for high blood pressure medicines for mental depression What if I miss a dose? If you miss a dose, take it as soon as you can. If it is almost time for your next dose, take only that dose. Do not take double or extra doses. Where should I keep my medicine? Keep out of the reach of children. Store at room temperature between 15 and 30 degrees C (59 and 86 degrees F). Throw away any unused medicine after the expiration date. What should I tell my health care provider before I take this medicine? They need to know if you have any of these conditions: blood vessel disease heart disease including angina or history of heart attack kidney or liver disease systemic lupus erythematosus (SLE) an unusual or allergic reaction to hydralazine, tartrazine dye, other medicines, foods, dyes, or preservatives or trying to get breast-feeding What should I watch for while using this medicine? Visit your doctor or health director of primary care for regular checks on your progress. Check your bloodpressure and pulse rate regularly. Ask your doctor or health director of primary care what your blood pressure and pulse rate should be and when you should contact him or her. You may get drowsy or dizzy. Do not drive, use machinery, or do anything that needs mental alertness until you know how this medicine affects you. Do not stand or sit up quickly, especially if you are an older patient. This reduces the risk of dizzy or fainting spells. Alcohol may interfere with the effect of this medicine. Avoid alcoholic drinks. Do not treat yourself for coughs, colds, or pain while you are taking this medicine without asking your doctor or health director of primary care for advice. Some ingredients may increase your blood pressure. NOTE:This sheet is a summary. It may not cover all possible information. If you have questions about this medicine, talk to your doctor, pharmacist, or health care provider. Copyright 2019 Elsevier Nitroglycerin sublingual tablets What is this medicine? NITROGLYCERIN (kayleigh troe GLI ser in) is a type of vasodilator. It relaxes blood vessels, increasing the blood and oxygen supply to your heart. This medicine is used to relieve chest pain caused by angina. It is also used to prevent chest pain before activities like climbing stairs, going outdoors incold weather, or sexual activity. How should I use this medicine? Take this medicine by mouth as needed. At the first sign of an angina attack (chest pain or tightness) place one tablet under your tongue. You can also take this medicine 5 to 10 minutes before an event likely to produce chest pain. Follow the directions on the prescription label. Let the tablet dissolve under the tongue. Do not swallow whole. Replace the dose if you accidentally swallow it. It will help if your mouth is not dry. Saliva around the tablet will help it to dissolve more quickly. Do not eat or drink, smoke or chew tobacco while a tablet is dissolving. If you are not better within5 minutes after taking ONE dose of nitroglycerin, call 9-1-1 immediately to seek emergency medical care. Do not take more than 3 nitroglycerin tablets over 15 minutes. If you take this medicine often to relieve symptoms of angina, your doctor or health director of primary care may provide you with different instructions to manage your symptoms. If symptoms do not go away after following these instructions, it is important to call 9-1-1 immediately. Do not take more than3 nitroglycerin tablets over 15 minutes. Talk to your direct chill casting operator regarding the use of this medicine in children. Special care may be needed. What side effects may I notice from receiving this medicine? Side effects that you should report to your doctor or health director of primary care as soon as possible: blurred vision dry mouth skin rash sweating the feeling of extreme pressure in the head unusually weak or tired Side effects that usually do not require medical attention (report to your doctor or health director of primary care if they continue or are bothersome): flushing of the face or neck headache irregular heartbeat, palpitations nausea, vomiting What may interact with this medicine? Do not take this medicine with any of the following medications: certain migraine medicines like ergotamine and dihydroergotamine (DHE) medicines used to treat erectile dysfunction like sildenafil, tadalafil, and vardenafil riociguat This medicine may also interact with the following medications: alteplase aspirin heparin medicines for high blood pressure medicines for mental depression other medicines used to treat angina phenothiazines like chlorpromazine, mesoridazine, prochlorperazine, thioridazine What if I miss a dose? This does not apply. This medicine is only used as needed. Where should I keep my medicine? Keep out of the reach of children. Store at room temperature between 20 and 25 degrees C (68 and 77 degrees F). Store in original container. Protect from light and moisture. Keep tightly closed. Throw away any unused medicine after the expiration date. What should I tell my health care provider before I take this medicine? They need to know if you have any of these conditions: anemia head injury, recent stroke, or bleeding in the brain liver disease previous heart attack an unusual or allergic reaction to nitroglycerin, other medicines, foods, dyes, or preservatives or trying to get breast-feeding What should I watch for while using this medicine? Tell your doctor or health director of primary care if you feel your medicine is no longer working. Keep this medicine with you at all times. Sit or lie down when you take your medicine to prevent falling if you feel dizzy or faint after using it. Try to remain calm. This will help you to feel better faster. If you feel dizzy, take several deep breaths and lie down with your feet propped up, or bend forward with your head resting between your knees. You may get drowsy or dizzy. Do not drive, use machinery, or do anything that needs mental alertness until you know how this drug affects you. Do not stand or sit up quickly, especially if you are anolder patient. This reduces the risk of dizzy or fainting spells. Alcohol can make you more drowsy and dizzy. Avoid alcoholic drinks. Do not treat yourself for coughs, colds, or pain while you are taking this medicine without asking your doctor or health director of primary care for advice. Some ingredients may increase your blood pressure. NOTE:This sheet is a summary. It may not cover all possible information. If you have questions about this medicine, talk to your doctor, pharmacist, or health care provider. Copyright 2019 [employer] Uncertain Causes of Chest Pain Chest pain can happen for a number of reasons. Sometimes the cause can't be determined. If your condition does not seem serious, and your pain does not appear to be coming from your heart, your healthcare provider may recommend watching it closely. Sometimes the signs of a serious problem take moretime to appear. Many problems not related to your heart can cause chest pain. These include: Musculoskeletal. Costochondritis is an inflammation of the tissues around the ribs that can occur from trauma or overuse injuries, or a strain of the muscles of the chest wall Respiratory. Pneumonia, collapsed lung (pneumothorax), or inflammation of the lining of the chest and lungs (pleurisy) Gastrointestinal. Esophageal reflux, heartburn, ulcers, or gallbladder disease Anxiety and panic disorders Nerve compression and inflammation Rare miscellaneous problems such as aortic aneurysm (a swelling of the large artery coming out of the heart) or pulmonary embolism (a blood clot in the lungs) Home care After your visit, follow these recommendations: Rest today and avoid strenuous activity. Take any prescribed medicine as directed. Be aware of any recurrent chest pain and notice any changes Follow-up care Follow up with your healthcare provider if you do not start to feel better within 24 hours, or as advised. Call 911 Call 911 if any of these occur: A change in the type of pain: if it feels different, becomes more severe, lasts longer, or begins to spread into your shoulder, arm, neck, jaw or back Shortness of breath or increased pain with breathing Weakness, dizziness, or fainting Rapid heart beat Crushing sensation in your chest When to seek medical advice Call your healthcare provider right away if any of the following occur: Cough with dark colored sputum (phlegm) or blood Fever of 100.4 F (38 C) or higher, or as directed by your healthcare provider Swelling, pain or redness in one leg [id number] [employer]. [address] [place] [address]. All rights reserved. This information is not intended as a substitute for professional medical care. Always follow yourhealthcare professional's instructions. Additional Information VACCINATE! IT SAVES LIVES! Members of the community who have not yet received the COVID-19 vaccine and would like to receive it can visit one of [facility] vaccine clinics. There are many vaccine clinic locations within the [facility]. For locations and available times, please visit [email or web address]/. It is important to note that some COVID mobile vaccine clinics are held outdoors and may be canceled in rainy or stormy conditions. To learn more about pediatric vaccinations (ages 5-11), we invite you to visit the [facility] webpage. [email or web address] learn more about the COVID-19 vaccine, we invite you to visit the CDC website for a list of frequently asked questions. https://www.cdc.gov/coronavirus/2019-ncov/vaccines/faq.html [facility] Patient Portal Access Instructions: Stay connected with your healthcare team and access your personal medical information anytime with the [facility] Patient Portal. If you would like a full copy of your medical records please contact the [facility] Medical Records Department Tuesday through Tuesday between 8a.m. and 4:30p.m. Please follow the directions below to access the portal: 1.Access the email account you provided upon registration to the [facility].2.Look for an invitation email from [facility].3.Open the email and access the invitation link: Accept Invitation to [facility]4.Fill in the required shi to create your account. Sign into [email or web address].[email or web address] with your username and password that you created in the above steps to stay up to date. You can then view a summary of results, a summary of your visits, and the ability to download your summaries to your computer or send the information securely to a physician. Remember that your healthcare information is confidential, so carefully consider who you will allow to register on the [facility] Patient Portal for access to your information. You can also access the [facility] Patient Portal on the [employer]. Simply click on Health Records under [employer] and then click on the [employer] logo. HOW TO SAFELY DISPOSE OF PRESCRIPTION MEDICATIONS Please use one of the following methods to safely dispose of your unused medications. 1.Use a drug disposal kit: the drug disposal pouch allows you to safely discard your old and unuseddrugs. Ask your nurse to give you one when you are discharged.2.Visit a local take-back location: Many local pharmacies and police departments have programs that collect old and unwanted prescriptiondrugs. Call your local pharmacy or go to http://Wordy.eXenSa/1R9Mm3q to find one close to you.3.Make use of household items: Use cat litter or old coffee grounds to dispose medications if other options arenot available. Mix your drugs with these household products, seal them in an airtight container andthrow it into the garbage. Call [facility]: [phone] to be sure your drugs can be disposed of in this way. Some medicines may require a different approach.4.Never flush your medications down the toilet. IF YOU HAVE BEEN PRESCRIBED AN OPIOIDS FOR PAIN If you have been prescribed an opioid (such as hydrocodone, oxycodone or morphine), it is critical to understand the possible side effects and risks of opioid pain medications. Even when taken as directed, opioids can have several side effects including: Tolerance, meaning you might need to take more of a medication for the same pain relief. Nausea, vomiting and/or constipation. Sleepiness, dizziness, dry mouth, confusion, depression or itching. Physical dependence, meaning you have withdrawal symptoms when a medication is stopped ? this can develop within a few days. KNOW YOUR RESPONSIBILITIES It is important to know exactly how much and how often to take the opioid pain medications you are prescribed. Never take opioids in higher amounts or more often than prescribed. Do not combine opioids with alcohol or other drugs that cause drowsiness, such as benzodiazepines, also known as benzos,including diazepam and alprazolam, muscle relaxants or sleep aids. Never sell or share prescriptionopioids. This is illegal. Store opioids in a secure place and out of reach of others (including children, family, friends and visitors). The last page(s) of this document has been signed and retained as a CHART COPY Signatures Patient Education Materials Hydralazine tablets Nitroglycerin sublingual tablets Chest Pain, Uncertain Cause Medication Leaflets My discharge plan and instructions have been reviewed and explained to me and I,DANIELE CLARK understand my current condition and have read and understand these discharge instructions. I have received a written copy of the plan/instructions. If I have questions, I am aware that I should contact my doctor. 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 Enlarged cardiac silhouette. Bronchovascular crowding. No pleural effusion or pneumothorax. No acute osseous abnormality. IMPRESSION: 1. Low lung volumes with hypoventilatory changes. 2. Enlarged cardiac silhouette which may be related to technique. Interpreted by: González Vera Preliminary Report By: González Vera Electronically signed By González Vera Dictated Date: 11/02/2024 2:18:38 PM Prelim Date: 11/02/2024 2:19:13 PM Sign Date: 11/02/2024 2:19:13 PM Ordering Provider: [facility]05-02-2025 Note* Exam Date Time Procedure Performing Provider Status 11/02/24 1:46 PM EKG [ED AOH] - CV OLEKSANDR HONEYCUTT DO; Aut h (Verified) ECG Final Report Sinus rhythm Prolonged MA interval Borderline left axis deviation Low voltage, precordial leads Electronic Signature: OLEKSANDR HONEYCUTT DO 11/02/2024 13:50:09 [facility]03-17-2025 Evaluation note* Diagnosis Onset Date Resolution Status Admit Date Essential (primary) hypertension acu te September 17, 2024 9:30am Hyperlipidemia acute September 9:30am Persistent atrial fibrillation acute September 17, 2024 9:30am Pulmonary hypertension acute [facility] 2024 9:30am Shortness of breath acute September 17, 2024 9:30am [facility] Work Phone: 1(235) 358-447303-17-2025 Evaluation note* Diagnosis Onset Date Resolution Status Admit Date Essential (primary) hypertension acu te September 17, 2024 9:30am Hyperlipidemia acute September 9:30am Persistent atrial fibrillation acute September 17, 2024 9:30am Pulmonary hypertension acute [facility] 2024 9:30am Shortness of breath acute September 17, 2024 9:30am Bradycardia acute October 01, 9:47am Essential (primary) hypertension acu te October 01, 2024 9:47am Pulmonary hypertension acute [facility] 2024 9:47am Obesity chronic October 01 9:47am Sleep apnea chronic October 01 025 9:47am [facility] Work Phone: 1(226) 398-962303-17-2025 Evaluation note* Diagnosis Onset Date Resolution Status Admit Date Essential (primary) hypertension acute September 17, 2024 9:30am Hyperlipidemia acute September 9:30am Pulmonary hypertension acute [facility] 2024 9:30am Shortness of breath acute September 17, 2024 9:30am Persistent atrial fibrillation chronic September 17, 2024 9:30am Bradycardia acute October 01 025 9:47am Essential (primary) hypertension acute October 01, 2024 9:47am Pulmonary hypertension acute [facility] 2024 9:47am Obesity chronic October 01 9:47am Sleep apnea chronic October 01 025 9:47am Essential (primary) hypertension acute November 02, 2024 9:40am History of cardioversion April 02, 2024 a cute November 02, 2024 9:40am Hyperkalemia acute November 02 9:40am Hyperlipidemia acute November 02 9:40am Pulmonary hypertension acute [facility] 2024 9:40am Shortness of breath acute November 022024 9:40am Persistent atrial fibrillation chronic November 02, 2024 9:40am [facility] Work Phone: 1([phone]) 616-251403-17-2025 Evaluation note* Diagnosis Onset Date Resolution Status Admit Date Essential (primary) hypertension acute September 17, 2024 9:30am Hyperlipidemia acute September 9:30am Pulmonary hypertension acute [facility] 2024 9:30am Shortness of breath acute September 17, 2024 9:30am Persistent atrial fibrillation chronic September 17, 2024 9:30am Bradycardia acute October 01 025 9:47am Essential (primary) hypertension acute October 01, 2024 9:47am Pulmonary hypertension acute [facility] 2024 9:47am Obesity chronic October 01 9:47am Sleep apnea chronic October 01 2 025 9:47am Essential (primary) hypertension acute November 02, 2024 9:40am History of cardioversion April 02, 2024 a cute November 02, 2024 9:40am Hyperkalemia acute November 02 9:40am Hyperlipidemia acute November 02 025 9:40am Pulmonary hypertension acute [facility] 2024 9:40am Shortness of breath acute November 022024 9:40am Persistent atrial fibrillation chronic November 02, 2024 9:40am Essential (primary) hypertension acute November 20, 2024 10:08am History of cardioversion April 02, 2024 a cute November 20, 2024 10:08am Hyperlipidemia acute November 20, 2024 10:08am Pulmonary hypertension acute [facility] 2024 10:08am Shortness of breath acute November 022024 10:08am Persistent atrial fibrillation chronic November 20, 2024 10:08am [facility] Work Phone: 1(764) 274-782803-17-2025 Evaluation note* Diagnosis Onset Date Resolution Status Admit Date Essential (primary) hypertension acute September 17, 2024 9:30am Hyperlipidemia acute September 9:30am Pulmonary hypertension acute [facility] 2024 9:30am Shortness of breath acute September 17, 2024 9:30am Persistent atrial fibrillation chronic September 17, 2024 9:30am Bradycardia acute October 01, 025 9:47am Essential (primary) hypertension acute October 01, 2024 9:47am Pulmonary hypertension acute [facility] 2024 9:47am Obesity chronic October 01 9:47am Sleep apnea chronic October 01 025 9:47am Essential (primary) hypertension acute November 02, 2024 9:40am History of cardioversion April 02, 2024 a cute November 02, 2024 9:40am Hyperkalemia acute November 02 9:40am Hyperlipidemia acute November 02 025 9:40am Pulmonary hypertension acute [facility] 2024 9:40am Shortness of breath acute November 022024 9:40am Persistent atrial fibrillation chronic November 02, 2024 9:40am Essential (primary) hypertension acute November 20, 2024 10:08am History of cardioversion April 02, 2024 a cute November 20, 2024 10:08am Hyperlipidemia acute November 20, 2024 10:08am Pulmonary hypertension acute [facility] y 2024 10:08am Shortness of breath acute November 022024 10:08am Persistent atrial fibrillation chronic November 20, 2024 10:08am Essential (primary) hypertension acute December 26, 2024 10:07am History of cardioversion April 02, 2024 a cute December 26, 2024 10:07am Hyperlipidemia acute December 26, 2024 10:07am Pulmonary hypertension acute [facility] 2024 10:07am Shortness of breath acute December 26, 2024 10:07am Persistent atrial fibrillation chronic December 26, 2024 10:07am [facility] Work Phone: 1(156) 180-118004-06-2024 Discharge summary Author [facility] October 08, 2023 12:52am Note Date/Time October 07, 2023 10:1 2pm [facility] Medical Records Department [address] [place] [address] Emergency Department Summary 10/07/23 MR#: [id number] Acct: [id number] Name: DANIELE CLARK DECEMBER Rep #:[id number] : 1950 73 From: Paul Delong MD PCP: Dr. Edward Ramirez, Status:REG ER Location: ED HPI History of Present Illness Chief Complaint: Shortness of Breath Informant: patient and family Onset/Context/Timing Onset: Days Context: gradual Timing: Intermittent Current Severity: Mild Maximum Severity: Mild Worsened by: Exertion Relieved by: Nothing Associated Symptoms Chest Pain: Positive for None Narrative Narrative: 73-year-old female history of A-fib had been cardioverted and has not been back in it. She is on Eliquis. Also was on blood pressure medication. Says for thelast week and a half or so she has been short of breath. Denies chest pain. Denies fever. Denies vomiting or diarrhea. No black or bloody stools. PE Risk Factors: Negative for Cancer, OCP + Smoking + > 35, Prior DVT or PE, Recent immobilization, Recent surgery or Recent travel Prior similar symptoms: No Recent Illness/Hospitalization: No PFSH PFSH Medical History Atrial fibrillation, permanent Dyspnea Essential (primary) hypertension GERD (gastroesophageal reflux disease) Hyperlipidemia Hypothyroid Insomnia Vitamin D deficiency Home Medications apixaban 5 mg tablet (Eliquis) 5 mg PO BID 07/25/23 [History Last Taken 09/27/23] aspirin 81 mg tablet,delayed release (Adult Aspirin Regimen) 81 mg PO DAILY 07/25/23 [History Last Taken 09/27/23] atorvastatin 20 mg tablet 20 mg PO DAILY 07/25/23 [History Last Taken Unknown] cholecalciferol (vitamin D3) 100 mcg (4,000 unit) tablet 200 mcg PO DAILY 07/25/23 [History Last Taken Unknown] cyanocobalamin (vitamin B-12) 1,000 mcg capsule 1,000 mcg PO QMONTH 07/25/23 [History Last Taken Unknown] furosemide 20 mg tablet 40 mg PO DAILY 07/25/23 [History Last Taken 10/07/23] levothyroxine 100 mcg capsule 100 mcg PO DAILY 07/25/23 [History Last Taken 09/27/23] lisinopril 40 mg tablet 40 mg PO DAILY 07/25/23 [History Last Taken 09/27/23] nitroglycerin 0.3 mg sublingual tablet 0.3 mg sublingual Q5M PRN chest pain 07/25/23 [History Last Taken Unknown] pantoprazole 40 mg tablet,delayed release 40 mg PO DAILY 07/25/23 [History Last Taken 09/27/23] metoprolol succinate 50 mg tablet,extended release 24 hr 25 mg PO DAILY 10/06/23[History Last Taken Unknown] albuterol sulfate 90 mcg/actuation aerosol inhaler (Proventil HFA) 2 inh inhalation Q4H PRN shortness of breath or wheezing #6.7 grams 10/08/23 [Rx Last Taken Unknown] Allergy/AdvReac Type Severity Reaction Status Date / Time alendronate sodium AdvReac Severe A FIB Verified 08/24/23 10:25 amlodipine [From Norvasc] AdvReac Severe edema Verified 08/24/23 10:25 celecoxib [From Celebrex] AdvReac Severe Dizziness Verified 08/24/23 10:25 hydrochlorothiazide AdvReac Severe chest pain Verified 08/24/23 10:25 Family History Father Hypertension Mother Hypertension Surgical History History of cardioversion (09/27/23) History of carpal tunnel release S/P complete thyroidectomy S/P extracapsular cataract extraction Status post complete repair of rotator cuff Social History Smoking Status: Never smoker alcohol intake: never substance use type: does not use ROS ROS ED ROS Narrative Shortness of breath. Review of Systems ROS Unobtainable: Denies due to encephalopathy Constitutional Constitutional ED: Denies chills or fever(s) Eyes Eyes: Denies blurry vision ENT ENT ED: Denies ear pain Cardiovascular Cardiovascular: Denies chest pain or palpitations Respiratory/Chest Respiratory/Chest: Reports dyspnea; Denies cough Gastrointestinal Gastrointestinal: Denies abdominal pain, diarrhea, melena, nausea or vomiting Genitourinary Genitourinary ED: Denies dysuria or hematuria Musculoskeletal Musculoskeletal: Denies arthralgias or back pain Integumentary Denies abscess or Abrasions Neurologic Neurologic: Denies headache(s) Psychiatric Psychiatric: Denies anxiety or depression Endocrine Endocrinology: Denies cold intolerance Hematologic/Lymphatic Hematologic/Lymphatic: Denies easy bleeding, easy bruising or lymphadenopathy Allergic/Immunologic Allergic/Immunologic ED: Denies mouth swelling, tongue swelling or urticaria EXAM Physical Exam Narrative Exam Narrative: Well-appearing 73-year-old female. Vital signs stable afebrile. Pulse ox 96% on room air no hypoxia. Initial blood pressure 205/64. H EENT exam unremarkable. Neck nontender no JVD. No lymphadenopathy. Lungs clear to auscultation bilaterally. Heart regular rhythm rate about 60 no murmur. Abdomen soft nontender. Moving all 4 extremities. Calves are nontender withoutedema or cords. 5 out of 5 communications writer strength. Dorsi plantarflexion intact. Neurologically she is awake and alert no focal motor deficits. Const Vital Signs: 10/07/23 21:19 10/07/23 21:39 10/07/23 21:42 Temperature 97.5 F L 97.2 F L Temperature Source Temporal Oral Pulse Rate 73 61 Respiratory Rate 20 H 18 Respiratory Effort Normal Short of Breath Respiratory Depth Shallow Respiratory Pattern Normal Blood Pressure 205/64 H 197/68 H Blood Pressure Mean 111 111 Pulse Ox 96 97 Oxygen Delivery Method Room Air Room Air Room Air 10/07/23 22:16 10/07/23 22:21 10/07/23 22:29 Temperature 97.4 F L 97.9 F Temperature Source Oral Pulse Rate 59 L 65 60 Respiratory Rate 20 H 13 19 H Respiratory Effort Respiratory Depth Respiratory Pattern Blood Pressure 154/66 H 154/66 H 174/89 H Blood Pressure Mean 95 95 117 Pulse Ox 95 97 98 Oxygen Delivery Method Room Air Room Air 10/07/23 23:00 10/08/23 00:16 Temperature 97.7 F L 98.4 F Temperature Source Temporal Oral Pulse Rate 60 62 Respiratory Rate 24 H 16 Respiratory Effort Respiratory Depth Respiratory Pattern Blood Pressure 174/86 H 159/62 H Blood Pressure Mean 115 94 Pulse Ox 95 95 Oxygen Delivery Method Room Air Room Air Positive well nourished and well developed; Negative for cachectic, contracturesor unkempt General Appearance ED: well developed and NAD; Negative for unkempt, cachectic, contractures or pallor Nutritional Appearance: Negative for cachectic HEENT Reports moist mucous membranes; Denies dry mucous membranes atraumatic; Negative for trauma or tenderness Mouth ED: No dry mucous membranes Mouth: No dry mucous membranes Eyes PERRL and EOMs intact bilaterally General Eye ED: Negative for pale conjunctiva or scleral icterus Neck no lymphadenopathy, supple, no meningeal signs and no JVD General: Negative for tenderness Lymph Lymphatic: Negative for other Chest Wall Chest: Negative for other Resp normal respiratory effort and clear to auscultation bilaterally Effort and Inspection: Negative for pain with movement Auscultation: Negative for rales, rhonchi or wheezes Cardio regular rate, regular rhythm, S1 normal heart sound, S2 normal heart sound and no murmurs Rate: Negative for bradycardia or tachycardic Rhythm: Negative for abnormal rhythm GI non-tender, non-distended and no masses Inspection: Negative for other Auscultation: normoactive bowel sounds Palpation: soft; Negative for tender, guarding or rebound tenderness present Back/Spine no CVA tenderness and normal to inspection General Back: Negative for CVA tenderness or tenderness Extremity normal to inspection General Extremety ED: Negative for edema or tenderness General Extremity: Negative for edema Neuro oriented x3 and CN's II-XII intact bilaterally Sensorium / Orientation: alert, oriented to person, oriented to place and oriented to time; Negative for orientation impaired, confused, lethargic or stuporous Speech: speech normal Motor Exam: strength 5/5 throughout Psych mental status grossly normal Appearance: Negative for unkempt Attitude: No agitated and No other Mood & Affect: Negative for depressed Thought Process: normal thought process Skin no wounds General Skin Exam: Negative for jaundice or pallor Lesions: no lesions Rashes: no rashes Trauma: Negative for abrasion or laceration MDM MDM MDM Narrative Medical decision making narrative: 73-year-old female with shortness of breath. Benign exam. No leg swelling. Gordon. Cardiac workup with a chest x-ray. I added COVID test also. Repeat exam at 12:20 PM unchanged. Lungs are clear. I went over all test results with patient and family. We really do not have anything new admitted [facility] for at this time. Will ambulate her and see how her breathing doesand her pulse ox does on room air. Nurses ambulated the patient 2 different times. Subjectively she feels short ofbreath but her pulse ox stays in the mid 90s around 94%. She had a recent echocardiogram last month that showed an EF of 65%. She will be discharged homewith outpatient follow-up. Repeat exam patient doing well at 12:45 a.m. [facility]. On a nicardipine drip her pressure is 120/78. Patient is awake and alert. History & Record Review Discussion w/independent historian: Patient Additional record(s) reviewed:: Prior inpatient record, Prior outpatient record,Prior ED visit and Prior labs Lab Data Attestation: I reviewed the patient's lab results. Lab results narrative: CBC shows a white count 8.3. H&H 12.7 and 38. Platelets 248. BNP is 278. Troponin normal at 14. Chemistries show gap 6. BUN 31 creatinine 1.2. Glucose 134. Labs: Laboratory Results - last 24 hr 10/07/23 21:39 WBC 8.3 RBC 3.91 L Hgb 12.7 Hct 38.7 MCV 99.0 MCH 32.5 H MCHC 32.8 RDW Std Deviation 45.3 H RDW Coeff of Patricio 12.6 Plt Count 248 MPV 10.1 Immature Gran % (Auto) 0.400 Neut % (Auto) 62.2 Lymph % (Auto) 18.3 L [place] % (Auto) 14.0 H Eos % (Auto) 4.3 Baso % (Auto) 0.8 Absolute Neuts (auto) 5.2 Absolute Lymphs (auto) 1.52 Nucleated RBC % 0 Sodium 136 Potassium 3.9 Chloride 103 Carbon Dioxide 27.0 Anion Gap 6 BUN 31 H Creatinine 1.20 H Estim Creat Clear Calc 43.17 Est GFR (MDRD) Af Amer 57 L Est GFR (MDRD) Non-Af 47 L BUN/Creatinine Ratio 25.8 H Glucose 134 H Calcium 9.3 Troponin I High Sens 14 B-Natriuretic Peptide 278.9 H Radiography Chest X-Ray - ED: 1 View, Read by ED Physician, Lungs, Mediastinum, Bony Structures, No Acute Disease, Chronic Changes and Cardiomegaly Diagnostic Testing: Clinical Impression(s) from Imaging Studies Chest X-Ray 10/07/23 21:40 IMPRESSION: Moderate cardiomegaly. Electronically Signed: Elizabeth Keys MD at 22:17 EDT Reading Location ID and State: [facility] / [place] Tel , Service support , Chest x-ray, portable, single view interpreted by myself shows no acute abnormality. Cardiomegaly. Normal lung shi. Rhythm Strip Rhythm Strip: Sinus Rhythm Rate: 59 Ectopy: None EKG Initial EKG: Attestation: I personally reviewed and interpreted this EKG as follows: Interpretation: Sinus Rhythm and No Acute Injury Pattern Comments: Sinus rhythm rate of 59. No acute signs of AK or ischemia. Discharge Plan Triage Chief Complaint: Shortness of Breath ED Provider: Paul Delong Dx/Rx/DC Orders Clinical Impression: Acute dyspnea, Chronic anticoagulation, History of atrial fibrillation Instructions: ED Dyspnea Prescriptions: New albuterol sulfate [Proventil HFA] 90 mcg/actuation HFA aerosol inhaler 2 inh inhalation Q4H PRN (Reason: shortness of breath or wheezing) Qty: 6.7 0RF No Action Eliquis 5 mg tablet 5 mg PO BID aspirin [Adult Aspirin Regimen] 81 mg tablet,delayed release (DR/EC) 81 mg PO DAILY atorvastatin 20 mg tablet 20 mg PO DAILY cholecalciferol (vitamin D3) 100 mcg (4,000 unit) tablet 200 mcg PO DAILY cyanocobalamin (vitamin B-12) 1,000 mcg capsule 1,000 mcg PO QMONTH furosemide 20 mg tablet 40 mg PO DAILY Patient Comments: Increase to 40mg for 5 days. Go back down to 20mg on 10/08/23 levothyroxine 100 mcg capsule 100 mcg PO DAILY lisinopril 40 mg tablet 40 mg PO DAILY nitroglycerin 0.3 mg tablet, sublingual 0.3 mg sublingual Q5M PRN (Reason: chest pain) Rx Instructions: do not exceed 3 doses per episode pantoprazole 40 mg tablet,delayed release (DR/EC) 40 mg PO DAILY metoprolol succinate 50 mg tablet extended release 24 hr 25 mg PO DAILY Primary Care Provider: Edward Ramirez Referrals: Edward Ramirez DO [Primary Care Provider] - Activity Restrictions/Additional Instructions: Follow-up with your primary care physician and your ancillary services manager. Your labs and chest x-ray tonight and EKG were basically unremarkable. You had an echocardiogram last month that showed a good ejection fraction. Disposition Disposition: Home, Self Care What to do if you have Problems For any increased pain, shortness of breath, bleeding, nausea or vomiting, chestpain, or any unexpected problems, contact your Primary Care Provider. Call [facility] ([phone]) or report to the closest Emergency Room. Call 911 if necessary. 10/08/23 0052 <Electronically signed by Paul Delong MD> Cosigner Signature (if applicable): CC: Dr. Edward Ramirez DO ~ Signed [facility] Work Phone: 1(813) 246-952104-06-2024 Hospital Discharge instructions Additional Instructions Follow-up with your primary care physician and your ancillary services manager. Your labs and chest x-ray tonight and EKG were basically unremarkable. You had an echocardiogram last month that showed a good ejection fraction.[facility] Work Phone: 1(300) 860-673703-27-2024 Hospital Discharge instructions Patient Education 09/28/2023 03:20:49 Shortness of Breath (Dyspnea) Shortness of Breath (Dyspnea) Shortness of breath is the feeling that you can't catch your breath or get enough air. It is also known as dyspnea. Dyspnea can be caused by many different conditions. They include: Acute asthma attack Worsening of chronic lung diseases such as chronic bronchitis and emphysema Heart failure. This is when weak heart muscle allows extra fluid to collect in the lungs. Panic attacks or anxiety. Fear can cause rapid breathing (hyperventilation). Pneumonia, or an infection in the lung tissue Exposure to toxic substances, fumes, smoke, or certain medicines Blood clot in the lung (pulmonary embolism). This is often from a piece of blood clot in a deep vein of the leg (deep vein thrombosis) that breaks off and travels to the lungs. Heart attack or heart-related chest pain (angina) Anemia Collapsed lung (pneumothorax) Dehydration Based on your visit today, the exact cause of your shortness of breath is not certain. Your tests don t show any of the serious causes of dyspnea. You may need other tests to find out if you have a serious problem. It s important to watch for any new symptoms or symptoms that get worse. Follow up with your healthcare provider as directed. Home care Follow these tips to take care of yourself at home: When your symptoms are better, go back to your usual activities. If you smoke, you should stop. Join a quit-smoking program or ask your healthcare provider for help. Eat a healthy diet and get plenty of sleep. Get regular exercise. Talk with your healthcare provider before starting to exercise, especially ifyou have other medical problems. Cut down on the amount of caffeine and stimulants you consume. Follow-up care Follow up with your healthcare provider, or as advised. If tests were done, you will be told if your treatment needs to be changed. You can call as directed for the results. If an X-ray was taken, a specialist will review it. You will be notified of any new findings that may affect your care. Call 911 Shortness of breath may be a sign of a serious medical problem. For example, it may be a problem with your heart or lungs. Call 911 if you have worsening shortness of breath or trouble breathing, especially with any of the symptoms below: Confusion or difficulty waking Fainting or loss of consciousness. Fast or irregular heartbeat Coughing up blood Pain in your chest, arm, shoulder, neck, or upper back Sweating When to seek medical advice Call your healthcare provider right away if any of these occur: Slight shortness of breath or wheezing Redness, pain or swelling in your leg, arm, or other body area Swelling in both legs or ankles Fast weight gain Dizziness or weakness Fever of 100.4 F (38 C) or higher, or as directed by your healthcare provider [employer] [address] [place] [address]. All rights reserved. This information is not intended as a substitute for professional medical care. Always follow yourhealthcare professional's instructions. 09/28/2023 03:20:43 Possible Causes of Low Back or Leg Pain Possible Causes of Low Back or Leg Pain BIG: The symptoms in your back or leg may be due to pressure on a nerve. This pressure may be caused by a damaged disk or by abnormal bone growth. Either way, you may feel pain, burning, tingling, ornumbness. If you have pressure on a nerve that connects to the sciatic nerve, pain may shoot down your leg. Pressure from the disk Constant wear and tear can weaken a disk over time and cause back pain. The disk can then be damaged by a sudden movement or injury. If its soft center starts to bulge, the disk may press on a nerve.Or the outside of the disk may tear, and the soft center may squeeze through and pinch a nerve. Pressure from bone As a disk wears out, the vertebrae right above and below the disk start to touch. This can put pressure on a nerve. Often, abnormal bone (called bone spurs) grows where the vertebrae rub against eachother. This can cause the foramen or the spinal canal to narrow (called stenosis) and press againsta nerve. [employer]. [address] [place] [id number]. All rights reserved. This information is not intended as a substitute for professional medical care. Always follow yourhealthcare professional's instructions. Follow Up Care 09/28/2023 02:36:05 With:EDWARD RAMIREZ Address: [address] [place] [address] [place] [address] [phone] Business (1) When:2-4 days Comments:Schedule appointment for close follow-up.Continue routine medications.Use Tylenol for pain as needed.Return to the ED if symptoms worsen. [facility] 03-27-2024 Note Discharge Instructions Thank you for allowing [facility] to assist you with your healthcare needs. The following is importantdischarge information regarding your hospital visit. Diagnosis from Today's Visit Leg pain SOB - Shortness of breath What to Do Next Instructions from Your Care Team No qualifying data available. Post Acute Orders No qualifying data available. You Need to Schedule the Following Appointments Follow Up with EDWARD RAMIREZ When Within 2-4 days Why: Schedule appointment for close follow-up. Continue routine medications. Use Tylenol for pain as needed. Return to the ED if symptoms worsen. Where: [address] [place] [address] [place] [address] [phone] Business (1) Allergies alendronate (Atrial fibrillation) CeleBREX (Dizziness) Norvasc (Edema) hydroCHLOROthiazide (Chest pain) Medications Please ask your primary doctor or pharmacist before taking any other medication not listed, including over the counter drugs, herbal medications, vitamins and or supplements as they may interact withyour home medications. What How Much When Why Instructions Last Dose Unchanged apixaban (Eliquis 5 mg oral tablet) 1 tab(s) by mouth Two (2) times a day Duration: 100 Days Unchanged aspirin (aspirin 81 mg oral delayed release tablet) 1 tab(s) by mouth Once a day Duration: 100 Days Unchanged atorvastatin (atorvastatin 20 mg oral tablet) 1 tab(s) by mouth Once a day Duration: 100 Days Unchanged calcium citrate (calcium (as calcium citrate) 250 mg oral tablet) 1 tab(s) by mouth Two (2) times a day Unchanged calcium-vitamin D (Citracal Calcium + D Slow Release 1200 oral tablet, extended release) 1 tab(s) by mouth Once a day (in the morning) Unchanged cholecalciferol (Vitamin D3 50 mcg (2000 intl units) oral tablet) 2 tab(s) by mouth Every day Duration: 100 Days Unchanged cyanocobalamin (cyanocobalamin 1000 mcg/ mL injectable solution) 1 Milliliter Intramuscular Once a month Duration: 90 Days Unchanged DME (DME MISCellaneous) See instructions StairLigloria needed, Inquiry number: [id number] Unchanged furosemide (furosemide 20 mg oral tablet) 1 tab(s) by mouth Once a day Duration: 100 Days Unchanged levothyroxine (levothyroxine 100 mcg (0.1 mg) oral tablet) 1 tab(s) by mouth Once a day Duration: 100 Days Unchanged lisinopril (lisinopril 40 mg oral tablet) 1 tab(s) by mouth Once a day Duration: 100 Days Unchanged metoprolol (metoprolol succinate 50 mg oral TABLET extended release) 1 tab(s) by mouth Once a day Duration: 100 Days Unchanged nitroGLYcerin (nitroglycerin 0.3 mg sublingual tablet) 1 tab(s) under the tongue Every 5 minutes as needed for for chest pain Duration: 30 Days not to exceed 3 doses/ 15 min--if pain persists, seek medical attention Unchanged pantoprazole (pantoprazole 40 mg oral enteric coated tablet) 1 tab(s) by mouth Once a day Duration: 100 Days Unchanged traZODone (traZODone 50 mg oral tablet) 0.5 to 2 tab(s) by mouth Daily at bedtime as needed for Insomnia Insomnia Please take this list to your next doctor s visit. Bring all medications you take, including over the counter medications, herbals and other supplements with you to your doctor s visit. Patients and families are reminded to discard old lists and to update any records with all medication providers or retail pharmacies. Education Materials Shortness of Breath (Dyspnea) Shortness of breath is the feeling that you can't catch your breath or get enough air. It is also known as dyspnea. Dyspnea can be caused by many different conditions. They include: Acute asthma attack Worsening of chronic lung diseases such as chronic bronchitis and emphysema Heart failure. This is when weak heart muscle allows extra fluid to collect in the lungs. Panic attacks or anxiety. Fear can cause rapid breathing (hyperventilation). Pneumonia, or an infection in the lung tissue Exposure to toxic substances, fumes, smoke, or certain medicines Blood clot in the lung (pulmonary embolism). This is often from a piece of blood clot in a deep vein of the leg (deep vein thrombosis) that breaks off and travels to the lungs. Heart attack or heart-related chest pain (angina) Anemia Collapsed lung (pneumothorax) Dehydration Based on your visit today, the exact cause of your shortness of breath is not certain. Your tests don t show any of the serious causes of dyspnea. You may need other tests to find out if you have a serious problem. It s important to watch for any new symptoms or symptoms that get worse. Follow up with your healthcare provider as directed. Home care Follow these tips to take care of yourself at home: When your symptoms are better, go back to your usual activities. If you smoke, you should stop. Join a quit-smoking program or ask your healthcare provider for help. Eat a healthy diet and get plenty of sleep. Get regular exercise. Talk with your healthcare provider before starting to exercise, especially ifyou have other medical problems. Cut down on the amount of caffeine and stimulants you consume. Follow-up care Follow up with your healthcare provider, or as advised. If tests were done, you will be told if your treatment needs to be changed. You can call as directed for the results. If an X-ray was taken, a specialist will review it. You will be notified of any new findings that may affect your care. Call 911 Shortness of breath may be a sign of a serious medical problem. For example, it may be a problem with your heart or lungs. Call 911 if you have worsening shortness of breath or trouble breathing, especially with any of the symptoms below: Confusion or difficulty waking Fainting or loss of consciousness. Fast or irregular heartbeat Coughing up blood Pain in your chest, arm, shoulder, neck, or upper back Sweating When to seek medical advice Call your healthcare provider right away if any of these occur: Slight shortness of breath or wheezing Redness, pain or swelling in your leg, arm, or other body area Swelling in both legs or ankles Fast weight gain Dizziness or weakness Fever of 100.4 F (38 C) or higher, or as directed by your healthcare provider [phone] [employer]. [address] [place], [place] [id number]. All rights reserved. This information is not intended as a substitute for professional medical care. Always follow yourhealthcare professional's instructions. Possible Causes of Low Back or Leg Pain BIG: The symptoms in your back or leg may be due to pressure on a nerve. This pressure may be caused by a damaged disk or by abnormal bone growth. Either way, you may feel pain, burning, tingling, ornumbness. If you have pressure on a nerve that connects to the sciatic nerve, pain may shoot down your leg. Pressure from the disk Constant wear and tear can weaken a disk over time and cause back pain. The disk can then be damaged by a sudden movement or injury. If its soft center starts to bulge, the disk may press on a nerve.Or the outside of the disk may tear, and the soft center may squeeze through and pinch a nerve. Pressure from bone As a disk wears out, the vertebrae right above and below the disk start to touch. This can put pressure on a nerve. Often, abnormal bone (called bone spurs) grows where the vertebrae rub against eachother. This can cause the foramen or the spinal canal to narrow (called stenosis) and press againsta nerve. 2022-07[address] [employer] [place] [address]. All rights reserved. This information is not intended as a substitute for professional medical care. Always follow yourhealthcare professional's instructions. Additional Information VACCINATE! IT SAVES LIVES! Members of the community who have not yet received the COVID-19 vaccine and would like to receive it can visit one of [facility] vaccine clinics. There are many vaccine clinic locations within the [facility]. For locations and available times, please visit www.gettheshot.coronavirus.[place].gov/. It is important to note that some COVID mobile vaccine clinics are held outdoors and may be canceled in rainy or stormy conditions. To learn more about pediatric vaccinations (ages 5-11), we invite you to visit the [facility] webpage. https://www.[facility].org/pages/5553-Urgfw-Iijedbsulyi-Yrwazbhasj-Yadql-Hgw stions.htmlTo learn more about the COVID-19 vaccine, we invite you to visit the CDC website for a list of frequently asked questions. https://www.cdc.gov/coronavirus/2019-ncov/vaccines/faq.html [facility] Patient Portal Access Instructions: Stay connected with your healthcare team and access your personal medical information anytime with the [facility] Patient Portal. If you would like a full copy of your medical records please contact the [facility] Medical Records Department Tuesday through Tuesday between 8a.m. and 4:30p.m. Please follow the directions below to access the portal: 1.Access the email account you provided upon registration to the [facility].2.Look for an invitation email from [facility].3.Open the email and access the invitation link: Accept Invitation to [facility]4.Fill in the required shi to create your account. Sign into www.Omgili with your username and password that you created in the above steps to stay up to date. You can then view a summary of results, a summary of your visits, and the ability to download your summaries to your computer or send the information securely to a physician. Remember that your healthcare information is confidential, so carefully consider who you will allow to register on the [employer] Patient Portal for access to your information. You can also access the [employer] Patient Portal on the [employer] raman. Simply click on Health Records under [employer] and then click on the [facility] logo. HOW TO SAFELY DISPOSE OF PRESCRIPTION MEDICATIONS Please use one of the following methods to safely dispose of your unused medications. 1.Use a drug disposal kit: the drug disposal pouch allows you to safely discard your old and unuseddrugs. Ask your nurse to give you one when you are discharged.2.Visit a local take-back location: Many local pharmacies and police departments have programs that collect old and unwanted prescriptiondrugs. Call your local pharmacy or go to http://Wordy.eXenSa/9M9Bw5j to find one close to you.3.Make use of household items: Use cat litter or old coffee grounds to dispose medications if other options arenot available. Mix your drugs with these household products, seal them in an airtight container andthrow it into the garbage. Call [facility]: [phone] to be sure your drugs can be disposed of in this way. Some medicines may require a different approach.4.Never flush your medications down the toilet. IF YOU HAVE BEEN PRESCRIBED AN OPIOIDS FOR PAIN If you have been prescribed an opioid (such as hydrocodone, oxycodone or morphine), it is critical to understand the possible side effects and risks of opioid pain medications. Even when taken as directed, opioids can have several side effects including: Tolerance, meaning you might need to take more of a medication for the same pain relief. Nausea, vomiting and/or constipation. Sleepiness, dizziness, dry mouth, confusion, depression or itching. Physical dependence, meaning you have withdrawal symptoms when a medication is stopped ? this can develop within a few days. KNOW YOUR RESPONSIBILITIES It is important to know exactly how much and how often to take the opioid pain medications you are prescribed. Never take opioids in higher amounts or more often than prescribed. Do not combine opioids with alcohol or other drugs that cause drowsiness, such as benzodiazepines, also known as benzos,including diazepam and alprazolam, muscle relaxants or sleep aids. Never sell or share prescriptionopioids. This is illegal. Store opioids in a secure place and out of reach of others (including children, family, friends and visitors). The last page(s) of this document has been signed and retained as a CHART COPY Signatures Patient Education Materials Shortness of Breath (Dyspnea) Possible Causes of Low Back or Leg Pain Medication Leaflets My discharge plan and instructions have been reviewed and explained to me and I,DANIELE CLARK understand my current condition and have read and understand these discharge instructions. I have received a written copy of the plan/instructions. If I have questions, I am aware that I should contact my doctor. 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 HISTORY: ORDERING SYSTEM PROVIDED HISTORY: Reason for Exam: short of breath FINDINGS: Cardiomediastinal contours are borderline enlarged and may be secondary to portable technique. Atherosclerotic aorta. Eventration of the right hemidiaphragm. No focal consolidation or pulmonary edema. No pneumothorax or large pleural effusion. No acute osseous abnormalities. IMPRESSION: No acute radiographic process. I have personally reviewed the images of this examination and agree with the resident's findings and interpretation. Interpreted by: Frederick Kunz MD Preliminary Report By: Radha Roa Electronically signed By Frederick Kunz MD Dictated Date: 09/28/2023 3:11:11 AM Prelim Date: 09/28/2023 3:13:40 AM Sign Date: 09/28/2023 3:20:17 AM [facility]ing [facility] Note Sinus rhythm Low voltage, precordial leads Electronic Signature: JOSE GIVENS MD 09/28/2023 02:52:46[facility] 03-26-2024 Procedure [facility] 09-22-2023 History and physical note Author [facility] September 22, 2023 2:30pm Note Date/Time September 22, 2023 2:3 0pm [facility] Medical Records Department [address] [place] [address] History & Physical Exam 09/22/23 1426 MR#: [id number] Acct: [id number] Name: DANIELE CLARK DECEMBER Rep #:[id number] : 1950 73 From: Thelma LAMAR PCP: Dr. Edward Ramirez, DO Status:PRE [facility] Location: [facility] History and Physical Date of Admission: 09/27/23 73-year-old lady with a history of atrial fibrillation which appears to be permanent, dyspnea on exertion, and hypertension. She says that she underwent acardiac catheterization in December 2021 at [facility] and was [place]isse which demonstrated mild nonobstructive coronary artery disease with a diagonal vessel with 45 to 50% stenosis. She also has a history of hyperlipidemia. She recently moved to the area because her . She denies any neck arm or jaw discomfort suggest angina no dizziness or diaphoresis no near syncope or syncope. She does have shortness of breath with exertion. Her physical exam here today demonstrates clear lung shi irregularrate and rhythm and no pedal edema. Her electrocardiogram demonstrates atrial fibrillation with a rate of 77 bpm. She is concerned that she has been left in atrial fibrillation for over 4 years. She has not had any previous attempts at voodoo of sinus rhythm. She underwent an echocardiogram September 24, 2023 which demonstrated an ejection fraction of 65%. Left atrium moderately enlarged. Normal right atrium. She is scheduled today to undergo a cardioversion. Medical History Atrial fibrillation, permanent Dyspnea Essential (primary) hypertension GERD (gastroesophageal reflux disease) Hyperlipidemia Hypothyroid Insomnia Vitamin D deficiency Surgical History History of carpal tunnel release S/P complete thyroidectomy S/P extracapsular cataract extraction Status post complete repair of rotator cuff Family History Father Hypertension Mother Hypertension Social History Smoking Status: Never smoker alcohol intake: never substance use type: does not use ROS Const Const: Positive for fatigue and difficulty sleeping (problems staying asleep); Negative for weakness, headache(s) or daytime sleepiness Eyes Eyes: Negative for change in vision ENT ENT: Negative for headache(s), dizziness or Nosebleed/epistaxis Cardio Chest Pain: No Palpitations: Yes (fluttering) Edema: None Resp Respiratory: Positive for SOB with activity (with minimal exertion); Negative for SOB at rest, SOB orthopnea\SOB lying down or Cough GI GI: Positive for heartburn; Negative nausea or vomiting Neuro Neuro: Negative for dizziness, lightheadedness, near syncope, headache(s) or weakness Endo Endo: Positive for fatigue Cardiology Exam Const Appearance: cooperative, healthy appearing, no acute distress, well developed and well groomed Nutritional Appearance: average body habitus and well nourished Orientation: alert, awake and oriented x3 Head Head: normal to inspection, normocephalic and atraumatic Ears: hearing grossly normal bilaterally and external ears normal Nose: external nose normal, nares normal, nasal mucous membranes and turbinates normal, septum normal and no nasal discharge Face and Sinus: face symmetric Mouth: oral mucosae normal, tongue normal, oropharynx normal and moist mucous membranes Teeth and gingiva: dentition normal Throat: posterior oropharynx normal, tonsils normal and uvula midline Eyes General: appearance normal, both eyes and all related structures Eyelids: eyelids normal Conjunctivae: conjunctivae normal Pupils: PERRL, normal by confrontation and accommodation normal EOM: EOM intact bilaterally Neck Neck: normal visual inspection, trachea midline and no JVD JVD: +5 Carotids: normal carotid upstroke and bounding pulses Chest Chest inspection: normal inspection of the chest, symmetric chest movement and normal respiratory effort Auscultation: Bilateral: Clear to Auscultation Cardio Palpation: normal PMI Rhythm: irregularly irregular Heart sounds: S1 normal, S2 normal and normal, physiologic split S2; Negative rub, gallop or murmur GI GI: normal to inspection, soft, no hepatosplenomegaly and bowel sounds present Neuro General: patient alert, patient awake, patient oriented x3, gait normal, moves all extremities and no focal sensory deficit Skin Skin: no rashes or lesions noted Extremities Pulses: Normal: Right Femoral Pulse, Left Femoral Pulse, Right Dorsalis Pedis Pulse, Left Dorsalis Pedis Pulse, Right Posterior Tibial Pulse, Left Posterior Tibial Pulse, Right Radial Pulse and Left Radial Pulse Lower Extremity Edema: None: Bilateral Musculoskel Musculoskeletal: No joint tenderness Psych Psychological: normal affect Assessment & Plan Assessment/Plan (1) Atrial fibrillation, permanent: (2) Essential (primary) hypertension: (3) Hyperlipidemia: PLAN: Plan Patient is scheduled to undergo a cardioversion today. Follow-up will be based upon findings. 09/22/23 1430 <Electronically signed by Thelma LAMAR> Cosigner Signature (if applicable): CC: Dr. Edward Ramirez, ; BRIANDA Gee~ Signed [facility] Work Phone: [phone]) 848-113002-24-2024 Hospital Discharge instructions Patient Education 08/27/2023 14:56:46 Muscle Strain, Extremity Muscle Strain in the Extremities A muscle strain is a stretching and tearing of muscle fibers. This causes pain, especially when youmove that muscle. There may also be some swelling and bruising. Home care Keep the hurt area raised above heart level to reduce pain and swelling. This is especially important during the first 48 hours. Apply an ice pack over the injured area for 15 to 20 minutes every 3 to 6 hours. You should do thisfor the first 24 to 48 hours. You can make an ice pack by filling a plastic bag that seals at the top with ice cubes and then wrapping it with a thin towel. Be careful not to injure your skin with the ice treatments. Ice should never be applied directly to skin. Continue the use of ice packs for relief of pain and swelling as needed. After 48 hours, apply heat (warm shower or warm bath) for 15 to20 minutes several times a day, or alternate ice and heat. You may use [id number] pain medicine to control pain, unless another medicine was prescribed.If you have chronic liver or kidney disease or ever had a stomach ulcer or gastrointestinal bleeding, talk with your healthcare provider before using these medicines. For leg strains: If crutches have been recommended, don t put full weight on the hurt leg until youcan do so without pain. You can return to sports when you are able to hop and run on the injured leg without pain. Follow-up care Follow up with your healthcare provider, or as advised. When to seek medical advice Call your healthcare provider right away if any of these occur: The toes of the injured leg become swollen, cold, blue, numb, or tingly Pain or swelling increases [phone] [employer]. [address] [place] [address]. All rights reserved. This information is not intended as a substitute for professional medical care. Always follow yourhealthcare professional's instructions. Follow Up Care 08/27/2023 13:55:05 With:MAIK MOYA MD, Orthopedic Address: [address] [place] [address], [address] [facility] [place] [address] [phone] When:2-4 days With:EDWARD RAMIREZ DO Address: [address] [place] [phone] [phone] When:2-4 days [facility] 02-24-2024 Note Discharge Instructions Thank you for allowing [facility] to assist you with your healthcare needs. The following is importantdischarge information regarding your hospital visit. Diagnosis from Today's Visit Leg pain Leg pain-swelling What to Do Next Instructions from Your Care Team Discharge ED Outpatient Vascular Lab - Ordered -- Test Requested: duplex venous u/s left leg, Lower extremity, Left, Test Reason: Pain, Mon-Fri 8am-4:30pm: Call [phone] at 7:30am to schedule a same day appointment for testing. Please be aware there may be a short wait time. Post Acute Orders No qualifying data available. You Need to Schedule the Following Appointments Follow Up with MAIK MOYA MD, Orthopedic When Within 2-4 days Where: [address] [facility], [address] [facility] [place] [address]- [phone] Follow Up with EDWARD RAMIREZ DO When Within 2-4 days Where: [address] [facility] [place] [address]- [phone] Allergies alendronate (Atrial fibrillation) CeleBREX (Dizziness) Norvasc (Edema) hydroCHLOROthiazide (Chest pain) Medications Please ask your primary doctor or pharmacist before taking any other medication not listed, including over the counter drugs, herbal medications, vitamins and or supplements as they may interact withyour home medications. What How Much When Why Instructions Last Dose New acetaminophen-hydrocodone ([place] 325- 5 mg oral tablet) 1 tab(s) by mouth Every 6 hours as needed for as needed for pain Leg pain Duration: 3 Days Printed Prescription Unchanged apixaban (Eliquis 5 mg oral tablet) 1 tab(s) by mouth Two (2) times a day Duration: 100 Days Unchanged aspirin (aspirin 81 mg oral delayed release tablet) 1 tab(s) by mouth Once a day Duration: 100 Days Unchanged atorvastatin (atorvastatin 20 mg oral tablet) 1 tab(s) by mouth Once a day Duration: 100 Days Unchanged cholecalciferol (Vitamin D3 50 mcg (2000 intl units) oral tablet) 2 tab(s) by mouth Every day Duration: 100 Days Unchanged cyanocobalamin (cyanocobalamin 1000 mcg/ mL injectable solution) 1 Milliliter Intramuscular Once a month Duration: 90 Days Unchanged DME (DME MISCellaneous) See instructions [employer] needed, Inquiry number: [id number] Unchanged furosemide (furosemide 20 mg oral tablet) 1 tab(s) by mouth Once a day Duration: 100 Days Unchanged levothyroxine (levothyroxine 100 mcg (0.1 mg) oral tablet) 1 tab(s) by mouth Once a day Duration: 100 Days Unchanged lisinopril (lisinopril 40 mg oral tablet) 1 tab(s) by mouth Once a day Duration: 10 Days one time refill in lieu of PCP short term fill Unchanged metoprolol (metoprolol succinate 50 mg oral TABLET extended release) 1 tab(s) by mouth Once a day Duration: 100 Days Unchanged nitroGLYcerin (nitroglycerin 0.3 mg sublingual tablet) 1 tab(s) under the tongue Every 5 minutes as needed for for chest pain Duration: 30 Days not to exceed 3 doses/ 15 min--if pain persists, seek medical attention Unchanged pantoprazole (pantoprazole 40 mg oral enteric coated tablet) 1 tab(s) by mouth Once a day Duration: 100 Days Unchanged traZODone (traZODone 50 mg oral tablet) 0.5 to 2 tab(s) by mouth Daily at bedtime as needed for Insomnia Insomnia Please take this list to your next doctor s visit. Bring all medications you take, including over the counter medications, herbals and other supplements with you to your doctor s visit. Patients and families are reminded to discard old lists and to update any records with all medication providers or retail pharmacies. Medication Leaflets acetaminophen and hydrocodone (a SEET a MIN oh fen and sade YOUNGER done) Lortab Elixir, Verdrocet What is the most important information I should know about acetaminophen and hydrocodone? MISUSE OF OPIOID MEDICINE CAN CAUSE ADDICTION, OVERDOSE, OR . Keep the medication in a place where others cannot get to it. Taking opioid medicine during may cause life-threatening withdrawal symptoms in the . Fatal side effects can occur if you use opioid medicine with alcohol, or with other drugs that cause drowsiness or slow your breathing. Stop taking this medicine and call your doctor right away if you have skin redness or a rash that spreads and causes blistering and peeling. What is acetaminophen and hydrocodone? Acetaminophen and hydrocodone is a combination medicine used to relieve moderate to severe pain. Acetaminophen and hydrocodone contains an opioid medicine, and may be habit-forming. Acetaminophen and hydrocodone may also be used for purposes not listed in this medication guide. What should I discuss with my healthcare provider before taking acetaminophen and hydrocodone? You should not use this medicine if you are allergic to acetaminophen or hydrocodone, or if you have: severe asthma or breathing problems; or a blockage in your stomach or intestines. Tell your doctor if you have ever had: breathing problems, sleep apnea (breathing stops during sleep); liver disease; a drug or alcohol addiction; kidney disease; a head injury or seizures; urination problems; or problems with your thyroid, pancreas, or gallbladder. If you use opioid medicine while you are , your baby could become dependent on the drug. This can cause life-threatening withdrawal symptoms in the baby after it is born. Babies born dependent on opioids may need medical treatment for several weeks. Ask a doctor before using opioid medicine if you are . Tell your doctor if you notice severe drowsiness or slow breathing in the nursing baby. How should I take acetaminophen and hydrocodone? Follow all directions on your prescription label. Never take this medicine in larger amounts, or for longer than prescribed. An overdose can damage your liver or cause . Tell your doctor if you feel an increased urge to use more of this medicine. Never share this medicine with another person, especially someone with a history of drug abuse or addiction. MISUSE CAN CAUSE ADDICTION, OVERDOSE, OR . Keep the medicine in a place where others cannot get to it. Selling or giving away this medicine is against the law. Measure liquid medicine carefully. Use the dosing syringe provided, or use a medicine dose-measuring device (not a kitchen spoon). If you need surgery or medical tests, tell the doctor ahead of time that you are using this medicine. You should not stop using this medicine suddenly. Follow your doctor's instructions about tapering your dose. Store at room temperature away from moisture and heat. Keep track of your medicine. You should be aware if anyone is using it improperly or without a prescription. Do not keep leftover opioid medication. Just one dose can cause in someone using this medicine accidentally or improperly. Ask your pharmacist where to locate a drug take-back disposal program.If there is no take-back program, flush the unused medicine down the toilet. What happens if I miss a dose? Since this medicine is used for pain, you are not likely to miss a dose. Skip any missed dose if itis almost time for your next dose. Do not use two doses at one time. What happens if I overdose? Seek emergency medical attention or call the Poison Help line at . An overdose of this medicine can be fatal, especially in a child or other person using the medicine without a prescription. Overdose symptoms may include nausea, vomiting, sweating, severe drowsiness, pinpoint pupils, slow breathing, or no breathing. Your doctor may recommend you get naloxone (a medicine to reverse an opioid overdose) and keep it with you at all times. A person caring for you can give the naloxone if you stop breathing or don't wake up. Your caregiver must still get emergency medical help and may need to perform CPR (cardiopulmonary resuscitation) on you while waiting for help to arrive. Anyone can buy naloxone from a pharmacy or local health department. Make sure any person caring foryou knows where you keep naloxone and how to use it. What should I avoid while taking acetaminophen and hydrocodone? Avoid driving or operating machinery until you know how this medicine will affect you. Dizziness ordrowsiness can cause falls, accidents, or severe injuries. Do not drink alcohol. Dangerous side effects or could occur. Ask a doctor or pharmacist before using any other medicine that may contain acetaminophen (sometimes abbreviated as APAP). Taking certain medications together can lead to a fatal overdose. What are the possible side effects of acetaminophen and hydrocodone? Get emergency medical help if you have signs of an allergic reaction: hives; difficulty breathing; swelling of your face, lips, tongue, or throat. Opioid medicine can slow or stop your breathing, and may occur. A person caring for you should give naloxone and/or seek emergency medical attention if you have slow breathing with long pauses,blue colored lips, or if you are hard to wake up. In rare cases, acetaminophen may cause a severe skin reaction that can be fatal. This could occur even if you have taken acetaminophen in the past and had no reaction. Stop taking this medicine and call your doctor right away if you have skin redness or a rash that spreads and causes blistering andpeeling. Call your doctor at once if you have: noisy breathing, sighing, shallow breathing, breathing that stops; a light-headed feeling, like you might pass out; liver problems--nausea, upper stomach pain, tiredness, loss of appetite, dark urine, efrain-colored stools, jaundice (yellowing of the skin or eyes); low cortisol levels-- nausea, vomiting, loss of appetite, dizziness, worsening tiredness or weakness; o high levels of serotonin in the body--agitation, hallucinations, fever, sweating, shivering, fast heart rate, muscle stiffness, twitching, loss of coordination, nausea, vomiting, diarrhea. Serious breathing problems may be more likely in older adults and in those who are debilitated or have wasting syndrome or chronic breathing disorders. Common side effects include: dizziness, drowsiness, feeling tired; nausea, vomiting, stomach pain; constipation; or headache. This is not a complete list of side effects and others may occur. Call your doctor for medical advice about side effects. You may report side effects to FDA at 7-805-MNO-3288. What other drugs will affect acetaminophen and hydrocodone? You may have breathing problems or withdrawal symptoms if you start or stop taking certain other medicines. Tell your doctor if you also use an antibiotic, antifungal medication, heart or blood pressure medication, seizure medication, or medicine to treat HIV or hepatitis C. Opioid medication can interact with many other drugs and cause dangerous side effects or . Be sure your doctor knows if you also use: cold or allergy medicines, bronchodilator asthma/COPD medication, or a diuretic ('water pill'); medicines for motion sickness, irritable bowel syndrome, or overactive bladder; other opioids--opioid pain medicine or prescription cough medicine; a sedative like Valium--diazepam, alprazolam, lorazepam, Xanax, Klonopin, Versed, and others; drugs that make you sleepy or slow your breathing--a sleeping pill, muscle relaxer, medicine to treat mood disorders or mental illness; drugs that affect serotonin levels in your body--a stimulant, or medicine for depression, Parkinson's disease, migraine headaches, serious infections, or nausea and vomiting. This list is not complete. Other drugs may affect acetaminophen and hydrocodone, including prescription and brum-num-ywpdgmd medicines, vitamins, and herbal products. Not all possible interactions are listed here. Where can I get more information? Your doctor or pharmacist can provide more information about acetaminophen and hydrocodone. Remember, keep this and all other medicines out of the reach of children, never share your medicines with others, and use this medication only for the indication prescribed. Every effort has been made to ensure that the information provided by [employer]') is accurate, up-to-date, and complete, but no guarantee is made to that effect. Drug information contained herein may be time sensitive. [employer] information has been compiled for use by healthcare practitioners and consumers in the [place] and therefore [employer] does not warrant that uses outside of the [place] are appropriate, unless specifically indicated otherwise. [employer]'s drug information does not endorse drugs, diagnose patients or recommend therapy. [employer] drug information isan informational resource designed to assist licensed healthcare practitioners in caring for their p atients and/or to serve consumers viewing this service as a supplement to, and not a substitute for, the expertise, skill, knowledge and judgment of healthcare practitioners. The absence of a warningfor a given drug or drug combination in no way should be construed to indicate that the drug or drug combination is safe, effective or appropriate for any given patient. [facility] does not assume any responsibility for any aspect of healthcare administered with the aid of information [facility] provides. The information contained herein is not intended to cover all possible uses, directions, precautions, warnings, drug interactions, allergic reactions, or adverse effects. If you have questions about the drugs you are taking, check with your doctor, nurse or pharmacist. Copyright 7429-0613 [facility]. Version: 19.. Revision Date: 02/21/2023. Education Materials Muscle Strain in the Extremities A muscle strain is a stretching and tearing of muscle fibers. This causes pain, especially when youmove that muscle. There may also be some swelling and bruising. Home care Keep the hurt area raised above heart level to reduce pain and swelling. This is especially important during the first 48 hours. Apply an ice pack over the injured area for 15 to 20 minutes every 3 to 6 hours. You should do thisfor the first 24 to 48 hours. You can make an ice pack by filling a plastic bag that seals at the top with ice cubes and then wrapping it with a thin towel. Be careful not to injure your skin with the ice treatments. Ice should never be applied directly to skin. Continue the use of ice packs for relief of pain and swelling as needed. After 48 hours, apply heat (warm shower or warm bath) for 15 to20 minutes several times a day, or alternate ice and heat. You may use npad-fvu-zxfipnd pain medicine to control pain, unless another medicine was prescribed.If you have chronic liver or kidney disease or ever had a stomach ulcer or gastrointestinal bleeding, talk with your healthcare provider before using these medicines. For leg strains: If crutches have been recommended, don t put full weight on the hurt leg until youcan do so without pain. You can return to sports when you are able to hop and run on the injured leg without pain. Follow-up care Follow up with your healthcare provider, or as advised. When to seek medical advice Call your healthcare provider right away if any of these occur: The toes of the injured leg become swollen, cold, blue, numb, or tingly Pain or swelling increases 2858-0725 [employer]. [address] [place] [address], [place] [address]. All rights reserved. This information is not intended as a substitute for professional medical care. Always follow yourhealthcare professional's instructions. Additional Information VACCINATE! IT SAVES LIVES! Members of the community who have not yet received the COVID-19 vaccine and would like to receive it can visit one of [facility] vaccine clinics. There are many vaccine clinic locations within the [facility]. For locations and available times, please visit www.gettheshot.coronavirus.[place].gov/. It is important to note that some COVID mobile vaccine clinics are held outdoors and may be canceled in rainy or stormy conditions. To learn more about pediatric vaccinations (ages 5-11), we invite you to visit the [employer] webpage. https://www.[employer].org/pages/8832-Jiloa-Xbcroltzozh-Wbzdfbfqpd-Shnno-Lwr stions.htmlTo learn more about the COVID-19 vaccine, we invite you to visit the CDC website for a list of frequently asked questions. https://www.cdc.gov/coronavirus/2019-ncov/vaccines/faq.html [facility] Patient Portal Access Instructions: Stay connected with your healthcare team and access your personal medical information anytime with the [facility] Patient Portal. If you would like a full copy of your medical records please contact the [facility] Medical Records Department Tuesday through Tuesday between 8a.m. and 4:30p.m. Please follow the directions below to access the portal: 1.Access the email account you provided upon registration to the hospital.2.Look for an invitation email from [facility].3.Open the email and access the invitation link: Accept Invitation to [facility]4.Fill in the required shi to create your account. Sign into [email or web address].[email or web address] with your username and password that you created in the above steps to stay up to date. You can then view a summary of results, a summary of your visits, and the ability to download your summaries to your computer or send the information securely to a physician. Remember that your healthcare information is confidential, so carefully consider who you will allow to register on the [employer] Patient Portal for access to your information. You can also access the [employer] Patient Portal on the [employer] raman. Simply click on Health Records under [employer] and then click on the [employer] [facility] logo. HOW TO SAFELY DISPOSE OF PRESCRIPTION MEDICATIONS Please use one of the following methods to safely dispose of your unused medications. 1.Use a drug disposal kit: the drug disposal pouch allows you to safely discard your old and unuseddrugs. Ask your nurse to give you one when you are discharged.2.Visit a local take-back location: Many local pharmacies and police departments have programs that collect old and unwanted prescriptiondrugs. Call your local pharmacy or go to http://Wordy.eXenSa/6D7Yp4g to find one close to you.3.Make use of household items: Use cat litter or old coffee grounds to dispose medications if other options arenot available. Mix your drugs with these household products, seal them in an airtight container andthrow it into the garbage. Call [facility]: [phone] to be sure your drugs can be disposed of in this way. Some medicines may require a different approach.4.Never flush your medications down the toilet. IF YOU HAVE BEEN PRESCRIBED AN OPIOIDS FOR PAIN If you have been prescribed an opioid (such as hydrocodone, oxycodone or morphine), it is critical to understand the possible side effects and risks of opioid pain medications. Even when taken as directed, opioids can have several side effects including: Tolerance, meaning you might need to take more of a medication for the same pain relief. Nausea, vomiting and/or constipation. Sleepiness, dizziness, dry mouth, confusion, depression or itching. Physical dependence, meaning you have withdrawal symptoms when a medication is stopped ? this can develop within a few days. KNOW YOUR RESPONSIBILITIES It is important to know exactly how much and how often to take the opioid pain medications you are prescribed. Never take opioids in higher amounts or more often than prescribed. Do not combine opioids with alcohol or other drugs that cause drowsiness, such as benzodiazepines, also known as benzos,including diazepam and alprazolam, muscle relaxants or sleep aids. Never sell or share prescriptionopioids. This is illegal. Store opioids in a secure place and out of reach of others (including children, family, friends and visitors). The last page(s) of this document has been signed and retained as a CHART COPY Signatures Patient Education Materials Muscle Strain, Extremity Medication Leaflets acetaminophen and hydrocodone My discharge plan and instructions have been reviewed and explained to me and I,DANIELE CLARK understand my current condition and have read and understand these discharge instructions. I have received a written copy of the plan/instructions. If I have questions, I am aware that I should contact my doctor. 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 Bony alignment is maintained. Tricompartmental degenerative changes. Small patellar and quadriceps enthesophytes. Small suprapatellar joint effusion. The soft tissues are unremarkable. IMPRESSION: No acute fracture or dislocation. Small suprapatellar joint effusion. Mild tricompartmental degenerative changes. I have personally reviewed the images of this examination and agree with the resident's findings and interpretation. Interpreted by: Demario Nicole MD Preliminary Report By: Heidi Garcia Electronically signed By Demario Nicole MD Dictated Date: 08/27/2023 3:10:51 PM Prelim Date: 08/27/2023 3:12:46 PM Sign Date: 08/27/2023 3:19:33 PM [facility]ments Appointment Date:09/08/2023 11:00:00 AM Scheduled Provider:EDWARD RAMIREZ DO Location:[facility] Appointment Type:PC OV Follow Up Future Scheduled Tests Laboratory* Albumin/Creatinine Ratio, Random Urine 07/05/23 [facility] Evaluation + Plan note Future Appointments Appointment Date:03/08/2024 11:00:00 AM Scheduled Provider:EDWARD RAMIREZ DO Location:[facility] Appointment Type:PC OV Future Scheduled Tests Laboratory* Albumin/Creatinine Ratio, Random Urine 07/05/23 [facility] Evaluation + Plan note Future Appointments Appointment Date:11/22/2024 11:00:00 AM Scheduled Provider:EDWARD RAMIREZ DO Location:[facility] Appointment Type:PC OV Future Scheduled Tests Laboratory* Albumin/Creatinine Ratio, Random Urine 07/05/23 [facility] Evaluation + Plan note Future Appointments Appointment Date:11/22/2024 11:00:00 AM Scheduled Provider:EDWARD RAMIREZ DO Location:[facility] Appointment Type:PC OV [facility] Evaluation + Plan note Future Appointments Appointment Date:02/22/2025 10:20:00 AM Scheduled Provider:EMMANUELLE TELLES DO Location:[facility] Appointment Type:PC OV [facility] Evaluation + Plan note Future Appointments Appointment Date:02/22/2025 10:20:00 AM Scheduled Provider:EMMANUELLE TELLES DO Location:[facility] Appointment Type:PC OV Diagnostic Tests Pending * Anti-dsDNA Antibodies 12/24/24 * Cytoplasmic Neutro. Antibody 12/24/24 * Anti-MPO Antibodies 12/24/24 * Anti-PR3 Antibodies 12/24/24 [facility] evaluation note* Diagnosis Onset Date Resolution Status Atrial fibrillation, permanent acute Essential (primary) hypertension acute Hyperlipidemia [facility] Work Phone: Evaluation note* Diagnosis Onset Date Resolution Status Atrial fibrillation, permanent acute Essential (primary) hypertension acute Hyperlipidemia acute Atrial fibrillation, permanent acute Essential (primary) hypertension acute Hyperlipidemia acute [facility] Work Phone: Hospital course Narrative No data available for this section [facility] Hospital Discharge instructions No data available for this section [facility] Progress note No data available for this section [facility] Reason for referral (narrative)No reason for referral information [facility]WOhio[facility] Work Phone: Summary note* Daniela Flynn N: PERFORM Event Display: Patient Summary Documents Authored Date: [id number] [facility] Chief Complaint and Reason for Visit Chief Complaint EST (SELF) AFIB Amb Documentation Atrial fibrillation Reason for Visit Atrial fibrillation, permanent Essential (primary) hypertension Hyperlipidemia Chief Complaint EST (SELF) AFIB Amb Documentation Atrial fibrillation AFIB Atrial fibrillation Reason for Visit Atrial fibrillation, permanent Essential (primary) hypertension Hyperlipidemia Atrial fibrillation, permanent Essential (primary) hypertension Hyperlipidemia Chief Complaint EST (SELF) AFIB Amb Documentation Atrial fibrillation AFIB Atrial fibrillation Atrial fibrillation S/P DCCV 1 WK EKG SOB Reason for Visit Atrial fibrillation, permanent Essential (primary) hypertension Hyperlipidemia Atrial fibrillation, permanent Essential (primary) hypertension Hyperlipidemia Chief Complaint EST (SELF) AFIB Amb Documentation Atrial fibrillation AFIB Atrial fibrillation Atrial fibrillation S/P DCCV 1 WK EKG SOB Bradycardia, unspecified Reason for Visit Atrial fibrillation, permanent Essential (primary) hypertension Hyperlipidemia Atrial fibrillation, permanent Essential (primary) hypertension Hyperlipidemia Chief Complaint EST (SELF) AFIB Amb Documentation Atrial fibrillation AFIB Atrial fibrillation Atrial fibrillation S/P DCCV 1 WK EKG SOB Bradycardia, unspecified Amb Documentation Reason for Visit Atrial fibrillation, permanent Essential (primary) hypertension Hyperlipidemia Atrial fibrillation, permanent Essential (primary) hypertension Hyperlipidemia Chief Complaint EST (SELF) AFIB Amb Documentation Atrial fibrillation AFIB Atrial fibrillation Atrial fibrillation S/P DCCV 1 WK EKG SOB Bradycardia, unspecified Amb Documentation Amb Documentation SOB Reason for Visit Atrial fibrillation, permanent Essential (primary) hypertension Hyperlipidemia Atrial fibrillation, permanent Essential (primary) hypertension Hyperlipidemia Chief Complaint Admit Date O/D for 4 M FU September 17, 2024 9:3 0am Reason for Visit Admit Date Essential (primary) hypertension September 012024 9:30am Hyperlipidemia September 17, 2024 9:3 0am Persistent atrial fibrillation September 9:30am Pulmonary hypertension September 17, 2024 9:30am Shortness of breath September 17, 2024 9:3 0am Chief Complaint Admit Date O/D for 4 M FU September 17, 2024 9:3 0am 6 M FU October 01, 2024 9:4 7am DYSPNEA October 10, 2024 6:42 am Reason for Visit Admit Date Essential (primary) hypertension September 012024 9:30am Hyperlipidemia September 17, 2024 9:3 0am Persistent atrial fibrillation September 9:30am Pulmonary hypertension September 17, 2024 9:30am Shortness of breath September 17, 2024 9:3 0am Bradycardia October 01, 2024 9:4 7am Essential (primary) hypertension September 032024 9:47am Pulmonary hypertension October 01, 2024 9:47am Obesity October 01, 2024 9:4 7am Sleep apnea October 01, 2024 9:4 7am Chief Complaint Admit Date O/D for 4 M FU September 17, 2024 9:3 0am 6 M FU October 01, 2024 9:4 7am DYSPNEA October 10, 2024 6:42 am EORDER October 30, 2024 12: 53pm See clinical note. November 02, 2024 9:40am INT LAB ORDERS November 02, 2024 11:17a m HYPERTENSION November 09, 2024 8:07am Reason for Visit Admit Date Essential (primary) hypertension September 012024 9:30am Hyperlipidemia September 17, 2024 9:3 0am Pulmonary hypertension September 17, 2024 9:30am Shortness of breath September 17, 2024 9:3 0am Persistent atrial fibrillation September 9:30am Bradycardia October 01, 2024 9:4 7am Essential (primary) hypertension September 032024 9:47am Pulmonary hypertension October 01, 2024 9:47am Obesity October 01, 2024 9:4 7am Sleep apnea October 01, 2024 9:4 7am Essential (primary) hypertension November 9:40am History of cardioversion November 02, 2024 9 :40am Hyperkalemia November 02, 2024 9:40am Hyperlipidemia November 02, 2024 9:40am Pulmonary hypertension November 02, 2024 9:4 0am Shortness of breath November 02, 2024 9:40am Persistent atrial fibrillation November 02, 2024 9:40am Chief Complaint Admit Date O/D for 4 M FU September 17, 2024 9:3 0am 6 M FU October 01, 2024 9:4 7am DYSPNEA October 10, 2024 6:42 am EORDER October 30, 2024 12: 53pm See clinical note. November 02, 2024 9:40am INT LAB ORDERS November 02, 2024 11:17a m HYPERTENSION November 09, 2024 8:07am 2 W FU November 20, 2024 10:08 am Reason for Visit Admit Date Essential (primary) hypertension September 012024 9:30am Hyperlipidemia September 17, 2024 9:3 0am Pulmonary hypertension September 17, 2024 9:30am Shortness of breath September 17, 2024 9:3 0am Persistent atrial fibrillation September 9:30am Bradycardia October 01, 2024 9:4 7am Essential (primary) hypertension September 032024 9:47am Pulmonary hypertension October 01, 2024 9:47am Obesity October 01, 2024 9:4 7am Sleep apnea October 01, 2024 9:4 7am Essential (primary) hypertension November 9:40am History of cardioversion November 02, 2024 9 :40am Hyperkalemia November 02, 2024 9:40am Hyperlipidemia November 02, 2024 9:40am Pulmonary hypertension November 02, 2024 9:4 0am Shortness of breath November 02, 2024 9:40am Persistent atrial fibrillation November 02, 2024 9:40am Essential (primary) hypertension November 10:08am History of cardioversion November 20, 2024 10:08am Hyperlipidemia November 20, 2024 10:08 am Pulmonary hypertension November 20, 2024 10 :08am Shortness of breath November 20, 2024 10:08 am Persistent atrial fibrillation November 20, 2024 10:08am Chief Complaint Admit Date O/D for 4 M FU September 17, 2024 9:3 0am 6 M FU October 01, 2024 9:4 7am DYSPNEA October 10, 2024 6:42 am EORDER October 30, 2024 12: 53pm See clinical note. November 02, 2024 9:40am INT LAB ORDERS November 02, 2024 11:17a m HYPERTENSION November 09, 2024 8:07am 2 W FU November 20, 2024 10:08 am ELEVATED BLOOD PRESSURE READING W/O DIAG NOSIS OF H December 12, 2024 12:10pm Chief Complaint Admit Date O/D for 4 M FU September 17, 2024 9:3 0am 6 M FU October 01, 2024 9:4 7am DYSPNEA October 10, 2024 6:42 am EORDER October 30, 2024 12: 53pm See clinical note. November 02, 2024 9:40am INT LAB ORDERS November 02, 2024 11:17a m HYPERTENSION November 09, 2024 8:07am 2 W FU November 20, 2024 10:08 am ELEVATED BLOOD PRESSURE READING W/O DIAG NOSIS OF H December 12, 2024 12:10pm 3-4 M FU December 26, 2024 10:0 7am Reason for Visit Admit Date Essential (primary) hypertension September 012024 9:30am Hyperlipidemia September 17, 2024 9:3 0am Pulmonary hypertension September 17, 2024 9:30am Shortness of breath September 17, 2024 9:3 0am Persistent atrial fibrillation September 9:30am Bradycardia October 01, 2024 9:4 7am Essential (primary) hypertension September 032024 9:47am Pulmonary hypertension October 01, 2024 9:47am Obesity October 01, 2024 9:4 7am Sleep apnea October 01, 2024 9:4 7am Essential (primary) hypertension November 9:40am History of cardioversion November 02, 2024 9 :40am Hyperkalemia November 02, 2024 9:40am Hyperlipidemia May 2nd, 2025 9:40am Pulmonary hypertension November 02, 2024 9:4 0am Shortness of breath November 02, 2024 9:40am Persistent atrial fibrillation November 02, 2024 9:40am Essential (primary) hypertension November 10:08am History of cardioversion November 20, 2024 10:08am Hyperlipidemia November 20, 2024 10:08 am Pulmonary hypertension November 20, 2024 10 :08am Shortness of breath November 20, 2024 10:08 am Persistent atrial fibrillation November 20, 2024 10:08am Essential (primary) hypertension December 262024 10:07am History of cardioversion December 26, 2024 10:07am Hyperlipidemia December 26, 2024 10:0 7am Pulmonary hypertension December 26, 2024 1 0:07am Shortness of breath December 26, 2024 10:0 7am Persistent atrial fibrillation December 10:07am Advance Directives No Advanced Directives Records Found Advance Directive Response Recorded Date/ Time Advance Directives No September 25 9:01am Living Will No September 26, 2023 9:01am Power of Gun Mechanic No September 25 9:01am Advance Directive Response Recorded Date/ Time Advance Directives on File Yes September 27, 2023 10:46am Name of Medical Power of Gun Mechanic Asya Perez September 27, 2023 10:46am Advance Directives Yes September 26 10:46am Living Will Yes September 27, 2023 10:46am Power of Gun Mechanic Yes September 26 10:46am Advance Directive Response Recorded Date/ Time Name of Medical Power of Gun Mechanic daughter October 07, 2023 9:41pm Advance Directives Yes September 26 10:46am Living Will Yes October 07, 2023 9:41pm Power of Gun Mechanic Yes October 06 9:41pm Advance Directives on File Yes September 27, 2023 10:46am Name of Medical Power of Gun Mechanic Asya Perez es September 27, 2023 10:46am Advance Directive Response Recorded Date/ Time Advance Directives Yes March 10:44am Advance Directive Response Recorded Date/ Time Living Will Yes October 07, 2023 9:41pm Do you have a Healthcare Power of Gun Mechanic? Yes October 07, 2023 9:41pm Advance Directives Yes March 10:44am Summary Purpose Family History No Family History Records Found Additional Source Comments Patient Care team informatio n (unrecognized section and content) Team Status: Active Member Role Status Dates Dr. Edward Ramirez DO Primary Care Provider Active Team Status: Inactive Member Role Status Dates Dr. Edward Ramirez DO Primary Care Provider, Referri ng Provider Active Dr. Rudy Graves MD Attending Provider Active Team Status: Active Member Role Status Dates Dr. Edward Ramirez DO Primary Care Provider Active Dr. Rudy Graves MD Attending Provider Active Team Status: Active Member Role Status Dates Dr. Edward Ramirez DO Primary Care Provider Active Jenna Cobian [employer], [employer] IN[employer]-C Attending Provider Active Team Status: Active Member Role Status Dates Dr. Edward Ramirez DO Primary Care Provider Active Dr. Rudy Graves MD Other Provider Active Thelma Natarajan PA, PA Attending Provider Active Team Status: Inactive Member Role Status Dates Dr. Edward Ramirez DO Primary Care Provider Active Dr. Rudy Graves MD Attending Provider, Referring Pro vider Active Team Status: Active Member Role Status Dates Dr. Edward Ramirez DO Primary Care Provider Active Dr. Rudy Graves MD Attending Provider, Referring Provider, Other Provider Active Team Status: Active Member Role Status Dates Dr. Edward Ramirez DO Primary Care Provider Active Dr. Rudy Graves MD Referring Provider, Other Provide r Active Dr. Myron Jc MD Attending Provider Active Team Status: Inactive Member Role Status Dates Dr. Edward Ramirez DO Primary Care Provider Active Dr. Paul Delong MD Emergency Provider Active Team Status: Inactive Member Role Status Dates Dr. Edward Ramirez DO Primary Care Provider Active Dr. Paul Delong MD Attending Provider, Emergency Pro vider Active Team Status: Inactive Member Role Status Dates Dr. Edward Ramirez DO Primary Care Provider Active Maynor Edward [employer], ADJ[employer] IN[employer]-C Attending Provider, Referring Pro vider Active Team Status: Active Member Role Status Dates Dr. Edward Ramirez DO Primary Care Provider Active Maynor Edward [employer] IN[employer], ADJ[employer]CT IN[employer]-C Attending Provider Active Team Status: Inactive Member Role Status Dates Dr. Edward Ramirez DO Primary Care Provider Active Thelma Natarajan PA, PA Attending Provider, Referr ing Provider Active Team Status: Inactive Member Role Status Dates Dr. Edward Ramirez DO Primary Care Provider Active Thelma Natarajan PA, PA Attending Provider Active Team Status: Inactive Member Role Status Dates Dr. Edward Ramirez DO Primary Care Provider Active Start: September 17, 2024 End: September 17, 2024 Dr. Edward Ramirez DO Referring Provider Active Start: September 17, 2024 End: September 17, 2024 Maynor Edward [employer] IN[employer], ADJ[employer]CT IN[employer]-C Attending Provider Active S tart: September 17, 2024 End: September 17, 2024 Team Status: Inactive Member Role Status Dates Dr. Edward Ramirez DO Primary Care Provider Active Start: September 17, 2024 End: September 17, 2024 Maynor Edward [employer] IN[employer], ADJUNCT IN[employer]CTOR [employer]-C Attending Provider Active S tart: September 17, 2024 End: September 17, 2024 Maynor Edward [employer] IN[employer]CTOR IN [employer], ADJUNCT IN[employer]CTOR IN [employer]-C Referring Provider Active S tart: September 17, 2024 End: September 17, 2024 Team Status: Active Member Role Status Dates Dr. Edward Ramirez DO Primary Care Provider Active Start: September 24, 2024 Maynor Edward [employer] IN[employer], ADJUNCT IN[employer]CTOR IN [employer]-C Attending Provider Active S tart: September 24, 2024 Maynor Edward ADJ[employer]CT IN[employer]CTOR IN [employer]OM[employer], ADJUNCT INSTRUCTOR IN E[employer]OM[employer]-C Referring Provider Active S tart: September 24, 2024 Team Status: Inactive Member Role Status Dates Dr. Edward Ramirez DO Primary Care Provider Active Start: September 24, 2024 End: September 24, 2024 Maynor Edward [employer] IN[employer]CTOR [employer], ADJUNCT INSTRUCTOR IN [employer]-C Attending Provider Active S tart: September 24, 2024 End: September 24, 2024 Maynor Edward [employer]JUNCT IN[employer]CTOR IN [employer]OM[employer], ADJUNCT INSTRUCTOR IN [employer]-C Referring Provider Active S tart: September 24, 2024 End: September 24, 2024 Team Status: Inactive Member Role Status Dates Dr. Edward Ramirez DO Primary Care Provider Active Start: October 01, 2024 End: October 01, 2024 Dr. Edward Ramirez DO Referring Provider Active Start: October 01, 2024 End: October 01, 2024 Cristina Brizuela [employer] IN[employer]CTOR [employer], ADJUNCT IN[employer]CTOR [employer]-C Attending Provider Active Start: October 01, 2024 End: October 01, 2024 Team Status: Inactive Member Role Status Dates Dr. Edward Ramirez DO Primary Care Provider Active Start: October 10, 2024 End: October 10, 2024 Maynor Edward [employer]JUN[employer] IN[employer]CTOR [employer], ADJUNCT IN[employer]CTOR IN [employer]-C Attending Provider Active S tart: October 10, 2024 End: October 10, 2024 Maynor Edward [employer] IN[employer]CTOR [employer], ADJUNCT INSTRUCTOR IN [employer]-C Referring Provider Active S tart: October 10, 2024 End: October 10, 2024 Team Status: Active Member Role Status Dates Dr. Edward Ramirez DO Primary Care Provider Active Start: October 10, 2024 Dr. Rudy Graves MD Attending Provider Active S tart: October 10, 2024 Team Status: Inactive Member Role Status Dates Dr. Edward Ramirez DO Primary Care Provider Active Start: October 30, 2024 End: October 30, 2024 Maynor Edward [employer] IN[employer]CTOR [employer]OM[employer], ADJUNCT INSTRUCTOR IN E[employer]OM[employer]-C Attending Provider Active S tart: October 30, 2024 End: October 30, 2024 Maynor Edward [employer]CT IN[employer]CTOR IN E[employer]OM[employer], ADJUNCT INSTRUCTOR IN E[employer]OM[employer]-C Referring Provider Active S tart: October 30, 2024 End: October 30, 2024 Team Status: Inactive Member Role Status Dates Dr. Edward Ramirez DO Primary Care Provider Active Start: November 02, 2024 End: November 02, 2024 Dr. Edward Ramirez DO Referring Provider Active Start: November 02, 2024 End: November 02, 2024 BRIANDA Narvaez Attending Provider Active St art: November 02, 2024 End: November 02, 2024 Team Status: Inactive Member Role Status Dates Dr. Edward Ramirez DO Primary Care Provider Active Start: November 02, 2024 End: November 02, 2024 BRIANDA Narvaez Attending Provider Active St art: November 02, 2024 End: November 02, 2024 BRIANDA Narvaez Referring Provider Active St art: November 02, 2024 End: November 02, 2024 Team Status: Inactive Member Role Status Dates Dr. Edward Ramirez DO Primary Care Provider Active Start: November 09, 2024 End: November 09, 2024 BRIANDA Narvaez Attending Provider Active St art: November 09, 2024 End: November 09, 2024 BRIANDA Narvaez Referring Provider Active St art: November 09, 2024 End: November 09, 2024 Team Status: Active Member Role Status Dates Dr. Edward Ramirez DO Primary Care Provider Active Start: November 09, 2024 Dr. Viraj Cooper MD Attending Provider Active S tart: November 09, 2024 Team Status: Inactive Member Role Status Dates Dr. Edward Ramirez DO Primary Care Provider Active Start: November 20, 2024 End: November 20, 2024 Dr. Edward Ramirez DO Referring Provider Active Start: November 20, 2024 End: November 20, 2024 BRIANDA Narvaez Attending Provider Active St art: November 20, 2024 End: November 20, 2024 Team Status: Active Member Role Status Dates Dr. Edward Ramirez DO Primary Care Provider Active Start: November 09, 2024 Dr. Viraj Cooper MD Attending Provider Active S tart: November 09, 2024 BRIANDA Narvaez Referring Provider Active St art: November 09, 2024 Team Status: Inactive Member Role Status Dates Dr. Edward Ramirez DO Primary Care Provider Active Start: December 12, 2024 End: December 12, 2024 Thelma LAMAR PA Attending Provider Active Start: December 12, 2024 End: December 12, 2024 Thelma LAMAR PA Referring Provider Active Start: December 12, 2024 End: December 12, 2024 Team Status: Inactive Member Role Status Dates Dr. Edward Ramirez DO Primary Care Provider Active Start: December 26, 2024 End: December 26, 2024 Dr. Edward Ramirez DO Referring Provider Active Start: December 26, 2024 End: December 26, 2024 BRIANDA Narvaez Attending Provider Active St art: December 26, 2024 End: December 26, 2024 Goals (unrecognized section and content) Goals may be documented in a n alternate section INFORMATION SOURCE (unrecogn ized section and content) DATE CREATED AUTHOR 10/01/2023 [facility] ([place]) DATE CREATED AUTHOR AUTHOR'S ORGANIZ ATION 12/15/2024 [facility] DATE CREATED AUTHOR AUTHOR'S ORGANIZ ATION 12/26/2024 [facility] FOR RECORDS PERTAINING TO PATIENTS WHO ARE OR HAVE BEEN ENROLLED IN A CHEMICAL DEPENDENCY/SUBSTANCEABUSE PROGRAM, SOME INFORMATION MAY BE OMITTED. This clinical summary was aggregated from multiple sources. Caution should be exercised in using it in the provision of clinical care. This summary normalizes information from multiple sources, and as a consequence, information in this document may materially change the coding, format and clinical context of patient data. In addition, data may be omitted in some cases. CLINICAL DECISIONS SHOULD BE BASED ON THE PRIMARY CLINICAL RECORDS. [facility] [employer] [facility]. provides no warranty or guarantee of the accuracy or completeness of information in this document.
== END | disposition home or self-care (01) ==
LOC: CVS 11:23
PROVIDERS: PCP Student in an Organized Health Care Education/Training Program; Referring Provider Student in an Organized Health Care Education/Training Program; Visit Provider Student in an Organized Health Care Education/Training Program
DX: M79.89 Other specified soft tissue disorders (principal); I70.92 Chronic total occlusion of artery of the extremities; M79.604 Pain in right leg
CPT/HCPCS: 93971

== ENCOUNTER → 2025-03-26 | Outpatient (CLI) | payer MEDICARE, OTHER, SELFPAY ==
[2025-03-26 11:29] LABS: Creatinine, Urine (random) 115.00 mg/dL (28.00-217.00); Protein, Urine (Random) 13.2 mg/dL (0.0-12.0); Protein:Creat Ratio 115 mg/g CRE (0-200)
[2025-03-26 12:17] LABS: Anion Gap 13 (5-15); BUN 27 mg/dL (4-19); BUN/Creat Ratio 19.9 RATIO (10-20); Calcium,Total 9.3 mg/dL (7.6-11.0); Carbon Dioxide 22.5 mmol/L (21.0-32.0); Chloride 104 mmol/L (98-108); Glucose 100 mg/dL (70-99); Potassium 3.7 mmol/L (3.3-5.1)
== END | disposition home or self-care (01) ==
LOC: LAB 10:36
PROVIDERS: PCP Student in an Organized Health Care Education/Training Program; Referring Provider Internal Medicine Nephrology; Visit Provider Internal Medicine Nephrology
DX: N18.32 Chronic kidney disease, stage 3b (principal)
CPT/HCPCS: 36415; 80048; 82570; 84156